=== PATIENT | female | born 1940 | race Asian ===

== ENCOUNTER 2016-10-14 17:57 | Emergency (ER) | payer OTHER ==
[~2016-10-14 17:57] MED LIST: AUGM875T PO; FURO1TAB62 PO; ISOS20TA PO; LISI10TA3 PO; LOVA10TA PO; METO25TA3 PO; OMEP20TA PO; POTA10TA2 PO; XARE20TA PO
[2016-10-14 18:03] VITALS: BP 228/99; PULSE 134; RESP 20; TEMP 97.3; O2SAT 99
== END 2016-10-14 19:13 | disposition left against medical advice (07) ==
LOC: NED 17:57
DX: J00 Acute nasopharyngitis [common cold] (principal); Z53.21 Procedure and treatment not carried out due to patient leaving prior to being seen by health care provider
CPT/HCPCS: 99281

== ENCOUNTER 2016-10-14 19:23 | Emergency (ER) | payer OTHER ==
[~2016-10-14] VITALS: Ht 149.9 cm; Wt 53.0 kg
[2016-10-14 19:25] VITALS: BP 208/96; PULSE 109; RESP 16; TEMP 98; O2SAT 97
--- NOTE | 2016-10-14 19:56 | PD ---
Physical Exam Time Seen by Provider: 19:54 Narrative 76yo F c/o cough, congestion since yesterday. Unknown fever. C/o SOB. C/o back pain since yesterday. Denies injury. Patient seen in triage. VS reviewed. Awaiting bed placement. Data Data Last Documented VS Vital Signs Date Time Temp Pulse Resp B/P Pulse Ox O2 Delivery O2 Flow Rate FiO2 10/14/16 19:25 98.0 109 16 208/96 97 Room Air [facility] Supervised Visit with KENTRELL: Anh Tejeda Oct 14, 2016 19:56
== END 2016-10-14 22:07 | disposition left against medical advice (07) ==
LOC: NED 19:23
DX: R05 Cough (principal); R09.81 Nasal congestion; M54.9 Dorsalgia, unspecified; Z53.21 Procedure and treatment not carried out due to patient leaving prior to being seen by health care provider
CPT/HCPCS: 99281

== ENCOUNTER 2016-10-15 08:26 | Inpatient (IN) | payer OTHER, MEDICARE ==
[2016-10-15] VITALS (20 sets, daily range): BP systolic 162–235; BP diastolic 71–116; PULSE 52–161; RESP 15–24; TEMP 97.7–99.4; O2SAT 95–99
[~2016-10-15] VITALS: Ht 149.9 cm; Wt 57.8 kg
[2016-10-15] MEDS ORDERED: DILTIAZEM HCL 25 MG/5 ML VIAL IV ONE (08:45)
[2016-10-15] MEDS ORDERED: SODIUM CHLORID 0.9% 500 ML INJ 500 ML IV ONE (08:45)
--- NOTE | 2016-10-15 08:53 | PD ---
HPI Chief Complaint: Respiratory Symptoms Time Seen by Provider: 08:42 Travel History International Travel<30 days: No Contact w/Intl Traveler<30days: No History of Present Illness HPI 76-year-old female notes 2 day history of cough, congestion and now has back pain from the cough. She denies any specific fever that she is aware of. She presents with her family who helps with history. They state she came yesterday but it was too busy so they had to leave. She denies any other concurrent complaints. Quality is productive cough. Severity is frequent per patient. She states she has not taken her blood pressure medication yet this morning. She feels worse when she moves around. She denies other modifying factors. Duration is 2 days. PFSH Past Medical History Narrative Medical By records Hx Anticoagulant Therapy: Yes Arthritis: Yes Asthma: No Atrial Fibrillation: Yes Autoimmune Disease: No Blood Disorders: No Anxiety: No Depression: No Heart Rhythm Problems: Yes (DIAGNOSED WITH ATRIAL FIBRILLATION 09/10/04) Cancer: No Cardiovascular Problems: Yes High Cholesterol: Yes Chemotherapy: No Chest Pain: No Congestive Heart Failure: No COPD: No Cerebrovascular Accident: No Diabetes: No Diminished Hearing: No Endocrine: Yes Gastrointestinal Disorders: No GERD: Yes Glaucoma: No Genitourinary: No Headaches: No Hepatitis: No Hiatal Hernia: No Hypertension: Yes Immune Disorder: No Implanted Vascular Access Dvce: No Kidney Stones: No Musculoskeletal: No Neurologic: No Psychiatric: Yes (TREATED 1966 NERVOUS BREAKDOWN) Reproductive: No Respiratory: No Immunizations Current: No Myocardial Infarction: No Radiation Therapy: No Renal Failure: No Seizures: No Sickle Cell Disease: No Sleep Apnea: No Thyroid Disease: Yes Ulcer: No Menopausal: Yes Para: 3 Past Surgical History Narrative Surgical By records Abdominal Surgery: Yes (APPENDIX 1941) AICD: No Appendectomy: Yes (1941) Cardiac Surgery: No Ear Surgery: No Endocrine Surgery: No Eye Surgery: No Genitourinary Surgery: No Gynecologic Surgery: Yes (HYSTERECTOMY) Hysterectomy: Yes Neurologic Surgery: No Oral Surgery: No Pacemaker: No Thoracic Surgery: No Other Surgery: Yes (APPENDECTOMY,HYSTERECTOMY) Social History Alcohol Use: No Tobacco Use: No Substance Use: No Allergies-Medications (Allergen,Severity, Reaction): Coded Allergies: No Known Allergies (Verified , 10/15/16) Reported Meds & Prescriptions Reported Meds & Active Scripts Active Reported Isosorbide Mononitrate 20 Mg Tab 30 Mg PO BID Take 2 doses 7 hours apart. Metoprolol Tartrate 25 Mg Tab 25 Mg PO DAILY Omeprazole 20 Mg Tab 20 Mg PO DAILY Xarelto (Rivaroxaban) 20 Mg Tab 20 Mg PO DAILY Potassium Chloride ER (Potassium Chloride) 10 Meq Tab 10 Meq PO DAILY Lasix (Furosemide) 20 Mg Tab 20 Mg PO DAILY Lisinopril 10 Mg Tab 10 Mg PO DAILY Lovastatin 10 Mg Tab 10 Mg PO DAILY Review of Systems Except as stated in HPI: all other systems reviewed are Neg Physical Exam Narrative GENERAL: Well-nourished, well-developed patient. SKIN: Warm and dry. HEAD: Normocephalic and atraumatic. EYES: No injection or drainage. ENT: No nasal drainage noted. NECK: Supple, trachea midline. no meningeal signs CARDIOVASCULAR: irregular rate and rhythm RESPIRATORY: Faint expiratory wheezing with good aeration bilaterally. No accessory muscle use. GASTROINTESTINAL: Abdomen soft, non-tender, nondistended. NEUROLOGICAL: Awake. Moves extremities. Normal speech. Data Data Last Documented VS Vital Signs Date Time Temp Pulse Resp B/P Pulse Ox O2 Delivery O2 Flow Rate FiO2 10/15/16 10:12 103 187/85 10/15/16 09:41 20 99 Nasal Cannula 2 10/15/16 08:28 97.7 Orders Electrocardiogram (10/15/16 08:42) Complete Blood Count With Diff (10/15/16 08:42) Comprehensive Metabolic Panel (10/15/16 08:42) Prothrombin Time / Inr (Pt) (10/15/16 08:42) Act Partial Throm Time (Ptt) (10/15/16 08:42) Lactic Acid Sepsis Protocol (10/15/16 08:42) Magnesium (Mg) (10/15/16 08:42) Phosphorus (Po4) (10/15/16 08:42) Ckmb (Isoenzyme) Profile (10/15/16 08:42) Troponin I (10/15/16 08:42) Urinalysis - C+S If Indicated (10/15/16 08:42) Influenzae A/B Antigen (10/15/16 08:42) Blood Culture (10/15/16 08:42) Chest, Single Ap (10/15/16 08:42) Ecg Monitoring (10/15/16 08:42) Iv Access Insert/Monitor (10/15/16 08:42) Oximetry (10/15/16 08:42) Diltiazem Inj (Cardizem Inj) (10/15/16 08:45) Sodium Chlorid 0.9% 500 Ml Inj (Ns 500 M (10/15/16 08:45) CKMB (10/15/16 08:35) CKMB% (10/15/16 08:35) Aspirin (Aspirin) (10/15/16 09:45) Diltiazem Inj (Cardizem Inj) (10/15/16 09:45) B-Type Natriuretic Peptide (10/15/16 09:37) Urine Culture (10/15/16 09:15) Consult Cardiology (10/15/16 ) Chest, Single Ap (10/15/16 ) Ceftriaxone Inj (Rocephin Inj) (10/15/16 10:45) Azithromycin Inj (Zithromax Inj) (10/15/16 10:45) Admit Order (Ed Use Only) (10/15/16 10:32) Labs Laboratory Tests Test 10/15/16 10/15/16 10/15/16 08:35 08:50 09:15 White Blood Count 6.6 TH/MM3 Red Blood Count 5.40 MIL/MM3 Hemoglobin 14.7 GM/DL Hematocrit 44.8 % Mean Corpuscular Volume 82.9 FL Mean Corpuscular Hemoglobin 27.2 PG Mean Corpuscular Hemoglobin 32.9 % Concent Red Cell Distribution Width 15.5 % Platelet Count 161 TH/MM3 Mean Platelet Volume 8.3 FL Neutrophils (%) (Auto) 80.9 % Lymphocytes (%) (Auto) 13.2 % Monocytes (%) (Auto) 5.5 % Eosinophils (%) (Auto) 0.1 % Basophils (%) (Auto) 0.3 % Neutrophils # (Auto) 5.3 TH/MM3 Lymphocytes # (Auto) 0.9 TH/MM3 Monocytes # (Auto) 0.4 TH/MM3 Eosinophils # (Auto) 0.0 TH/MM3 Basophils # (Auto) 0.0 TH/MM3 CBC Comment DIFF FINAL Differential Comment Prothrombin Time 11.0 SEC Prothromb Time International 1.0 RATIO Ratio Activated Partial 38.0 SEC Thromboplast Time Sodium Level 128 MEQ/L Potassium Level 5.0 MEQ/L Chloride Level 95 MEQ/L Carbon Dioxide Level 24.6 MEQ/L Anion Gap 8 MEQ/L Blood Urea Nitrogen 20 MG/DL Creatinine 1.48 MG/DL Estimat Glomerular Filtration 34 ML/MIN Rate Random Glucose 118 MG/DL Calcium Level 9.2 MG/DL Phosphorus Level 3.7 MG/DL Magnesium Level 1.8 MG/DL Total Bilirubin 0.7 MG/DL Aspartate Amino Transf 58 U/L (AST/SGOT) Alanine Aminotransferase 23 U/L (ALT/SGPT) Alkaline Phosphatase 73 U/L Total Creatine Kinase 214 U/L Creatine Kinase MB 14.2 NG/ML Creatine Kinase MB % 6.6 % Troponin I 1.10 NG/ML B-Type Natriuretic Peptide 1247 PG/ML Total Protein 8.9 GM/DL Albumin 3.7 GM/DL Lactic Acid Level 2.1 mmol/L Urine Color YELLOW Urine Turbidity HAZY Urine pH 6.5 Urine Specific [place] 1.017 Urine Protein GREATER THAN 600 mg/dL Urine Glucose (UA) NEG mg/dL Urine Ketones TRACE mg/dL Urine Occult Blood MOD Urine Nitrite NEG Urine Bilirubin NEG Urine Urobilinogen LESS THAN 2.0 MG/DL Urine Leukocyte Esterase NEG Urine RBC 3 /hpf Urine WBC 2 /hpf Urine Squamous Epithelial <1 /hpf Cells Urine Bacteria RARE /hpf Urine Hyaline Casts 5 /lpf Microscopic Urinalysis Comment CATH-CULTURE IND MDM Medical Decision Making Medical Screen Exam Complete: Yes Emergency Medical Condition: Yes Medical Record Reviewed: Yes (past history confirmed) Interpretation(s) EKG is atrial fibrillation at [address] segment changes similar to prior except for V5 which is difficult to interpret with wandering baseline Last 24 hours Impressions Chest X-Ray 10/15/16 0842 Signed Impressions: Service Date/Time: Saturday, October 15, 2016 08:59 - CONCLUSION: 1. Partially obscured nodular opacity in the right lower lobe likely reflects a nipple shadow. This can be further evaluated with repeat imaging utilizing nipple markers as clinically warranted. 2. Cardiomegaly with mild positive fluid balance. Sarthak Floyd MD CBC & BMP Diagram 10/15/16 08:35 Troponin elevated 1.1, CK-MB noted elevated Repeat EKG with rate control shows atrial fibrillation at 90, T wave inversion inferiorly and laterally, mild elevation in V3 V4 Differential Diagnosis Pneumonia, URI, CHF, hypertensive urgency, atrial fibrillation with RVR, renal failure, anemia Narrative Course Will check blood work, chest x-ray, EKG and dose with Cardizem and small IV fluid bolus and reevaluate hr in 90s, bp improved, still notes SOA on recheck hr rate back in 120s and bp again elevated, troponin over 1, will start cardizem drip for rate and bp control and 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 Time to perform other separately billable procedures was not included in the critical care time. My time did not include minutes spent treating any other patients simultaneously or on activities that did not directly contribute to the patient's treatment. The services I provided to this patient were to treat and/or prevent clinically significant deterioration that could result in: Cardiogenic shock I provided critical care services requiring my management, as noted below: Chart data review, documentation time, medication orders and management, vital sign assessments/reviewing monitor data, ordering and reviewing lab tests, ordering and interpreting/reviewing x-rays and diagnostic studies, care of the patient and discussion of the patient with the admitting physicians. Physician Communication Physician Communication Dr. Enrique states given on Xarelto to not place on heparin, continue blood pressure rate control, keep nothing by mouth, will follow, reviewed recent cath report in 2014 dr ovalle agrees to admission and discussed case at length, will place first orders of Rocephin and azithromycin and he will take over care Diagnosis Primary Impression: NSTEMI (non-ST elevated myocardial infarction) Additional Impressions: Atrial fibrillation with RVR Accelerated hypertension Acute on chronic renal insufficiency Admitting Information Admitting Physician Requests: Admit Peyton Giles MD Oct 15, 2016 08:52
[2016-10-15 09:12] LABS: AUTOMATED NEUTROPHIL # 5.3 TH/MM3 (1.8-7.7); BASOPHIL % 0.3 % (0.0-2.0); EOSINOPHIL % 0.1 % (0.0-4.0); HEMATOCRIT 44.8 % (35.0-46.0); HEMO FLAGS DIFF FINAL; LYMPH % 13.2 % (9.0-44.0); LYMPHOCYTE # 0.9 TH/MM3 (1.0-4.8); MEAN CELL VOLUME 82.9 FL (80.0-100.0); MEAN CORPUSCULAR HEMOGLOBIN 27.2 PG (27.0-34.0); MEAN CORPUSCULAR HGB CONC 32.9 % (32.0-36.0); MONO % 5.5 % (0.0-8.0); NEUT % 80.9 % (16.0-70.0); PLATELET COUNT 161 TH/MM3 (150-450); RED CELL DISTRIBUTION WIDTH 15.5 % (11.6-17.2); WHITE BLOOD COUNT 6.6 TH/MM3 (4.0-11.0)
[2016-10-15 09:25] LABS: ALKALINE PHOSPHATASE 73 U/L (45-117); ALT (GPT) 23 U/L (10-53); ANION GAP 8 MEQ/L (5-15); BICARBONATE 24.6 MEQ/L (21.0-32.0); BLOOD UREA NITROGEN 20 MG/DL (7-18); CHLORIDE 95 MEQ/L (98-107); GLOMERULAR FILTRATION RATE 34 ML/MIN (>89); SODIUM (NA) 128 MEQ/L (136-145); TOTAL BILIRUBIN ADULT 0.7 MG/DL (0.2-1.0)
[2016-10-15 09:32] LABS: AST (GOT) 58 U/L (15-37); CREATINE KINASE 214 U/L (26-192); MAGNESIUM 1.8 MG/DL (1.5-2.5)
--- NOTE | 2016-10-15 09:36 | RADRPT ---
EXAM DATE/TIME: 10/15/2016 08:59 [facility] COMPARISON: CT ABDOMEN & PELVIS W/O CONTRAST, April 03, 2016, 7:41. CHEST SINGLE AP, August 16, 2015, 14:09. INDICATIONS : Cough. MEDICAL HISTORY : Cardiovascular disease. Hypertension. SURGICAL HISTORY : Hysterectomy. Appendectomy. ENCOUNTER: Initial ACUITY: 2 days PAIN SCORE: 0/10 LOCATION: Bilateral chest FINDINGS: Lungs are mildly hyperexpanded with mild diffuse interstitial prominence. New focal partially obscure d opacity in the right lower lung zone likely reflects a nipple shadow. Cardiac silhouette is enlarge d. Pulmonary vascularity is slightly indistinct. The bony thorax is intact. CONCLUSION: 1. Partially obscured nodular opacity in the right lower lobe likely reflects a nipple shadow. This c an be further evaluated with repeat imaging utilizing nipple markers as clinically warranted. 2. Cardiomegaly with mild positive fluid balance. Sarthak Floyd MD on October 15, 2016 at 9:31 Board Certified Radiologist. This report was verified electronically.
[2016-10-15 09:45] LABS: CKMB 14.2 NG/ML (0.5-3.6)
[2016-10-15] MEDS ORDERED: ASPIRIN 325 MG TAB PO ONE (09:45)
[2016-10-15 09:47] LABS: BACTERIA, URINE RARE /hpf; BLOOD, URINE MOD (NEG); COMMENT (UR) CATH-CULTURE IND; CULTURE IF INDICATED CATH CULTURE IND; GLUCOSE,URINE NEG (NEG); HYALINE CAST, URINE 5 /lpf (RARE); KETONE, URINE TRACE mg/dL (NEG); NITRITE,URINE NEG (NEG); PH, URINE 6.5 (5.0-8.5); SQUAMOUS EPITHELIAL CELL URINE <1 /hpf (0-5); URINE COLOR YELLOW (YELLW/STRAW)
[2016-10-15] MEDS: DILTIAZEM INJ 125 MG in SODIUM CHLORIDE 0.9% INJ 100 ML IV SCH ×2 (10:10→11:01)
[2016-10-15] MEDS ORDERED: AZITHROMYCIN INJ 500 MG in SODIUM CHLOR 0.9% 250 ML INJ 250 ML IV ONE (10:45)
[2016-10-15] MEDS ORDERED: cefTRIAXone INJ 1,000 MG in SODIUM CHLORIDE 0.9% INJ 100 ML IV ONE (10:45)
[2016-10-15] MEDS ORDERED: MAGNESIUM HYDROXIDE SUSP 30 ML CUP PO PRN (10:45)
[2016-10-15] MEDS ORDERED: BISACODYL 10 MG SUPP RECTAL PRN (10:45)
[2016-10-15] MEDS ORDERED: SENNOSIDES 8.6 MG TAB PO PRN (10:45)
[2016-10-15] MEDS ORDERED: LACTULOSE SYRUP 20 GM/30 ML CUP PO PRN (10:45)
[2016-10-15] MEDS ORDERED: SODIUM CHLORIDE 0.9% FLUSH 10 ML FLUSH IV FLUSH PRN (10:45)
[2016-10-15] MEDS: ISOSORBIDE MONONITRATE 20 MG TAB PO SCH ×2 (10:45→21:40)
[2016-10-15] MEDS ORDERED: NALOXONE HCL 0.4 MG/ML AMP IV PRN (10:45)
[2016-10-15] MEDS ORDERED: FUROSEMIDE 20 MG TAB PO ONE (11:00)
[2016-10-15] MEDS ORDERED: METOPROLOL TARTRATE 25 MG TAB PO ONE (11:00)
--- NOTE | 2016-10-15 11:17 | RADRPT ---
EXAM DATE/TIME: 10/15/2016 10:34 [facility] COMPARISON: CHEST SINGLE AP, October 15, 2016, 8:59. INDICATIONS : Cough. MEDICAL HISTORY : Hypertension. Hypercholesterolemia. SURGICAL HISTORY : Appendectomy. Hysterectomy. ENCOUNTER: Initial ACUITY: 1 day PAIN SCORE: 0/10 LOCATION: Bilateral chest FINDINGS: The heart is enlarged. Minimal central pulmonary vascular congestion is noted. No focal alveolar co nsolidation is noted. Degenerative changes and scoliosis of the thoracic spine are noted. CONCLUSION: 1. Cardiomegaly. 2. Minimal central pulmonary vascular congestion. Javi Taylor MD on October 15, 2016 at 11:03 Board Certified Radiologist. This report was verified electronically.
[2016-10-15 12:06] LABS: LACTIC ACID GHOST NOT REPORTABLE
[2016-10-15] MEDS: hydrALAZINE HCL 25 MG TAB PO SCH ×2 (15:15→21:35)
[2016-10-15] MEDS ORDERED: ASPIRIN 325 MG TAB PO SCH (15:45)
[2016-10-15] MEDS ORDERED: DIAZEPAM 10 MG TAB PO SCH (15:45)
[2016-10-15] MEDS ORDERED: diphenhydrAMINE HCL 50 MG CAP PO SCH (15:45)
[2016-10-15] MEDS ORDERED: FUROSEMIDE 40 MG/4 ML VIAL IV PUSH ONE (16:00)
[2016-10-15] MEDS ORDERED: THIAMINE HCL 100 MG TAB PO ONE (16:00)
--- NOTE | 2016-10-15 17:17 | EKG ---
Date Performed: 10/15/2016 Time Performed: 08:37:33 PTAGE: 76 years EKG: ATRIAL FIBRILLATION WITH RAPID VENTRICULAR RESPONSE MODERATE VOLTAGE CRITERIA FOR LVH, CONS IDER NORMAL VARIANT POSSIBLE SEPTAL MYOCARDIAL INFARCTION ST DEVIATION AND MODERATE T-WAVE ABNORMALIT Y, CONSIDER LATERAL ISCHEMIA ST DEVIATION AND MODERATE T-WAVE ABNORMALITY, CONSIDER INFERIOR ISCHEMIA ABNORMAL ECG PREVIOUS TRACING 08/17/15 @ 03.34.18 Compared to prior tracing no significant change DOCTOR: Bhavik Riggins Interpretating Date/Time 10/15/2016 17:14:50
--- NOTE | 2016-10-15 20:19 | MB ---
cc: KIMI SALOMON MD DATE OF CONSULTATION 10/15/16 REASON FOR CONSULTATION Abnormal cardiac enzymes. HISTORY OF PRESENT ILLNESS The patient is a fairly poor historian. She is a 76-year-old white female with a history of coronary artery disease, chronic atrial fibrillation, hypertension, chronic renal insufficiency, COPD, CVA who presented to the emergency room mainly with complaints of increasing shortness of breath, nonproductive cough and congestion. She cannot recall if she had any definite chest pain, although she may have felt some pressure in her chest in the last couple of days. Since coming into the hospital, her dyspnea has minimally improved. At night, she has had trouble with orthopnea and occasional paroxysmal nocturnal dyspnea. She denies syncope, near-syncope, lightheadedness, pedal edema, fevers. Cardiac enzymes were checked here in the hospital and found to be abnormal. PAST MEDICAL HISTORY 1. Chronic atrial fibrillation. 2. Coronary artery disease with heart catheterization 08/19/2013 after a non-ST elevation myocardial infarction showing normal left main, minimal LAD and left circumflex disease, 70-80% distal right coronary artery stenosis which was treated medically. 3. Hypertension 4. Chronic renal insufficiency. 5. Chronic obstructive pulmonary disease 6. 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 7. Gastroesophageal reflux disease. 8. Hyperlipidemia. PAST SURGICAL HISTORY 1. Appendectomy 2. Hysterectomy. MEDICATIONS Cardiac medications at home 1. Lovastatin 10 mg daily. 2. Lisinopril 10 mg daily. 3. Furosemide 20 mg daily 4. Xarelto 20 mg daily. 5. Metoprolol tartrate 25 mg daily. 6. Potassium chloride 10 Anish daily. 7. Isosorbide mononitrate 30 mg b.i.d. ALLERGIES NO KNOWN DRUG ALLERGIES. FAMILY HISTORY Noncontributory. SOCIAL HISTORY The patient denies alcohol or tobacco abuse. REVIEW OF SYSTEMS As in the history of present illness, otherwise, negative or noncontributory. She also denies headache, melena, dyspepsia, bright red blood per rectum. PHYSICAL EXAMINATION VITAL SIGNS: Blood pressure 162/75 with a pulse of 81, respirations 24. GENERAL: She is a well-developed, well-nourished white female in no acute distress. HEENT: Jugular venous pressure is normal. Carotid pulses are 2+ bilaterally and without bruits. CHEST: Unlabored respiratory effort with markedly diminished breath sounds diffusely. CARDIAC: She has an irregularly irregular rhythm without S3 or murmur. ABDOMEN: She has a soft, nontender abdomen. Bowel sounds are present. There is no definite hepatosplenomegaly. EXTREMITIES: No clubbing, cyanosis or edema. LABORATORY DATA Normal CBC, potassium 5.0, BUN 20, creatinine 1.48, CK 214 with 6.6% MB fraction. Troponin 1.10, INR 1.0. IMAGING STUDIES Chest x-ray shows minimal central pulmonary vascular congestion. CARDIOLOGY STUDIES EKG shows atrial fibrillation with a rapid ventricular response, inferolateral ST and T-wave abnormalities, consider ischemia. IMPRESSION Probable non-ST elevation myocardial infarction in a 76-year-old white female with a history of known coronary disease, chronic atrial fibrillation, hypertension, chronic renal insufficiency, CVA, COPD. The patient is a fairly poor historian. She denies any current chest discomfort. She mainly complains of dyspnea over the last [id number] days. CK and troponin levels are suggestive of recent myocardial infarction. She does have known severe distal right coronary disease which was treated medically about three years ago. There is no definite evidence of congestive heart failure. Echocardiogram is pending. RECOMMENDATIONS 1. Cardiac catheterization tomorrow. 2. Continue her beta rafael and increase dosing as much as tolerated; hold off on ANTHONY inhibitor or angiotensin receptor rafael therapy with her renal insufficiency. 3. Continue daily aspirin. MD ADINA Celaya/ /3:34 PM /8:11 PM JANAE
[2016-10-15] MEDS ORDERED: METOPROLOL TARTRATE 25 MG TAB PO SCH ×2 (21:00)
[2016-10-15] MEDS: DOCUSATE SODIUM 50 MG/SENNA 8.6 MG TAB PO SCH (21:35)
[2016-10-15] MEDS: SODIUM CHLORIDE 0.9% FLUSH 10 ML FLUSH IV FLUSH SCH (21:39)
[2016-10-15 22:17] LABS: FREE T4 1.47 NG/DL (0.76-1.46)
--- NOTE | 2016-10-15 23:34 | HHI.HP ---
[facility] Service [facility] Primary Care Physician Natalio Saavedra MD Admission Diagnosis NSTEMI Diagnoses: Travel History International Travel<30 Days: No Contact w/Intl Traveler <30 Da: No History of Present Illness 76-year-old female with history of atrial fibrillation, who presents with a one- day history of worsening shortness of breath, nonproductive cough. She denies any sore throat, does say she may have had a runny nose. She also reports shortness of breath lying down. Denies any lightheadedness or dizziness. No peripheral edema. She denies any chest pain. Patient is uncertain of her medications. She says she manages her own medications. Past medical history reviewed in the chart as documented in with the patient. Review of Systems Except as stated in HPI: all other systems reviewed are Neg Past Family Social History Past Medical History Chronic atrial fibrillation Coronary artery disease Hypertension CKD COPD Hyperlipidemia GERD Left parietal occipital CVA Past Surgical History Hysterectomy Appendectomy Reported Medications Reported Meds & Active Scripts Active Reported Isosorbide Mononitrate 20 Mg Tab 30 Mg PO BID Take 2 doses 7 hours apart. Metoprolol Tartrate 25 Mg Tab 25 Mg PO DAILY Omeprazole 20 Mg Tab 20 Mg PO DAILY Xarelto (Rivaroxaban) 20 Mg Tab 20 Mg PO DAILY Potassium Chloride ER (Potassium Chloride) 10 Meq Tab 10 Meq PO DAILY Lasix (Furosemide) 20 Mg Tab 20 Mg PO DAILY Lisinopril 10 Mg Tab 10 Mg PO DAILY Lovastatin 10 Mg Tab 10 Mg PO DAILY Allergies: Coded Allergies: No Known Allergies (Verified , 10/15/16) Family History Reviewed with the patient and found to be currently noncontributory. Social History Nonsmoker. Nondrinker. Denies illicit drugs. Physical Exam Vital Signs Vital Signs Date Time Temp Pulse Resp B/P Pulse Ox O2 Delivery O2 Flow Rate FiO2 10/15/16 17:39 95 Nasal Cannula 2.00 10/15/16 17:35 98.7 64 22 169/71 96 10/15/16 17:00 52 10/15/16 15:00 82 10/15/16 14:00 80 10/15/16 13:25 98.8 81 24 162/75 97 10/15/16 12:25 86 18 179/77 99 Nasal Cannula 2 10/15/16 12:00 80 169/81 10/15/16 11:00 92 15 174/76 99 Nasal Cannula 2 10/15/16 10:12 103 187/85 10/15/16 09:45 199/99 10/15/16 09:41 107 20 204/116 99 Nasal Cannula 2 10/15/16 09:15 125 24 99 Nasal Cannula 10/15/16 09:15 130 18 192/100 99 Nasal Cannula 2 10/15/16 09:00 235/103 195/74 10/15/16 08:30 155 24 190/100 99 Nasal Cannula 2 10/15/16 08:28 97.7 161 20 194/115 96 Physical Exam GENERAL: This is a well-nourished, well-developed patient, appears fatigued. Alert and oriented 3. SKIN: No rashes, ecchymoses or lesions. Cool and dry. HEAD: Atraumatic. Normocephalic. No temporal or scalp tenderness. EYES: Pupils equal round and reactive. Extraocular motions intact. No scleral icterus. No injection or drainage. ENT: Nose without bleeding, purulent drainage or septal hematoma. Throat without erythema, tonsillar hypertrophy or exudate. Uvula midline. Airway patent. NECK: Trachea midline. No JVD or lymphadenopathy. Supple, nontender, no meningeal signs. CARDIOVASCULAR: Regular rate and rhythm without murmurs, gallops, or rubs. RESPIRATORY: Clear to auscultation. rales bilaterally. GASTROINTESTINAL: Abdomen soft, non-tender, nondistended. No hepato-splenomegaly , or palpable masses. No guarding. MUSCULOSKELETAL: Extremities without clubbing, cyanosis, or edema. No joint tenderness, effusion, or edema noted. No calf tenderness. Negative Homans sign bilaterally. NEUROLOGICAL: Awake and alert. Cranial nerves II through XII intact. Motor and sensory grossly within normal limits. Five out of 5 muscle strength in all muscle groups. Normal speech. Laboratory Laboratory Tests Test 10/15/16 10/15/16 10/15/16 10/15/16 08:35 08:50 09:15 12:04 White Blood Count 6.6 Red Blood Count 5.40 Hemoglobin 14.7 Hematocrit 44.8 Mean Corpuscular Volume 82.9 Mean Corpuscular Hemoglobin 27.2 Mean Corpuscular Hemoglobin 32.9 Concent Red Cell Distribution Width 15.5 Platelet Count 161 Mean Platelet Volume 8.3 Neutrophils (%) (Auto) 80.9 Lymphocytes (%) (Auto) 13.2 Monocytes (%) (Auto) 5.5 Eosinophils (%) (Auto) 0.1 Basophils (%) (Auto) 0.3 Neutrophils # (Auto) 5.3 Lymphocytes # (Auto) 0.9 Monocytes # (Auto) 0.4 Eosinophils # (Auto) 0.0 Basophils # (Auto) 0.0 CBC Comment DIFF FINAL Differential Comment Prothrombin Time 11.0 Prothromb Time International 1.0 Ratio Activated Partial 38.0 Thromboplast Time Sodium Level 128 Potassium Level 5.0 Chloride Level 95 Carbon Dioxide Level 24.6 Anion Gap 8 Blood Urea Nitrogen 20 Creatinine 1.48 Estimat Glomerular Filtration 34 Rate Random Glucose 118 Calcium Level 9.2 Phosphorus Level 3.7 Magnesium Level 1.8 Total Bilirubin 0.7 Aspartate Amino Transf 58 (AST/SGOT) Alanine Aminotransferase 23 (ALT/SGPT) Alkaline Phosphatase 73 Total Creatine Kinase 214 Creatine Kinase MB 14.2 Creatine Kinase MB % 6.6 Troponin I 1.10 1.05 B-Type Natriuretic Peptide 1247 Total Protein 8.9 Albumin 3.7 Lactic Acid Level 2.1 Urine Color YELLOW Urine Turbidity HAZY Urine pH 6.5 Urine Specific [place] 1.017 Urine Protein GREATER THAN 600 Urine Glucose (UA) NEG Urine Ketones TRACE Urine Occult Blood MOD Urine Nitrite NEG Urine Bilirubin NEG Urine Urobilinogen LESS THAN 2.0 Urine Leukocyte Esterase NEG Urine RBC 3 Urine WBC 2 Urine Squamous Epithelial <1 Cells Urine Bacteria RARE Urine Hyaline Casts 5 Microscopic Urinalysis Comment CATH-CULTURE IND Total Triiodothyronine 63 Test 10/15/16 10/15/16 13:49 21:26 Lactic Acid Level 2.7 Troponin I 0.99 Free Thyroxine 1.47 Thyroid Stimulating Hormone 0.338 3rd Gen Date/Time Procedure Status Source Growth 10/15/16 09:25 Aerobic Blood Culture Received Blood Peripheral Pending 10/15/16 09:25 Anaerobic Blood Culture Received Blood Peripheral Pending 10/15/16 09:15 Urine Culture Received Urine Catheterized Urine Pending 10/15/16 09:10 Influenza Types A,B Antigen (RYAN) - Final Complete Nasal Aspirate NEGATIVE FOR FLU A AND B ANTIGEN.... Result Diagram: 10/15/1635 10/15/1635 Assessment and Plan Assessment and Plan //Non-ST elevation [place]. //CHF acute exacerbation. //History of CAD -Troponin 1.2 on admission, trending down. BNP 1200. -Chest x-ray with pulmonary edema. -Aspirin, beta rafael to control heart rate. Continue nitrates. Diuresis, close monitoring of intake and output. Cardiology following. Appreciate assistance. Plan for catheter tomorrow morning //Lactic acidosis -Lactic acid 2.7. -Unlikely secondary to sepsis.likely secondary to CHF exacerbation. -We'll continue to monitor. //Possible upper respiratory infection -chest x-ray or reviewed,. appears to be pulmonary edema, however cannot rule out atypical pneumonia. Symptoms seem to be related to CHF, however prudent to continue Levaquin //Hypervolemic Hyponatremia. Sodium 128. Likely secondary to CHF. Expect to improve with diuresis. //atrial fibrillation with RVR heart rate 161 on admission.. Heart rate control with beta rafael. Hold Xarelto per cardiology. //Hypertensive urgency. Systolic blood pressure in the 230s on admission. Expect this is secondary to poor compliance with medication. Adjust blood pressure medications as necessary. Close monitoring //GERD. Chronic. Continue PPI //Prophylaxis. SCDs. Discussed Condition With patient, nurse, ED physician. Physician Certification 2 Midnight Certification Type: Admission for Inpatient Services Order for Inpatient Services The services are ordered in accordance with Medicare regulations or non- Medicare payer requirements, as applicable. In the case of services not specified as inpatient-only, they are appropriately provided as inpatient services in accordance with the 2-midnight benchmark. Estimated LOS (days): 3 days is the estimated time the patient will need to remain in the hospital, assuming treatment plan goals are met and no additional complications. Post-Hospital Plan: Not yet determined Jhon Winston MD Oct 15, 2016 23:34
[2016-10-16] VITALS (22 sets, daily range): BP systolic 121–158; BP diastolic 62–90; PULSE 74–97; RESP 16–20; TEMP 97.4–98.8; O2SAT 95–99
[2016-10-16] MEDS: SODIUM CHLOR 0.9% 1000 ML INJ 1,000 ML IV SCH ×3 (01:34→11:34)
[2016-10-16] MEDS: hydrALAZINE HCL 25 MG TAB PO SCH ×3 (06:07→21:52)
[2016-10-16 06:36] LABS: AUTOMATED NEUTROPHIL # 5.7 TH/MM3 (1.8-7.7); BASOPHIL % 0.2 % (0.0-2.0); HEMATOCRIT 40.4 % (35.0-46.0); HEMO FLAGS DIFF FINAL; LYMPH % 14.8 % (9.0-44.0); LYMPHOCYTE # 1.1 TH/MM3 (1.0-4.8); MEAN CELL VOLUME 81.9 FL (80.0-100.0); MEAN CORPUSCULAR HEMOGLOBIN 27.3 PG (27.0-34.0); MEAN CORPUSCULAR HGB CONC 33.3 % (32.0-36.0); MONO % 7.3 % (0.0-8.0); NEUT % 77.7 % (16.0-70.0); PLATELET COUNT 133 TH/MM3 (150-450); RED BLOOD COUNT 4.93 MIL/MM3 (4.00-5.30); RED CELL DISTRIBUTION WIDTH 15.3 % (11.6-17.2); WHITE BLOOD COUNT 7.3 TH/MM3 (4.0-11.0)
[2016-10-16 07:04] LABS: BICARBONATE 25.9 MEQ/L (21.0-32.0); POTASSIUM 3.8 MEQ/L (3.5-5.1)
--- NOTE | 2016-10-16 08:16 | PD.CARD.PN ---
Subjective Subjective Remarks No CP. Dyspnea gradually improving. No dizziness, palpitations. Objective Medications Item Value Date Time Furosemide 20 mg 10/16/16 0900 (Lasix) DAILY/PO Aspirin 81 mg 10/16/16 0900 (Ecotrin Ec) DAILY/PO Metoprolol 50 mg 10/15/16 2100 Tartrate Q12HR/PO 10/15/16 2136 (Lopressor) Isosorbide 30 mg 10/15/16 1045 Mononitrate BID/PO 10/15/16 2140 (Ismo) Vital Signs / I&O Vital Signs Date Time Temp Pulse Resp B/P Pulse Ox O2 Delivery O2 Flow Rate FiO2 10/16/16 06:00 74 10/16/16 05:00 78 10/16/16 04:00 98.8 83 20 158/90 98 10/16/16 04:00 79 10/16/16 03:00 78 10/16/16 02:00 78 10/16/16 01:00 76 10/16/16 00:00 97.4 80 20 145/75 97 10/16/16 00:00 78 10/15/16 23:00 72 10/15/16 22:00 86 10/15/16 21:00 76 10/15/16 20:00 74 10/15/16 20:00 99.4 80 20 170/78 97 10/15/16 17:39 95 Nasal Cannula 2.00 10/15/16 17:35 98.7 64 22 169/71 96 10/15/16 17:00 52 10/15/16 15:00 82 10/15/16 14:00 80 10/15/16 13:25 98.8 81 24 162/75 97 10/15/16 12:25 86 18 179/77 99 Nasal Cannula 2 10/15/16 12:00 80 169/81 10/15/16 11:00 92 15 174/76 99 Nasal Cannula 2 10/15/16 10:12 103 187/85 10/15/16 09:45 199/99 10/15/16 09:41 107 20 204/116 99 Nasal Cannula 2 10/15/16 09:15 125 24 99 Nasal Cannula 10/15/16 09:15 130 18 192/100 99 Nasal Cannula 2 10/15/16 09:00 235/103 195/74 10/15/16 08:30 155 24 190/100 99 Nasal Cannula 2 10/15/16 08:28 97.7 161 20 194/115 96 I/O 10/15/16 10/15/16 10/15/16 10/16/16 10/16/16 10/16/16 07:00 15:00 23:00 07:00 15:00 23:00 Intake Total 467 ml Output Total 2325 ml Balance -1858 ml Intake IV Total 467 ml Output Urine Total 2325 ml Physical Exam GENERAL: Well developed, well nourished. No acute distress. HEENT: Jugular venous pressure is normal. CHEST: Diminished breath sounds diffusely. Few scattered rhonchi. CARDIAC: Irregular rate and rhythm without S3, S4, or murmur. ABDOMEN: Soft, nontender, no hepatosplenomegaly. Bowel sounds present. EXTREMITIES: No clubbing, cyanosis, or edema. Laboratory Laboratory Tests Test 10/15/16 10/15/16 10/15/16 10/15/16 08:35 08:50 09:15 12:04 White Blood Count 6.6 TH/MM3 Red Blood Count 5.40 MIL/MM3 Hemoglobin 14.7 GM/DL Hematocrit 44.8 % Mean Corpuscular Volume 82.9 FL Mean Corpuscular Hemoglobin 27.2 PG Mean Corpuscular Hemoglobin 32.9 % Concent Red Cell Distribution Width 15.5 % Platelet Count 161 TH/MM3 Mean Platelet Volume 8.3 FL Neutrophils (%) (Auto) 80.9 % Lymphocytes (%) (Auto) 13.2 % Monocytes (%) (Auto) 5.5 % Eosinophils (%) (Auto) 0.1 % Basophils (%) (Auto) 0.3 % Neutrophils # (Auto) 5.3 TH/MM3 Lymphocytes # (Auto) 0.9 TH/MM3 Monocytes # (Auto) 0.4 TH/MM3 Eosinophils # (Auto) 0.0 TH/MM3 Basophils # (Auto) 0.0 TH/MM3 CBC Comment DIFF FINAL Differential Comment Prothrombin Time 11.0 SEC Prothromb Time International 1.0 RATIO Ratio Activated Partial 38.0 SEC Thromboplast Time Sodium Level 128 MEQ/L Potassium Level 5.0 MEQ/L Chloride Level 95 MEQ/L Carbon Dioxide Level 24.6 MEQ/L Anion Gap 8 MEQ/L Blood Urea Nitrogen 20 MG/DL Creatinine 1.48 MG/DL Estimat Glomerular Filtration 34 ML/MIN Rate Random Glucose 118 MG/DL Calcium Level 9.2 MG/DL Phosphorus Level 3.7 MG/DL Magnesium Level 1.8 MG/DL Total Bilirubin 0.7 MG/DL Aspartate Amino Transf 58 U/L (AST/SGOT) Alanine Aminotransferase 23 U/L (ALT/SGPT) Alkaline Phosphatase 73 U/L Total Creatine Kinase 214 U/L Creatine Kinase MB 14.2 NG/ML Creatine Kinase MB % 6.6 % Troponin I 1.10 NG/ML 1.05 NG/ML B-Type Natriuretic Peptide 1247 PG/ML Total Protein 8.9 GM/DL Albumin 3.7 GM/DL Lactic Acid Level 2.1 mmol/L Urine Color YELLOW Urine Turbidity HAZY Urine pH 6.5 Urine Specific [place] 1.017 Urine Protein GREATER THAN 600 mg/dL Urine Glucose (UA) NEG mg/dL Urine Ketones TRACE mg/dL Urine Occult Blood MOD Urine Nitrite NEG Urine Bilirubin NEG Urine Urobilinogen LESS THAN 2.0 MG/DL Urine Leukocyte Esterase NEG Urine RBC 3 /hpf Urine WBC 2 /hpf Urine Squamous Epithelial <1 /hpf Cells Urine Bacteria RARE /hpf Urine Hyaline Casts 5 /lpf Microscopic Urinalysis Comment CATH-CULTURE IND Total Triiodothyronine 63 NG/DL Test 10/15/16 10/15/16 10/16/16 13:49 21:26 06:09 Lactic Acid Level 2.7 mmol/L 1.5 mmol/L Troponin I 0.99 NG/ML Free Thyroxine 1.47 NG/DL Thyroid Stimulating Hormone 0.338 uIU/ML 3rd Gen White Blood Count 7.3 TH/MM3 Red Blood Count 4.93 MIL/MM3 Hemoglobin 13.4 GM/DL Hematocrit 40.4 % Mean Corpuscular Volume 81.9 FL Mean Corpuscular Hemoglobin 27.3 PG Mean Corpuscular Hemoglobin 33.3 % Concent Red Cell Distribution Width 15.3 % Platelet Count 133 TH/MM3 Mean Platelet Volume 7.8 FL Neutrophils (%) (Auto) 77.7 % Lymphocytes (%) (Auto) 14.8 % Monocytes (%) (Auto) 7.3 % Eosinophils (%) (Auto) 0.0 % Basophils (%) (Auto) 0.2 % Neutrophils # (Auto) 5.7 TH/MM3 Lymphocytes # (Auto) 1.1 TH/MM3 Monocytes # (Auto) 0.5 TH/MM3 Eosinophils # (Auto) 0.0 TH/MM3 Basophils # (Auto) 0.0 TH/MM3 CBC Comment DIFF FINAL Differential Comment Sodium Level 132 MEQ/L Potassium Level 3.8 MEQ/L Chloride Level 95 MEQ/L Carbon Dioxide Level 25.9 MEQ/L Anion Gap 11 MEQ/L Blood Urea Nitrogen 26 MG/DL Creatinine 1.38 MG/DL Estimat Glomerular Filtration 37 ML/MIN Rate Random Glucose 97 MG/DL Calcium Level 9.0 MG/DL Assessment and Plan Problem List: (1) CAD (coronary artery disease) Assessment and Plan: Status post probable NSTEMI. Stable overnight. No definite CP's. Dyspnea improving. For cath today. Continue beta rafael, aspirin. No ANTHONY-I or ARB with her renal insufficiency. (2) Chronic atrial fibrillation Assessment and Plan: Stable overnight. No HR control issues. If coronary stent placed today, will consider enrolling patient in research protocol studying different antiplatelet/anticoagulation therapy regimens in patient's s/ p PCI with atrial fib. (3) Hypertension Assessment and Plan: Overall suboptimal BP's. Increase metoprolol dosing. (4) Hyperlipidemia Assessment and Plan: Check lipid profile in morning. Code Status full code Discussed Condition With patient Problem Qualifiers (1) Hypertension: Qualified Code: I10 - Essential hypertension (2) Hyperlipidemia: Qualified Code: E78.5 - Hyperlipidemia, unspecified hyperlipidemia type Dakota Andino MD Oct 16, 2016 08:16
[2016-10-16] MEDS: LEVOFLOXACIN 500 MG TAB PO SCH (08:44)
[2016-10-16] MEDS: METOPROLOL TARTRATE 100 MG TAB PO SCH ×2 (08:44→21:53)
[2016-10-16] MEDS: FUROSEMIDE 20 MG TAB PO SCH (08:45)
[2016-10-16] MEDS: ASPIRIN EC 81 MG TABEC PO SCH (08:45)
[2016-10-16] MEDS: DOCUSATE SODIUM 50 MG/SENNA 8.6 MG TAB PO SCH ×2 (08:45→21:53)
[2016-10-16] MEDS: PANTOPRAZOLE SOD 20 MG DELAYED RELEASE TAB PO SCH (08:45)
[2016-10-16] MEDS: ISOSORBIDE MONONITRATE 20 MG TAB PO SCH (08:47)
[2016-10-16] MEDS: SODIUM CHLORIDE 0.9% FLUSH 10 ML FLUSH IV FLUSH SCH ×2 (08:48→21:00)
--- NOTE | 2016-10-16 08:56 | HHI.PR ---
Subjective Remarks Follow up NSTEMI, hyponatremia, renal insufficiency. The patient states that she is feeling a little better today. Less short of breath. No chest pain. Objective Vitals Vital Signs Date Time Temp Pulse Resp B/P Pulse Ox O2 Delivery O2 Flow Rate FiO2 10/16/16 06:00 74 10/16/16 05:00 78 10/16/16 04:00 98.8 83 20 158/90 98 10/16/16 04:00 79 10/16/16 03:00 78 10/16/16 02:00 78 10/16/16 01:00 76 10/16/16 00:00 97.4 80 20 145/75 97 10/16/16 00:00 78 10/15/16 23:00 72 10/15/16 22:00 86 10/15/16 21:00 76 10/15/16 20:00 74 10/15/16 20:00 99.4 80 20 170/78 97 10/15/16 17:39 95 Nasal Cannula 2.00 10/15/16 17:35 98.7 64 22 169/71 96 10/15/16 17:00 52 10/15/16 15:00 82 10/15/16 14:00 80 10/15/16 13:25 98.8 81 24 162/75 97 10/15/16 12:25 86 18 179/77 99 Nasal Cannula 2 10/15/16 12:00 80 169/81 10/15/16 11:00 92 15 174/76 99 Nasal Cannula 2 10/15/16 10:12 103 187/85 10/15/16 09:45 199/99 10/15/16 09:41 107 20 204/116 99 Nasal Cannula 2 10/15/16 09:15 125 24 99 Nasal Cannula 10/15/16 09:15 130 18 192/100 99 Nasal Cannula 2 10/15/16 09:00 235/103 195/74 I/O 10/15/16 10/15/16 10/15/16 10/16/16 10/16/16 10/16/16 07:00 15:00 23:00 07:00 15:00 23:00 Intake Total 467 ml Output Total 2325 ml Balance -1858 ml Intake IV Total 467 ml Output Urine Total 2325 ml Result Diagram: 10/16/16 0609 10/16/16 0609 Imaging Last Impressions Chest X-Ray 10/15/16 0842 Signed Impressions: Service Date/Time: Saturday, October 15, 2016 08:59 - CONCLUSION: 1. Partially obscured nodular opacity in the right lower lobe likely reflects a nipple shadow. This can be further evaluated with repeat imaging utilizing nipple markers as clinically warranted. 2. Cardiomegaly with mild positive fluid balance. Sarthak Floyd MD Objective Remarks General: Elderly female in no acute distress. Heart: Regular rate and rhythm. No murmur. Lungs: Diffuse rhonchi. Breathing is nonlabored. Abdomen: Soft, nontender, nondistended. Extremities: No lower extremity edema. Psych: Alert and oriented. Urinary Catheter: Yes Assessment to: Continue Vascular Central Line Catheter: No A/P Problem List: (1) NSTEMI (non-ST elevated myocardial infarction) ICD Code: I21.4 Status: Acute (2) CAD (coronary artery disease) ICD Code: I25.10 Status: Chronic (3) Hyperlipidemia ICD Code: E78.5 Status: Chronic (4) Hypertension ICD Code: I10 Status: Chronic (5) Chronic atrial fibrillation ICD Code: I48.2 Status: Chronic (6) Acute on chronic renal insufficiency ICD Code: N17.9 Status: Acute Assessment and Plan 1. Non-ST elevation [place]: Patient has history of coronary artery disease. Troponin elevated, but trending down. Appreciate cardiology recommendations. Going for cardiac catheterization today. Continue aspirin, beta rafael, nitrates. 2. Acute exacerbation of chronic diastolic congestive heart failure: Continue diuresis. Monitor intake/output. 3. Acute worsening of chronic kidney disease stage III: Creatinine somewhat improved overnight. Monitor labs. 4. Lactic acidosis: Resolved. 5. Questionable upper respiratory infection, atypical pneumonia: Continue Levaquin. X-ray findings most likely secondary to CHF. 6. Hyponatremia: Improving. 7. Atrial fibrillation with RVR: Continue heart rate control with beta rafael. Xarelto on hold per cardiology. 8. Hypertensive urgency: Improved. Continue anti-hypertensive medications. 9. GERD: Continue PPI. 10. DVT prophylaxis: SCDs. Problem Qualifiers (1) Hyperlipidemia: Qualified Code: E78.5 - Hyperlipidemia, unspecified hyperlipidemia type (2) Hypertension: Qualified Code: I10 - Essential hypertension Yonatan Pineda MD Oct 16, 2016 08:56
[2016-10-16 11:20] LABS: HDL CHOLESTEROL 73.4 MG/DL (40.0-60.0)
[2016-10-16] MEDS ORDERED: IOHEXOL 350 MG/ML 50 ML BTL (for Cath Lab) OTHER ONE (17:01)
[2016-10-16] MEDS ORDERED: MIDAZOLAM HCL 2 MG/2 ML VIAL ONE (17:23)
[2016-10-16] MEDS ORDERED: SODIUM CHLOR 0.9% 1000 ML INJ 1,000 ML IV SCH (17:49)
--- NOTE | 2016-10-16 17:59 | CATHPROC ---
codetag HIS Report Study Information Study Number Admission Scheduled Start Study Start [id number] Oct 15 2016 10:34AM 10/16/2016 Oct 16 2016 4:32PM [place] Service Cardiac Catheterization Admit Source Facility Department Other [facility] - [employer] Physician and Clinical Staff Initial Dakota Soliz Sand Bobber Argentina Dangelo,SYLVESTER Recorder Elinor Ferrara,RT(R) TECH2 Scrub Rogelio Gonzalez,RT(R) Procedures Performed Procedure Location (Site) Vessel Name Coronary Angiograms LCA Left Coronary Coronary Angiograms RCA Right Coronary Equipment Time Electric Arc Furnace Operator Description Size Mfg Part Number Used/Scraped TRANSDUCER, TRUWAVE [id number] 17:17 BRICE CARREON * Used W/STOCKCOCK *[id number] *[id number] *[id number] 17:17 [employer] PACK, CCL CUSTOM * Used *[id number] 17:17 [employer]. PACER PEN, SKIN DUAL W/ RULER * Used *[id number] 17:17 IM5 SHEATH, FR6.5 PRELUDE 11CM FR 6.5 038ACT Used *[id number] 17:17 [employer] MEDICAL WIRE, 3MMJ .035 180CM 180CM Used *[id number] 17:17 NAMIC MANIFOLD, 4 PORT * Used *[id number] 17:17 NYCOMED OMNIPAQUE, 350 MG, 150ML 150ML [id number] Used DYEVERT, CONTRAST HVOFF-RRS 17:18 [employer] NG Used MODULATION SYSTEM NG *[id number] 17:17 [employer] BLANKET,WARM AIR CCL * Used *[id number] History: Current Medications Medication Dosage/Unit Route Frequency Last Date/Time Taken Statins (any) Beta Polly ASA ACCUPRIL LISINOPRIL LASIX XARELTO LOPRESSOR History: Allergies Allergy Reaction No Known Allergies History: Risk Factors Family History of Hypertension Dyslipidemia Previous CO Previous Heart Failure Premature CAD Yes Yes No No No Prior Valve Prior PCI Prior CABG Surgery No No No Cerebrovascular Peripheral Artery Chronic Lung On Dialysis Diabetes Disease Disease Disease No Yes No Yes No History: CV Disease Selection Items Known CAD History: Stress Tests Stress or Imaging Studies Performed No History: Arrhythmias Selection Items Atrial fibrillation History: Other Current Smoker No Labs Hgb (g/dl) Hct (%) RBC (MIL/MM3) WBC (l/cumm) Platelets (thousands) 11.60-17.00 35.00-51.00 4.00-5.90 4.00-11.00 150.00-450.00 13.4 30.4 5.4 7.3 133 Glucose (mg/dl) BUN (mg/dl) Creatinine (mg/dl) BUN:Creatinine (1:x) 74.00-106.00 7.00-18.00 0.50-1.30 10.00-20.00 97 26 1.3 20 Na (meq/l) K (meq/l) Cl (meq/l) CO2 (mmol/L) Ca (mg/dl) 136.00-145.00 3.50-5.10 98.00-107.00 21.00-32.00 8.50-10.10 132 3.8 95 24.6 9.2 PTT (sec) INR (PTT:PT) 24.30-30.10 0.90-1.10 38 1 Troponin I (ng/ml) CPK-MB (ng/ML) 0.02-0.05 0.50-3.60 0.99 6.6 Medication Medication Total Dose (Bolus/Oral) Medication Total Dosage/Unit 1% XYLOCAINE 20 mL VERSED 1 mg Medications (Bolus/Oral) Medication Time Given Dosage/Unit Administered By Reason VERSED 10/16/2016 5:25:58 PM 1 mg Argentina Dangelo 1 mg VERSED given in lab by Argentina Dangelo RN in Left Forearm via Peripheral IV. Ordered by Perry Andino. 1% XYLOCAINE 10/16/2016 5:27:56 PM 20 mL Dakota Andino 20 mL 1% XYLOCAINE given in lab by Dakota Andino in Right Groin via Subcutaneous. Ordered by Mickey Andino enn. Chronological Log Time Study Chronological Log 17:01:20 Patient arrived via Bed. 17:01:21 Patient Name, D.O.B, / Armband Verified By R.N. 17:01:22 Consent signed by the physician and the patient and verified by the [employer] staff. 17:01:22 Pre-op and post- op instructions given; patient acknowledges understanding of instructions . 17:01:24 Verbal Stimulation=2 Physical Stimulation=2 Airway=2 Respiration=2 TOTAL=8. (0=absent, 1=l imited, 2=present) 17:02:34 Presedation assessment performed by [employer] RN. 17:02:35 Patient has been NPO for More than 6Hrs. 17:02:37 Skin Breakdown/none per patient 17:02:49 Patient Warmer Placed on the Table. 17:02:51 Micheal Prominences Protected 17:02:53 A # 20 IV was noted in the Antecubital (left). Grade = 0 17:03:03 A # 22 IV was noted in the Forearm (right). Grade = 0 17:03:20 History and physical on the chart or being dictated. Vitals capture started with the following parameters, Patient=Adult, Interval=5 min, Initial P wlbkjlb=824 mmHg, 17:09:32 Deflation Rate=5 mmHg 17:10:34 FA=378 bpm, EFKB=688/85 mmhg, IbS4=608.0 %, Resp=18 B/min, Pain=0, Claudia=10, Rose=2 17:11:31 Reference ECG taken 17:15:15 KG=638 bpm, XKYN=856/85 mmhg, FgZ8=742.0 %, Resp=26 B/min, Pain=0, Claudia=10, Rose=2 17:17:01 Right groin prepped with 2% chlorhexidine, and with a 3 min. waiting time. 17:20:14 GM=972 bpm, TDOA=626/87 mmhg, NxJ6=476.0 %, Resp=18 B/min, Pain=0, Claudia=10, Rose=2 17:23:03 MD arrived. 17:25:13 HR=83 bpm, BECE=484/86 mmhg, SvH9=003.0 %, Resp=20 B/min, Pain=0, Claudia=10, Rose=2 17:25:22 Pressure channel 1 zeroed. 17:25:58 1 mg VERSED given in lab by Argentina Dangelo, SYLVESTER in Left Forearm via Peripheral IV. Ordered b Dakota Phillips. Time Out. Correct patient, correct procedure,correct physician, ,power injector not loaded with contrast with surgical 17:26:24 team present. Time Out Concurred by MD, individual staff and VP OF MARKETING in procedure 17:27:31 Case Start 17:27:56 20 mL 1% XYLOCAINE given in lab by Dakota Andino in Right Groin via Subcutaneous. Ordered by Dakota Andino. 17:28:02 Access site was Right Femoral Artery. 17:28:09 A SHEATH, FR6.5 PRELUDE 11CM FR 6.5 was advanced into the Fem Art (right) using the Percuta neous technique. 17:30:14 HR=80 bpm, BUBE=960/53 mmhg, SpO2=98.0 %, Resp=20 B/min, Pain=0, Claudia=10, Rose=2 A JL 4.0 INFINITI CATHETER FR 6 was advanced over a wire. OMNIPAQUE, 350 MG, 150ML 150ML was us ed for 17:32:12 injections. 17:33:21 The LCA was injected and visualized at various angles. OMNIPAQUE, 350 MG, 150ML 150ML used . 17:33:30 Catheter was removed A 3DRC INFINITI CATHETER FR 6 was advanced over a wire. OMNIPAQUE, 350 MG, 150ML 150ML was used for 17:33:31 injections. 17:34:29 The RCA was injected and visualized at various angles. OMNIPAQUE, 350 MG, 150ML 150ML used . 17:34:58 Pressure channel 1 zeroed. 17:35:07 HR=94 bpm, NIBP=95/57 mmhg, SpO2=99.0 %, Resp=18 B/min, Pain=0, Claudia=10, Rose=2 17:37:05 Catheter was removed 17:37:17 An injection in the Fem Art (right) was made through the SHEATH, FR6.5 PRELUDE 11CM FR 6.5. 17:38:19 Case End 17:40:06 HR=89 bpm, NIBP=97/54 mmhg, SpO2=99.0 %, Resp=19 B/min 17:42:32 HR=83 bpm, SpO2=98 %, Resp=20 B/min, Pain=0, Claudia=10, Rose=2 17:45:07 HR=91 bpm, CHJT=853/53 mmhg, SpO2=99.0 %, Resp=19 B/min, Pain=0, Claudia=10, Rose=2 17:45:27 Sheath removed; pressure applied to access site. Rogelio Lima RTR held for 15min 17:50:08 HR=81 bpm, NIBP=99/51 mmhg, SpO2=99.0 %, Resp=19 B/min, Pain=0, Claudia=10, Rose=2 17:55:07 HR=86 bpm, NIBP=99/52 mmhg, SpO2=98.0 %, Resp=16 B/min 17:58:41 Sterile dressing applied to site. right groin soft and no hematoma present 17:59:01 Patient moved to stretcher End Study - Contrast Media Used In Study Contrast Total Opened (mL) Total Used (mL) Total Wasted (mL) Omnipaque 40 40 0 End Study - Maximum Contrast Load Max Contrast Load (mL) 186.5 End Study - Radiation Exposure Fluoro Time (minutes) 2.3 End Study - Patient Disposition Complications Transferred To Telemetry Bed
[2016-10-16] MEDS ORDERED: SODIUM CHLOR 0.9% 250 ML INJ 250 ML IV PRN (18:00)
[2016-10-16] MEDS ORDERED: ATROPINE SULFATE 1 MG/ML VIAL IV PRN (18:00)
--- NOTE | 2016-10-16 20:13 | MA ---
cc: KIMI SALOMON JOSHUA A. MD DATE 10/16/16 PROCEDURE Selective coronary angiography. PROCEDURE NOTE The patient was brought to the cardiac catheterization laboratory in a fasting state after having signed informed consent. The right groin was prepped and draped as per policy and anesthetized with 1% lidocaine. Arterial access was obtained via the right femoral artery and a 6-Kiswahili sheath placed. Coronary arteriography was performed using 6-Kiswahili Lizbet left 4.0 and right progressive catheters. Left ventriculography was not done. There were no apparent immediate complications. Manual pressure was applied to her arteriotomy site at the end of the case to achieve good hemostasis. CORONARY ARTERIOGRAPHY The left main has up to 15% ostial stenosis. The left anterior descending is moderately calcified in its proximal to midportion. There are diffuse minimal luminal irregularities throughout the LAD. The LAD gives rise to two small diagonals which appear to be free of disease except for a tiny branch off the second diagonal which may have 80% ostial stenosis. The left circumflex is a medium-sized vessel giving rise to medium sized obtuse marginal. There are minimal luminal irregularities throughout the left circumflex system. The right coronary artery is a fairly large dominant vessel which is moderately calcified diffusely. There is diffuse proximal to mid disease resulting in up to 15% stenosis. In the distal vessel, prior to the takeoff of the posterior descending artery, there is somewhat eccentric 30-50% stenosis. LEFT VENTRICULOGRAPHY Not done due to the patient's mild renal insufficiency. CONCLUSION 1. Overall minimal left coronary system disease. 2. Moderate distal right coronary artery disease (somewhat eccentric 30-50% stenosis of the distal right coronary which actually angiographically appears much improved compared to her last heart catheterization ~2013). Kimi Salomon MD [facility]/TIFFANY /5:48 PM /8:10 PM JANAE
[2016-10-16] MEDS: ISOSORBIDE MONONITRATE 30 MG TAB PO SCH (21:52)
--- NOTE | 2016-10-16 23:55 | EKG ---
Date Performed: 10/15/2016 Time Performed: 11:19:20 PTAGE: 76 years EKG: ATRIAL FIBRILLATION MODERATE VOLTAGE CRITERIA FOR LVH, CONSIDER NORMAL VARIANT POSSIBLE SEP JESUS MYOCARDIAL INFARCTION MODERATE T-WAVE ABNORMALITY PREVIOUS TRACING : 10/15/2016 08.37 Compared to the previous tracing RATE SLOWER DOCTOR: Dimitri Hathaway Interpretating Date/Time 10/16/2016 23:55:21
[2016-10-17] VITALS (27 sets, daily range): BP systolic 123–162; BP diastolic 57–66; PULSE 70–96; RESP 16–22; TEMP 97.4–98.7; O2SAT 95–99
[2016-10-17] MEDS: hydrALAZINE HCL 25 MG TAB PO SCH ×3 (06:16→20:56)
[2016-10-17] MEDS: SODIUM CHLOR 0.9% 1000 ML INJ 1,000 ML IV SCH ×2 (06:55→13:37)
[2016-10-17 08:10] LABS: AUTOMATED NEUTROPHIL # 4.7 TH/MM3 (1.8-7.7); BASOPHIL % 0.3 % (0.0-2.0); HEMATOCRIT 42.1 % (35.0-46.0); HEMO FLAGS DIFF FINAL; LYMPH % 22.6 % (9.0-44.0); LYMPHOCYTE # 1.6 TH/MM3 (1.0-4.8); MEAN CELL VOLUME 83.3 FL (80.0-100.0); MEAN CORPUSCULAR HEMOGLOBIN 26.6 PG (27.0-34.0); MEAN CORPUSCULAR HGB CONC 31.9 % (32.0-36.0); MONO % 8.3 % (0.0-8.0); NEUT % 68.8 % (16.0-70.0); PLATELET COUNT 135 TH/MM3 (150-450); RED BLOOD COUNT 5.05 MIL/MM3 (4.00-5.30); RED CELL DISTRIBUTION WIDTH 15.4 % (11.6-17.2); WHITE BLOOD COUNT 6.9 TH/MM3 (4.0-11.0)
[2016-10-17 08:13] LABS: APTT (PATIENT) 30.8 SEC (24.3-30.1); PROTHROMBIN TIME - PATIENT 10.6 SEC (9.8-11.6)
[2016-10-17] MEDS: ISOSORBIDE MONONITRATE 30 MG TAB PO SCH (09:10)
[2016-10-17] MEDS: ASPIRIN EC 81 MG TABEC PO SCH (09:11)
[2016-10-17] MEDS: FUROSEMIDE 20 MG TAB PO SCH (09:11)
[2016-10-17] MEDS: METOPROLOL TARTRATE 100 MG TAB PO SCH ×2 (09:11→20:56)
[2016-10-17] MEDS: SODIUM CHLORIDE 0.9% FLUSH 10 ML FLUSH IV FLUSH SCH ×2 (09:11→20:57)
[2016-10-17] MEDS: LEVOFLOXACIN 500 MG TAB PO SCH (09:11)
[2016-10-17] MEDS: PANTOPRAZOLE SOD 20 MG DELAYED RELEASE TAB PO SCH (09:11)
[2016-10-17] MEDS: DOCUSATE SODIUM 50 MG/SENNA 8.6 MG TAB PO SCH ×2 (09:11→20:56)
[2016-10-17] MEDS ORDERED: BENZONATATE 100 MG CAP PO PRN (09:15)
--- NOTE | 2016-10-17 09:20 | PD.CARD.PN ---
Subjective Subjective Remarks Continued dyspnea, though improved. Complains of nonproductive cough. No angina, dizziness, palpitations. Objective Medications Item Value Date Time Isosorbide 30 mg 10/16/160 Mononitrate BID/PO 10/16/162151 (Imdur) Furosemide 20 mg 10/16/16 0900 (Lasix) DAILY/PO 10/16/16 0845 Aspirin 81 mg 10/16/16 0900 (Ecotrin Ec) DAILY/PO 10/16/16 0845 Metoprolol 100 mg 10/16/16 0900 Tartrate Q12HR/PO 10/16/162152 (Lopressor) Vital Signs / I&O Vital Signs Date Time Temp Pulse Resp B/P Pulse Ox O2 Delivery O2 Flow Rate FiO2 10/17/16 05:00 76 10/17/16 04:00 74 10/17/16 03:01 98.7 74 20 147/63 99 10/17/16 03:00 81 10/17/16 02:00 78 10/17/16 01:00 76 10/17/16 00:00 76 10/16/16 23:01 98.6 80 20 121/67 99 10/16/16 23:00 81 10/16/16 22:00 76 10/16/16 21:00 78 10/16/16 20:00 84 10/16/16 19:30 99 21 10/16/16 19:17 98.7 97 16 145/68 95 10/16/16 19:10 98.6 86 20 140/64 99 10/16/16 19:00 83 10/16/16 18:35 98.7 85 16 150/62 95 10/16/16 18:10 98.7 88 16 152/74 95 10/16/16 15:17 98.0 86 18 150/62 99 10/16/16 11:52 98.2 85 20 143/88 99 10/16/16 09:26 98 Nasal Cannula 2.00 I/O 10/16/16 10/16/16 10/16/16 10/17/16 10/17/16 10/17/16 07:00 15:00 23:00 07:00 15:00 23:00 Intake Total 467 ml 480 ml Output Total 2325 ml 650 ml 350 ml Balance -1858 ml -650 ml 130 ml Intake Oral 480 ml IV Total 467 ml Output Urine Total 2325 ml 650 ml 350 ml # Voids 6 # Bowel Movements 0 Physical Exam GENERAL: Well developed, well nourished. No acute distress. HEENT: Jugular venous pressure is normal. CHEST: Diminished breath sounds diffusely. Few scattered rhonchi and expiratory wheezes. CARDIAC: Irregular rate and rhythm without S3, S4. II/ systolic murmur LLSB and apex. ABDOMEN: Soft, nontender, no hepatosplenomegaly. Bowel sounds present. EXTREMITIES: No clubbing, cyanosis, or edema. Laboratory Laboratory Tests Test 10/17/16 07:24 White Blood Count 6.9 TH/MM3 Red Blood Count 5.05 MIL/MM3 Hemoglobin 13.4 GM/DL Hematocrit 42.1 % Mean Corpuscular Volume 83.3 FL Mean Corpuscular Hemoglobin 26.6 PG Mean Corpuscular Hemoglobin 31.9 % Concent Red Cell Distribution Width 15.4 % Platelet Count 135 TH/MM3 Mean Platelet Volume 8.2 FL Neutrophils (%) (Auto) 68.8 % Lymphocytes (%) (Auto) 22.6 % Monocytes (%) (Auto) 8.3 % Eosinophils (%) (Auto) 0.0 % Basophils (%) (Auto) 0.3 % Neutrophils # (Auto) 4.7 TH/MM3 Lymphocytes # (Auto) 1.6 TH/MM3 Monocytes # (Auto) 0.6 TH/MM3 Eosinophils # (Auto) 0.0 TH/MM3 Basophils # (Auto) 0.0 TH/MM3 CBC Comment DIFF FINAL Differential Comment Prothrombin Time 10.6 SEC Prothromb Time International 1.0 RATIO Ratio Activated Partial 30.8 SEC Thromboplast Time Assessment and Plan Problem List: (1) CAD (coronary artery disease) Assessment and Plan: Status post probable NSTEMI. Stable overnight. No definite CP's. Dyspnea improving. Cath shows no high grade disease. The 70- 80% distal RCA lesion seen on cath 2013 now at most 50%, may have been some component of spasm in 2013. Follow up BMP pending this morning. REC continue beta rafael, aspirin; no ANTHONY-I or ARB with her renal insufficiency will also increase her oral nitrate given possible coronary vasospasm OK for discharge from a cardiac standpoint, f/u with Dr. Daley (2) Chronic atrial fibrillation Assessment and Plan: Stable overnight. No HR control issues. Rec resume Xarelto. (3) Hypertension Assessment and Plan: Fluctuating BP's, some elevations likely due to respiratory distress. Rec outpatient monitoring and med adjustments. (4) Hyperlipidemia Assessment and Plan: Fairly good lipid profile with LDL 80, HDL 73. Rec statin therapy. Code Status full code Discussed Condition With patient Problem Qualifiers (1) Hypertension: Qualified Code: I10 - Essential hypertension (2) Hyperlipidemia: Qualified Code: E78.5 - Hyperlipidemia, unspecified hyperlipidemia type Dakota Andino MD Oct 17, 2016 09:20
[2016-10-17] MEDS ORDERED: RIVAROXABAN 20 MG TAB PO SCH (09:30)
--- NOTE | 2016-10-17 09:37 | HHI.PR ---
Subjective Remarks Follow-up MRI, cough. Patient reports that she is still coughing occasionally. She is having pain in the right side of the chest and the right upper back. These are worse with palpation. Objective Vitals Vital Signs Date Time Temp Pulse Resp B/P Pulse Ox O2 Delivery O2 Flow Rate FiO2 10/17/16 08:00 98.2 89 22 123/57 95 10/17/16 08:00 82 10/17/16 05:00 76 10/17/16 04:00 74 10/17/16 03:01 98.7 74 20 147/63 99 10/17/16 03:00 81 10/17/16 02:00 78 10/17/16 01:00 76 10/17/16 00:00 76 10/16/16 23:01 98.6 80 20 121/67 99 10/16/16 23:00 81 10/16/16 22:00 76 10/16/16 21:00 78 10/16/16 20:00 84 10/16/16 19:30 99 21 10/16/16 19:17 98.7 97 16 145/68 95 10/16/16 19:10 98.6 86 20 140/64 99 10/16/16 19:00 83 10/16/16 18:35 98.7 85 16 150/62 95 10/16/16 18:10 98.7 88 16 152/74 95 10/16/16 15:17 98.0 86 18 150/62 99 10/16/16 11:52 98.2 85 20 143/88 99 I/O 10/16/16 10/16/16 10/16/16 10/17/16 10/17/16 10/17/16 07:00 15:00 23:00 07:00 15:00 23:00 Intake Total 467 ml 480 ml Output Total 2325 ml 650 ml 350 ml Balance -1858 ml -650 ml 130 ml Intake Oral 480 ml IV Total 467 ml Output Urine Total 2325 ml 650 ml 350 ml # Voids 6 # Bowel Movements 0 Result Diagram: 10/17/16 0724 10/16/16 0609 Imaging Last Impressions Chest X-Ray 10/15/16 0842 Signed Impressions: Service Date/Time: Saturday, October 15, 2016 08:59 - CONCLUSION: 1. Partially obscured nodular opacity in the right lower lobe likely reflects a nipple shadow. This can be further evaluated with repeat imaging utilizing nipple markers as clinically warranted. 2. Cardiomegaly with mild positive fluid balance. Sarthak Floyd MD Objective Remarks General: Elderly female in no acute distress. Heart: Regular rate and rhythm. No murmur. There is tenderness over the right chest wall. Lungs: Scattered wheeze, rhonchi. Breathing is nonlabored. Abdomen: Soft, nontender, nondistended. Extremities: No lower extremity edema. Psych: Alert and oriented. Procedures 10/16/16 cardiac catheterization Urinary Catheter: No Vascular Central Line Catheter: No A/P Problem List: (1) NSTEMI (non-ST elevated myocardial infarction) ICD Code: I21.4 Status: Acute (2) CAD (coronary artery disease) ICD Code: I25.10 Status: Chronic (3) Hyperlipidemia ICD Code: E78.5 Status: Chronic (4) Hypertension ICD Code: I10 Status: Chronic (5) Chronic atrial fibrillation ICD Code: I48.2 Status: Chronic (6) Acute on chronic renal insufficiency ICD Code: N17.9 Status: Acute Assessment and Plan 1. Non-ST elevation WA: Patient has history of coronary artery disease. Troponin elevated, but trending down. Appreciate cardiology recommendations. Status post cardiac catheterization. Continue aspirin, beta rafael, nitrates. 2. Acute exacerbation of chronic diastolic congestive heart failure: Continue diuresis. Monitor intake/output. 3. Acute worsening of chronic kidney disease stage III: Creatinine somewhat improved overnight. Monitor labs. 4. Lactic acidosis: Resolved. 5. Cough, chest congestion: Possible pneumonia. Continue Levaquin. Repeat chest x-ray. Add duo nebs as needed. 6. Hyponatremia: Improving. 7. Atrial fibrillation with RVR: Continue heart rate control with beta rafael. Xarelto on hold per cardiology. 8. Hypertensive urgency: Improved. Continue anti-hypertensive medications. 9. GERD: Continue PPI. 10. DVT prophylaxis: SCDs. Discharge Planning Cleared by cardiology for discharge home. Possible discharge home later today or tomorrow. Problem Qualifiers (1) Hyperlipidemia: Qualified Code: E78.5 - Hyperlipidemia, unspecified hyperlipidemia type (2) Hypertension: Qualified Code: I10 - Essential hypertension Yonatan Pineda MD Oct 17, 2016 09:37
[2016-10-17] MEDS: RESP: ALBUTEROL 2.5 MG/IPRATROPIUM 0.5 MG NEB (PRN) NEB (09:55)
--- NOTE | 2016-10-17 12:06 | RADRPT ---
EXAM DATE/TIME: 10/17/2016 11:29 [facility] COMPARISON: CHEST SINGLE AP, October 15, 2016, 8:59. CHEST SINGLE AP, October 15, 2016, 10:34. INDICATIONS : Evaluate chest with nipple markers Cough MEDICAL HISTORY : Hypertension. Hypercholesterolemia. SURGICAL HISTORY : Appendectomy. Hysterectomy. ENCOUNTER: Subsequent ACUITY: 3 days PAIN SCORE: 0/10 LOCATION: Bilateral chest FINDINGS: The heart is enlarged. The pulmonary vascular pattern is normal. The lungs are clear. Degenerative c hanges and scoliosis of the thoracic spine are noted. No pulmonary nodule is noted. CONCLUSION: 1. Cardiomegaly. 2. No acute focal pulmonary infiltrate or pulmonary nodule. 3. Degenerative changes and scoliosis of the thoracolumbar spine. Javi Taylor MD on October 17, 2016 at 11:55 Board Certified Radiologist. This report was verified electronically.
[2016-10-17 14:15] LABS: POTASSIUM 4.4 MEQ/L (3.5-5.1)
[2016-10-17] MEDS ORDERED: ACETAMINOPHEN/HYDROcodone 325 MG/5 MG TAB PO ONE (15:30)
--- NOTE | 2016-10-17 17:52 | ECHRPT ---
Indication: Obstructive hypertrophic cardiomyopathy CONCLUSIONS The ejection fraction is 70-75%. Moderate-Severe concentric left ventricular hypertrophy. There is a peak gradient of 57 mmHg in the mid portion of the LV when measured consistent with Hypertrophic Obstructive Cardiomyopathy. Calcification of both mitral valve leaflets. The MV is somewhat restricted due to the calcification of the calcification, but no mitral stenosis noted. There is estimated moderate pulmonary hypertension present (range 50-60 mmHg). BP: 152 / 79 HR: 97 Rhythm: Sinus MEASUREMENTS (Male / Female) Normal Values Technical Quality:Fair 2D ECHO LV Diastolic Diameter PLAX 2.0 cm 4.2 - 5.9 / 3.9 - 5.3 cm LV Systolic Diameter PLAX 1.3 cm IVS Diastolic Thickness 2.1 cm 0.6 - 1.0 / 0.6 - 0.9 cm LVPW Diastolic Thickness 1.7 cm 0.6 - 1.0 / 0.6 - 0.9 cm LV Relative Wall Thickness 1.9 RV Internal Dim ED PLAX 2.9 cm LVOT Diameter 1.6 cm Aortic Root Diameter 2.4 cm DOPPLER AV Peak Velocity 169.3 cm/s AV Peak Gradient 11.5 mmHg AV Mean Gradient 6.3 mmHg AV Velocity Time Integral 28.4 cm LVOT Peak Velocity 134.8 cm/s LVOT Peak Gradient 7.3 mmHg LVOT Velocity Time Integral 19.4 cm LVOT Cardiac Index 2669.8 cm/minm AV Area Cont Eq vti 1.4 cm AV Area Cont Eq pk 1.6 cm MV Peak Velocity 126.7 cm/s MV Peak Gradient 6.4 mmHg MV Mean Velocity 79.5 cm/s MV Mean Gradient 3.0 mmHg MV Area PHT 2.4 cm Mitral E Point Velocity 106.0 cm/s LV E' Lateral Velocity 3.8 cm/s Mitral E to LV E' Lateral Ratio 27.7 LV E' Septal Velocity 2.7 cm/s Mitral E to LV E' Septal Ratio 39.4 TR Peak Velocity 318.0 cm/s TR Peak Gradient 40.4 mmHg PV Peak Velocity 112.1 cm/s PV Peak Gradient 5.0 mmHg FINDINGS LEFT VENTRICLE The cavity is very small. The ejection fraction is 70-75%.. No regional wall motion abnormalities are present. Moderate-Severe concentric left ventricular hypertrophy. The septum measures 21 mm. The posterior wall measures 17 mm. There is a very prominent and bright pericardium that measures 11 mm. There is a gradient of 57 mmHg in the mid portion of the LV when measured consistent with Hypertrop hic Obstructive Cardiomyopathy. RIGHT VENTRICLE The right ventriclar size is upper limits of normal. LEFT ATRIUM The left atrial size is [id number] dilated. RIGHT ATRIUM The right atrial size is normal. AORTA The aortic root and proximal ascending aorta are not well visualized. MITRAL VALVE Calcification of both mitral valve leaflets. Mild mitral annular calcification. The MV is somewhat restricted due to the calcification of the calcification, but no mitral stenosis noted. AORTIC VALVE Aortic valve sclerosis is present. No aortic valve regurgitation. No significant aortic valve stenosis. TRICUSPID VALVE Structurally normal tricuspid valve. There is trace tricuspid valve regurgitation. There is estimated moderate pulmonary hypertension present (range 50-60 mmHg). PULMONARY VALVE No pulmonary valve regurgitation. VESSELS The inferior vena cava is normal in size. PERICARDIUM No pericardial effusion. Landen Fontana DO (Electronically Signed) Final Date:17 October 2016 17:51
[2016-10-17] MEDS: ONDANSETRON HCL 4 MG/2 ML VIAL IV PUSH PRN (23:44)
[2016-10-17] MEDS ORDERED: MECLIZINE HCL 25 MG TAB PO ONE (23:45)
[2016-10-18] VITALS (27 sets, daily range): BP systolic 151–186; BP diastolic 68–85; PULSE 69–107; RESP 16–18; TEMP 97.4–98.8; O2SAT 94–97
[2016-10-18] MEDS: SODIUM CHLOR 0.9% 1000 ML INJ 1,000 ML IV SCH (03:34)
--- NOTE | 2016-10-18 03:37 | RADRPT ---
EXAM DATE/TIME: 10/18/2016 03:20 [facility] COMPARISON: MRI BRAIN W/O CONTRAST, August 16, 2015, 17:10. CT BRAIN W/O CONTRAST, August 16, 2015, 14:47. INDICATIONS : Severe dizziness. RADIATION DOSE: 56.35 CTDIvol (mGy) MEDICAL HISTORY : Hypertension. Cardiovascular disease SURGICAL HISTORY : None. ENCOUNTER: Initial ACUITY: 1 day PAIN SCALE: 0/10 LOCATION: cranial TECHNIQUE: Multiple contiguous axial images were obtained of the head. Using automated exposure control and adj ustment of the mA and/or kV according to patient size, radiation dose was kept as low as reasonably a chievable to obtain optimal diagnostic quality images. DICOM format image data is available electro nically for review and comparison. FINDINGS: There is encephalomalacia at the site of previously seen left occipital lobe infarction and left posterior parietal lobe infarction. Basal ganglia calcifications are present chronic in nature. Ther e is an area of increased density involving the right occipital lobe involving the perez-white junctio n not present previously. No extra-axial fluid collections are seen. CONCLUSION: Interval development of areas of increased density involving the right occipital lobe perez-white junc tion may represent slight hemorrhage or possibly laminar necrosis related to subacute infarction. Lorie Mccarty MD on October 18, 2016 at 3:32 Board Certified Radiologist. This report was verified electronically.
[2016-10-18] MEDS: ENALAPRILAT 1.25 MG/ML VIAL IV PUSH PRN (04:08)
[2016-10-18] MEDS: hydrALAZINE HCL 25 MG TAB PO SCH ×3 (04:49→20:53)
[2016-10-18] MEDS: hydrALAZINE HCL 20 MG/ML VIAL IV PUSH PRN (06:39)
[2016-10-18] MEDS: ISOSORBIDE MONONITRATE 60 MG TAB PO SCH (06:39)
[2016-10-18 06:43] LABS: BICARBONATE 26.8 MEQ/L (21.0-32.0); POTASSIUM 3.9 MEQ/L (3.5-5.1)
[2016-10-18] MEDS: RESP: ALBUTEROL 2.5 MG/IPRATROPIUM 0.5 MG NEB (PRN) NEB (07:39)
--- NOTE | 2016-10-18 08:37 | HHI.PR ---
Subjective Remarks Follow up shoulder pain. Patient had episode of headache and dizziness overnight. States that she does not feel good today. Still having right shoulder and chest pain. Also now with lateral left chest discomfort as well. Objective Vitals Vital Signs Date Time Temp Pulse Resp B/P Pulse Ox O2 Delivery O2 Flow Rate FiO2 10/18/16 07:40 94 10/18/16 04:32 160/75 10/18/16 04:00 74 10/18/16 03:58 97.7 86 16 182/85 96 10/18/16 03:50 97.7 75 16 182/85 96 10/18/16 03:00 85 10/18/16 02:53 96 10/18/16 02:00 74 10/18/16 02:00 166/83 10/18/16 01:00 82 10/18/16 00:20 97.4 69 16 186/85 96 10/18/16 00:00 86 10/17/16 23:00 70 10/17/16 22:00 82 10/17/16 21:00 88 10/17/16 20:00 80 10/17/16 19:30 97.4 70 16 162/63 96 10/17/16 19:00 85 10/17/16 18:00 74 10/17/16 17:00 72 10/17/16 16:33 16 10/17/16 16:00 98.4 74 16 130/66 96 10/17/16 16:00 74 10/17/16 15:00 74 10/17/16 14:00 76 10/17/16 13:00 78 10/17/16 12:00 84 10/17/16 12:00 98.4 71 16 124/65 96 10/17/16 11:00 72 10/17/16 10:00 86 10/17/16 09:56 99 10/17/16 09:36 99 10/17/16 09:00 96 I/O 10/17/16 10/17/16 10/17/16 10/18/16 10/18/16 10/18/16 07:00 15:00 23:00 07:00 15:00 23:00 Intake Total 480 ml 720 ml 240 ml Output Total 350 ml 350 ml Balance 130 ml 720 ml -110 ml Intake Oral 480 ml 720 ml 240 ml Output Urine Total 350 ml 350 ml # Voids 3 # Bowel Movements 1 Result Diagram: 10/17/16 0724 10/18/16 0601 Imaging Last Impressions Head CT 10/17/16 0000 Signed Impressions: Service Date/Time: Tuesday, October 18, 2016 03:20 - CONCLUSION: Interval development of areas of increased density involving the right occipital lobe perez-white junction may represent slight hemorrhage or possibly laminar necrosis related to subacute infarction. Lorie Mccarty MD Chest X-Ray 10/17/16 0000 Signed Impressions: Service Date/Time: September 11:29 - CONCLUSION: 1. Cardiomegaly. 2. No acute focal pulmonary infiltrate or pulmonary nodule. 3. Degenerative changes and scoliosis of the thoracolumbar spine. Javi Taylor MD Objective Remarks General: Elderly female in no acute distress. Heart: Regular rate and rhythm. No murmur. There is tenderness over the right chest wall. Lungs: Scattered wheeze, rhonchi. Breathing is nonlabored. Abdomen: Soft, nontender, nondistended. Extremities: No lower extremity edema. Psych: Alert and oriented. Procedures 10/16/16 cardiac catheterization Urinary Catheter: No Vascular Central Line Catheter: No A/P Problem List: (1) NSTEMI (non-ST elevated myocardial infarction) ICD Code: I21.4 Status: Acute (2) CAD (coronary artery disease) ICD Code: I25.10 Status: Chronic (3) Hyperlipidemia ICD Code: E78.5 Status: Chronic (4) Hypertension ICD Code: I10 Status: Chronic (5) Chronic atrial fibrillation ICD Code: I48.2 Status: Chronic (6) Acute on chronic renal insufficiency ICD Code: N17.9 Status: Acute Assessment and Plan 1. Non-ST elevation [place]: Patient has history of coronary artery disease. Troponin elevated, but trending down. Appreciate cardiology recommendations. Status post cardiac catheterization. Continue aspirin, beta rafael, nitrates. 2. Acute exacerbation of chronic diastolic congestive heart failure: Continue diuresis. Monitor intake/output. 3. Acute worsening of chronic kidney disease stage III: Creatinine remains elevated, but slightly better than yesterday. Monitor labs. 4. Lactic acidosis: Resolved. 5. Cough, chest congestion: Possible pneumonia. Continue Levaquin, duo nebs as needed. 6. Hyponatremia: Improving. 7. Atrial fibrillation with RVR: Continue heart rate control with beta rafael. Cardiology recommends resuming Xarelto, however we will stop anticoagulation due to possible area of hemorrhage noted on head CT. Consider restarting once MRI result is available. 8. Hypertensive urgency: Improved. Continue anti-hypertensive medications. Allow permissive hypertension. 9. GERD: Continue PPI. 10. DVT prophylaxis: SCDs. 11. ?CVA: The patient had neurologic symptoms overnight including headache, dizziness. MRI has been ordered. Neurology consultation is pending. Keep head of bed flat. Allow permissive hypertension. Problem Qualifiers (1) Hyperlipidemia: Qualified Code: E78.5 - Hyperlipidemia, unspecified hyperlipidemia type (2) Hypertension: Qualified Code: I10 - Essential hypertension Yonatan Pineda MD Oct 18, 2016 08:37
[2016-10-18] MEDS: DOCUSATE SODIUM 50 MG/SENNA 8.6 MG TAB PO SCH ×2 (09:00→20:53)
[2016-10-18] MEDS: LEVOFLOXACIN 500 MG TAB PO SCH (09:00)
[2016-10-18] MEDS: PANTOPRAZOLE SOD 20 MG DELAYED RELEASE TAB PO SCH (09:00)
[2016-10-18] MEDS: METOPROLOL TARTRATE 100 MG TAB PO SCH ×3 (09:00→20:52)
[2016-10-18] MEDS: FUROSEMIDE 20 MG TAB PO SCH ×2 (09:00→09:13)
[2016-10-18] MEDS: SODIUM CHLORIDE 0.9% FLUSH 10 ML FLUSH IV FLUSH SCH ×2 (09:13→20:52)
[2016-10-18] MEDS: ONDANSETRON HCL 4 MG/2 ML VIAL IV PUSH PRN ×2 (09:13→14:27)
--- NOTE | 2016-10-18 13:30 | MB ---
cc: KRANTHI SPARKS M.D. DATE OF CONSULTATION: 10/18/2016 HISTORY OF PRESENT ILLNESS The patient is a 76-year-old woman, admitted on 10/15/2016 when she came in with worsening shortness of breath and dizziness, lightheadedness. The patient has history of chronic atrial fibrillation. She had a previous left parietal occipital infarct, apparently in July of this year. She had just started Xarelto yesterday, though the history and physical report said she was taking this medication at home. The Xarelto is now on hold. She was admitted with non-ST elevation [place] and CHF exacerbation. The patient had a spell yesterday. It appears that all of a sudden she developed nystagmus and she had some nausea and dizziness. The symptoms at least in part persists. She went for a CT brain that showed an area of increased signal in the right occipital lobe which is new in comparison to previous imaging from July. NEUROLOGIC EXAMINATION The neurologic exam this morning showed the patient to be awake, quiet, mildly anxious and responded a bit slowly. She still has nystagmus in all gaze directions and she seems to be able to count fingers in both right and left, though she is slow to respond. There is not any overt lateralized weakness. She raised the arms and she reaches [id number] without any major asymmetry but her ability to resist is clearly impaired diffusely. There is some mild to moderate generalized weakness. At some point it is thought there was some left sided weakness. I am not certain about these and the exam is somewhat limited due to her somewhat poor participation. The muscle stretch reflexes were diminished versus absent throughout and plantar responses were flexor. LABORATORY DATA The laboratory data includes white count yesterday 6.9, hemoglobin 13.4, platelet count 135. Chemistry today with sodium being 135, potassium 3.9, creatinine 1.7, BUN 46, glucose 130. IMAGING STUDIES CT brain reviewed, right occipital increased density, appears to be more likely a subacute infarct rather than acute bleed. Left occipital and left posterior parietal areas of encephalomalacia. ASSESSMENT Nystagmus, dizziness, nausea with a CT brain showing finding of right occipital density which was not present when the patient had MRI on August 16, 2015. This current finding is more suggestive of subacute infarct rather than an acute bleed. The patient has history of atrial fibrillation. Appears she was on Xarelto at home but was stopped here and restarted yesterday but now on hold because of the CT finding. She is scheduled to have MRI brain and I will follow these. If there is no ___ suggestion of hemorrhage, then she should be back on the Xarelto. Depending upon clinical course will also arrange for MRA studies. She had a carotid ultrasound on August 17, 2015 that showed mild disease in both sides. I will follow the neurological course. Evidently the patient is followed closely by cardiology. Thank you for asking us to assist in her care. MD POLO Olsen/TLFaustino /10:03 AM /1:18 PM
--- NOTE | 2016-10-18 14:00 | RADRPT ---
EXAM DATE/TIME: 10/18/2016 10:39 [facility] COMPARISON: CT BRAIN W/O CONTRAST, October 18, 2016, 3:20. MRI BRAIN W/O CONTRAST, August 16, 2015, 17:10. INDICATIONS : CVA. Left eye pain. MEDICAL HISTORY : Hypertension. Chronic obstructive pulmonary disease. Renal insufficiency, chronic. SURGICAL HISTORY : Appendectomy. Hysterectomy. ENCOUNTER: Initial ACUITY: 1 week PAIN SCORE: 4/10 LOCATION: head TECHNIQUE: Multiplanar, multisequence MRI of the brain was performed without contrast. FINDINGS: Marked periventricular white matter changes are noted with an evolving infarct in the left occipital region. The right occipital hemisphere is unremarkable. There is new large area of restricted diffusion involving the anterior left cerebellar hemisphere. The bibasilar artery looks patent by MRI. There is no hemorrhage evident. There is no significant edema as yet. No extra-axial fluid collecti ons appreciated. Ventricle size is appropriate. CONCLUSION: New large left cerebral hemisphere infarct involving the anterior cerebellum, SCA territory. The fou rth ventricle is midline. The vascular artery looks patent. Abraham Stafford MD FACR on October 18, 2016 at 13:54 Board Certified Radiologist. This report was verified electronically.
[2016-10-18] MEDS ORDERED: RIVAROXABAN 20 MG TAB PO SCH (16:00)
[2016-10-19] VITALS (16 sets, daily range): BP systolic 148–171; BP diastolic 72–80; PULSE 65–94; RESP 18–20; TEMP 97.5–99; O2SAT 93–96
[2016-10-19] MEDS: ENALAPRILAT 1.25 MG/ML VIAL IV PUSH PRN (00:20)
[2016-10-19] MEDS: hydrALAZINE HCL 20 MG/ML VIAL IV PUSH PRN (01:30)
[2016-10-19 05:02] LABS: BICARBONATE 26.5 MEQ/L (21.0-32.0); POTASSIUM 3.5 MEQ/L (3.5-5.1)
[2016-10-19] MEDS: hydrALAZINE HCL 25 MG TAB PO SCH ×3 (05:53→20:23)
[2016-10-19] MEDS: ISOSORBIDE MONONITRATE 60 MG TAB PO SCH (05:54)
[2016-10-19 08:06] LABS: AUTOMATED NEUTROPHIL # 7.3 TH/MM3 (1.8-7.7); BASOPHIL % 0.3 % (0.0-2.0); HEMATOCRIT 42.1 % (35.0-46.0); HEMO FLAGS DIFF FINAL; LYMPH % 7.7 % (9.0-44.0); LYMPHOCYTE # 0.7 TH/MM3 (1.0-4.8); MEAN CELL VOLUME 83.3 FL (80.0-100.0); MEAN CORPUSCULAR HGB CONC 32.3 % (32.0-36.0); MONO % 7.3 % (0.0-8.0); NEUT % 84.7 % (16.0-70.0); PLATELET COUNT 173 TH/MM3 (150-450); RED BLOOD COUNT 5.05 MIL/MM3 (4.00-5.30); RED CELL DISTRIBUTION WIDTH 15.2 % (11.6-17.2); WHITE BLOOD COUNT 8.6 TH/MM3 (4.0-11.0)
--- NOTE | 2016-10-19 08:21 | HHI.PR ---
Subjective Remarks Follow up CVA. Patient continued to have headache overnight. Denies chest pain or dyspnea. States that her right shoulder pain is much better this morning. Denies numbness, tingling, weakness of her extremities. Objective Vitals Vital Signs Date Time Temp Pulse Resp B/P Pulse Ox O2 Delivery O2 Flow Rate FiO2 10/19/16 06:00 85 10/19/16 05:00 87 10/19/16 04:00 92 10/19/16 04:00 99.0 92 18 157/73 93 10/19/16 04:00 Room Air 10/19/16 03:00 90 10/19/16 02:00 93 10/19/16 01:50 85 168/78 10/19/16 01:00 86 10/19/16 00:00 98.3 94 20 171/76 96 10/19/16 00:00 94 10/19/16 00:00 Room Air 10/18/16 23:00 96 10/18/16 22:00 88 10/18/16 21:00 96 10/18/16 20:00 98.2 99 18 156/80 95 10/18/16 20:00 99 10/18/16 18:00 90 10/18/16 17:00 86 10/18/16 16:00 98.4 92 16 152/68 94 10/18/16 16:00 96 10/18/16 15:00 98 10/18/16 14:00 92 10/18/16 13:00 90 10/18/16 12:00 93 10/18/16 12:00 98.8 84 16 152/83 95 10/18/16 11:00 90 10/18/16 10:00 106 10/18/16 09:00 106 I/O 10/18/16 10/18/16 10/18/16 10/19/16 10/19/16 10/19/16 07:00 15:00 23:00 07:00 15:00 23:00 Intake Total 240 ml 120 ml 100 ml Output Total 350 ml 450 ml 500 ml Balance -110 ml -330 ml -400 ml Intake Oral 240 ml 120 ml 100 ml Output Urine Total 350 ml 450 ml 500 ml # Bowel Movements 0 0 Result Diagram: 10/19/16 0413 10/19/16 0413 Imaging Last Impressions Brain MRI 10/18/16 0000 Signed Impressions: Service Date/Time: Tuesday, October 18, 2016 10:39 - CONCLUSION: New large left cerebral hemisphere infarct involving the anterior cerebellum, SCA territory. The fourth ventricle is midline. The vascular artery looks patent. Abraham Stafford MD FACR Head CT 10/17/16 0000 Signed Impressions: Service Date/Time: Tuesday, October 18, 2016 03:20 - CONCLUSION: Interval development of areas of increased density involving the right occipital lobe perez-white junction may represent slight hemorrhage or possibly laminar necrosis related to subacute infarction. Lorie Mccarty MD Chest X-Ray 10/17/16 0000 Signed Impressions: Service Date/Time: September 11:29 - CONCLUSION: 1. Cardiomegaly. 2. No acute focal pulmonary infiltrate or pulmonary nodule. 3. Degenerative changes and scoliosis of the thoracolumbar spine. Javi Taylor MD Objective Remarks General: Elderly female in no acute distress. Heart: Regular rate and rhythm. No murmur. Lungs: Mild scattered wheeze. Breathing is nonlabored. Abdomen: Soft, nontender, nondistended. Extremities: No lower extremity edema. Psych: Sleeping, but awakens easily and answers questions appropriately. Procedures 10/16/16 cardiac catheterization Urinary Catheter: No Vascular Central Line Catheter: No A/P Problem List: (1) NSTEMI (non-ST elevated myocardial infarction) ICD Code: I21.4 Status: Acute (2) CAD (coronary artery disease) ICD Code: I25.10 Status: Chronic (3) Hyperlipidemia ICD Code: E78.5 Status: Chronic (4) Hypertension ICD Code: I10 Status: Chronic (5) Chronic atrial fibrillation ICD Code: I48.2 Status: Chronic (6) CVA (cerebral vascular accident) ICD Code: I63.9 Status: Acute (7) Acute worsening of stage 3 chronic kidney disease ICD Code: N18.3 Status: Acute Assessment and Plan 1. Non-ST elevation CT: Patient has history of coronary artery disease. Troponin elevated, but trending down. Appreciate cardiology recommendations. Status post cardiac catheterization. Continue aspirin, beta rafael, nitrates. 2. Acute exacerbation of chronic diastolic congestive heart failure: Continue diuresis. Monitor intake/output. 3. Acute worsening of chronic kidney disease stage III: Creatinine trending down. Monitor labs. 4. Lactic acidosis: Resolved. 5. Cough, chest congestion: Possible pneumonia. Continue Levaquin; duo nebs as needed. 6. Hyponatremia: Improving. 7. Atrial fibrillation with RVR: Continue heart rate control with beta rafael. Continue Xarelto. 8. Hypertensive urgency: Improved. Continue anti-hypertensive medications. Allow permissive hypertension. 9. GERD: Continue PPI. 10. DVT prophylaxis: SCDs. 11. CVA: MRI of the brain shows new large left cerebral hemisphere infarct involving the anterior cerebellum. Appreciate neurology recommendations. Continue Xarelto. PT/OT/ST. Problem Qualifiers (1) Hyperlipidemia: Qualified Code: E78.5 - Hyperlipidemia, unspecified hyperlipidemia type (2) Hypertension: Qualified Code: I10 - Essential hypertension Yonatan Pineda MD Oct 19, 2016 08:20
[2016-10-19] MEDS ORDERED: RIVAROXABAN 15 MG TAB PO SCH (08:30)
[2016-10-19] MEDS: PANTOPRAZOLE SOD 20 MG DELAYED RELEASE TAB PO SCH (08:35)
[2016-10-19] MEDS: METOPROLOL TARTRATE 100 MG TAB PO SCH ×2 (08:35→20:23)
[2016-10-19] MEDS: POTASSIUM CHLORIDE 10 MEQ CONTROLLED RELEASE TAB PO SCH (08:35)
[2016-10-19] MEDS: FUROSEMIDE 20 MG TAB PO SCH (08:35)
[2016-10-19] MEDS: LEVOFLOXACIN 250 MG TAB PO SCH (08:35)
[2016-10-19] MEDS: ACETAMINOPHEN/HYDROcodone 325 MG/5 MG TAB PO PRN ×2 (08:36→13:28)
[2016-10-19] MEDS: DOCUSATE SODIUM 50 MG/SENNA 8.6 MG TAB PO SCH ×2 (08:36→20:23)
[2016-10-19] MEDS: SODIUM CHLORIDE 0.9% FLUSH 10 ML FLUSH IV FLUSH SCH ×2 (08:38→20:24)
--- NOTE | 2016-10-19 15:57 | HHI.PR ---
Review/Management Daily Summary 10/19 more alert and responsive, nystagmus improved mostly follows commands moves bilat limbs on request some visual field preservation at least mri brain seen, she had mra cow in july and it was normal kidney functions not safe for mra with contrast neck or ct angio therefore will defer anticoagulation xarelto suspect there will be balance problems because of large acute right cerebellum infarct leslie occipital infarcts, old on left and subacute on right Subjective Active Medications Current Medications Medications (Trade) Dose Ordered Sig/Shaina Route Start Time Stop Time Status Last Admin (NS Flush) 2 ml UNSCH PRN IV FLUSH 10/15/16 10:45 (NS Flush) 2 ml BID IV FLUSH 10/15/16 21:00 10/19/16 08:38 (Narcan Inj) 0.4 mg UNSCH PRN IV 10/15/16 10:45 (Julia-Colace) 1 tab BID PO 10/15/16 21:00 10/19/16 08:36 (Milk Of Magnesia Liq) 30 ml Q12H PRN PO 10/15/16 10:45 (Senokot) 17.2 mg Q12H PRN PO 10/15/16 10:45 (Dulcolax Supp) 10 mg DAILY PRN RECTAL 10/15/16 10:45 (Lactulose Liq) 30 ml DAILY PRN PO 10/15/16 10:45 (Lasix) 20 mg DAILY PO 10/16/16 09:00 10/19/16 08:35 (Protonix) 20 mg DAILY PO 10/16/16 09:00 10/19/16 08:35 (Vasotec Inj) 1.25 mg Q6H PRN IV PUSH 10/15/16 10:45 10/19/16 00:20 (Apresoline) 25 mg Q8HR PO 10/15/16 14:00 10/19/16 13:27 (Ecotrin Ec) 81 mg DAILY PO 10/16/16 09:00 Hold 10/17/16 09:11 (Lopressor) 100 mg Q12HR PO 10/16/16 09:00 10/19/16 08:35 (Atropine Inj) 0.5 mg UNSCH PRN IV 10/16/16 18:00 (Tessalon) 100 mg TID PRN PO 10/17/16 09:15 10/17/16 15:28 (Imdur) 120 mg DAILY@07 PO 10/18/16 07:00 10/19/16 05:54 (Zofran Inj) 4 mg Q6HR PRN IV PUSH 10/17/16 23:45 10/18/16 14:27 (Apresoline Inj) 10 mg Q3HR PRN IV PUSH 10/18/16 04:30 10/19/16 01:30 (Levaquin) 250 mg DAILY PO 10/19/16 09:00 10/19/16 08:35 (Mills 5-325 Mg) 1 tab Q4H PRN PO 10/19/16 08:15 10/19/16 13:28 (KCl) 10 meq DAILY PO 10/19/16 09:00 10/19/16 08:35 (Xarelto) 15 mg Q24H PO 10/19/16 16:00 Allergies Allergies Coded Allergies No Known Allergies (Verified10/15/16) Exam I&O / VS 10/18/16 10/18/16 10/19/16 15:00 23:00 07:00 Intake Total 120 ml 100 ml Output Total 450 ml 500 ml Balance -330 ml -400 ml Intake Oral 120 ml 100 ml Output Urine Total 450 ml 500 ml # Bowel Movements 0 0 Vital Signs Date Time Temp Pulse Resp B/P Pulse Ox O2 Delivery O2 Flow Rate FiO2 10/19/16 14:33 18 10/19/16 12:22 65 10/19/16 12:22 97.5 69 18 153/76 95 10/19/16 10:05 95 21 10/19/16 08:21 97.9 88 18 155/79 94 10/19/16 08:21 73 10/19/16 07:49 94 Room Air 10/19/16 06:00 85 10/19/16 05:00 87 10/19/16 04:00 92 10/19/16 04:00 99.0 92 18 157/73 93 10/19/16 04:00 Room Air 10/19/16 03:00 90 10/19/16 02:00 93 10/19/16 01:50 85 168/78 10/19/16 01:00 86 10/19/16 00:00 98.3 94 20 171/76 96 10/19/16 00:00 94 10/19/16 00:00 Room Air 10/18/16 23:00 96 10/18/16 22:00 88 10/18/16 21:00 96 10/18/16 20:00 98.2 99 18 156/80 95 10/18/16 20:00 99 10/18/16 18:00 90 10/18/16 17:00 86 10/18/16 16:00 98.4 92 16 152/68 94 10/18/16 16:00 96 Objective Radiology Results Last 48 hours Impressions Brain MRI 10/18/16 0000 Signed Impressions: Service Date/Time: Tuesday, October 18, 2016 10:39 - CONCLUSION: New large left cerebral hemisphere infarct involving the anterior cerebellum, SCA territory. The fourth ventricle is midline. The vascular artery looks patent. Abraham Stafford MD FACR Micro and Labs Laboratory Tests Test 10/19/16 04:13 White Blood Count 8.6 Red Blood Count 5.05 Hemoglobin 13.6 Hematocrit 42.1 Mean Corpuscular Volume 83.3 Mean Corpuscular Hemoglobin 27.0 Mean Corpuscular Hemoglobin 32.3 Concent Red Cell Distribution Width 15.2 Platelet Count 173 Mean Platelet Volume 8.4 Neutrophils (%) (Auto) 84.7 Lymphocytes (%) (Auto) 7.7 Monocytes (%) (Auto) 7.3 Eosinophils (%) (Auto) 0.0 Basophils (%) (Auto) 0.3 Neutrophils # (Auto) 7.3 Lymphocytes # (Auto) 0.7 Monocytes # (Auto) 0.6 Eosinophils # (Auto) 0.0 Basophils # (Auto) 0.0 CBC Comment DIFF FINAL Differential Comment Sodium Level 135 Potassium Level 3.5 Chloride Level 100 Carbon Dioxide Level 26.5 Anion Gap 9 Blood Urea Nitrogen 38 Creatinine 1.53 Estimat Glomerular Filtration 33 Rate Random Glucose 160 Calcium Level 8.7 Date/Time Procedure Status Source Growth 10/15/16 09:25 Aerobic Blood Culture - Preliminary Resulted Blood Peripheral NO GROWTH IN 4 DAYS 10/15/16 09:25 Anaerobic Blood Culture - Preliminary Resulted Blood Peripheral NO GROWTH IN 4 DAYS 10/15/16 09:15 Urine Culture - Final Complete Urine Catheterized Urine 10-50,000 CFU/ML MIXED MILAGROS... 10/15/16 09:10 Influenza Types A,B Antigen (RYAN) - Final Complete Nasal Aspirate NEGATIVE FOR FLU A AND B ANTIGEN.... Bill Terrazas MD Oct 19, 2016 15:57
[2016-10-19] MEDS: RIVAROXABAN 15 MG TAB PO SCH (17:11)
[2016-10-20] VITALS (17 sets, daily range): BP systolic 80–154; BP diastolic 45–82; PULSE 72–90; RESP 18; TEMP 97.6–98.7; O2SAT 95–99
[2016-10-20] MEDS: ACETAMINOPHEN/HYDROcodone 325 MG/5 MG TAB PO PRN ×4 (03:46→17:25)
[2016-10-20] MEDS: hydrALAZINE HCL 20 MG/ML VIAL IV PUSH PRN (03:47)
[2016-10-20] MEDS: hydrALAZINE HCL 25 MG TAB PO SCH ×4 (05:03→21:39)
[2016-10-20] MEDS: ISOSORBIDE MONONITRATE 60 MG TAB PO SCH (05:52)
[2016-10-20 06:16] LABS: BICARBONATE 28.8 MEQ/L (21.0-32.0); POTASSIUM 3.6 MEQ/L (3.5-5.1)
[2016-10-20] MEDS: DOCUSATE SODIUM 50 MG/SENNA 8.6 MG TAB PO SCH ×2 (09:00→20:50)
[2016-10-20] MEDS: METOPROLOL TARTRATE 100 MG TAB PO SCH ×3 (09:14→21:00)
[2016-10-20] MEDS: POTASSIUM CHLORIDE 10 MEQ CONTROLLED RELEASE TAB PO SCH (09:15)
[2016-10-20] MEDS: FUROSEMIDE 20 MG TAB PO SCH (09:15)
[2016-10-20] MEDS: SODIUM CHLORIDE 0.9% FLUSH 10 ML FLUSH IV FLUSH SCH ×2 (09:15→20:51)
[2016-10-20] MEDS: PANTOPRAZOLE SOD 20 MG DELAYED RELEASE TAB PO SCH (09:15)
[2016-10-20] MEDS: LEVOFLOXACIN 250 MG TAB PO SCH (09:15)
--- NOTE | 2016-10-20 09:45 | HHI.PR ---
Subjective Remarks Follow-up CVA. The patient continues to report headache. She denies numbness, tingling, or weakness of her extremities. Denies chest pain or dyspnea. Objective Vitals Vital Signs Date Time Temp Pulse Resp B/P Pulse Ox O2 Delivery O2 Flow Rate FiO2 10/20/16 08:06 72 10/20/16 08:01 97.8 72 18 147/76 95 10/20/16 07:54 95 Room Air 10/20/16 06:00 76 10/20/16 05:00 80 10/20/16 04:00 88 10/20/16 04:00 Room Air 10/20/16 04:00 98.4 88 18 142/66 99 10/20/16 03:00 84 10/20/16 02:00 90 10/20/16 01:15 95 21 10/20/16 01:00 84 10/20/16 00:00 81 10/20/16 00:00 98.7 81 18 144/79 95 10/20/16 00:00 Room Air 10/19/16 23:00 80 10/19/16 22:00 93 10/19/16 21:00 82 10/19/16 20:00 Room Air 10/19/16 20:00 98.2 79 20 153/80 94 10/19/16 20:00 79 10/19/16 16:09 97.7 75 18 148/72 95 10/19/16 16:09 79 10/19/16 14:33 18 10/19/16 12:22 65 10/19/16 12:22 97.5 69 18 153/76 95 10/19/16 10:05 95 21 I/O 10/19/16 10/19/16 10/19/16 10/20/16 10/20/16 10/20/16 07:00 15:00 23:00 07:00 15:00 23:00 Intake Total 100 ml 480 ml 110 ml Output Total 500 ml 500 ml Balance -400 ml 480 ml -390 ml Intake Oral 100 ml 480 ml 100 ml IV Total 10 ml Output Urine Total 500 ml 500 ml # Voids 4 # Bowel Movements 0 0 0 Result Diagram: 10/19/16 0413 10/20/16 0504 Imaging Last Impressions Brain MRI 10/18/16 0000 Signed Impressions: Service Date/Time: Tuesday, October 18, 2016 10:39 - CONCLUSION: New large left cerebral hemisphere infarct involving the anterior cerebellum, SCA territory. The fourth ventricle is midline. The vascular artery looks patent. Abraham Stafford MD FACR Head CT 10/17/16 0000 Signed Impressions: Service Date/Time: Tuesday, October 18, 2016 03:20 - CONCLUSION: Interval development of areas of increased density involving the right occipital lobe perez-white junction may represent slight hemorrhage or possibly laminar necrosis related to subacute infarction. Lorie Mccarty MD Chest X-Ray 10/17/16 0000 Signed Impressions: Service Date/Time: September 11:29 - CONCLUSION: 1. Cardiomegaly. 2. No acute focal pulmonary infiltrate or pulmonary nodule. 3. Degenerative changes and scoliosis of the thoracolumbar spine. Jaiv Taylor MD Objective Remarks General: Elderly female in no acute distress. Sitting up in a chair. Heart: Regular rate and rhythm. No murmur. Lungs: Mild scattered wheeze. Breathing is nonlabored. Abdomen: Soft, nontender, nondistended. Extremities: No lower extremity edema. Psych: Alert, answers questions appropriately. Procedures 10/16/16 cardiac catheterization Urinary Catheter: No Vascular Central Line Catheter: No A/P Problem List: (1) NSTEMI (non-ST elevated myocardial infarction) ICD Code: I21.4 Status: Acute (2) CAD (coronary artery disease) ICD Code: I25.10 Status: Chronic (3) Hyperlipidemia ICD Code: E78.5 Status: Chronic (4) Hypertension ICD Code: I10 Status: Chronic (5) Chronic atrial fibrillation ICD Code: I48.2 Status: Chronic (6) CVA (cerebral vascular accident) ICD Code: I63.9 Status: Acute (7) Acute worsening of stage 3 chronic kidney disease ICD Code: N18.3 Status: Acute Assessment and Plan 1. Non-ST elevation [place]: Patient has history of coronary artery disease. Troponin elevated, but trending down. Appreciate cardiology recommendations. Status post cardiac catheterization. Continue aspirin, beta rafael, nitrates. 2. Acute exacerbation of chronic diastolic congestive heart failure: Continue diuresis. Monitor intake/output. 3. Acute worsening of chronic kidney disease stage III: Creatinine and 10 used to improve. Monitor labs. 4. Lactic acidosis: Resolved. 5. Cough, chest congestion: Possible pneumonia. Continue Levaquin; duo nebs as needed. 6. Hyponatremia: Improving. 7. Atrial fibrillation with RVR: Continue heart rate control with beta rafael. Continue Xarelto. 8. Hypertensive urgency: Improved. Continue anti-hypertensive medications. Allow permissive hypertension. 9. GERD: Continue PPI. 10. DVT prophylaxis: SCDs. 11. CVA: MRI of the brain shows new large left cerebral hemisphere infarct involving the anterior cerebellum. Appreciate neurology recommendations. Continue Xarelto. PT/OT/ST. patient still having headache. Continue pain medication. Problem Qualifiers (1) Hyperlipidemia: Qualified Code: E78.5 - Hyperlipidemia, unspecified hyperlipidemia type (2) Hypertension: Qualified Code: I10 - Essential hypertension Yonatan Pineda MD Oct 20, 2016 09:45
[2016-10-20] MEDS: ONDANSETRON HCL 4 MG/2 ML VIAL IV PUSH PRN (13:13)
[2016-10-20] MEDS: RIVAROXABAN 15 MG TAB PO SCH (15:51)
[2016-10-20] MEDS ORDERED: SODIUM CHLORID 0.9% 500 ML INJ 500 ML IV ONE (22:15)
--- NOTE | 2016-10-20 22:54 | RADRPT ---
EXAM DATE/TIME: 10/20/2016 22:30 [facility] COMPARISON: CHEST SINGLE AP, October 15, 2016, 10:34. INDICATIONS : Congestion. MEDICAL HISTORY : Hypertension. Hypercholesterolemia. SURGICAL HISTORY : Appendectomy. Hysterectomy. ENCOUNTER: Subsequent ACUITY: 1 week PAIN SCORE: 0/10 LOCATION: Bilateral chest FINDINGS: The heart size is normal. The lungs are clear. No effusion is seen. CONCLUSION: No acute disease. Trenton Ennis MD on October 20, 2016 at 22:51 Board Certified Radiologist. This report was verified electronically.
[2016-10-20 22:56] LABS: AUTOMATED NEUTROPHIL # 5.1 TH/MM3 (1.8-7.7); BASOPHIL % 0.3 % (0.0-2.0); EOSINOPHIL % 0.1 % (0.0-4.0); HEMATOCRIT 43.8 % (35.0-46.0); HEMO FLAGS DIFF FINAL; LYMPH % 17.7 % (9.0-44.0); LYMPHOCYTE # 1.3 TH/MM3 (1.0-4.8); MEAN CELL VOLUME 83.3 FL (80.0-100.0); MEAN CORPUSCULAR HEMOGLOBIN 26.5 PG (27.0-34.0); MEAN CORPUSCULAR HGB CONC 31.8 % (32.0-36.0); MONO % 10.7 % (0.0-8.0); NEUT % 71.2 % (16.0-70.0); PLATELET COUNT 220 TH/MM3 (150-450); RED BLOOD COUNT 5.26 MIL/MM3 (4.00-5.30); RED CELL DISTRIBUTION WIDTH 15.3 % (11.6-17.2); WHITE BLOOD COUNT 7.1 TH/MM3 (4.0-11.0)
[2016-10-21] VITALS (27 sets, daily range): BP systolic 112–169; BP diastolic 49–95; PULSE 67–91; RESP 18; TEMP 98–98.4; O2SAT 93–97
[2016-10-21] MEDS: RESP: ALBUTEROL 2.5 MG/IPRATROPIUM 0.5 MG NEB (PRN) NEB (01:53)
[2016-10-21] MEDS: ACETAMINOPHEN/HYDROcodone 325 MG/5 MG TAB PO PRN (02:35)
[2016-10-21] MEDS: hydrALAZINE HCL 25 MG TAB PO SCH ×3 (05:05→21:24)
[2016-10-21 06:22] LABS: POTASSIUM 3.7 MEQ/L (3.5-5.1)
[2016-10-21 06:25] LABS: BICARBONATE 26.5 MEQ/L (21.0-32.0)
[2016-10-21] MEDS: ISOSORBIDE MONONITRATE 60 MG TAB PO SCH (06:33)
[2016-10-21] MEDS: SODIUM CHLORIDE 0.9% FLUSH 10 ML FLUSH IV FLUSH SCH ×2 (09:00→21:25)
[2016-10-21] MEDS: POTASSIUM CHLORIDE 10 MEQ CONTROLLED RELEASE TAB PO SCH (09:00)
[2016-10-21] MEDS: DOCUSATE SODIUM 50 MG/SENNA 8.6 MG TAB PO SCH ×2 (09:00→21:24)
[2016-10-21] MEDS: PANTOPRAZOLE SOD 20 MG DELAYED RELEASE TAB PO SCH (09:53)
[2016-10-21] MEDS: FUROSEMIDE 20 MG TAB PO SCH (09:53)
[2016-10-21] MEDS: LEVOFLOXACIN 250 MG TAB PO SCH (09:53)
[2016-10-21] MEDS: METOPROLOL TARTRATE 100 MG TAB PO SCH ×2 (09:54→21:24)
--- NOTE | 2016-10-21 10:18 | HHI.FF ---
Face to Face Verification Diagnosis: (1) CVA (cerebral vascular accident) Physical Therapy Order: Evaluate and Treat Occupational Therapy Order: Evaluate and Treat Home Health Nursing Order: Nursing assessment with vital signs [employer] Professor Order: To Provide: Long range planning I have seen patient Fabiola Coe on 10/21/16. My clinical findings support the need for the requested home health care services because: Deconditioned w/ increased weakness I certify that my clinical findings support that this patient is homebound because: Unsafe to leave home unassisted Jhon Winston MD Oct 21, 2016 10:18
[2016-10-21] MEDS ORDERED: XARE15TA PO (10:26)
[2016-10-21] MEDS ORDERED: ISOS60TA PO (10:26)
[2016-10-21] MEDS ORDERED: ASPI-99 PO (10:26)
[2016-10-21] MEDS ORDERED: BENZ100 PO (10:26)
[2016-10-21] MEDS ORDERED: METO-338 PO (10:26)
[2016-10-21] MEDS ORDERED: HYDR-3799 PO (10:26)
[2016-10-21] MEDS: RIVAROXABAN 15 MG TAB PO SCH (15:47)
--- NOTE | 2016-10-21 16:28 | HHI.PR ---
Subjective Remarks Patient seen this morning around 10:30 AM. Says she feels very weak. Daughter at bedside. Says that nobody is at home during the day to help take care of her. Further discussed with case coordinator. We will reorder physical therapy evaluation to re-eval for rehabilitation. Objective Vital Signs Date Time Temp Pulse Resp B/P Pulse Ox O2 Delivery O2 Flow Rate FiO2 10/21/16 13:38 96 10/21/16 11:14 98.0 89 18 148/68 97 10/21/16 11:00 91 10/21/16 10:00 82 10/21/16 09:00 80 10/21/16 08:00 78 10/21/16 08:00 96 Room Air 10/21/16 08:00 98.2 89 18 155/95 97 10/21/16 07:00 76 10/21/16 06:00 72 10/21/16 05:00 77 10/21/16 04:00 89 10/21/16 04:00 Room Air 10/21/16 04:00 98.3 89 18 137/62 97 10/21/16 03:00 89 10/21/16 02:00 78 10/21/16 01:00 75 10/21/16 00:00 98.2 67 18 112/49 97 10/21/16 00:00 67 10/21/16 00:00 Room Air 10/20/16 23:00 77 10/20/16 22:00 74 10/20/16 21:12 95 10/20/16 21:00 80 10/20/16 21:00 80 112/57 10/20/16 20:00 98.0 75 18 80/45 97 10/20/16 20:00 75 10/20/16 20:00 Room Air 10/20/16 18:45 18 10/20/16 16:28 97.6 73 18 138/75 96 10/20/16 16:28 75 I/O 10/20/16 10/20/16 10/20/16 10/21/16 10/21/16 10/21/16 07:00 15:00 23:00 07:00 15:00 23:00 Intake Total 110 ml 640 ml 740 ml Output Total 500 ml 700 ml Balance -390 ml 640 ml 40 ml Intake Oral 100 ml 640 ml 240 ml IV Total 10 ml 500 ml Output Urine Total 500 ml 700 ml # Voids 4 # Bowel Movements 0 0 0 Result Diagram: 10/20/16 2237 10/21/16 0506 Objective Remarks GENERAL: Lying in bed. Appears comfortable. SKIN: Warm and dry. HEAD: Normocephalic. EYES: No scleral icterus. No injection or drainage. NECK: Supple, trachea midline. No JVD . CARDIOVASCULAR: Regular rate and rhythm without murmurs, gallops, or rubs. RESPIRATORY: Breath sounds equal bilaterally. No accessory muscle use. GASTROINTESTINAL: Abdomen soft, non-tender, nondistended. MUSCULOSKELETAL: No cyanosis, or edema. BACK: Nontender without obvious deformity. No CVA tenderness. A/P Assessment and Plan ======10/21/16 Patient stable, however not able to go home. Family not being at home most of the day. Need supervision. -Vital signs reviewed with systolic blood pressure in the 140s, acceptable. -Labs reviewed with creatinine 1.8, around recent baseline. //Non-ST elevation AR: Patient has history of coronary artery disease. Troponin elevated, but trending down. Appreciate cardiology recommendations. Status post cardiac catheterization. Continue aspirin, beta rafael, nitrates. //Acute exacerbation of chronic diastolic congestive heart failure: Continue diuresis. Monitor intake/output. // Acute worsening of chronic kidney disease stage III: Creatinine and 10 used to improve. Monitor labs. //Lactic acidosis: Resolved. // Cough, chest congestion: Possible pneumonia. Continue Levaquin; duo nebs as needed. // Hyponatremia: Improving. // Atrial fibrillation with RVR: Continue heart rate control with beta rafael. Continue Xarelto. // Hypertensive urgency: Improved. Continue anti-hypertensive medications. Allow permissive hypertension. // GERD: Continue PPI. // DVT prophylaxis: SCDs. // CVA: MRI of the brain shows new large left cerebral hemisphere infarct involving the anterior cerebellum. Appreciate neurology recommendations. Continue Xarelto. PT/OT/ST. patient still having headache. Continue pain medication. -Patient cleared for discharge by neurology. Appreciate assistance. //Prophylaxis. anticoagulation as per neurology. Discharge Planning Discharge to SNF for continued rehabilitation. Appreciate PT, OT, case management assistance. Jhon Winston MD Oct 21, 2016 16:28
[2016-10-21] MEDS ORDERED: ACETAMINOPHEN 325 MG TAB PO PRN (16:30)
[2016-10-21] MEDS: ACETAMINOPHEN 325 MG TAB PO PRN (18:02)
[2016-10-22] VITALS (17 sets, daily range): BP systolic 75–165; BP diastolic 32–82; PULSE 62–84; RESP 14–18; TEMP 97.8–98.8; O2SAT 94–100
[2016-10-22] MEDS ORDERED: EPINEPHrine HCL (1:10,000) 1 MG/10 ML SYRINGE IV ONE (05:00)
[2016-10-22] MEDS ORDERED: ATROPINE SULFATE 1 MG/10 ML SYRINGE IV ONE (05:00)
[2016-10-22] MEDS: ISOSORBIDE MONONITRATE 60 MG TAB PO SCH (06:20)
[2016-10-22] MEDS: hydrALAZINE HCL 25 MG TAB PO SCH (06:20)
[2016-10-22] MEDS: LEVOFLOXACIN 250 MG TAB PO SCH (08:34)
[2016-10-22] MEDS: POTASSIUM CHLORIDE 10 MEQ CONTROLLED RELEASE TAB PO SCH (08:34)
[2016-10-22] MEDS: PANTOPRAZOLE SOD 20 MG DELAYED RELEASE TAB PO SCH (08:34)
[2016-10-22] MEDS: DOCUSATE SODIUM 50 MG/SENNA 8.6 MG TAB PO SCH ×2 (08:34→21:00)
[2016-10-22] MEDS: METOPROLOL TARTRATE 100 MG TAB PO SCH (08:34)
[2016-10-22] MEDS: FUROSEMIDE 20 MG TAB PO SCH (08:35)
[2016-10-22] MEDS: SODIUM CHLORIDE 0.9% FLUSH 10 ML FLUSH IV FLUSH SCH ×2 (09:00→21:57)
[2016-10-22] MEDS: ACETAMINOPHEN 325 MG TAB PO PRN ×2 (11:59→21:56)
[2016-10-22] MEDS ORDERED: CYANOCOBALAMIN 1000 MCG/ML VIAL IM ONE (12:45)
--- NOTE | 2016-10-22 12:47 | HHI.FPPN ---
Addendum to progress note ADDENDUM Reason for addendum: Additonal documentation Additional information Residents Tyree and Adelaide responded to Code Blue at 12:38 to Code Blue. Well Logging Captain already in Room running the code. No further action required. Edson Bryson R1 Mark Bryson MD R1 Oct 22, 2016 12:47
[2016-10-22] MEDS ORDERED: TERBUTALINE INJ 1 MG/ML AMP SQ PRN (13:00)
[2016-10-22] MEDS ORDERED: SODIUM CHLOR 0.9% 1000 ML INJ 1,000 ML IV ONE (13:00)
[2016-10-22] MEDS ORDERED: NOREPINEPHRINE-DEXTROSE DRIP 250 ML IV SCH (13:00)
[2016-10-22] MEDS: SODIUM CHLOR 0.9% 1000 ML INJ 1,000 ML IV SCH ×2 (13:00→23:00)
[2016-10-22] MEDS ORDERED: EPINEPHrine HCL (1:10,000) 1 MG/10 ML SYRINGE ONE (13:04)
--- NOTE | 2016-10-22 13:53 | RADRPT ---
EXAM DATE/TIME: 10/22/2016 13:31 [facility] COMPARISON: No previous studies available for comparison. INDICATIONS : Blood thinner started yesterday, now with decreased mental status with history of stroke. RADIATION DOSE: 37.52 CTDIvol (mGy) MEDICAL HISTORY : Cerebrovascular disease. Hypertension. SURGICAL HISTORY : Appendectomy. Hysterectomy. ENCOUNTER: Subsequent ACUITY: 1 day PAIN SCALE: Non-responsive LOCATION: cranial TECHNIQUE: Multiple contiguous axial images were obtained of the head. Using automated exposure control and adj ustment of the mA and/or kV according to patient size, radiation dose was kept as low as reasonably a chievable to obtain optimal diagnostic quality images. DICOM format image data is available electro nically for review and comparison. FINDINGS: There is a known left cerebellar infarction. Compared with prior CT examination there is development of fairly extensive petechial hemorrhage associated with the left cerebellar infarct. There is also s urrounding edema and mass effect. This results in a mild compression of the brainstem and partial eff acement of the fourth ventricle. There is also an acute on chronic infarct in the right occipital lobe also associated with petechial hemorrhage but without significant mass effect. There is a remote left parieto-occipital infarct whic h is stable. No hydrocephalus. Incidental basal ganglia calcifications. CONCLUSION: 1. Extensive petechial hemorrhage associated with a known left cerebellar infarct with surrounding ed reyna and mass effect with partial effacement of the fourth ventricle and mild compression on the brain stem from the left side. 2. Acute on chronic infarct in the right occipital lobe also associated with some petechial hemorrhag e but without significant localized mass effect. 3. Stable remote left parietal occipital infarct. Chandler Manning MD on October 22, 2016 at 13:44 Board Certified Radiologist. This report was verified electronically.
--- NOTE | 2016-10-22 14:45 | RADRPT ---
EXAM DATE/TIME: 10/22/2016 14:05 [facility] COMPARISON: CHEST SINGLE AP, October 20, 2016, 22:30. INDICATIONS : Short of breath. MEDICAL HISTORY : Hypertension. SURGICAL HISTORY : ENCOUNTER: Subsequent ACUITY: 1 week PAIN SCORE: Non-responsive. LOCATION: Bilateral chest FINDINGS: A single view of the chest demonstrates stable cardiomegaly. Minimal basal atelectasis. No significan t effusion. No pneumothorax. CONCLUSION: 1. Cardiomegaly. Basilar density most characteristic of atelectasis. No effusion or pneumothorax. Chandler Manning MD on October 22, 2016 at 14:41 Board Certified Radiologist. This report was verified electronically.
--- NOTE | 2016-10-22 14:55 | HHI.PR ---
Review/Management Daily Summary 10/19 more alert and responsive, nystagmus improved mostly follows commands moves bilat limbs on request some visual field preservation at least mri brain seen, she had mra cow in july and it was normal kidney functions not safe for mra with contrast neck or ct angio therefore will defer anticoagulation xarelto suspect there will be balance problems because of large acute right cerebellum infarct leslie occipital infarcts, old on left and subacute on right 10/22 ct brain seen acute neuro change/decreased responsiveness spoke to cable stretcher and tester than discussed with dr Joseph NS I saw her and she was awake, calm, cooperative and following all commands no distress, eom normal, moves 4 limbs without any major difficulty or asymmetry if there is an increase mass effect on cerebellum/4th ventricle she would need decompression acutely the problem is xarelto half life and dr Erickson was going to review with hematology for any suggestion dr Joseph will see pt Subjective Subjective Comments acute neuro change Active Medications Current Medications Medications (Trade) Dose Ordered Sig/Shaina Route Start Time Stop Time Status Last Admin (NS Flush) 2 ml UNSCH PRN IV FLUSH 10/15/16 10:45 10/20/16 13:12 (NS Flush) 2 ml BID IV FLUSH 10/15/16 21:00 10/21/16 21:25 (Narcan Inj) 0.4 mg UNSCH PRN IV 10/15/16 10:45 (Julia-Colace) 1 tab BID PO 10/15/16 21:00 10/22/16 08:34 (Milk Of Magnesia Liq) 30 ml Q12H PRN PO 10/15/16 10:45 (Senokot) 17.2 mg Q12H PRN PO 10/15/16 10:45 10/21/16 09:54 (Dulcolax Supp) 10 mg DAILY PRN RECTAL 10/15/16 10:45 (Lactulose Liq) 30 ml DAILY PRN PO 10/15/16 10:45 (Protonix) 20 mg DAILY PO 10/16/16 09:00 10/22/16 08:34 (Vasotec Inj) 1.25 mg Q6H PRN IV PUSH 10/15/16 10:45 10/19/16 00:20 (Apresoline) 25 mg Q8HR PO 10/15/16 14:00 Hold 10/22/16 06:20 (Lopressor) 100 mg Q12HR PO 10/16/16 09:00 Hold 10/22/16 08:34 (Atropine Inj) 0.5 mg UNSCH PRN IV 10/16/16 18:00 (Tessalon) 100 mg TID PRN PO 10/17/16 09:15 10/17/16 15:28 (Imdur) 120 mg DAILY@07 PO 10/18/16 07:00 Hold 10/22/16 06:20 (Zofran Inj) 4 mg Q6HR PRN IV PUSH 10/17/16 23:45 10/20/16 13:13 (Apresoline Inj) 10 mg Q3HR PRN IV PUSH 10/18/16 04:30 10/20/16 03:47 (Levaquin) 250 mg DAILY PO 10/19/16 09:00 10/22/16 08:34 ([place] 5-325 Mg) 1 tab Q4H PRN PO 10/19/16 08:15 10/21/16 02:35 Acetaminophen 650 mg 650 mg Q6H PRN PO 10/21/16 16:45 10/22/16 11:59 Sodium Chloride 1,000 ml @ 100 mls/hr Q10H IV 10/22/16 13:00 (Levophed-Dextrose Drip) 250 ml @ 0 mls/hr TITRATE IV 10/22/16 13:00 (Brethine Inj) 1 mg UNSCH PRN SQ 10/22/16 13:00 Allergies Allergies Coded Allergies No Known Allergies (Verified10/15/16) Exam I&O / VS 10/21/16 10/21/16 10/22/16 15:00 23:00 07:00 Intake Total 525 ml 240 ml Output Total 650 ml 100 ml Balance -125 ml 140 ml Intake Oral 525 ml 240 ml Output Urine Total 650 ml 100 ml # Voids 2 # Bowel Movements 1 1 Vital Signs Date Time Temp Pulse Resp B/P Pulse Ox O2 Delivery O2 Flow Rate FiO2 10/22/16 12:36 78 75/32 10/22/16 12:00 77 10/22/16 12:00 77 96/54 95 10/22/16 10:21 21 10/22/16 08:00 98.8 79 18 135/72 97 10/22/16 06:00 74 10/22/16 05:00 84 10/22/16 04:00 77 10/22/16 03:00 98.6 74 18 128/63 94 10/22/16 03:00 79 10/22/16 02:00 76 10/22/16 01:00 72 10/22/16 00:00 76 10/21/16 23:00 98.4 74 18 124/72 93 10/21/16 23:00 76 10/21/16 22:00 78 10/21/16 21:00 74 10/21/16 20:00 80 10/21/16 19:26 20 10/21/16 19:00 98.0 75 18 169/87 96 10/21/16 19:00 70 10/21/16 19:00 96 Room Air 10/21/16 18:11 86 10/21/16 18:00 96 21 10/21/16 17:00 88 10/21/16 16:00 98.2 86 18 152/72 96 10/21/16 16:00 88 10/21/16 15:00 90 Bill Terrazas MD Oct 22, 2016 14:55
[2016-10-22 15:22] LABS: AUTOMATED NEUTROPHIL # 8.5 TH/MM3 (1.8-7.7); BASOPHIL % 0.1 % (0.0-2.0); EOSINOPHIL % 0.3 % (0.0-4.0); HEMATOCRIT 43.3 % (35.0-46.0); HEMO FLAGS DIFF FINAL; LYMPH % 10.2 % (9.0-44.0); MEAN CELL VOLUME 86.1 FL (80.0-100.0); MEAN CORPUSCULAR HEMOGLOBIN 26.6 PG (27.0-34.0); MEAN CORPUSCULAR HGB CONC 30.9 % (32.0-36.0); MONO % 5.7 % (0.0-8.0); NEUT % 83.7 % (16.0-70.0); PLATELET COUNT 179 TH/MM3 (150-450); RED BLOOD COUNT 5.03 MIL/MM3 (4.00-5.30); RED CELL DISTRIBUTION WIDTH 15.1 % (11.6-17.2); WHITE BLOOD COUNT 10.2 TH/MM3 (4.0-11.0)
[2016-10-22 15:37] LABS: APTT (PATIENT) 26.8 SEC (24.3-30.1); PROTHROMBIN TIME - PATIENT 10.9 SEC (9.8-11.6)
--- NOTE | 2016-10-22 15:38 | MB ---
cc: BRENNON ELLIOTT M.D. DATE OF CONSULTATION 10/22/16 DATE OF 1940 HISTORY OF PRESENT ILLNESS The patient is a 76-year-old female with past medical history of chronic atrial fibrillation, coronary artery disease, hypertension, chronic kidney disease, CVA, gastroesophageal reflux disease who was admitted to [facility] under hospitalist service on October 15 with elevated troponins/non-ST elevation [place]. She underwent cardiac catheterization on October [address] Andino which showed overall minimal left coronary system disease. Echocardiogram from October 17 showed moderate to severe concentric LVH, hypertrophic obstructive cardiomyopathy with EF of 70-75%. The patient was placed on aspirin, Imdur, Lopressor and hydralazine. On October [address] scan of the brain without contrast for dizziness and was found to have areas of increased density involving the right occipital lobe. Subsequently, the patient underwent an MRI of the brain on October 18 which showed new large cerebral hemisphere infarct involving the anterior cerebellum with no hemorrhage evident. The patient was on Xarelto for her stroke and atrial fibrillation. This afternoon code blue was called as the patient was found unresponsive and hypotensive with systolic blood pressure in 60s to 70s. The patient, however, never lost a pulse and did not receive any ACLS drugs. She was given 1 liter bolus of normal saline and transferred to CVICU. She became a little bit more awake and her blood pressure improved to 152/69 with a pulse of 87. Current saturation 99%. Her last chest x-ray from October 20 showed no evidence of any acute disease. The patient is scheduled for repeat CT scan of the brain to rule out any hemorrhagic conversion from her stroke. Most of the history was obtained from reviewing medical records as patient is a poor historian. PAST MEDICAL HISTORY Past medical history significant for chronic atrial fibrillation, coronary artery disease, hypertension and chronic kidney disease, COPD, CVA in July of 2015, gastroesophageal reflux disease, hyperlipidemia. PAST SURGICAL HISTORY Previous appendectomy and hysterectomy. MEDICATIONS Currently include: 1. Xarelto. 2. Levaquin. 3. Potassium chloride. 4. Lopressor. 5. Hydralazine. 6. Lasix. ALLERGIES NO KNOWN DRUG ALLERGIES. FAMILY HISTORY Noncontributory. SOCIAL HISTORY No history of alcohol or tobacco use. REVIEW OF SYSTEMS As per HPI. The rest of the review of systems limited as patient is a poor historian. PHYSICAL EXAMINATION GENERAL: Physical exam a 76-year-old female lying in bed, in mild distress. VITAL SIGNS: Temperature 98.8, pulse 87, blood pressure currently 152/69, prior systolic blood pressure in the 70s, saturation 99%. HEENT: Atraumatic and normocephalic. Pupils equal round and reactive to light and accommodation. Extraocular muscles intact. Conjunctiva pink. Nonicteric sclerae. Oral mucosa within normal. NECK: Supple. No JVD, adenopathy or thyromegaly. Trachea midline. CARDIOVASCULAR: Irregularly irregular. Normal S1-S2. No murmurs, rubs or gallops noted. PULMONARY: Bilateral equal air entry. No rales or wheezing. ABDOMEN: Soft, nontender, no distension. Positive bowel sounds. EXTREMITIES: No cyanosis, clubbing or edema. NEURO: The patient is able to move extremities, responsive. LABORATORY DATA Laboratory data from October 20, WBC 7.1, hemoglobin 13.9, hematocrit 43, platelet count 220, sodium 135, potassium 3.7, chloride 100, CO2 26, BUN 44, creatinine 1.80, glucose of 125. RADIOGRAPHY Chest x-ray from October 20 no acute disease. MRI of the brain from October 18 showed new large left cerebellar hemisphere infarct involving the anterior cerebellum. IMPRESSION 1. Respiratory insufficiency. 2. Altered mental status. 3. Status post recent large left cerebellar hemisphere infarct. 4. Non-ST elevation OH status post cardiac catheterization which showed minimal coronary artery disease. 5. Chronic atrial fibrillation, on Xarelto. 6. Hypertension. 7. Chronic kidney disease. 8. Gastroesophageal reflux disease. 9. History of CVA. RECOMMENDATIONS 1. Monitor neuro status closely and avoid any sedatives. MRI from October 18 showed large left cerebral hemisphere infarct. Will proceed with a stat CT scan of the brain to rule out any hemorrhagic conversion of her stroke. Neurology followup. In addition, we will obtain an EEG. Hold Xarelto if CT brain shows hemorrhage. 2. Continue with oxygen, maintain sats above 92%. 3. Bronchodilators in the form of DuoNeb q. 6+ q. 2 p.r.n. for shortness of breath. 4. Aspiration precautions and will check baseline chest x-ray. 5. Monitor heart rate and blood pressure closely and maintain MAP greater than 65 mmHg. The patient was given 1 liter bolus of normal saline with improvements of her blood pressure, currently 152/69. Will hold antihypertensive meds for now. She was receiving Lopressor, hydralazine and Imdur. Status post cardiac cath on October 16 which showed minimal coronary artery disease. Will check lactic acid level. Echocardiogram from October 17 showed hypertrophic obstructive cardiomyopathy and EF of 70-75%. 6. Monitor renal function Is and Os and avoid nephrotoxins. She received 1 liter bolus of normal saline. Will place on maintenance fluids NS at 100 an hour for now. Hold Lasix and potassium supplements. 7. Keep n.p.o. for now and continue with Protonix daily for underlying history of gastroesophageal reflux disease. 8. Monitor for signs of infections which include fever and WBC. Check chest x-ray. Continue with current antibiotics. She is on Levaquin. 9. Monitor CBC. 10. Sliding scale insulin with Accu-Chek q. 4-hour for glycemic control. 11. GI prophylaxis with Protonix and DVT prophylaxis with SCDs. In addition, the patient is on Xarelto. Will hold if there is any evidence of bleeding on a CT brain. 12. Will check STAT labs now which include CBC, CMP along with lactic acid. 13. Further recommendations will be based on hospital course. Case discussed with CVICU nursing staff. Critical care time 40 minutes excluding procedures. Addendum: CT brain showed petechial hemorrhage associated with a known left cerebellar infarct with surrounding edema and mass effect with partial effacement of the fourth ventricle and mild compression on the brainstem from the left side. Acute on chronic infarct in the right occipital lobe also associated with some petechial hemorrhage but without significant localized mass effect.. Stable remote left parietal occipital infarct Spoke to Neurology Dr. Terrazas and Neurosurgery Dr. Joseph no intervention at this time. Patient is able to verbalize and is responding. Her last Xarelto dose was approx 24 hrs ago. If she gets worse will proceed with intubation and possible ventric placement per Dr. Joseph. I also spoke to patient's daughter and updated her on patient's condition. MD RK King/TIFFAYN /1:24 PM /3:15 PM JANAE
[2016-10-22 15:39] LABS: ALKALINE PHOSPHATASE 59 U/L (45-117); TOTAL BILIRUBIN ADULT 0.4 MG/DL (0.2-1.0)
[2016-10-22 15:40] LABS: ALT (GPT) 34 U/L (10-53); ANION GAP 5 MEQ/L (5-15); AST (GOT) 51 U/L (15-37); BICARBONATE 30.9 MEQ/L (21.0-32.0); BLOOD UREA NITROGEN 38 MG/DL (7-18); CHLORIDE 102 MEQ/L (98-107); GLOMERULAR FILTRATION RATE 31 ML/MIN (>89); MAGNESIUM 1.9 MG/DL (1.5-2.5); POTASSIUM 4.4 MEQ/L (3.5-5.1); SODIUM (NA) 138 MEQ/L (136-145)
--- NOTE | 2016-10-22 16:44 | MB ---
cc: RIK GONZALES M.D., ROHIT K. M.D. CUNHA, OLIMPIO F. M.D. DATE OF CONSULTATION 10/22/2016 REASON FOR CONSULTATION Hemorrhagic infarct. HISTORY OF PRESENT ILLNESS A 76-year-old female who was admitted on 10/15/2016 for exacerbation of her congestive heart failure and myocardial infarction. She is also on Xarelto anticoagulation for her chronic atrial fibrillation. She has suffered from a previous strokes involving the left parietal occipital aspect as well as the right occipital aspect and more recent one in the left cerebellar hemisphere. She was seen by neurology and her Xarelto continued. She was noted to have a hypotensive episode today, although remains interactive and awake. CT scan of the head obtained reveals hemorrhagic area of conversion and the left cerebellar hemisphere stroke as well as a smaller right occipital stroke. She also has old left parietal occipital area strokes. There is generalized atrophy. There is slight compression of the fourth ventricle but this is not obstructed and there is no hydrocephalus. PAST MEDICAL HISTORY 1. Chronic atrial fibrillation on Xarelto anticoagulation. 2. Congestive heart failure. 3. Recent myocardial infarction during current admission. 4. Multiple strokes in the past and another one recently. 5. Chronic kidney disease stage III. 6. Hypertension. CURRENT MEDICATIONS Currently include: 1. Xarelto, last dose was on 10/21/2016 at 03:47 p.m. 2. Levaquin. 3. Lortab p.r.n. 4. As needed Apresoline. 5. As needed benzonatate. 6. Protonix. 7. Julia-Colace. 8. Sennokot. 9. As needed Vasotec. ALLERGIES NO KNOWN DRUG ALLERGIES. SOCIAL HISTORY She is a . Denies alcohol or tobacco use. REVIEW OF SYSTEMS Very limited. The patient does not cooperate for examination well. Denies any headache. Relates that she wants to urinate and needs a bedpan. 10. LABORATORY FINDINGS White blood cell count 7.1, hemoglobin 13.9, platelet count 220. PT/PTT, INR is pending. The last one from 10/17/2016, PT 10.6, INR 1.0, PTT 30.8. Sodium 135, potassium 3.7, BUN 44, creatinine 1.80, glucose 125, GFR is 27. PHYSICAL EXAMINATION HEENT: Head is normocephalic, atraumatic. NECK: Supple. CHEST: Clear bilaterally. CARDIOVASCULAR: Heart regular rhythm. No tachycardia. CHEST: Clear bilaterally. ABDOMEN: Soft, nontender. EXTREMITIES: No cyanosis or edema. NEUROLOGIC: She is awake and alert. She will state her name. Pupils are 4 mm react down to 2 bilaterally. Face is symmetric. Tongue is midline. She moves all four extremities but will not cooperate for good muscle strength evaluation or perform cerebellar function testing. Equivocal Babinski. Her speech is fluent. IMPRESSION 1. Multiple areas of strokes involving the most recent one the left cerebellar hemisphere and previous strokes in the left parieto-occipital area and right occipital area with hemorrhagic areas of conversion in the left cerebellar hemisphere and right occipital strokes. There is some mild mass effect in the fourth ventricle but no obstruction or hydrocephalus with generalized cerebral atrophy noted. 2. Chronic atrial fibrillation on Xarelto, the last dose last evening. 3. Recent myocardial infarction with a history of congestive heart failure. 4. Chronic kidney disease with recent exacerbation. 5. Hypertension. PLAN The patient will be monitored closely in the surgical intensive care unit. Keep her head of bed elevated at 30 degrees. Sequential compression devices for DVT prophylaxis and Lopez catheter was placed to record accurate input and output. Her hypertension will be regulated and at this point plan is for continued nonsurgical management. Should her condition decline then we need to address her code status and whether she can be intubated for airway control with the family. I have discussed this with the log getter Dr. Acuña and Dr. Grimm. I also discussed with Dr. Terrazas from neurology. MD JAYLON Payton/EARLENE /3:04 PM /4:22 PM
[2016-10-22] MEDS ORDERED: GLUCAGON 1 MG/ML VIAL OTHER PRN (17:45)
[2016-10-22] MEDS ORDERED: DEXTROSE 50% IN WATER 50 ML VIAL(D50) IV PRN (17:45)
[2016-10-22] MEDS: INSULIN NovoLIN REGULAR SUPPLEMENTAL SCALE SQ SCH ×2 (18:00→21:54)
[2016-10-23] VITALS (18 sets, daily range): BP systolic 85–154; BP diastolic 43–70; PULSE 64–135; RESP 16–27; TEMP 97.6–98.2; O2SAT 93–99
[2016-10-23] MEDS: ONDANSETRON HCL 4 MG/2 ML VIAL IV PUSH PRN (00:13)
[2016-10-23] MEDS: ACETAMINOPHEN/HYDROcodone 325 MG/5 MG TAB PO PRN (00:13)
[2016-10-23] MEDS: INSULIN NovoLIN REGULAR SUPPLEMENTAL SCALE SQ SCH ×6 (02:00→21:31)
[2016-10-23 05:03] LABS: AUTOMATED NEUTROPHIL # 7.2 TH/MM3 (1.8-7.7); BASOPHIL % 0.5 % (0.0-2.0); EOSINOPHIL % 0.4 % (0.0-4.0); HEMATOCRIT 39.5 % (35.0-46.0); HEMO FLAGS DIFF FINAL; LYMPH % 13.7 % (9.0-44.0); LYMPHOCYTE # 1.3 TH/MM3 (1.0-4.8); MEAN CELL VOLUME 83.3 FL (80.0-100.0); MEAN CORPUSCULAR HEMOGLOBIN 26.5 PG (27.0-34.0); MEAN CORPUSCULAR HGB CONC 31.8 % (32.0-36.0); MONO % 6.7 % (0.0-8.0); NEUT % 78.7 % (16.0-70.0); PLATELET COUNT 209 TH/MM3 (150-450); RED BLOOD COUNT 4.74 MIL/MM3 (4.00-5.30); RED CELL DISTRIBUTION WIDTH 14.9 % (11.6-17.2); WHITE BLOOD COUNT 9.2 TH/MM3 (4.0-11.0)
[2016-10-23 05:24] LABS: BICARBONATE 29.6 MEQ/L (21.0-32.0); POTASSIUM 4.1 MEQ/L (3.5-5.1)
[2016-10-23] MEDS: hydrALAZINE HCL 20 MG/ML VIAL IV PUSH PRN ×2 (05:40→23:17)
[2016-10-23] MEDS ORDERED: METOPROLOL TARTRATE 5 MG/5 ML VIAL ONE (06:25)
[2016-10-23] MEDS ORDERED: MORPHINE SULFATE 8 MG/ML INJ ONE (06:40)
[2016-10-23 07:08] LABS: MAGNESIUM 1.8 MG/DL (1.5-2.5)
--- NOTE | 2016-10-23 07:42 | HHI.CCPN ---
Subjective Remarks/Hospital Course 10/22: The patient is a 76-year-old female with past medical history of chronic atrial fibrillation, coronary artery disease, hypertension, chronic kidney disease, CVA, gastroesophageal reflux disease who was admitted to [facility] under hospitalist service on October 15 with elevated troponins/non-ST elevation CO. She underwent cardiac catheterization on October [address] Andino which showed overall minimal left coronary system disease. Echocardiogram from October 17 showed moderate to severe concentric LVH, hypertrophic obstructive cardiomyopathy with EF of 70-75%. The patient was placed on aspirin, Imdur, Lopressor and hydralazine. On October [address] scan of the brain without contrast for dizziness and was found to have areas of increased density involving the right occipital lobe. Subsequently, the patient underwent an MRI of the brain on October 18 which showed new large cerebral hemisphere infarct involving the anterior cerebellum with no hemorrhage evident. The patient was on Xarelto for her stroke and atrial fibrillation. This afternoon code blue was called as the patient was found unresponsive and hypotensive with systolic blood pressure in 60s to 70s. The patient, however, never lost a pulse and did not receive any ACLS drugs. She was given 1 liter bolus of normal saline and transferred to CVICU. She became a little bit more awake and her blood pressure improved to 152/69 with a pulse of 87. Current saturation 99%. Her last chest x-ray from October 20 showed no evidence of any acute disease. The patient is scheduled for repeat CT scan of the brain to rule out any hemorrhagic conversion from her stroke. Most of the history was obtained from reviewing medical records as patient is a poor historian. 10/23: Patient had chest pain earlier with tachycardia which responded with IV Lopressor. Her underlying rhythm is A. fib and she subsequently developed RVR with heart rate in the 140s. She is sitting up in bed moaning at the time of my evaluation and requesting water. Does not really follow commands on my questioning. According to her daughter she follows and recognizes her. She does open eyes spontaneously. Objective Vital Signs Date Time Temp Pulse Resp B/P Pulse Ox O2 Delivery O2 Flow Rate FiO2 10/23/16 06:00 94 10/23/16 04:00 98.2 19 147/63 99 10/22/16 19:00 Nasal Cannula 2.00 10/22/16 10:21 21 Intake and Output 10/22/16 10/22/16 10/23/16 08:00 16:00 00:00 Intake Total 240 ml 1812 ml Output Total 100 ml 700 ml Balance 140 ml 1112 ml Result Diagram: 10/23/16 0451 10/23/16 0451 Imaging Last Impressions Head CT 10/22/16 0000 Signed Impressions: Service Date/Time: Saturday, October 22, 2016 13:31 - CONCLUSION: 1. Extensive petechial hemorrhage associated with a known left cerebellar infarct with surrounding edema and mass effect with partial effacement of the fourth ventricle and mild compression on the brainstem from the left side. 2. Acute on chronic infarct in the right occipital lobe also associated with some petechial hemorrhage but without significant localized mass effect. 3. Stable remote left parietal occipital infarct. Chandler Manning MD Chest X-Ray 10/22/16 0000 Signed Impressions: Service Date/Time: Saturday, October 22, 2016 14:05 - CONCLUSION: 1. Cardiomegaly. Basilar density most characteristic of atelectasis. No effusion or pneumothorax. Chandler Manning MD Brain MRI 10/18/16 0000 Signed Impressions: Service Date/Time: Tuesday, October 18, 2016 10:39 - CONCLUSION: New large left cerebral hemisphere infarct involving the anterior cerebellum, SCA territory. The fourth ventricle is midline. The vascular artery looks patent. Abraham Stafford MD FACR Objective Remarks HEENT: Atraumatic and normocephalic. Pupils equal round and reactive to light and accommodation. Extraocular muscles intact. Conjunctiva pink. Nonicteric sclerae. Oral mucosa within normal. NECK: Supple. No JVD, adenopathy or thyromegaly. Trachea midline. CARDIOVASCULAR: Irregularly irregular. Normal S1-S2. No murmurs, rubs or gallops noted. PULMONARY: Bilateral equal air entry. No rales or wheezing. ABDOMEN: Soft, nontender, no distension. Positive bowel sounds. EXTREMITIES: No cyanosis, clubbing or edema. NEURO: Awake and alert, cannot tell me where she is, disoriented. Moaning at times requesting water. Has spontaneous eye opening. Pupils 4 mm bilaterally, reactive. Moves both Upper and lower extremities however not following commands at the time of my evaluation. Procedures 10/16/16 cardiac catheterization A/P Assessment and Plan IMPRESSION 1. Respiratory insufficiency. 2. Encephalopathy. 3. Status post recent large left cerebellar hemisphere infarct with minimal hemorrhagic conversion and cerebral edema with mass effect on fourth ventricle. 4. Non-ST elevation CO status post cardiac catheterization which showed minimal coronary artery disease. 5. Chronic atrial fibrillation, on Xarelto(now off). 6. Hypertension. 7. Chronic kidney disease. 8. Gastroesophageal reflux disease. 9. History of CVA. 10. Hypertrophic obstructive cardiomyopathy 11. A. fib with RVR 12. Hypotension which is resolved RECOMMENDATIONS 1. Monitor neuro status closely and avoid any sedatives. MRI from October 18 showed large left cerebral hemisphere infarct. Neurology/ Neurosurgery f/u. Holding Xarelto as CT 10/22 showed petechial hemorrhages in area of cerebellar infarct. 2. Continue with oxygen, maintain sats above 92%. 3. Bronchodilators in the form of DuoNeb q. 6+ q. 2 p.r.n. for shortness of breath. 4. Aspiration precautions. 5. Monitor heart rate and blood pressure closely and maintain MAP greater than 65 mmHg. The patient was given 1 liter bolus of normal saline with improvements of her blood pressure, She was receiving Lopressor, hydralazine and Imdur which were held on 10/22 for hypotension. We'll resume Lopressor 100 mg by mouth twice a day in view of A. fib with RVR. Starting Cardizem 20 mg IV push followed by drip for better rate control. Status post cardiac cath on October 16 which showed minimal coronary artery disease. Echocardiogram from October 17 showed hypertrophic obstructive cardiomyopathy and EF of 70-75%. 6. Monitor renal function Is and Os and avoid nephrotoxins. She received 1 liter bolus of normal saline for hypotension on 10/22. Continue maintenance fluids NS at 100 an hour for now. Hold Lasix and potassium supplements. 7. Was kept NPO overnight, will advance PO when okay with neurosurgery. continue with Protonix daily for underlying history of gastroesophageal reflux disease. 8. Monitor for signs of infections which include fever and WBC. Check chest x-ray. Continue with current antibiotics. She is on Levaquin. 9. Monitor CBC. 10. Sliding scale insulin with Accu-Chek q. 4-hour for glycemic control. 11. GI prophylaxis with Protonix and DVT prophylaxis with SCDs. No heparin or Lovenox till cleared by neurosurgery. Xarelto on hold due to petechial hemorrhages noted on head CT 10/22 Further recommendations per neurosurgery/neurology and cardiology were following as well. Kyrie Lees MD Oct 23, 2016 07:42
[2016-10-23] MEDS: SODIUM CHLOR 0.9% 1000 ML INJ 1,000 ML IV SCH ×2 (07:57→19:00)
[2016-10-23] MEDS: SODIUM CHLORIDE 0.9% FLUSH 10 ML FLUSH IV FLUSH SCH ×2 (07:57→20:22)
[2016-10-23] MEDS ORDERED: DILTIAZEM INJ 125 MG in SODIUM CHLORIDE 0.9% INJ 100 ML IV SCH (08:00)
[2016-10-23] MEDS ORDERED: DILTIAZEM HCL 25 MG/5 ML VIAL IVP ONE (08:00)
--- NOTE | 2016-10-23 08:43 | HHI.NSPN ---
History Chief Complaint: Headache, ICH. Interval History A 76-year-old female who was admitted on 10/15/2016 for exacerbation of her congestive heart failure and myocardial infarction. She is also on Xarelto anticoagulation for her chronic atrial fibrillation. She has suffered from a previous strokes involving the left parietal occipital aspect as well as the right occipital aspect and more recent one in the left cerebellar hemisphere. She was seen by neurology and her Xarelto continued. She was noted to have a hypotensive episode today, although remains interactive and awake. CT scan of the head obtained reveals hemorrhagic area of conversion and the left cerebellar hemisphere stroke as well as a smaller right occipital stroke. She also has old left parietal occipital area strokes. There is generalized atrophy. There is slight compression of the fourth ventricle but this is not obstructed and there is no hydrocephalus. 10/23/16: Pt lethargic but awakens enough to answer some questions. States yes she has a headache. States forehead when asked where. States no n/v. Follows simple commands but can take persistence. System Review Comments Not able to obtain complete ROS given level of alertness and clinical condition. Exam Results Vital Signs Date Time Temp Pulse Resp B/P Pulse Ox O2 Delivery O2 Flow Rate FiO2 10/23/16 06:00 94 10/23/16 04:00 98.2 19 147/63 99 10/22/16 19:00 Nasal Cannula 2.00 10/22/16 10:21 21 Intake and Output 10/22/16 10/22/16 10/23/16 08:00 16:00 00:00 Intake Total 240 ml 1812 ml Output Total 100 ml 700 ml Balance 140 ml 1112 ml Physical Examination Resp: CTA bilaterally. Heart: Irregular. No murmurs Abd: Soft positive bs Skin: No cyanosis or erythema. SCDs in place bilateral LEs. Muscle: Follows commands intermittently. Moves toes to command. Neuro: Pt awakens to voice. Pupils 3mm bilaterally, reactive bilaterally. Lethargic but answers some simple questions with very soft voice. Follows some simple commands but can take persistence, moved toes to command. Lab, Micro, Other Results Last Impressions Head CT 10/22/16 0000 Signed Impressions: Service Date/Time: Saturday, October 22, 2016 13:31 - CONCLUSION: 1. Extensive petechial hemorrhage associated with a known left cerebellar infarct with surrounding edema and mass effect with partial effacement of the fourth ventricle and mild compression on the brainstem from the left side. 2. Acute on chronic infarct in the right occipital lobe also associated with some petechial hemorrhage but without significant localized mass effect. 3. Stable remote left parietal occipital infarct. Chandler Manning MD Chest X-Ray 10/22/16 0000 Signed Impressions: Service Date/Time: Saturday, October 22, 2016 14:05 - CONCLUSION: 1. Cardiomegaly. Basilar density most characteristic of atelectasis. No effusion or pneumothorax. Chandler Manning MD Brain MRI 10/18/16 0000 Signed Impressions: Service Date/Time: Tuesday, October 18, 2016 10:39 - CONCLUSION: New large left cerebral hemisphere infarct involving the anterior cerebellum, SCA territory. The fourth ventricle is midline. The vascular artery looks patent. Abraham Stafford MD FACR Laboratory Tests Test 10/22/16 10/23/16 14:50 04:51 White Blood Count 10.2 TH/MM3 9.2 TH/MM3 Red Blood Count 5.03 MIL/MM3 4.74 MIL/MM3 Hemoglobin 13.4 GM/DL 12.6 GM/DL Hematocrit 43.3 % 39.5 % Mean Corpuscular Volume 86.1 FL 83.3 FL Mean Corpuscular Hemoglobin 26.6 PG 26.5 PG Mean Corpuscular Hemoglobin 30.9 % 31.8 % Concent Red Cell Distribution Width 15.1 % 14.9 % Platelet Count 179 TH/MM3 209 TH/MM3 Mean Platelet Volume 8.1 FL 7.4 FL Neutrophils (%) (Auto) 83.7 % 78.7 % Lymphocytes (%) (Auto) 10.2 % 13.7 % Monocytes (%) (Auto) 5.7 % 6.7 % Eosinophils (%) (Auto) 0.3 % 0.4 % Basophils (%) (Auto) 0.1 % 0.5 % Neutrophils # (Auto) 8.5 TH/MM3 7.2 TH/MM3 Lymphocytes # (Auto) 1.0 TH/MM3 1.3 TH/MM3 Monocytes # (Auto) 0.6 TH/MM3 0.6 TH/MM3 Eosinophils # (Auto) 0.0 TH/MM3 0.0 TH/MM3 Basophils # (Auto) 0.0 TH/MM3 0.0 TH/MM3 CBC Comment DIFF FINAL DIFF FINAL Differential Comment Prothrombin Time 10.9 SEC Prothromb Time International 1.0 RATIO Ratio Activated Partial 26.8 SEC Thromboplast Time Sodium Level 138 MEQ/L 141 MEQ/L Potassium Level 4.4 MEQ/L 4.1 MEQ/L Chloride Level 102 MEQ/L 106 MEQ/L Carbon Dioxide Level 30.9 MEQ/L 29.6 MEQ/L Anion Gap 5 MEQ/L 5 MEQ/L Blood Urea Nitrogen 38 MG/DL 30 MG/DL Creatinine 1.63 MG/DL 1.40 MG/DL Estimat Glomerular Filtration 31 ML/MIN 36 ML/MIN Rate Random Glucose 120 MG/DL 108 MG/DL Lactic Acid Level 2.0 mmol/L Calcium Level 8.2 MG/DL 7.8 MG/DL Phosphorus Level 3.1 MG/DL 2.9 MG/DL Magnesium Level 1.9 MG/DL 1.8 MG/DL Total Bilirubin 0.4 MG/DL Aspartate Amino Transf 51 U/L (AST/SGOT) Alanine Aminotransferase 34 U/L (ALT/SGPT) Alkaline Phosphatase 59 U/L Total Protein 6.2 GM/DL Albumin 2.2 GM/DL 10/22/16 10/22/16 10/23/16 15:00 23:00 07:00 Intake Total 1812 ml 814 ml Output Total 700 ml 225 ml Balance 1112 ml 589 ml IV Total 1812 ml 814 ml Output Urine Total 700 ml 225 ml Medical Decision Making Impression and Plan A: 1. Multiple areas of strokes involving the most recent one the left cerebellar hemisphere and previous strokes in the left parieto-occipital area and right occipital area with hemorrhagic areas of conversion in the left cerebellar hemisphere and right occipital strokes. There is some mild mass effect in the fourth ventricle but no obstruction or hydrocephalus with generalized cerebral atrophy noted. 2. Chronic atrial fibrillation on Xarelto, the last dose last evening. 3. Recent myocardial infarction with a history of congestive heart failure. 4. Chronic kidney disease with recent exacerbation. 5. Hypertension. P: Continue with close neuro checks Follow up CT head today Continue with critical care. Song Charles Oct 23, 2016 08:42
--- NOTE | 2016-10-23 08:54 | EKG ---
Date Performed: 10/23/2016 Time Performed: 06:31:38 PTAGE: 76 years EKG: Atrial fibrillation with rapid ventricular response. Anteroseptal infarct - age undetermine d LVH with secondary repolarization abnormality Inferior/lateral ST-T changes are probably due to narendra tricular hypertrophy Abnormal ECG PREVIOUS TRACING : 10/22/2016 12.53 DOCTOR: Abhinav Blackwood Interpretating Date/Time 10/23/2016 08:53:16
--- NOTE | 2016-10-23 09:43 | RADRPT ---
EXAM DATE/TIME: 10/23/2016 09:19 [place] COMPARISON: CT BRAIN W/O CONTRAST, October 22, 2016, 13:31. INDICATIONS : Follow up bleed. RADIATION DOSE: 64.53 CTDIvol (mGy) MEDICAL HISTORY : Cardiovascular disease. Hypertension. SURGICAL HISTORY : None. ENCOUNTER: Subsequent ACUITY: 1 week PAIN SCALE: Non-responsive LOCATION: cranial TECHNIQUE: Multiple contiguous axial images were obtained of the head. Using automated exposure control and adj ustment of the mA and/or kV according to patient size, radiation dose was kept as low as reasonably a chievable to obtain optimal diagnostic quality images. DICOM format image data is available electro nically for review and comparison. FINDINGS: Today's examination is compared to the prior study of 10/22/2016. There has been no new or significant changes with the overall appearance of the brain. There continues to be hemorrhage surrounded by paul a in the left cerebellar hemisphere. This continues to produce mass effect and some shift on the four th ventricle to the right. This is unchanged compared to the prior study. There continues to be some hemorrhage in the right occipital lobe which is stable. There is an old infarct involving the left oc cipital lobe. The ventricles cisterns and sulci are stable. No new areas of hemorrhage are demonstrat ed. CONCLUSION: Stable CT scan of the brain compared to the prior examination. Joshua Robbins MD on October 23, 2016 at 9:38 Board Certified Radiologist. This report was verified electronically.
--- NOTE | 2016-10-23 10:05 | EKG ---
Date Performed: 10/22/2016 Time Performed: 12:53:32 PTAGE: 76 years EKG: Atrial fibrillation. Cannot rule out septal infarct - age undetermined LVH with secondary r epolarization abnormality Inferior/lateral ST-T changes are probably due to ventricular hypertrophy A bnormal ECG PREVIOUS TRACING : 10/15/2016 11.19 DOCTOR: Abhinav Blackwood Interpretating Date/Time 10/23/2016 10:04:23
[2016-10-23] MEDS: METOPROLOL TARTRATE 100 MG TAB PO SCH ×2 (11:00→21:15)
[2016-10-23] MEDS: DOCUSATE SODIUM 50 MG/SENNA 8.6 MG TAB PO SCH ×2 (11:00→21:15)
[2016-10-23] MEDS: PANTOPRAZOLE SOD 20 MG DELAYED RELEASE TAB PO SCH (11:00)
[2016-10-23] MEDS: LEVOFLOXACIN 250 MG TAB PO SCH (11:00)
--- NOTE | 2016-10-23 12:11 | HHI.PR ---
Review/Management Daily Summary 10/19 more alert and responsive, nystagmus improved mostly follows commands moves bilat limbs on request some visual field preservation at least mri brain seen, she had mra cow in july and it was normal kidney functions not safe for mra with contrast neck or ct angio therefore will defer anticoagulation xarelto suspect there will be balance problems because of large acute right cerebellum infarct leslie occipital infarcts, old on left and subacute on right 10/22 ct brain seen acute neuro change/decreased responsiveness spoke to architectural job captain than discussed with dr Joseph NS I saw her and she was awake, calm, cooperative and following all commands no distress, eom normal, moves 4 limbs without any major difficulty or asymmetry if there is an increase mass effect on cerebellum/4th ventricle she would need decompression acutely the problem is xarelto half life and dr Erickson was going to review with hematology for any suggestion dr Joseph will see pt 10/23 ct brain seen, ?sl worsening of mass effect nausea and some headaches family at bedside and discussed dx and implications so far she is stable but could develop further mass effect rapidly and require decompression NS following, i discussed with rn and architectural job captain as well i will be out of town and if needed one of my partners will cover, please call prn Subjective Subjective Comments some nausea and headache Active Medications Current Medications Medications (Trade) Dose Ordered Sig/Shaina Route Start Time Stop Time Status Last Admin (NS Flush) 2 ml UNSCH PRN IV FLUSH 10/15/16 10:45 10/20/16 13:12 (NS Flush) 2 ml BID IV FLUSH 10/15/16 21:00 10/23/16 07:57 (Narcan Inj) 0.4 mg UNSCH PRN IV 10/15/16 10:45 (Julia-Colace) 1 tab BID PO 10/15/16 21:00 10/23/16 11:00 (Milk Of Magnesia Liq) 30 ml Q12H PRN PO 10/15/16 10:45 (Senokot) 17.2 mg Q12H PRN PO 10/15/16 10:45 10/21/16 09:54 (Dulcolax Supp) 10 mg DAILY PRN RECTAL 10/15/16 10:45 (Lactulose Liq) 30 ml DAILY PRN PO 10/15/16 10:45 (Protonix) 20 mg DAILY PO 10/16/16 09:00 10/23/16 11:00 (Apresoline) 25 mg Q8HR PO 10/15/16 14:00 Hold 10/22/16 06:20 (Lopressor) 100 mg Q12HR PO 10/16/16 09:00 10/23/16 11:00 (Atropine Inj) 0.5 mg UNSCH PRN IV 10/16/16 18:00 (Tessalon) 100 mg TID PRN PO 10/17/16 09:15 10/17/16 15:28 (Imdur) 120 mg DAILY@07 PO 10/18/16 07:00 Hold 10/22/16 06:20 (Zofran Inj) 4 mg Q6HR PRN IV PUSH 10/17/16 23:45 10/23/16 00:13 (Apresoline Inj) 10 mg Q3HR PRN IV PUSH 10/18/16 04:30 10/23/16 05:40 (Levaquin) 250 mg DAILY PO 10/19/16 09:00 10/23/16 11:00 ([place] 5-325 Mg) 1 tab Q4H PRN PO 10/19/16 08:15 10/23/16 00:13 Acetaminophen 650 mg 650 mg Q6H PRN PO 10/21/16 16:45 10/22/16 11:59 Sodium Chloride 1,000 ml @ 100 mls/hr Q10H IV 10/22/16 13:00 10/23/16 07:57 (Levophed-Dextrose Drip) 250 ml @ 0 mls/hr TITRATE IV 10/22/16 13:00 (Brethine Inj) 1 mg UNSCH PRN SQ 10/22/16 13:00 (D50w (Vial) Inj) 50 ml UNSCH PRN IV 10/22/16 17:45 (Glucagon Inj) 1 mg UNSCH PRN OTHER 10/22/16 17:45 Insulin Human Regular 1 1 Q4H SQ 10/22/16 18:00 (Cardizem Inj/NS Inj) 125 ml @ 0 mls/hr TITRATE IV 10/23/16 08:00 10/23/16 07:57 Allergies Allergies Coded Allergies No Known Allergies (Verified10/15/16) Exam I&O / VS 10/22/16 10/22/16 10/23/16 15:00 23:00 07:00 Intake Total 1812 ml 814 ml Output Total 700 ml 225 ml Balance 1112 ml 589 ml IV Total 1812 ml 814 ml Output Urine Total 700 ml 225 ml Vital Signs Date Time Temp Pulse Resp B/P Pulse Ox O2 Delivery O2 Flow Rate FiO2 10/23/16 07:00 100 Nasal Cannula 2.00 10/23/16 06:00 94 10/23/16 04:00 98.2 86 19 147/63 99 10/23/16 04:00 84 10/23/16 02:00 80 10/23/16 00:00 85 10/23/16 00:00 98.1 81 20 154/70 99 10/22/16 22:00 71 10/22/16 20:00 98.1 78 18 155/67 100 10/22/16 20:00 78 10/22/16 19:00 100 Nasal Cannula 2.00 10/22/16 19:00 100 Nasal Cannula 2.00 10/22/16 18:00 98.8 74 14 165/82 100 10/22/16 18:00 76 10/22/16 13:00 97 Nasal Cannula 2.00 10/22/16 12:53 98 10/22/16 12:50 97 15.00 10/22/16 12:45 62 10/22/16 12:45 97.8 62 14 94/43 98 10/22/16 12:45 100 Non-Rebreather 10.00 10/22/16 12:45 100 Non-Rebreather 10.00 10/22/16 12:36 78 75/32 Objective Radiology Results Last [address] 10/23/16 0000 Signed Impressions: Service Date/Time: Sunday, October 23, 2016 09:19 - CONCLUSION: Stable CT scan of the brain compared to the prior examination. Joshua Robbins MD Head CT 10/22/16 0000 Signed Impressions: Service Date/Time: Saturday, October 22, 2016 13:31 - CONCLUSION: 1. Extensive petechial hemorrhage associated with a known left cerebellar infarct with surrounding edema and mass effect with partial effacement of the fourth ventricle and mild compression on the brainstem from the left side. 2. Acute on chronic infarct in the right occipital lobe also associated with some petechial hemorrhage but without significant localized mass effect. 3. Stable remote left parietal occipital infarct. Chandler Manning MD Chest X-Ray 10/22/16 0000 Signed Impressions: Service Date/Time: Saturday, October 22, 2016 14:05 - CONCLUSION: 1. Cardiomegaly. Basilar density most characteristic of atelectasis. No effusion or pneumothorax. Chandler Manning MD Micro and Labs Laboratory Tests Test 10/22/16 10/23/16 14:50 04:51 White Blood Count 10.2 9.2 Red Blood Count 5.03 4.74 Hemoglobin 13.4 12.6 Hematocrit 43.3 39.5 Mean Corpuscular Volume 86.1 83.3 Mean Corpuscular Hemoglobin 26.6 26.5 Mean Corpuscular Hemoglobin 30.9 31.8 Concent Red Cell Distribution Width 15.1 14.9 Platelet Count 179 209 Mean Platelet Volume 8.1 7.4 Neutrophils (%) (Auto) 83.7 78.7 Lymphocytes (%) (Auto) 10.2 13.7 Monocytes (%) (Auto) 5.7 6.7 Eosinophils (%) (Auto) 0.3 0.4 Basophils (%) (Auto) 0.1 0.5 Neutrophils # (Auto) 8.5 7.2 Lymphocytes # (Auto) 1.0 1.3 Monocytes # (Auto) 0.6 0.6 Eosinophils # (Auto) 0.0 0.0 Basophils # (Auto) 0.0 0.0 CBC Comment DIFF FINAL DIFF FINAL Differential Comment Prothrombin Time 10.9 Prothromb Time International 1.0 Ratio Activated Partial 26.8 Thromboplast Time Sodium Level 138 141 Potassium Level 4.4 4.1 Chloride Level 102 106 Carbon Dioxide Level 30.9 29.6 Anion Gap 5 5 Blood Urea Nitrogen 38 30 Creatinine 1.63 1.40 Estimat Glomerular Filtration 31 36 Rate Random Glucose 120 108 Lactic Acid Level 2.0 Calcium Level 8.2 7.8 Phosphorus Level 3.1 2.9 Magnesium Level 1.9 1.8 Total Bilirubin 0.4 Aspartate Amino Transf 51 (AST/SGOT) Alanine Aminotransferase 34 (ALT/SGPT) Alkaline Phosphatase 59 Total Protein 6.2 Albumin 2.2 Bill Terrazas MD Oct 23, 2016 12:10
--- NOTE | 2016-10-23 13:40 | PD.CONS ---
Consult Service Palliative Care Consult Requested By Dr Lees Primary Care Physician Natalio Saavedra MD Reason for Consultation a. To assist with evaluation and management of symptoms including: headache , lethargy/AMS, dyspnea b. To assist medical decision maker(s) with: better understanding of current medical conditions; weighing benefits/burdens of medical treatment options; making medical treatment decisions. HPI History of Present Illness this 76-year-old female presented to the ED on 10/15/16 with reports of cough, congestion and back pain x2 days. No known fever. She apparently initially presented the day before however the ED was too busy so they left. She denied any other complaints. * ED course: Troponin elevated 1.1, CK-MB elevated. Heart rate in the 120++, started on Cardizem drip. Hypertensive 200s systolic. Started on azithromycin , Rocephin. CXR indicative of pulmonary edema. Neurology consulted, admitted for further evaluation and management. * Cardiology consultation: Probable non-ST elevation RI. Known history CAD, A. fib, chronic renal insufficiency, COPD. plan for cardiac catheterization, continue beta rafael as tolerated no ANTHONY or ARB due to renal insufficiency. * Cardiac catheterization 10/16/16: Notable for overall minimal left coronary system disease, moderate distal right coronary artery disease somewhat eccentric 3050 percent stenosis right distal coronary appears improved compared to her last heart catheterization 2013 * 2-D echo percent moderate to severe concentric left ventricular hypertrophy, hypertrophic obstructive cardiomyopathy, calcification both mitral valve leaflets, moderate pulmonary hypertension * 10/17still with occasional cough. Right sided chest and back pain worsened with palpation. Hypertension improving. Possible discharge home today or tomorrow; * 10/18 some episodes of headache, dizziness, MRI ordered and neurology consulted. Some question of CVA. Patient kept with head of bed flat, some permissive hypertension. * 10/18neurology evaluatedCT brain notable for finding of right occipital density which was not present during prior MRI 08/16/15. This is suggestive of subacute infarct rather than acute bleed. MRI pending. Possible MRA depending on clinical course. Carotid ultrasound 07/2005 With mild disease. Will continue to follow. * MRI of the brain shows new large left cerebral hemisphere infarct involving the anterior cerebellum. Continue Xarelto, PT/OT/ST following. 10/19 ST recommended mechanical soft diet within liquids. OT noted patient can participate in self-care with limited strength. Patient able to participate in PT bed exercises though because of pain is refusing further participation. * 10/21 discharge planning in process family feels patient too weak to return home alone without help in the home setting, PT follow-up pending for possible rehabilitation placement. * 10/22 patient with CODE BLUE event; assembly supervisor responded. Patient was found unresponsive and hypotensive with a systolic BP 60s70s. She did not go pulseless, did not receive ACLS drugs. Receives fluid volume bolus, was transferred to ICU. She became more awake blood pressure improves O2 sats were 99. Most recent CXR 10/20 with no evidence of acute disease. Patient went for repeat CT brain.== Petechial hemorrhage associated with known left cerebellar infarct, surrounding edema and mass effect with partial effacement of the fourth ventricle, mild compression of the brainstem from the left side. Acute on chronic infarct in the right occipital lobe also associated with some petechial hemorrhage but without significant localized mass effect. Stable remote left parietal occipital infarct. Discussed with neurosurgery, and neurology. Neurosurgery indicated no surgical interventions at that time. Patient verbalizing and responsive. Last Xarelto dosing 24 hours prior. * atient with chest pain, tachycardia which did respond to IV Lopressor. Noted to have underlying atrial fib, some development of A. fib RVR. Responsiveness fluctuates, she is not consistently following commands. Concerned that she could lose ability to protect airway. Neurosurgery notes extensive discussion with family regarding mental status, clinical deterioration possibility, and if they proceeded with surgical intervention would require intubation, ventilator support, and given her underlying recent RI , CHF, A. fib she would be high risk for ongoing complications including . Family discussing CODE STATUS, goals of treatment. Palliative care was consulted to assist with clarification of goals of treatment. ST evaluated patient tolerated soft foods with thin liquids. Patient seen in room, dual visit with Sherine ALLEN. Patient is lethargic minimally participates. Met with daughter, multiple close friends/family members at bedside. Other children have gone out for dinner. 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 . Review of Systems ROS Limitations: Clinical Condition, Other (patient lethargic, status post CVA , hemorrhage limited verbalization) Constitutional: DENIES: Fever Respiratory: COMPLAINS OF: Cough (x 2 days prior to presentation), DENIES: Shortness of breath Gastrointestinal: COMPLAINS OF: Nausea (family endorses intermittent nausea during hospital course) Musculoskeletal: COMPLAINS OF: Back pain (x2 prior to presentation, during hospital course) Neurologic: COMPLAINS OF: Headache (during hospitalization), DENIES: Localized weakness Psychiatric: DENIES: Confusion Past Family Social History Coded Allergies: No Known Allergies (Verified , 10/15/16) Past Medical History Chronic atrial fibrillation Coronary artery disease Hypertension CKD COPD Hyperlipidemia GERD Left parietal occipital CVA . Past Surgical History Hysterectomy Appendectomy Reported Medications Isosorbide Mononitrate 20 Mg Tab 30 Mg PO BID Take 2 doses 7 hours apart. Metoprolol Tartrate 25 Mg Tab 25 Mg PO DAILY Omeprazole 20 Mg Tab 20 Mg PO DAILY Xarelto (Rivaroxaban) 20 Mg Tab 20 Mg PO DAILY Potassium Chloride ER (Potassium Chloride) 10 Meq Tab 10 Meq PO DAILY Lasix (Furosemide) 20 Mg Tab 20 Mg PO DAILY Lisinopril 10 Mg Tab 10 Mg PO DAILY Lovastatin 10 Mg Tab 10 Mg PO DAILY . Current Medications Medications (Trade) Dose Ordered Sig/Shaina Route Start Time Stop Time Status Last Admin (NS Flush) 2 ml UNSCH PRN IV FLUSH 10/15/16 10:45 10/20/16 13:12 (NS Flush) 2 ml BID IV FLUSH 10/15/16 21:00 10/23/16 07:57 (Narcan Inj) 0.4 mg UNSCH PRN IV 10/15/16 10:45 (Julia-Colace) 1 tab BID PO 10/15/16 21:00 10/23/16 11:00 (Milk Of Magnesia Liq) 30 ml Q12H PRN PO 10/15/16 10:45 (Senokot) 17.2 mg Q12H PRN PO 10/15/16 10:45 10/21/16 09:54 (Dulcolax Supp) 10 mg DAILY PRN RECTAL 10/15/16 10:45 (Lactulose Liq) 30 ml DAILY PRN PO 10/15/16 10:45 (Protonix) 20 mg DAILY PO 10/16/16 09:00 10/23/16 11:00 (Apresoline) 25 mg Q8HR PO 10/15/16 14:00 Hold 10/22/16 06:20 (Lopressor) 100 mg Q12HR PO 10/16/16 09:00 10/23/16 11:00 (Atropine Inj) 0.5 mg UNSCH PRN IV 10/16/16 18:00 (Tessalon) 100 mg TID PRN PO 10/17/16 09:15 10/17/16 15:28 (Imdur) 120 mg DAILY@07 PO 10/18/16 07:00 Hold 10/22/16 06:20 (Zofran Inj) 4 mg Q6HR PRN IV PUSH 10/17/16 23:45 10/23/16 00:13 (Apresoline Inj) 10 mg Q3HR PRN IV PUSH 10/18/16 04:30 10/23/16 05:40 (Levaquin) 250 mg DAILY PO 10/19/16 09:00 10/23/16 11:00 ([place] 5-325 Mg) 1 tab Q4H PRN PO 10/19/16 08:15 10/23/16 00:13 Acetaminophen 650 mg 650 mg Q6H PRN PO 10/21/16 16:45 10/22/16 11:59 Sodium Chloride 1,000 ml @ 100 mls/hr Q10H IV 10/22/16 13:00 10/23/16 07:57 (Levophed-Dextrose Drip) 250 ml @ 0 mls/hr TITRATE IV 10/22/16 13:00 (Brethine Inj) 1 mg UNSCH PRN SQ 10/22/16 13:00 (D50w (Vial) Inj) 50 ml UNSCH PRN IV 10/22/16 17:45 (Glucagon Inj) 1 mg UNSCH PRN OTHER 10/22/16 17:45 Insulin Human Regular 1 1 Q4H SQ 10/22/16 18:00 (Cardizem Inj/NS Inj) 125 ml @ 0 mls/hr TITRATE IV 10/23/16 08:00 10/23/16 07:57 Family History No family history of CAD, RI Substance Use Tobacco: Nonsmoker Alcohol: None Prescription med abuse: None Illicits: None. . Psychosocial History . Lives alone locally, supported by with son and daughter locally, other children out of state. 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 Originally from the [facility] those lived in [place] much of her life. . Spiritual/Cultural Factors Islam, has been in Living Will: Never completed Health Care Surrogate: Never completed Durable Power of Scada Engineer: Never completed Ethical and Legal Issues Patient, due to clinical conditions is unable to participate in decision- making. Not clear that she will regain ability to participate. No advanced directive or HCS. Per [place] statutes legally decision-making would fall to the majority of her 4 adult children. All family working together in decision- making. Physical Exam Vital Signs Date Time Temp Pulse Resp B/P Pulse Ox O2 Delivery O2 Flow Rate FiO2 10/23/16 07:00 100 Nasal Cannula 2.00 10/23/16 06:00 94 10/23/16 04:00 98.2 86 19 147/63 99 10/23/16 04:00 84 10/23/16 02:00 80 10/23/16 00:00 85 10/23/16 00:00 98.1 81 20 154/70 99 10/22/16 22:00 71 10/22/16 20:00 98.1 78 18 155/67 100 10/22/16 20:00 78 10/22/16 19:00 100 Nasal Cannula 2.00 10/22/16 19:00 100 Nasal Cannula 2.00 10/22/16 18:00 98.8 74 14 165/82 100 10/22/16 18:00 76 10/22/16 10/23/16 19:00 07:00 Intake Total 1500 ml 1126 ml Output Total 550 ml 375 ml Balance 950 ml 751 ml IV Total 1500 ml 1126 ml Output Urine Total 550 ml 375 ml Exam CONSTITUTIONAL/GENERAL: This is a thin patient, appears comfortable, lethargic TUBES/LINES/DRAINS:PIVs upper extremities. donald catheter. scds SKIN: No jaundice, rashes, or lesions. No wounds seen anteriorly. Skin temperature appropriate. Not diaphoretic. HEAD: Atraumatic. Normocephalic. EYES: Pupils equal and round and reactive. Extraocular motions intact. No scleral icterus. No injection or drainage. Fundi not examined. ENT: . Nose without bleeding or purulent drainage. Throat without visible erythema, exudates, masses, or lesions. NECK: Trachea midline. Supple, nontender. CARDIOVASCULAR: irregularly irregular. No murmur. No JVD. Peripheral pulses symmetric.No peripheral edema RESPIRATORY/CHEST: Symmetric, unlabored respirations. On room air. Clear to auscultation. Breath sounds equal bilaterally. GASTROINTESTINAL: Abdomen soft, flat, non-tender, nondistended. No hepato- splenomegaly, or palpable masses. No guarding. Bowel sounds normoactive . GENITOURINARY: Without palpable bladder distension. Donald catheter in place. MUSCULOSKELETAL: Extremities without clubbing, cyanosis, or edema. No joint tenderness or effusion noted. No calf tenderness. No mottling or clubbing. LYMPHATICS: No palpable cervical or supraclavicular adenopathy. NEUROLOGICAL: lethargic, arouses slightly for exam. Minimally verbal- 1-2 words to some questions, does not answer orientation questions. Does not follow all commands. Moves BUE significant weakness to commands, does not move lowers to commands. Does localize, says "ow" to light pain stimuli to BLE . PSYCHIATRIC: No obvious anxiety/depression-- limited assessment due to lethargy/ clinical conditions . Diagnostic Tests Laboratory Laboratory Tests Test 10/20/16 10/21/16 10/22/16 10/23/16 22:37 05:06 14:50 04:51 White Blood Count 7.1 TH/MM3 10.2 TH/MM3 9.2 TH/MM3 (4.0-11.0) (4.0-11.0) (4.0-11.0) Red Blood Count 5.26 MIL/MM3 5.03 MIL/MM3 4.74 MIL/MM3 (4.00-5.30) (4.00-5.30) (4.00-5.30) Hemoglobin 13.9 GM/DL 13.4 GM/DL 12.6 GM/DL (11.6-15.3) (11.6-15.3) (11.6-15.3) Hematocrit 43.8 % 43.3 % 39.5 % (35.0-46.0) (35.0-46.0) (35.0-46.0) Mean Corpuscular Volume 83.3 FL 86.1 FL 83.3 FL (80.0-100.0) (80.0-100.0) (80.0-100.0) Mean Corpuscular Hemoglobin 26.5 PG 26.6 PG 26.5 PG (27.0-34.0) (27.0-34.0) (27.0-34.0) Mean Corpuscular Hemoglobin 31.8 % 30.9 % 31.8 % Concent (32.0-36.0) (32.0-36.0) (32.0-36.0) Red Cell Distribution Width 15.3 % 15.1 % 14.9 % (11.6-17.2) (11.6-17.2) (11.6-17.2) Platelet Count 220 TH/MM3 179 TH/MM3 209 TH/MM3 (150-450) (150-450) (150-450) Mean Platelet Volume 7.8 FL 8.1 FL 7.4 FL (7.0-11.0) (7.0-11.0) (7.0-11.0) Neutrophils (%) (Auto) 71.2 % 83.7 % 78.7 % (16.0-70.0) (16.0-70.0) (16.0-70.0) Lymphocytes (%) (Auto) 17.7 % 10.2 % 13.7 % (9.0-44.0) (9.0-44.0) (9.0-44.0) Monocytes (%) (Auto) 10.7 % 5.7 % (0.0-8.0) 6.7 % (0.0-8.0) (0.0-8.0) Eosinophils (%) (Auto) 0.1 % (0.0-4.0) 0.3 % (0.0-4.0) 0.4 % (0.0-4.0) Basophils (%) (Auto) 0.3 % (0.0-2.0) 0.1 % (0.0-2.0) 0.5 % (0.0-2.0) Neutrophils # (Auto) 5.1 TH/MM3 8.5 TH/MM3 7.2 TH/MM3 (1.8-7.7) (1.8-7.7) (1.8-7.7) Lymphocytes # (Auto) 1.3 TH/MM3 1.0 TH/MM3 1.3 TH/MM3 (1.0-4.8) (1.0-4.8) (1.0-4.8) Monocytes # (Auto) 0.8 TH/MM3 0.6 TH/MM3 0.6 TH/MM3 (0-0.9) (0-0.9) (0-0.9) Eosinophils # (Auto) 0.0 TH/MM3 0.0 TH/MM3 0.0 TH/MM3 (0-0.4) (0-0.4) (0-0.4) Basophils # (Auto) 0.0 TH/MM3 0.0 TH/MM3 0.0 TH/MM3 (0-0.2) (0-0.2) (0-0.2) CBC Comment DIFF FINAL DIFF FINAL DIFF FINAL Differential Comment Sodium Level 135 MEQ/L 138 MEQ/L 141 MEQ/L (136-145) (136-145) (136-145) Potassium Level 3.7 MEQ/L 4.4 MEQ/L 4.1 MEQ/L (3.5-5.1) (3.5-5.1) (3.5-5.1) Chloride Level 100 MEQ/L 102 MEQ/L 106 MEQ/L (98-107) (98-107) (98-107) Carbon Dioxide Level 26.5 MEQ/L 30.9 MEQ/L 29.6 MEQ/L (21.0-32.0) (21.0-32.0) (21.0-32.0) Anion Gap 9 MEQ/L (5-15) 5 MEQ/L (5-15) 5 MEQ/L (5-15) Blood Urea Nitrogen 44 MG/DL (7-18) 38 MG/DL (7-18) 30 MG/DL (7-18) Creatinine 1.80 MG/DL 1.63 MG/DL 1.40 MG/DL (0.50-1.00) (0.50-1.00) (0.50-1.00) Estimat Glomerular Filtration 27 ML/MIN (>89) 31 ML/MIN (>89) 36 ML/MIN (>89) Rate Random Glucose 125 MG/DL 120 MG/DL 108 MG/DL (74-106) (74-106) (74-106) Calcium Level 8.2 MG/DL 8.2 MG/DL 7.8 MG/DL (8.5-10.1) (8.5-10.1) (8.5-10.1) Prothrombin Time 10.9 SEC (9.8-11.6) Prothromb Time International 1.0 RATIO Ratio Activated Partial 26.8 SEC Thromboplast Time (24.3-30.1) Lactic Acid Level 2.0 mmol/L (0.4-2.0) Phosphorus Level 3.1 MG/DL 2.9 MG/DL (2.5-4.9) (2.5-4.9) Magnesium Level 1.9 MG/DL 1.8 MG/DL (1.5-2.5) (1.5-2.5) Total Bilirubin 0.4 MG/DL (0.2-1.0) Aspartate Amino Transf 51 U/L (15-37) (AST/SGOT) Alanine Aminotransferase 34 U/L (10-53) (ALT/SGPT) Alkaline Phosphatase 59 U/L (45-117) Total Protein 6.2 GM/DL (6.4-8.2) Albumin 2.2 GM/DL (3.4-5.0) Result Diagram: 10/23/1645010/23/16450 Imaging Last Impressions Head CT 10/23/16 0000 Signed Impressions: Service Date/Time: Sunday, October 23, 2016 09:19 - CONCLUSION: Stable CT scan of the brain compared to the prior examination. Joshua Robbins MD Chest X-Ray 10/22/16 0000 Signed Impressions: Service Date/Time: Saturday, October 22, 2016 14:05 - CONCLUSION: 1. Cardiomegaly. Basilar density most characteristic of atelectasis. No effusion or pneumothorax. Chandler Manning MD Brain MRI 10/18/16 0000 Signed Impressions: Service Date/Time: Tuesday, October 18, 2016 10:39 - CONCLUSION: New large left cerebral hemisphere infarct involving the anterior cerebellum, SCA territory. The fourth ventricle is midline. The vascular artery looks patent. Abraham Stafford MD FACR Patient/Family Conference Present at Family Conference: daughter, several other family members/close friends Family Conference Time (mins): 30 (minutes) Family Conference Location: Bedside Issues Discussed: Met w family at bedside. Discussion included: * Palliative care role, purpose, approach * Additional medical, psychosocial, and spiritual history * Patients general health, functional status, and cognitive changes in the months leading up to the current hospitalization * Patient/family understanding of the current medical problems * Patient/family understanding of prognosis * Patients goals of care as best understood from advance directives and/or conversations and/or values * legal decision makers per [place] statutes (no adv directive/HCS) * CODE status- full code for now * Current medical treatment options and benefits/burdens of those options * Likely scenarios comparing ongoing aggressive care with a transition to comfort measures only * Questions answered to the best of my ability * Palliative care contact information provided Met with daughter, several other friends/extended family at bedside. other 3 children went to dinner. Above items discussed. Daughter appears to have a very good understanding of conditions, prognosis, limited tx options. SHe indicates family has been speaking all day, also has spoke w neurosurgery, assembly supervisor and feel they were given thorough information RE conditions/options. SHe indicates they have spoken as a family and for now would want pt to have any tx if she declined, including FULL CODE, however they are NOT certain if they would proceed with any surgical procedures should pt experience additional decline. They would like to take it a day at a time and discuss that again if the need arises. Review her condition can change at any time, high risk for ongoing complications/decline. They are open to ongoing discussions with palliative, other providers as condition evolves. Palliative to continue to follow, to speak with all children. Assessment and Plan Disease Oriented Problem List: (1) CVA (cerebral infarction) (2) Petechial hemorrhage Comment: at known cerebellar infarct (3) NSTEMI (non-ST elevated myocardial infarction) (4) Atrial fibrillation with RVR (5) CHF (congestive heart failure) (6) CKD (chronic kidney disease) (7) Elevated troponin (8) Atrial fibrillation, chronic (9) CAD (coronary artery disease) (10) Hypertension (11) Acute on chronic renal insufficiency Symptom Scale: (1) Dyspnea 0-10 Scale: Unable to quantify (2) Encephalopathy 0-10 Scale: Unable to quantify Comment: AMS/ CVA + hemorrhage (3) Pain 0-10 Scale: Unable to quantify Pertinent Non-Medical Issues Psychosocial:. Lives alone locally, supported by with son and daughter locally, other children out of state. 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 Originally from the [facility] those lived in [place] much of her life. Spiritual: CatholicPriest has been in Legal:Patient, due to clinical conditions is unable to participate in decision- making. Not clear that she will regain ability to participate. No advanced directive or HCS. Per [place] statutes legally decision-making would fall to the majority of her 4 adult children. All family working together in decision- making. Ethical issues impacting care: Important Contacts dtr Loli Dickson [phone] son Se Dickson [phone] (4 children total) . Prognosis This patient was admitted for an STEMI, heart failure. Prior to this admission doing well despite her chronic medical issues. During this course she suffered acute CVA, which has since evolves into hemorrhage. Unable to have anticoagulation due to hemorrhagic conversion. Remains in A. fib, with occasional RVR. Unable to anticoagulate. High risk for ongoing complications/ neurological decline. Appropriate for hospice if goals compatible. . Code Status: Full Code Plan * Legal decision maker:Patient, due to clinical conditions is unable to participate in decision-making. Not clear that she will regain ability to participate. No advanced directive or HCS. Per [place] statutes legally decision-making would fall to the majority of her 4 adult children. All family working together in decision-making. * Goals: Met with 1 daughter today, who has been meeting with other children and other providers prior to palliative consultation today. For now she shares family goals are fairly aggressive including full code, though they are not certain if they would proceed with neurosurgical intervention if patient deteriorated, they wish to make other decisions on a day by day basis. Palliative to continue to follow-up with family to continue to reevaluate goals as clinical course evolves. * CODE STATUS: Full code * SYMPTOMS: --Dyspnea-potential for airway compromise secondary to CVA, hemorrhagic conversion. Lethargic.+ History CHF.+ NSTEMI, pulmonary edema on admission. Currently breathing comfortably on room air. will continue to monitor. --Pain-patient presented with 2 days of back pain,? Referred cardiac pain. Continues to have ongoing back pain. No other chronic pain syndromes reported per family. Nursing headache during admission, likely secondary to CVA, hemorrhage. At home primarily utilize Tylenol for any pain, opiate jud. has utilized some [place] during this course. Sparing use thus far. Also has Tylenol available, sparing use thus far. Cautious use of opiates given risk for neuro-logical decline, goals currently aggressive. We'll continue to evaluate. --Nausea-intermittent episodes of nausea, patient endorsing feeling "sick"-- sparing prn Zofran use, will continue to monitor. * Palliative care will continue to follow during hospital course as condition evolves, to assist patient/decision-maker with understanding of medical conditions, weighing benefits/burdens of treatment options, for clarification of goals of treatment. Additionally will assist with any symptoms of palliative concern Thank you for the opportunity to participate in the care of Ms. Coe. Attestation To help prompt me to consider important information that might be impacting today's encounter and assessment, information from prior notes written by myself or my colleagues may have been "brought forward" into today's note. My signature on this note, however, is an attestation that I personally performed the exam, history, and/or decision-making noted today, and, unless otherwise indicated, the interactions with patient, family, and staff as well as the review of records all occurred today. I also attest that the listed assessment and stated plan reflect my best clinical judgment today based on the combination of historical information, prior notes, and today's exam/ interactions. When time spent is documented, it refers only to time spent today by the signer, or if indicated, combined time spent today by collaborating physician/nurse practitioner. Jessie Asher Oct 23, 2016 13:40
--- NOTE | 2016-10-23 16:13 | MG ---
cc: ARMANDO WHITLEY M.D. Lab No: Date: 10/23/2016 Age: Sex: F Race: DATE OF 1940, 76 years old ELECTROENCEPHALOGRAM NUMBER [id number] Acuña. ROOM 1302 With photic stimulation, awake, drowsy study, asleep. CT report not given. Admitted two days of coughing, congestion, dizziness and has had three strokes since admission per nursing taking care of her. INDICATION A 76-year-old woman history of thyroid disease, syncope, anticoagulant therapy, hyperlipidemia. MEDICATIONS On: 1. Hydralazine. 2. Protonix. 3. Lopressor. 4. [place]. 5. Imdur. DESCRIPTION OF RECORD The patient is noted to be asleep. Overall background is predominately 3-4 Hz. Quite a bit of artifact. also artifact in the EKG, there may be sent dysrhythmia. There is no appreciable epileptiform features in this recording. At times where the patient is more alert she has a higher theta frequency of 5 Hz. Photic stimulation there may be a driving response but quite a bit of artifact throughout. IMPRESSION Abnormal EEG due to background slowing consistent with an encephalopathic process of various etiology. Clinical correlation. MD MALATHI Barker/EARLENE /3:42 PM /4:06 PM
[2016-10-24] VITALS (17 sets, daily range): BP systolic 82–163; BP diastolic 56–74; PULSE 16–97; RESP 12–20; TEMP 97.3–98.4; O2SAT 0–100
[2016-10-24] MEDS: LABETALOL HCL 100 MG/20 ML VIAL IV PUSH PRN ×4 (01:30→11:55)
[2016-10-24] MEDS: INSULIN NovoLIN REGULAR SUPPLEMENTAL SCALE SQ SCH ×6 (01:40→22:00)
[2016-10-24] MEDS: SODIUM CHLOR 0.9% 1000 ML INJ 1,000 ML IV SCH ×2 (01:40→10:04)
[2016-10-24] MEDS: hydrALAZINE HCL 20 MG/ML VIAL IV PUSH PRN ×2 (02:51→08:35)
[2016-10-24] MEDS ORDERED: NOREPINEPHRINE 4 MG/4 ML AMP IV ONE (05:00)
[2016-10-24] MEDS ORDERED: EPINEPHrine HCL (1:10,000) 1 MG/10 ML SYRINGE IV ONE ×2 (05:00)
[2016-10-24] MEDS ORDERED: ATROPINE SULFATE 1 MG/10 ML SYRINGE IV ONE (05:00)
[2016-10-24] MEDS ORDERED: SODIUM BICARBONATE 8.4% INJ 50 MEQ/50 ML SYR IV ONE (05:00)
[2016-10-24] MEDS ORDERED: MAGNESIUM SULFATE 40 MEQ/10 ML VIAL IV ONE (05:00)
[2016-10-24] MEDS ORDERED: LIDOCAINE HCL 2% 100 MG/5 ML SYRINGE IV PUSH ONE (05:00)
[2016-10-24] MEDS ORDERED: AMIODARONE HCL 150 MG/3 ML VIAL IV ONE (05:00)
[2016-10-24] MEDS ORDERED: EPINEPHrine HCL (1:1000) 30 MG/30 ML VIAL IV ONE ×2 (05:00)
[2016-10-24] MEDS ORDERED: CALCIUM CHLORIDE 10% SOLN 1 GRAM/10 ML SYR IV ONE (05:00)
[2016-10-24] MEDS: METOPROLOL TARTRATE 100 MG TAB PO SCH ×3 (05:29→20:24)
[2016-10-24 05:33] LABS: ALKALINE PHOSPHATASE 54 U/L (45-117); ALT (GPT) 44 U/L (10-53); ANION GAP 9 MEQ/L (5-15); AST (GOT) 193 U/L (15-37); BICARBONATE 23.1 MEQ/L (21.0-32.0); BLOOD UREA NITROGEN 31 MG/DL (7-18); CHLORIDE 110 MEQ/L (98-107); GLOMERULAR FILTRATION RATE 29 ML/MIN (>89); POTASSIUM 4.7 MEQ/L (3.5-5.1); SODIUM (NA) 142 MEQ/L (136-145); TOTAL BILIRUBIN ADULT 0.5 MG/DL (0.2-1.0)
[2016-10-24] MEDS: LEVOFLOXACIN 250 MG TAB PO SCH (08:35)
[2016-10-24] MEDS: PANTOPRAZOLE SOD 20 MG DELAYED RELEASE TAB PO SCH (08:35)
[2016-10-24] MEDS: DOCUSATE SODIUM 50 MG/SENNA 8.6 MG TAB PO SCH ×2 (08:35→20:24)
[2016-10-24] MEDS: SODIUM CHLORIDE 0.9% FLUSH 10 ML FLUSH IV FLUSH SCH ×2 (08:35→20:25)
--- NOTE | 2016-10-24 08:47 | HHI.NSPN ---
(Song Charles) History Chief Complaint: Ischemic stroke with hemorrhagic conversion. (Song Charles) Interval History A 76-year-old female who was admitted on 10/15/2016 for exacerbation of her congestive heart failure and myocardial infarction. She is also on Xarelto anticoagulation for her chronic atrial fibrillation. She has suffered from a previous strokes involving the left parietal occipital aspect as well as the right occipital aspect and more recent one in the left cerebellar hemisphere. She was seen by neurology and her Xarelto continued. She was noted to have a hypotensive episode today, although remains interactive and awake. CT scan of the head obtained reveals hemorrhagic area of conversion and the left cerebellar hemisphere stroke as well as a smaller right occipital stroke. She also has old left parietal occipital area strokes. There is generalized atrophy. There is slight compression of the fourth ventricle but this is not obstructed and there is no hydrocephalus. 10/23/16: Pt lethargic but awakens enough to answer some questions. States yes she has a headache. States forehead when asked where. States no n/v. Follows simple commands but can take persistence. 10/24/16: Pt more awake today than yesterday. Answers questions better. No headache, nausea, vomiting, chest pain. States she is okay. Follows simple commands. (Song Charles) Review of Systems General: Negative for: fever, chills, insomnia Respiratory: Negative for: shortness of breath, cough, sputum Cardiovascular: Negative for: chest pain Gastrointestinal: Negative for: nausea, vomitting, diarrhea, constipation ( Song Charles) Exam Results Vital Signs Date Time Temp Pulse Resp B/P Pulse Ox O2 Delivery O2 Flow Rate FiO2 10/24/16 06:00 97 10/24/16 04:00 97.9 19 133/60 99 10/23/16 19:37 Nasal Cannula 2.00 10/22/16 10:21 21 Intake and Output 10/23/16 10/23/16 10/24/16 08:00 16:00 00:00 Intake Total 814 ml 1254 ml 609 ml Output Total 225 ml 200 ml 125 ml Balance 589 ml 1054 ml 484 ml (Song Charles) Physical Examination Resp: CTA bilaterally. Heart: Irregular. No murmurs Abd: Soft positive bs Skin: No cyanosis or erythema. SCDs in place bilateral LEs. Muscle: Follows commands more consistently today. Moves toes to command. Neuro: Pt awakens to voice. Pupils 3mm bilaterally, reactive bilaterally. More alert today and answers simple questions with very soft voice. Follows simple commands more easily this morning gipping bilaterally and moving toes bilaterally. (Song Charles) Lab, Micro, Other Results Last Impressions Head CT 10/23/16 0000 Signed Impressions: Service Date/Time: Sunday, October 23, 2016 09:19 - CONCLUSION: Stable CT scan of the brain compared to the prior examination. Joshua Robbins MD Chest X-Ray 10/22/16 0000 Signed Impressions: Service Date/Time: Saturday, October 22, 2016 14:05 - CONCLUSION: 1. Cardiomegaly. Basilar density most characteristic of atelectasis. No effusion or pneumothorax. Chandler Manning MD Brain MRI 10/18/16 0000 Signed Impressions: Service Date/Time: Tuesday, October 18, 2016 10:39 - CONCLUSION: New large left cerebral hemisphere infarct involving the anterior cerebellum, SCA territory. The fourth ventricle is midline. The vascular artery looks patent. Abraham Stafford MD FACR Laboratory Tests Test 10/24/16 04:36 Sodium Level 142 MEQ/L Potassium Level 4.7 MEQ/L Chloride Level 110 MEQ/L Carbon Dioxide Level 23.1 MEQ/L Anion Gap 9 MEQ/L Blood Urea Nitrogen 31 MG/DL Creatinine 1.71 MG/DL Estimat Glomerular Filtration 29 ML/MIN Rate Random Glucose 133 MG/DL Calcium Level 7.6 MG/DL Total Bilirubin 0.5 MG/DL Aspartate Amino Transf 193 U/L (AST/SGOT) Alanine Aminotransferase 44 U/L (ALT/SGPT) Alkaline Phosphatase 54 U/L Total Protein 6.0 GM/DL Albumin 2.3 GM/DL 10/23/16 10/23/16 10/24/16 15:00 23:00 07:00 Intake Total 1254 ml 609 ml 864 ml Output Total 200 ml 125 ml 300 ml Balance 1054 ml 484 ml 564 ml Intake Oral 50 ml 50 ml IV Total 1254 ml 559 ml 814 ml Output Urine Total 200 ml 125 ml 300 ml Stool Total 0 ml 0 ml (Song Charles) Medical Decision Making Impression and Plan A: 1. Multiple areas of strokes involving the most recent one the left cerebellar hemisphere and previous strokes in the left parieto-occipital area and right occipital area with hemorrhagic areas of conversion in the left cerebellar hemisphere and right occipital strokes. There is some mild mass effect in the fourth ventricle but no obstruction or hydrocephalus with generalized cerebral atrophy noted. 2. Chronic atrial fibrillation on Xarelto, the last dose last evening. 3. Recent myocardial infarction with a history of congestive heart failure. 4. Chronic kidney disease with recent exacerbation. 5. Hypertension. P: Continue with close neuro checks Continue with critical care. (Song Charles) Attending Statement The exam, history, and the medical decision-making described in the above note were completed with the assistance of the mid-level provider. I reviewed and agree with the findings presented. I attest that I had a [id number] encounter with the patient on the same day, and personally performed and documented my assessment and findings in the medical record. More alert and interactive today. Follows simple commands and verbalizes. Denies any headache currently. Family members at bedside relate poor appetite and encourage by mouth intake and possibly starting NG feeds or TPN until this improves. Continue with supportive care and out of bed with physical therapy. ( Gallo Joseph MD) Song Charles Oct 24, 2016 08:47 Gallo Joseph MD Oct 24, 2016 16:44
[2016-10-24] MEDS ORDERED: FUROSEMIDE 20 MG/2 ML VIAL IV PUSH ONE (09:00)
--- NOTE | 2016-10-24 09:04 | HHI.CCPN ---
Subjective Remarks/Hospital Course 10/22: The patient is a 76-year-old female with past medical history of chronic atrial fibrillation, coronary artery disease, hypertension, chronic kidney disease, CVA, gastroesophageal reflux disease who was admitted to [facility] under hospitalist service on October 15 with elevated troponins/non-ST elevation CT. She underwent cardiac catheterization on October [address] Andino which showed overall minimal left coronary system disease. Echocardiogram from October 17 showed moderate to severe concentric LVH, hypertrophic obstructive cardiomyopathy with EF of 70-75%. The patient was placed on aspirin, Imdur, Lopressor and hydralazine. On October [address] scan of the brain without contrast for dizziness and was found to have areas of increased density involving the right occipital lobe. Subsequently, the patient underwent an MRI of the brain on October 18 which showed new large cerebral hemisphere infarct involving the anterior cerebellum with no hemorrhage evident. The patient was on Xarelto for her stroke and atrial fibrillation. This afternoon code blue was called as the patient was found unresponsive and hypotensive with systolic blood pressure in 60s to 70s. The patient, however, never lost a pulse and did not receive any ACLS drugs. She was given 1 liter bolus of normal saline and transferred to CVICU. She became a little bit more awake and her blood pressure improved to 152/69 with a pulse of 87. Current saturation 99%. Her last chest x-ray from October 20 showed no evidence of any acute disease. The patient is scheduled for repeat CT scan of the brain to rule out any hemorrhagic conversion from her stroke. Most of the history was obtained from reviewing medical records as patient is a poor historian. 10/23: Patient had chest pain earlier with tachycardia which responded with IV Lopressor. Her underlying rhythm is A. fib and she subsequently developed RVR with heart rate in the 140s. She is sitting up in bed moaning at the time of my evaluation and requesting water. Does not really follow commands on my questioning. According to her daughter she follows and recognizes her. She does open eyes spontaneously. 10/24: Awake and alert, oriented 3, follows commands. Moves all 4 extremities. Laying in bed not in any acute distress. Denies any headache or chest pain. Objective Vital Signs Date Time Temp Pulse Resp B/P Pulse Ox O2 Delivery O2 Flow Rate FiO2 10/24/16 07:10 95 21 10/24/16 06:00 97 10/24/16 04:00 97.9 19 133/60 10/23/16 19:37 Nasal Cannula 2.00 Intake and Output 10/23/16 10/23/16 10/24/16 08:00 16:00 00:00 Intake Total 814 ml 1254 ml 609 ml Output Total 225 ml 200 ml 125 ml Balance 589 ml 1054 ml 484 ml Result Diagram: 10/23/16 0451 10/24/16 0436 Imaging Last Impressions Head CT 10/22/16 0000 Signed Impressions: Service Date/Time: Saturday, October 22, 2016 13:31 - CONCLUSION: 1. Extensive petechial hemorrhage associated with a known left cerebellar infarct with surrounding edema and mass effect with partial effacement of the fourth ventricle and mild compression on the brainstem from the left side. 2. Acute on chronic infarct in the right occipital lobe also associated with some petechial hemorrhage but without significant localized mass effect. 3. Stable remote left parietal occipital infarct. Chandler Manning MD Chest X-Ray 10/22/16 0000 Signed Impressions: Service Date/Time: Saturday, October 22, 2016 14:05 - CONCLUSION: 1. Cardiomegaly. Basilar density most characteristic of atelectasis. No effusion or pneumothorax. Chandler Manning MD Brain MRI 10/18/16 0000 Signed Impressions: Service Date/Time: Tuesday, October 18, 2016 10:39 - CONCLUSION: New large left cerebral hemisphere infarct involving the anterior cerebellum, SCA territory. The fourth ventricle is midline. The vascular artery looks patent. Abraham Stafford MD FACR Objective Remarks HEENT: Atraumatic and normocephalic. Pupils equal round and reactive to light and accommodation. Extraocular muscles intact. Conjunctiva pink. Nonicteric sclerae. Oral mucosa within normal. NECK: Supple. No JVD, adenopathy or thyromegaly. Trachea midline. CARDIOVASCULAR: Irregularly irregular. Normal S1-S2. No murmurs, rubs or gallops noted. PULMONARY: Bilateral equal air entry. No rales or wheezing. ABDOMEN: Soft, nontender, no distension. Positive bowel sounds. EXTREMITIES: No cyanosis, clubbing or edema. NEURO: Awake alert oriented 3. Has spontaneous eye opening. Pupils 4 mm bilaterally, reactive. Moves both Upper and lower extremities. Following commands. Procedures 10/16/16 cardiac catheterization A/P Assessment and Plan IMPRESSION 1. Respiratory insufficiency. 2. Encephalopathy. 3. Status post recent large left cerebellar hemisphere infarct with minimal hemorrhagic conversion and cerebral edema with mass effect on fourth ventricle. 4. Non-ST elevation CT status post cardiac catheterization which showed minimal coronary artery disease. 5. Chronic atrial fibrillation, on Xarelto(now off). 6. Hypertension. 7. Chronic kidney disease. 8. Gastroesophageal reflux disease. 9. History of CVA. 10. Hypertrophic obstructive cardiomyopathy 11. A. fib with RVR 12. Hypotension which is resolved RECOMMENDATIONS 1. Monitor neuro status closely and avoid any sedatives. MRI from October 18 showed large left cerebral hemisphere infarct. Neurology/ Neurosurgery f/u. Holding Xarelto as CT 10/22 showed petechial hemorrhages in area of cerebellar infarct. 2. Continue with oxygen, maintain sats above 92%. 3. Bronchodilators in the form of DuoNeb q. 6+ q. 2 p.r.n. for shortness of breath. 4. Aspiration precautions. 5. Monitor heart rate and blood pressure closely and maintain MAP greater than 65 mmHg. The patient was given 1 liter bolus of normal saline with improvements of her blood pressure, She was receiving Lopressor, hydralazine and Imdur which were held on 10/22 for hypotension. Resumed Lopressor 50mg Q8hrly in view of A. fib with RVR on 10/23. Off Cardizem drip. Labetalol when necessary for systolic blood pressure greater than 160. Lasix 20 mg IV x1 on 10/24 Status post cardiac cath on October 16 which showed minimal coronary artery disease. Echocardiogram from October 17 showed hypertrophic obstructive cardiomyopathy and EF of 70-75%.. Decrease IV fluids to 50 cc/h. 6. Monitor renal function Is and Os and avoid nephrotoxins. She received 1 liter bolus of normal saline for hypotension on 10/22. Continue maintenance fluids NS at 100 an hour for now. Hold Lasix and potassium supplements. 7. Was kept NPO overnight, will advance PO when okay with neurosurgery. continue with Protonix daily for underlying history of gastroesophageal reflux disease. 8. Monitor for signs of infections which include fever and WBC. Check chest x-ray. Continue with current antibiotics. She is on Levaquin. 9. Monitor CBC. 10. Sliding scale insulin with Accu-Chek q. 4-hour for glycemic control. 11. GI prophylaxis with Protonix and DVT prophylaxis with SCDs. No heparin or Lovenox till cleared by neurosurgery. Xarelto on hold due to petechial hemorrhages noted on head CT 10/22 Further recommendations per neurosurgery/neurology and cardiology Discussed with patient's daughter at bedside. Patient remains full CODE STATUS at this time. Palliative care team following to assist with deciding goals of therapy. Kyrie Lees MD Oct 24, 2016 09:04
[2016-10-24 10:55] LABS: AUTOMATED NEUTROPHIL # 10.7 TH/MM3 (1.8-7.7); BASOPHIL % 0.2 % (0.0-2.0); HEMATOCRIT 39.9 % (35.0-46.0); HEMO FLAGS DIFF FINAL; LYMPH % 5.7 % (9.0-44.0); LYMPHOCYTE # 0.7 TH/MM3 (1.0-4.8); MEAN CELL VOLUME 83.1 FL (80.0-100.0); MEAN CORPUSCULAR HGB CONC 32.5 % (32.0-36.0); MONO % 5.4 % (0.0-8.0); NEUT % 88.7 % (16.0-70.0); PLATELET COUNT 226 TH/MM3 (150-450); RED BLOOD COUNT 4.81 MIL/MM3 (4.00-5.30); RED CELL DISTRIBUTION WIDTH 14.7 % (11.6-17.2)
--- NOTE | 2016-10-24 14:20 | HHI.HCPN ---
Reason for visit a. To assist with evaluation and management of symptoms including: decreased appetite, lethargy, weakness. b. To assist medical decision maker(s) with: better understanding of current medical conditions; weighing benefits/burdens of medical treatment options; making medical treatment decisions. . Subjective/Interval History Patient is seen and examined in ICU. Multiple family (daughter and many adult grandchildren and their spouses) at bedside. Introduced myself. Patient states "I want to go home." Family is around bed encouraging patient to eat, she ate 2 bites of her lunch per nursing staff. Family is asking for vanilla ice cream for the patient, nurse notified. Patient denies pain, she appears very weak. Denies shortness of breath. Afebrile. Vital signs stable. Oxygen saturation 96%. She is awake and alert, following commands. Taking meds orally. No evidence of aspiration per nursing staff. LBM 10/22/16. WBC 12.0 today increased from 9.2. Creatinine increased from 1.4 to 1.71 today. Albumin 2.3. Cultures negative to date. No new imaging today. . Family/friend interactions See interval note. . Advance Directives Living Will: Never completed Health Care Surrogate: Never completed Durable Power of [place] Operator: Never completed Advance Directive Specifics Significant change in goals: FULL CODE. Goals remain aggressive. . Objective Vital Signs Date Time Temp Pulse Resp B/P Pulse Ox O2 Delivery O2 Flow Rate FiO2 10/24/16 10:00 91 10/24/16 08:00 87 10/24/16 08:00 98.4 87 16 162/71 96 10/24/16 07:10 95 21 10/24/16 07:00 96 Room Air 10/24/16 06:00 97 10/24/16 04:00 97.9 97 19 133/60 99 10/24/16 04:00 97 10/24/16 02:00 97 10/24/16 00:00 89 10/24/16 00:00 98.0 89 14 154/69 98 10/23/16 22:00 75 10/23/16 20:00 69 10/23/16 20:00 98.0 69 19 151/70 97 10/23/16 19:37 93 Nasal Cannula 2.00 10/23/16 19:00 96 Room Air 10/23/16 18:00 71 10/23/16 16:00 97.9 74 19 129/63 97 10/23/16 16:00 74 10/23/16 15:00 70 10/23/16 15:00 70 10/23/16 14:00 64 Intake & Output 10/24/16 10/24/16 07:00 19:00 Intake Total 1473 ml Output Total 425 ml Balance 1048 ml Intake Oral 100 ml IV Total 1373 ml Output Urine Total 425 ml Stool Total 0 ml Physical Exam CONSTITUTIONAL/GENERAL: This is a thin patient, appears comfortable, lethargic TUBES/LINES/DRAINS: PIVs upper extremities. donald catheter. scds SKIN: No jaundice, rashes, or lesions. No wounds seen anteriorly. Skin temperature appropriate. Not diaphoretic. EYES: Pupils equal and round and reactive. Extraocular motions intact. No scleral icterus. No injection or drainage. Fundi not examined. CARDIOVASCULAR: irregularly irregular. No murmur. RESPIRATORY/CHEST: Symmetric, unlabored respirations. On room air. Clear to auscultation. Breath sounds equal bilaterally. GASTROINTESTINAL: Abdomen soft, flat, non-tender, nondistended. No hepato- splenomegaly, or palpable masses. No guarding. Bowel sounds normoactive . GENITOURINARY: Without palpable bladder distension. Donald catheter in place. MUSCULOSKELETAL: Extremities without clubbing, cyanosis, or edema. NEUROLOGICAL: awake, slow to respond, states "I want to go home." Follows simple commands. PSYCHIATRIC: No obvious anxiety/depression-- limited assessment due to lethargy/ clinical conditions. . Diagnostic Tests Laboratory Laboratory Tests Test 10/22/16 10/23/16 10/24/16 10/24/16 14:50 04:51 04:36 10:10 White Blood Count 10.2 TH/MM3 9.2 TH/MM3 12.0 TH/MM3 (4.0-11.0) (4.0-11.0) (4.0-11.0) Red Blood Count 5.03 MIL/MM3 4.74 MIL/MM3 4.81 MIL/MM3 (4.00-5.30) (4.00-5.30) (4.00-5.30) Hemoglobin 13.4 GM/DL 12.6 GM/DL 13.0 GM/DL (11.6-15.3) (11.6-15.3) (11.6-15.3) Hematocrit 43.3 % 39.5 % 39.9 % (35.0-46.0) (35.0-46.0) (35.0-46.0) Mean Corpuscular Volume 86.1 FL 83.3 FL 83.1 FL (80.0-100.0) (80.0-100.0) (80.0-100.0) Mean Corpuscular Hemoglobin 26.6 PG 26.5 PG 27.0 PG (27.0-34.0) (27.0-34.0) (27.0-34.0) Mean Corpuscular Hemoglobin 30.9 % 31.8 % 32.5 % Concent (32.0-36.0) (32.0-36.0) (32.0-36.0) Red Cell Distribution Width 15.1 % 14.9 % 14.7 % (11.6-17.2) (11.6-17.2) (11.6-17.2) Platelet Count 179 TH/MM3 209 TH/MM3 226 TH/MM3 (150-450) (150-450) (150-450) Mean Platelet Volume 8.1 FL 7.4 FL 7.6 FL (7.0-11.0) (7.0-11.0) (7.0-11.0) Neutrophils (%) (Auto) 83.7 % 78.7 % 88.7 % (16.0-70.0) (16.0-70.0) (16.0-70.0) Lymphocytes (%) (Auto) 10.2 % 13.7 % 5.7 % (9.0-44.0) (9.0-44.0) (9.0-44.0) Monocytes (%) (Auto) 5.7 % (0.0-8.0) 6.7 % (0.0-8.0) 5.4 % (0.0-8.0) Eosinophils (%) (Auto) 0.3 % (0.0-4.0) 0.4 % (0.0-4.0) 0.0 % (0.0-4.0) Basophils (%) (Auto) 0.1 % (0.0-2.0) 0.5 % (0.0-2.0) 0.2 % (0.0-2.0) Neutrophils # (Auto) 8.5 TH/MM3 7.2 TH/MM3 10.7 TH/MM3 (1.8-7.7) (1.8-7.7) (1.8-7.7) Lymphocytes # (Auto) 1.0 TH/MM3 1.3 TH/MM3 0.7 TH/MM3 (1.0-4.8) (1.0-4.8) (1.0-4.8) Monocytes # (Auto) 0.6 TH/MM3 0.6 TH/MM3 0.6 TH/MM3 (0-0.9) (0-0.9) (0-0.9) Eosinophils # (Auto) 0.0 TH/MM3 0.0 TH/MM3 0.0 TH/MM3 (0-0.4) (0-0.4) (0-0.4) Basophils # (Auto) 0.0 TH/MM3 0.0 TH/MM3 0.0 TH/MM3 (0-0.2) (0-0.2) (0-0.2) CBC Comment DIFF FINAL DIFF FINAL DIFF FINAL Differential Comment Prothrombin Time 10.9 SEC (9.8-11.6) Prothromb Time International 1.0 RATIO Ratio Activated Partial 26.8 SEC Thromboplast Time (24.3-30.1) Sodium Level 138 MEQ/L 141 MEQ/L 142 MEQ/L (136-145) (136-145) (136-145) Potassium Level 4.4 MEQ/L 4.1 MEQ/L 4.7 MEQ/L (3.5-5.1) (3.5-5.1) (3.5-5.1) Chloride Level 102 MEQ/L 106 MEQ/L 110 MEQ/L (98-107) (98-107) (98-107) Carbon Dioxide Level 30.9 MEQ/L 29.6 MEQ/L 23.1 MEQ/L (21.0-32.0) (21.0-32.0) (21.0-32.0) Anion Gap 5 MEQ/L (5-15) 5 MEQ/L (5-15) 9 MEQ/L (5-15) Blood Urea Nitrogen 38 MG/DL (7-18) 30 MG/DL (7-18) 31 MG/DL (7-18) Creatinine 1.63 MG/DL 1.40 MG/DL 1.71 MG/DL (0.50-1.00) (0.50-1.00) (0.50-1.00) Estimat Glomerular Filtration 31 ML/MIN (>89) 36 ML/MIN (>89) 29 ML/MIN (>89) Rate Random Glucose 120 MG/DL 108 MG/DL 133 MG/DL (74-106) (74-106) (74-106) Lactic Acid Level 2.0 mmol/L (0.4-2.0) Calcium Level 8.2 MG/DL 7.8 MG/DL 7.6 MG/DL (8.5-10.1) (8.5-10.1) (8.5-10.1) Phosphorus Level 3.1 MG/DL 2.9 MG/DL (2.5-4.9) (2.5-4.9) Magnesium Level 1.9 MG/DL 1.8 MG/DL (1.5-2.5) (1.5-2.5) Total Bilirubin 0.4 MG/DL 0.5 MG/DL (0.2-1.0) (0.2-1.0) Aspartate Amino Transf 51 U/L (15-37) 193 U/L (15-37) (AST/SGOT) Alanine Aminotransferase 34 U/L (10-53) 44 U/L (10-53) (ALT/SGPT) Alkaline Phosphatase 59 U/L (45-117) 54 U/L (45-117) Total Protein 6.2 GM/DL 6.0 GM/DL (6.4-8.2) (6.4-8.2) Albumin 2.2 GM/DL 2.3 GM/DL (3.4-5.0) (3.4-5.0) Result Diagram: 10/24/16 1010 10/24/16 0436 Imaging Last Impressions Head CT 10/23/16 0000 Signed Impressions: Service Date/Time: Sunday, October 23, 2016 09:19 - CONCLUSION: Stable CT scan of the brain compared to the prior examination. Joshua Robbins MD Chest X-Ray 10/22/16 0000 Signed Impressions: Service Date/Time: Saturday, October 22, 2016 14:05 - CONCLUSION: 1. Cardiomegaly. Basilar density most characteristic of atelectasis. No effusion or pneumothorax. Chandler Manning MD Brain MRI 10/18/16 0000 Signed Impressions: Service Date/Time: Tuesday, October 18, 2016 10:39 - CONCLUSION: New large left cerebral hemisphere infarct involving the anterior cerebellum, SCA territory. The fourth ventricle is midline. The vascular artery looks patent. Abraham Stafford MD FACR . Assessment and Plan Disease Oriented Problem List: (1) CVA (cerebral infarction) (2) Petechial hemorrhage Comment: at known cerebellar infarct (3) NSTEMI (non-ST elevated myocardial infarction) (4) Atrial fibrillation with RVR (5) CHF (congestive heart failure) (6) CKD (chronic kidney disease) (7) Elevated troponin (8) Atrial fibrillation, chronic (9) CAD (coronary artery disease) (10) Hypertension (11) Acute on chronic renal insufficiency Symptom Scale: (1) Dyspnea 0-10 Scale: 0 (2) Encephalopathy 0-10 Scale: Unable to quantify Comment: AMS/ CVA + hemorrhage (3) Pain 0-10 Scale: 0 (4) Lethargy 0-10 Scale: Unable to quantify Comment: improving per nurse and family report (5) Weakness 0-10 Scale: Unable to quantify Comment: secondary to [place], stroke, hospitalization, decreased appetite. (6) Decreased appetite 0-10 Scale: Unable to quantify Comment: eating only bites today Pertinent Non-Medical Issues Psychosocial:. Lives alone locally, supported by with son and daughter locally, other children out of state. 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 Originally from the [facility] those lived in [place] much of her life. Spiritual: [employer] has been in Legal:Patient, due to clinical conditions is unable to participate in decision- making. Not clear that she will regain ability to participate. No advanced directive or HCS. Per [place] statutes legally decision-making would fall to the majority of her 4 adult children. All family working together in decision- making. Ethical issues impacting care: Important Contacts dtr Loli Dickson [phone] son Se Dickson [phone] (4 children total) . Prognosis This patient was admitted for an STEMI, heart failure. Prior to this admission doing well despite her chronic medical issues. During this course she suffered acute CVA, which has since evolves into hemorrhage. Unable to have anticoagulation due to hemorrhagic conversion. Remains in A. fib, with occasional RVR. Unable to anticoagulate. High risk for ongoing complications/ neurological decline. Appropriate for hospice if goals compatible. . Code Status: Full Code Plan * Legal decision maker: Patient, due to clinical conditions is unable to participate in decision-making. Not clear that she will regain ability to participate. No advanced directive or HCS. Per [place] statutes legally decision-making would fall to the majority of her 4 adult children. All family working together in decision-making. * Goals remain aggressive. If patient appetite does not increase we will attempt to address nutrition status with family. Family remains optimistic for recovery, patient wants to go home. Palliative to continue to follow-up with family to continue to reevaluate goals as clinical course evolves. * CODE STATUS: FULL CODE. * SYMPTOMS: -- Dyspnea-potential for airway compromise secondary to CVA, hemorrhagic conversion. Lethargic.+ History CHF.+ NSTEMI, pulmonary edema on admission. Currently breathing comfortably on room air. will continue to monitor. -- Pain-patient presented with 2 days of back pain,? Referred cardiac pain. Continues to have ongoing back pain. No other chronic pain syndromes reported per family. Nursing headache during admission, likely secondary to CVA , hemorrhage. At home primarily utilize Tylenol for any pain, opiate jud. has utilized some [place] during this course. Sparing use thus far. Also has Tylenol available, sparing use thus far. Cautious use of opiates given risk for neuro-logical decline, goals currently aggressive. We'll continue to evaluate. -- Nausea-intermittent episodes of nausea, patient endorsing feeling "sick"-- sparing prn Zofran use, will continue to monitor. -- Decreased appetite: secondary to recent [place], stroke, risk for aspiration. Will monitor. May need to address nutritional issues in coming days if no improvement. -- Weakness - secondary to CVA, hemorrhagic conversion. Lethargic. + History CHF.+ NSTEMI, pulmonary edema on admission. Continue PT. * Palliative care will continue to follow during hospital course as condition evolves, to assist patient/decision-maker with understanding of medical conditions, weighing benefits/burdens of treatment options, for clarification of goals of treatment. Additionally will assist with any symptoms of palliative concern Attestation To help prompt me to consider important information that might be impacting today's encounter and assessment, information from prior notes written by myself or my colleagues may have been "brought forward" into today's note. My signature on this note, however, is an attestation that I personally performed the exam, history, and/or decision-making noted today, and, unless otherwise indicated, the interactions with patient, family, and staff as well as the review of records all occurred today. I also attest that the listed assessment and stated plan reflect my best clinical judgment today based on the combination of historical information, prior notes, and today's exam/ interactions. When time spent is documented, it refers only to time spent today by the signer, or if indicated, combined time spent today by collaborating physician/nurse practitioner. Tiffanie Carreon Oct 24, 2016 14:20
[2016-10-24] MEDS ORDERED: AMIODARONE HCL 150 MG/3 ML VIAL ONE (15:13)
[2016-10-24] MEDS ORDERED: PROPOFOL 1000 MG/100 ML INJ 100 ML ONE (15:18)
--- NOTE | 2016-10-24 15:21 | HHI.PR ---
Addendum to Inpatient Note Addendum Reason: Additional Documentation Additional Information Jaguar Garcia and Adelaide responded to Code Blue Rm 1302. Patrol Sergeant [employer] at bedside. Pt ROSC after several cycles of CPR. Mark Bryson MD R1 Oct 24, 2016 15:21
[2016-10-24] MEDS ORDERED: PROPOFOL 1000 MG/100 ML INJ 100 ML IV SCH (16:30)
[2016-10-24] MEDS ORDERED: AMIODARONE INJ 900 MG in D5W 500 ML (EXCEL BAG) 482 ML IV SCH (16:30)
[2016-10-24] MEDS ORDERED: TERBUTALINE INJ 1 MG/ML AMP SQ PRN (16:30)
--- NOTE | 2016-10-24 16:38 | PD.PROCEDR ---
Procedure Note Procedure Date of procedure 10/24/2016 Procedure: CPR (1st episode at 1456 hrs) Preop diagnosis: V. tach arrest Postop diagnosis: Same Description: Responded to CODE BLUE cardiac arrest code activation. Patient went into V. tach and became unresponsive without a pulse. CODE BLUE cardiac arrest code was activated at 1456 hrs. CPR/ACLS protocol initiated. Patient was intubated during ACLS protocol and underwent multiple DC shocks for defibrillation. Please see ACLS code sheet for details. Following 13 minutes of ACLS/CPR patient had return of spontaneous circulation and was back in atrial fibrillation (she has chronic atrial fibrillation at baseline). Please see code sheet for details. Family was updated regarding events following cardiac arrest and voiced understanding and were agreeable with plan of care. Kyrie Lees MD Oct 24, 2016 16:37
--- NOTE | 2016-10-24 16:45 | PD.PROCEDR ---
Procedure Note Procedure Date of procedure 10/24/2016 Procedure: CPR (2st episode at 1534 hrs) Preop diagnosis: Cardiac arrest Postop diagnosis: Same Description: Patient developed bradycardia followed by asystole at 1534 hrs. and CODE BLUE cardiac arrest code was activated. . Patient was already orally intubated and on mechanical ventilation and became unresponsive without a pulse. CPR/ACLS protocol initiated. During ACLS patient subsequently went into V. tach and underwent defibrillation with subsequent return of spontaneous circulation and converted back to her original rhythm of atrial fibrillation following 5 minutes of ACLS/CPR (she has chronic atrial fibrillation at baseline). Please see code sheet for details. Family was updated regarding events following cardiac arrest and voiced understanding and were agreeable with plan of care. Kyrie Lees MD Oct 24, 2016 16:45
--- NOTE | 2016-10-24 16:48 | PD.PROCEDR ---
Procedure Note Procedure Procedure: Endotracheal intubation Preop diagnosis: Cardiac arrest Postop diagnosis: Cardiac arrest Sedation used: none as patient was unresponsive in cardiac arrest Procedure: Patient was preoxygenated with 100% oxygen via Ambu bag with bag mask ventilation, initially direct laryngoscopy was performed using a Mac 4 blade however vocal cords were not visualized well hence glide scope was used and vocal cords were visualized using glide scope. An 8 Cypriot ET tube was passed through the vocal cords under direct visualization up to the 22 centimeter aleena and after inflating cuff of ET tube, correct placement was confirmed using bagging with good color change on CO2 detector, 5 point auscultation and chest rise with ventilation. CPR/ACLS protocol was continued. Following return of spontaneous circulation, patient was connected to mechanical ventilation. Patient tolerated the procedure well with no immediate complications noted. Postprocedure chest x-ray was ordered. Kyrie Lees MD Oct 24, 2016 16:48
--- NOTE | 2016-10-24 16:51 | PD.PROCEDR ---
Procedure Note Procedure Procedure: Defibrillation (during first cardiac arrest) Preop diagnosis: Cardiac arrest (first episode at 1456 hrs) : V. tach Postoperative diagnosis: Same Procedure: Patient went into V. tach and became unresponsive without a pulse. CPR/ACLS protocol initiated. Patient was defibrillated with 200 J DC shock 5 with subsequent return of spontaneous circulation and conversion to atrial fibrillation. Please see ACLS code sheet for details. Kyrie Lees MD Oct 24, 2016 16:51
--- NOTE | 2016-10-24 16:54 | PD.PROCEDR ---
Procedure Note Procedure Procedure: Defibrillation (during 2nd episode of cardiac arrest) Preop diagnosis: Cardiac arrest (2nd episode at 1534 hrs) : Postoperative diagnosis: Same Indication: V. tach during cardiac arrest Procedure: Patient went into asystole/bradycardia followed by V. tach. CPR/ ACLS protocol initiated. Patient was defibrillated with 200 J DC shock with subsequent return of spontaneous circulation and conversion to atrial fibrillation. Please see ACLS code sheet for details. Kyrie Lees MD Oct 24, 2016 16:54
[2016-10-24 17:00] LABS: BLOOD GAS BASE EXCESS -5.8 mmol/L (-2-2); BLOOD GAS CARBOXYHEMOGLOBIN 0.8 % (0-4); BLOOD GAS HCO3 17 mmol/L (22-26); BLOOD GAS METHEMOGLOBIN 0.8 % (0-2); BLOOD GAS O2 HGB SATURATION 99 % (90-100); BLOOD GAS OXYGEN CONTENT 16.5 Vol % (12.0-20.0); BLOOD GAS PCO2 22 mmHg (38-42); BLOOD GAS PO2 495 mmHg (61-120); CRITICAL VALUE YES; DRAW SITE RT BRACHIAL; FIO2 100 %; NUMBER OF ARTERIAL PUNCTURES 1; OXYGEN DEVICE VENTILATOR; STAT YES; TEMP CORR TO 98.6; ULNAR PULSE PRESENT; VENT SETTINGS PRVC/16/500/1.0/+5
[2016-10-24] MEDS ORDERED: NOREPINEPHRINE-DEXTROSE DRIP 250 ML IV SCH (17:00)
--- NOTE | 2016-10-24 17:00 | RADRPT ---
EXAM DATE/TIME: 10/24/2016 15:38 [facility] COMPARISON: CHEST SINGLE AP, October 22, 2016, 14:05. INDICATIONS : Central line placement MEDICAL HISTORY : Cardiovascular disease. Hypertension SURGICAL HISTORY : Unknown ENCOUNTER: Subsequent ACUITY: 1 week PAIN SCORE: Non-responsive. LOCATION: Bilateral chest FINDINGS: Patient has been intubated and the ET tube is approximately 1.5 cm above the debi. There is a small right-sided pneumothorax measuring 1.5 cm. Cardiac silhouette remains enlarged. Redemonstration of b ibasilar airspace disease, likely atelectasis. Remainder of the exam is unchanged. CONCLUSION: 1. Interval development of small right-sided pneumothorax measuring up to 1.5 cm. 2. ETT 1.5 cm above the debi. 3. Remainder the exam is unchanged. Sarthak Floyd MD on October 24, 2016 at 16:54 Board Certified Radiologist. This report was verified electronically.
--- NOTE | 2016-10-24 17:02 | PD.PROCEDR ---
Central Line Procedure REASON FOR PROCEDURE Central venous access PROCEDURE PERFORMED Central line placement: Left femoral vein (initial attempt at right subclavian central line placement was unsuccessful due to guidewire getting stuck in triple lumen catheter following insertion which then had to be removed) CONSENT Not obtained as this was an emergent procedure following CPR/cardiac arrest ANESTHESIA Local injection of 1% Lidocaine DESCRIPTION OF THE PROCEDURE The patient was placed in supine position. The area was exposed and cleansed with ChloraPrep, times two. Large sterile drape was used to cover the patient, with the site exposed, under sterile conditions including cap, face mask, sterile gown, and sterile gloves. On single attempt, the introducer needle was inserted with negative pressure in syringe and venous flash was obtained. The guide wire was then advanced without any restriction and the needle was removed. The dilator was used without any complications. Using Seldinger technique, an antimicrobial coated triple lumen catheter was advanced over the guide wire to a depth of 19 centimeters. The guide wire was removed. All ports were aspirated with dark venous blood return and flushed easily with sterile saline. All ports were capped. Antibiotic disc was placed around central line at puncture site. The central line was secured to the skin with two interrupted 2.0 silk sutures. The area was bandaged with sterile see- through central line bandage. RADIOLOGICAL DATA Ultrasound guidance was used to locate left femoral vein. COMPLICATIONS: No apparent complications ESTIMATED BLOOD LOSS: 5 cc. Kyrie Lees MD Oct 24, 2016 17:01
[2016-10-24] MEDS ORDERED: LIDOCAINE HCL 1% 50 ML VIAL ONE (17:17)
--- NOTE | 2016-10-24 17:57 | PD.PROCEDR ---
Procedure Note Procedure Procedure: right-sided chest tube placement Indication: Right pneumothorax Preoperative diagnosis: Right pneumothorax Postoperative diagnosis: Same Informed consent obtained from family and documented on chart Anesthesia: 1% lidocaine for local infiltration anesthesia Procedure: After sterile prepping and draping using 1% lidocaine for local infiltration anesthesia, horizontal skin incision was made in the region of the fourth intercostal space in the anterior axillary line with a #11 scalpel blade followed by blunt dissection. Using Jessie clamp right pleural cavity was entered with gush of air heard on entry. 20 Armenian chest tube was passed into the right pleural cavity to the 18 cm aleena. Chest tube was connected to Pleur- evac which were then connected to -20 cm of water pressure with underwater seal. Chest tube was secured with 3-0 silk sutures following which vaseline gauze was was applied to the insertion site followed by dressing. Postprocedure chest x-ray was ordered and was pending at the time of this dictation. It will be reviewed when available. Patient tolerated the procedure well with no immediate complications noted. Kyrie Lees MD Oct 24, 2016 17:57
--- NOTE | 2016-10-24 18:02 | PD.PROCEDR ---
Procedure Note Procedure Procedure: Left femoral arterial catheter placement Preop diagnosis: Cardiac arrest status post CPR, hypotension Postop diagnosis: Same Anesthesia: 1% lidocaine for local infiltration anesthesia Procedure: After sterile prepping and draping using 1% lidocaine for local infiltration anesthesia, left femoral artery was visualized using ultrasound vessel finder and was cannulated using an introducer needle with bright pulsatile blood return. A guidewire was passed through the introducer needle without any resistance and the needle was then removed. A 12 cm 20-gauge arterial catheter was passed over the guidewire by modified Seldinger's technique up to the 12 cm aleena and after removal of guidewire catheter was connected to transducer tubing with good waveform being obtained on the monitor. Biopatch was applied to the insertion site and catheter was sutured in place. Sterile Bio-occlusive dressing was applied to the site. Patient tolerated the procedure well with no immediate competitions noted. Kyrie Lees MD Oct 24, 2016 18:02
[2016-10-24] MEDS: AMIODARONE INJ 450 MG in D5W (EXCEL BAG) 241 ML IV SCH ×2 (18:33→21:41)
--- NOTE | 2016-10-24 18:34 | RADRPT ---
EXAM DATE/TIME: 10/24/2016 18:08 [facility] COMPARISON: CHEST SINGLE AP, October 24, 2016, 15:38. INDICATIONS : Chest tube placement. MEDICAL HISTORY : None. SURGICAL HISTORY : None. ENCOUNTER: Subsequent ACUITY: 1 day PAIN SCORE: Non-responsive. LOCATION: Right chest. FINDINGS: Endotracheal tube tip is 1.5 cm above the debi. Right chest drainage tube has been placed and the tip is projected the apex. There is been reexpansion of the right lung; no residual pneumothorax. I ndistinctness and engorgement of central bronchopulmonary markings are stable from prior. There is l oss of delineation of portions of left hemidiaphragm. Moderate cardiomegaly, stable. CONCLUSION: Right chest tube in good position. No pneumothorax seen. Bradley Morris MD on October 24, 2016 at 18:24 Board Certified Radiologist. This report was verified electronically.
[2016-10-24] MEDS ORDERED: NOREPINEPHRINE 4 MG/4 ML AMP ONE (19:52)
[2016-10-24] MEDS: CHLORHEXIDINE 0.12% (ORAL KIT) 15 ML CUP MT SCH (20:00)
[2016-10-24 20:45] LABS: AUTOMATED NEUTROPHIL # 27.3 TH/MM3 (1.8-7.7); EOSINOPHIL % 0.1 % (0.0-4.0); HEMATOCRIT 34.6 % (35.0-46.0); HEMO FLAGS DIFF FINAL; LYMPH % 1.4 % (9.0-44.0); LYMPHOCYTE # 0.4 TH/MM3 (1.0-4.8); MEAN CELL VOLUME 82.5 FL (80.0-100.0); MEAN CORPUSCULAR HEMOGLOBIN 26.8 PG (27.0-34.0); MEAN CORPUSCULAR HGB CONC 32.5 % (32.0-36.0); MONO % 3.2 % (0.0-8.0); NEUT % 95.3 % (16.0-70.0); PLATELET COUNT 221 TH/MM3 (150-450); RED BLOOD COUNT 4.19 MIL/MM3 (4.00-5.30); RED CELL DISTRIBUTION WIDTH 15.1 % (11.6-17.2); WHITE BLOOD COUNT 28.6 TH/MM3 (4.0-11.0)
[2016-10-24 21:01] LABS: ANION GAP 10 MEQ/L (5-15); AST (GOT) 596 U/L (15-37); BICARBONATE 22.4 MEQ/L (21.0-32.0); BLOOD UREA NITROGEN 35 MG/DL (7-18); CHLORIDE 109 MEQ/L (98-107); GLOMERULAR FILTRATION RATE 24 ML/MIN (>89); POTASSIUM 3.7 MEQ/L (3.5-5.1); SODIUM (NA) 141 MEQ/L (136-145)
[2016-10-24 21:07] LABS: ALKALINE PHOSPHATASE 109 U/L (45-117); ALT (GPT) 239 U/L (10-53)
[2016-10-24] MEDS ORDERED: EPINEPHrine HCL (1:10,000) 1 MG/10 ML SYRINGE ONE (21:35)
[2016-10-24] MEDS ORDERED: ATROPINE SULFATE 1 MG/10 ML SYRINGE ONE (21:35)
[2016-10-24 21:41] LABS: APTT (PATIENT) 28.9 SEC (24.3-30.1); INTERNATIONAL NORMALIZED RATIO 1.1 RATIO; PROTHROMBIN TIME - PATIENT 12.3 SEC (9.8-11.6)
--- NOTE | 2016-10-24 22:37 | RADRPT ---
EXAM DATE/TIME: 10/24/2016 22:09 [place] COMPARISON: MRI BRAIN W/O CONTRAST, October 18, 2016, 10:39. CT BRAIN W/O CONTRAST, October 23, 2016, 9:19. INDICATIONS : Follow up bleed. RADIATION DOSE: 56.35 CTDIvol (mGy) MEDICAL HISTORY : Cardiovascular disease. Hypertension. A-fib SURGICAL HISTORY : Appendectomy. Hysterectomy. ENCOUNTER: Subsequent ACUITY: 1 week PAIN SCALE: 0/10 LOCATION: cranial TECHNIQUE: Multiple contiguous axial images were obtained of the head. Using automated exposure control and adj ustment of the mA and/or kV according to patient size, radiation dose was kept as low as reasonably a chievable to obtain optimal diagnostic quality images. DICOM format image data is available electro nically for review and comparison. FINDINGS: There is a new finding in the left occipital lobe compared to prior imaging studies with a large area of height total density involving the low to mid convexity left occipital lobe. This is indeed dist ribution of the left posterior cerebral artery. No evidence of hemorrhage. The hemorrhagic infarction of the left cerebellar hemisphere is stable in appearance. The old infarc tion in the left high occipital region is stable in appearance. Focal area of hemorrhage in the medi al right occipital lobe is unchanged. The ventricles are stable in size. No evidence of midline shift in the supratentorial brain. There is effacement of the left ambient wing cistern, stable from prior CONCLUSION: 1. There is a new regional area of hypodensity in the medial left lower occipital lobe suggesting an acute nonhemorrhagic infarction in the left STAFF REGISTERED NURSE distribution. 2. Stable appearance to the hemorrhagic infarction left cerebellum, focal hemorrhage in the right occ ipital lobe, and old infarction left high occipital lobe. Bradley Morris MD on October 24, 2016 at 22:27 Board Certified Radiologist. This report was verified electronically.
[2016-10-25] VITALS (18 sets, daily range): BP systolic 99–124; BP diastolic 51–98; PULSE 77–111; RESP 12; TEMP 98–100.6; O2SAT 100
[2016-10-25] MEDS ORDERED: NOREPINEPHRINE 4 MG/4 ML AMP ONE (01:17)
[2016-10-25] MEDS: INSULIN NovoLIN REGULAR SUPPLEMENTAL SCALE SQ SCH ×6 (02:00→21:41)
[2016-10-25 05:10] LABS: AUTOMATED NEUTROPHIL # 17.7 TH/MM3 (1.8-7.7); BASOPHIL % 0.2 % (0.0-2.0); HEMATOCRIT 33.5 % (35.0-46.0); HEMO FLAGS DIFF FINAL; LYMPH % 5.5 % (9.0-44.0); LYMPHOCYTE # 1.1 TH/MM3 (1.0-4.8); MEAN CELL VOLUME 82.1 FL (80.0-100.0); MEAN CORPUSCULAR HEMOGLOBIN 26.1 PG (27.0-34.0); MEAN CORPUSCULAR HGB CONC 31.8 % (32.0-36.0); MONO % 3.1 % (0.0-8.0); NEUT % 91.2 % (16.0-70.0); PLATELET COUNT 181 TH/MM3 (150-450); RED BLOOD COUNT 4.08 MIL/MM3 (4.00-5.30); RED CELL DISTRIBUTION WIDTH 15.1 % (11.6-17.2); WHITE BLOOD COUNT 19.4 TH/MM3 (4.0-11.0)
[2016-10-25 05:40] LABS: ALT (GPT) 193 U/L (10-53); ANION GAP 10 MEQ/L (5-15); AST (GOT) 323 U/L (15-37); BICARBONATE 22.4 MEQ/L (21.0-32.0); BLOOD UREA NITROGEN 38 MG/DL (7-18); CHLORIDE 111 MEQ/L (98-107); GLOMERULAR FILTRATION RATE 23 ML/MIN (>89); POTASSIUM 3.9 MEQ/L (3.5-5.1); SODIUM (NA) 143 MEQ/L (136-145)
[2016-10-25 05:43] LABS: ALKALINE PHOSPHATASE 95 U/L (45-117); TOTAL BILIRUBIN ADULT 0.9 MG/DL (0.2-1.0)
[2016-10-25] MEDS: METOPROLOL TARTRATE 100 MG TAB PO SCH (05:49)
[2016-10-25] MEDS: NOREPINEPHRINE INJ 4 MG in SODIUM CHLOR 0.9% 250 ML INJ 246 ML IV SCH ×2 (07:13→09:22)
--- NOTE | 2016-10-25 08:59 | HHI.CCPN ---
Subjective Remarks/Hospital Course 10/22: The patient is a 76-year-old female with past medical history of chronic atrial fibrillation, coronary artery disease, hypertension, chronic kidney disease, CVA, gastroesophageal reflux disease who was admitted to [facility] under hospitalist service on October 15 with elevated troponins/non-ST elevation MT. She underwent cardiac catheterization on October [address] Andino which showed overall minimal left coronary system disease. Echocardiogram from October 17 showed moderate to severe concentric LVH, hypertrophic obstructive cardiomyopathy with EF of 70-75%. The patient was placed on aspirin, Imdur, Lopressor and hydralazine. On October [address] scan of the brain without contrast for dizziness and was found to have areas of increased density involving the right occipital lobe. Subsequently, the patient underwent an MRI of the brain on October 18 which showed new large cerebral hemisphere infarct involving the anterior cerebellum with no hemorrhage evident. The patient was on Xarelto for her stroke and atrial fibrillation. This afternoon code blue was called as the patient was found unresponsive and hypotensive with systolic blood pressure in 60s to 70s. The patient, however, never lost a pulse and did not receive any ACLS drugs. She was given 1 liter bolus of normal saline and transferred to CVICU. She became a little bit more awake and her blood pressure improved to 152/69 with a pulse of 87. Current saturation 99%. Her last chest x-ray from October 20 showed no evidence of any acute disease. The patient is scheduled for repeat CT scan of the brain to rule out any hemorrhagic conversion from her stroke. Most of the history was obtained from reviewing medical records as patient is a poor historian. 10/23: Patient had chest pain earlier with tachycardia which responded with IV Lopressor. Her underlying rhythm is A. fib and she subsequently developed RVR with heart rate in the 140s. She is sitting up in bed moaning at the time of my evaluation and requesting water. Does not really follow commands on my questioning. According to her daughter she follows and recognizes her. She does open eyes spontaneously. 10/24: Awake and alert, oriented 3, follows commands. Moves all 4 extremities. Laying in bed not in any acute distress. Denies any headache or chest pain. 10/25: Patient went into V. tach arrest at 1456 hrs yesterday and underwent CPR/ ACLS protocol for about 13 minutes including defibrillation prior to return of spontaneous circulation. She was intubated during the code and placed on mechanical ventilation. Subsequently she had a second episode of cardiac arrest at 1534 hrs. where she became bradycardic followed by asystole for which she underwent CPR/ACLS protocol converted to V. tach during that code and was successfully defibrillated and converted back to her original atrial fibrillation. She was hypotensive following the cardiac arrest requiring Levophed for pressor support. She did have a right pneumothorax for which she had a right chest tube placed following the above episodes. This morning patient remains encephalopathic, orally intubated on mechanical ventilation. On Levophed 8 mics per minute and amiodarone gtt. Objective Vital Signs Date Time Temp Pulse Resp B/P Pulse Ox O2 Delivery O2 Flow Rate FiO2 10/25/16 07:47 100 40 10/25/16 06:00 89 10/25/16 04:00 98.1 12 99/51 10/24/16 07:00 Room Air 10/23/16 19:37 2.00 Intake and Output 10/24/16 10/24/16 10/25/16 08:00 16:00 00:00 Intake Total 864 ml 557 ml 869 ml Output Total 300 ml 800 ml 360 ml Balance 564 ml -243 ml 509 ml Result Diagram: 10/25/16 0453 10/25/16 0453 Other Results Laboratory Tests Test 10/24/16 10/24/16 10/24/16 10/24/16 10:10 11:10 15:30 16:44 White Blood Count 12.0 TH/MM3 28.6 TH/MM3 Red Blood Count 4.81 MIL/MM3 4.19 MIL/MM3 Hemoglobin 13.0 GM/DL 11.2 GM/DL Hematocrit 39.9 % 34.6 % Mean Corpuscular Volume 83.1 FL 82.5 FL Mean Corpuscular Hemoglobin 27.0 PG 26.8 PG Mean Corpuscular Hemoglobin 32.5 % 32.5 % Concent Red Cell Distribution Width 14.7 % 15.1 % Platelet Count 226 TH/MM3 221 TH/MM3 Mean Platelet Volume 7.6 FL 7.9 FL Neutrophils (%) (Auto) 88.7 % 95.3 % Lymphocytes (%) (Auto) 5.7 % 1.4 % Monocytes (%) (Auto) 5.4 % 3.2 % Eosinophils (%) (Auto) 0.0 % 0.1 % Basophils (%) (Auto) 0.2 % 0.0 % Neutrophils # (Auto) 10.7 TH/MM3 27.3 TH/MM3 Lymphocytes # (Auto) 0.7 TH/MM3 0.4 TH/MM3 Monocytes # (Auto) 0.6 TH/MM3 0.9 TH/MM3 Eosinophils # (Auto) 0.0 TH/MM3 0.0 TH/MM3 Basophils # (Auto) 0.0 TH/MM3 0.0 TH/MM3 CBC Comment DIFF FINAL DIFF FINAL Differential Comment Nasal Screen MRSA (PCR) MRSA NOT DETECTED Blood Gas Puncture Site RT BRACHIAL Blood Gas Patient Temperature 98.6 Blood Gas HCO3 17 mmol/L Blood Gas Base Excess -5.8 mmol/L Blood Gas Oxygen Saturation 99 % Arterial Blood pH 7.49 Arterial Blood Partial 22 mmHg Pressure CO2 Arterial Blood Partial 495 mmHg Pressure O2 Arterial Blood Oxygen Content 16.5 Vol % Arterial Blood 0.8 % Carboxyhemoglobin Arterial Blood Methemoglobin 0.8 % Blood Gas Hemoglobin 11.0 G/DL Oxygen Delivery Device VENTILATOR Blood Gas Ventilator Setting PRVC/16/500/1.0/+5 Blood Gas Inspired Oxygen 100 % Test 10/24/16 10/25/16 10/25/16 19:46 01:27 04:53 Prothrombin Time 12.3 SEC Prothromb Time International 1.1 RATIO Ratio Activated Partial 28.9 SEC Thromboplast Time Sodium Level 141 MEQ/L 143 MEQ/L Potassium Level 3.7 MEQ/L 3.9 MEQ/L Chloride Level 109 MEQ/L 111 MEQ/L Carbon Dioxide Level 22.4 MEQ/L 22.4 MEQ/L Anion Gap 10 MEQ/L 10 MEQ/L Blood Urea Nitrogen 35 MG/DL 38 MG/DL Creatinine 2.02 MG/DL 2.12 MG/DL Estimat Glomerular Filtration 24 ML/MIN 23 ML/MIN Rate Random Glucose 258 MG/DL 151 MG/DL Lactic Acid Level 4.6 mmol/L Calcium Level 8.1 MG/DL 7.7 MG/DL Total Bilirubin 1.0 MG/DL 0.9 MG/DL Aspartate Amino Transf 596 U/L 323 U/L (AST/SGOT) Alanine Aminotransferase 239 U/L 193 U/L (ALT/SGPT) Alkaline Phosphatase 109 U/L 95 U/L Troponin I 32.40 NG/ML GREATER THAN GREATER THAN 40.00 NG/ML 40.00 NG/ML Total Protein 4.9 GM/DL 5.0 GM/DL Albumin 1.8 GM/DL 1.8 GM/DL White Blood Count 19.4 TH/MM3 Red Blood Count 4.08 MIL/MM3 Hemoglobin 10.7 GM/DL Hematocrit 33.5 % Mean Corpuscular Volume 82.1 FL Mean Corpuscular Hemoglobin 26.1 PG Mean Corpuscular Hemoglobin 31.8 % Concent Red Cell Distribution Width 15.1 % Platelet Count 181 TH/MM3 Mean Platelet Volume 7.8 FL Neutrophils (%) (Auto) 91.2 % Lymphocytes (%) (Auto) 5.5 % Monocytes (%) (Auto) 3.1 % Eosinophils (%) (Auto) 0.0 % Basophils (%) (Auto) 0.2 % Neutrophils # (Auto) 17.7 TH/MM3 Lymphocytes # (Auto) 1.1 TH/MM3 Monocytes # (Auto) 0.6 TH/MM3 Eosinophils # (Auto) 0.0 TH/MM3 Basophils # (Auto) 0.0 TH/MM3 CBC Comment DIFF FINAL Differential Comment Imaging CXR 10/25 (following chest tube placement)-personally reviewed: ET tube above debi, right sided chest tube in place with resolution of pneumothorax, lung weber clear with no obvious infiltrates Last [address] 10/24/161999 Signed Impressions: Service Date/Time: October 22:09 - CONCLUSION: 1. There is a new regional area of hypodensity in the medial left lower occipital lobe suggesting an acute nonhemorrhagic infarction in the left BILINGUAL RECEPTIONIST distribution. 2. Stable appearance to the hemorrhagic infarction left cerebellum, focal hemorrhage in the right occipital lobe, and old infarction left high occipital lobe. Bradley Morris MD Chest X-Ray 10/24/16 Signed Impressions: Service Date/Time: October 18:08 - CONCLUSION: Right chest tube in good position. No pneumothorax seen. Bradley Morris MD Chest X-Ray 10/24/16 Signed Impressions: Service Date/Time: October 15:38 - CONCLUSION: 1. Interval development of small right-sided pneumothorax measuring up to 1.5 cm. 2. ETT 1.5 cm above the debi. 3. Remainder the exam is unchanged. Sarthak Floyd MD Last Impressions Head CT 10/22/16 0000 Signed Impressions: Service Date/Time: Saturday, October 22, 2016 13:31 - CONCLUSION: 1. Extensive petechial hemorrhage associated with a known left cerebellar infarct with surrounding edema and mass effect with partial effacement of the fourth ventricle and mild compression on the brainstem from the left side. 2. Acute on chronic infarct in the right occipital lobe also associated with some petechial hemorrhage but without significant localized mass effect. 3. Stable remote left parietal occipital infarct. Chandler Manning MD Chest X-Ray 10/22/16 0000 Signed Impressions: Service Date/Time: Saturday, October 22, 2016 14:05 - CONCLUSION: 1. Cardiomegaly. Basilar density most characteristic of atelectasis. No effusion or pneumothorax. Chandler Manning MD Brain MRI 10/18/16 0000 Signed Impressions: Service Date/Time: Tuesday, October 18, 2016 10:39 - CONCLUSION: New large left cerebral hemisphere infarct involving the anterior cerebellum, SCA territory. The fourth ventricle is midline. The vascular artery looks patent. Abraham Stafford MD FACR Objective Remarks General: Elderly female currently orally intubated on mechanical ventilation. HEENT: Atraumatic and normocephalic. Pupils equal round and reactive to light and accommodation. Conjunctiva pink. Nonicteric sclerae. Oral mucosa within normal. NECK: Supple. No JVD, adenopathy or thyromegaly. Trachea midline. CARDIOVASCULAR: Irregularly irregular. Normal S1-S2. No murmurs, rubs or gallops noted. PULMONARY: Orally intubated on mechanical ventilation, Bilateral equal air entry. No rales or wheezing. Right sided chest tube in place with no air leak noted ABDOMEN: Soft, nontender, no distension. Positive bowel sounds. EXTREMITIES: No cyanosis, clubbing. Trace edema NEURO: Encephalopathic, orally intubated on mechanical ventilation, Pupils 3 mm bilaterally, reactive. Not following commands at the time of my evaluation. Plantars equivocal Access: Right femoral central venous catheter, left femoral arterial catheter placed on 10/24/16 Procedures 10/16/16 cardiac catheterization A/P Assessment and Plan IMPRESSION 1. Cardiac arrest status post CPR 2. Encephalopathy. 3. recent large left cerebellar hemisphere infarct with minimal hemorrhagic conversion and cerebral edema with mass effect on fourth ventricle. New left occipital lobe infarct 4. Non-ST elevation MT status post cardiac catheterization which showed minimal coronary artery disease. 5. Chronic atrial fibrillation, on Xarelto(now off). 6. Hypertension. 7. Chronic kidney disease. 8. Gastroesophageal reflux disease. 9. History of CVA. 10. Hypertrophic obstructive cardiomyopathy 11. A. fib with RVR 12. Hypotension RECOMMENDATIONS Neuro: Monitor neuro status closely and avoid any sedatives. MRI from October 18 showed large left cerebellar hemisphere infarct. Neurology/ Neurosurgery f/u. Holding Xarelto as CT 10/22 showed petechial hemorrhages in area of cerebellar infarct. Repeat head CT following cardiac arrest on 10/25 showed new left occipital lobe infarct. Concern regarding hypoxic encephalopathy and cardiac arrest. Follow neuro status. Minimize sedation. Cardiovascular: She was receiving Lopressor, hydralazine and Imdur which were held on 10/22 for hypotension. Resumed Lopressor 50mg Q8hrly in view of A. fib with RVR on 10/23. Off Cardizem drip. Labetalol when necessary for systolic blood pressure greater than 160. Lasix 20 mg IV x1 on 10/24. Cardiac cath on October 16 which showed minimal coronary artery disease. Echocardiogram from October 17 showed hypertrophic obstructive cardiomyopathy and EF of 70-75%.. Decreased IV fluids to 50 cc/h. Status post CPR/ACLS for cardiac arrest 2 on 10/24. On amiodarone and Levophed drips currently. Troponin greater than 40 following cardiac arrests, discussed with Dr. Andino on 10/25 Pulmonary: Continue mechanical ventilation, vent bundle, bronchodilators as needed. Not ready for C Pap trials yet as very hemodynamically unstable on significant amounts of Levophed. Continued right sided chest tube to -20 cm water pressure with underwater seal. GI/liver: Will start tube feeds at 15 cc per hour for trophic feeds and if tolerated today will consider advancing gradually over the next few days. Renal/: Monitor renal function, Is and Os and avoid nephrotoxins. She received 1 liter bolus of normal saline for hypotension on 10/22. Continue maintenance fluids NS at 50cc/hour for now. Hold Lasix and potassium supplements. Heme : Follow CBC. Cannot receive antiplatelet therapy or anticoagulation due to hemorrhagic conversion an area of previous stroke till cleared by neurosurgery. ID: Will obtain sputum cultures and UA and urine cultures. On Levaquin which will be switched to cefepime to broaden empiric antibiotic coverage in view of rising white count. Check stool for C. difficile if patient has diarrhea. Monitor CBC. Endocrine: Sliding scale insulin with Accu-Chek q. 4-hour for glycemic control. GI prophylaxis with Protonix and DVT prophylaxis with SCDs. No heparin or Lovenox till cleared by neurosurgery. Xarelto on hold due to petechial hemorrhages noted on head CT 10/22 Further recommendations per neurosurgery/neurology and cardiology Discussed with patient's family at length following cardiac arrest yesterday. Patient remains full CODE STATUS at this time. Palliative care team following to assist with deciding goals of therapy. Condition critical Time spent on critical care excluding procedures 45 minutes Kyrie Lees MD Oct 25, 2016 08:59
[2016-10-25] MEDS: PANTOPRAZOLE SOD 20 MG DELAYED RELEASE TAB PO SCH (09:00)
[2016-10-25] MEDS: LEVOFLOXACIN 250 MG TAB PO SCH (09:00)
[2016-10-25] MEDS: SODIUM CHLORIDE 0.9% FLUSH 10 ML FLUSH IV FLUSH SCH ×2 (09:22→20:54)
[2016-10-25] MEDS: CHLORHEXIDINE 0.12% (ORAL KIT) 15 ML CUP MT SCH ×2 (09:23→20:54)
[2016-10-25] MEDS: DOCUSATE SODIUM 50 MG/SENNA 8.6 MG TAB PO SCH ×2 (09:23→21:40)
[2016-10-25] MEDS ORDERED: CEFEPIME INJ 1,000 MG in SODIUM CHLORIDE 0.9% INJ 100 ML IV SCH (10:00)
--- NOTE | 2016-10-25 10:13 | PD.CARD.PN ---
Subjective Subjective Remarks Intubated. Sedated. Opens eyes. Does not respond to questions. Objective Medications Item Value Date Time Norepinephrine 250 ml @ 0 mls/hr 10/25/16 0700 Bitartrate 4 mg/ TITRATE/IV 10/25/16 0922 Sodium Chloride Amiodarone HCl 250 ml @ 0 mls/hr 10/24/16 1600 450 mg/Dextrose CONTINUOUS/IV 10/24/16 2141 Vital Signs / I&O Vital Signs Date Time Temp Pulse Resp B/P Pulse Ox O2 Delivery O2 Flow Rate FiO2 10/25/16 07:47 100 40 10/25/16 06:00 89 10/25/16 04:00 82 10/25/16 04:00 50 10/25/16 04:00 98.1 82 12 99/51 100 10/25/16 03:19 100 50 10/25/16 02:00 88 10/25/16 00:00 77 10/25/16 00:00 98.0 77 12 108/51 100 Automatic Cuff 10/25/16 00:00 98.0 77 12 105/57 100 10/25/16 00:00 50 10/24/16 23:38 100 50 10/24/16 22:00 78 10/24/16 21:50 100 100 10/24/16 20:55 100 50 10/24/16 20:00 92 10/24/16 20:00 97.5 75 12 163/65 100 Automatic Cuff 10/24/16 20:00 97.3 77 12 131/59 100 10/24/16 20:00 50 10/24/16 18:00 77 10/24/16 16:00 98.1 16 16 82/56 92 10/24/16 16:00 92 10/24/16 15:10 0 50 10/24/16 14:00 88 10/24/16 12:00 98.0 88 20 156/74 97 10/24/16 12:00 88 I/O 10/24/16 10/24/16 10/24/16 10/25/16 10/25/16 10/25/16 07:00 15:00 23:00 07:00 15:00 23:00 Intake Total 864 ml 557 ml 869 ml 811 ml Output Total 300 ml 800 ml 360 ml 70 ml Balance 564 ml -243 ml 509 ml 741 ml Intake Oral 50 ml 120 ml IV Total 814 ml 437 ml 869 ml 811 ml Output Urine Total 300 ml 800 ml 300 ml 50 ml Stool Total 0 ml 0 ml 0 ml Gastric Drainage Total 0 ml Chest Tube Drainage Total 60 ml 20 ml Physical Exam GENERAL: Intubated. Sedated. HEENT: Jugular venous pressure is normal. CHEST: Clear lung weber anteriorly. CARDIAC: Irregular rate and rhythm without S3, S4. I/ systolic murmur LLSB and apex. ABDOMEN: Soft, nontender, no hepatosplenomegaly. Bowel sounds present. EXTREMITIES: No clubbing, cyanosis, or edema. Laboratory Laboratory Tests Test 10/24/16 10/24/16 10/24/16 10/24/16 10:10 11:10 15:30 16:44 White Blood Count 12.0 TH/MM3 28.6 TH/MM3 Red Blood Count 4.81 MIL/MM3 4.19 MIL/MM3 Hemoglobin 13.0 GM/DL 11.2 GM/DL Hematocrit 39.9 % 34.6 % Mean Corpuscular Volume 83.1 FL 82.5 FL Mean Corpuscular Hemoglobin 27.0 PG 26.8 PG Mean Corpuscular Hemoglobin 32.5 % 32.5 % Concent Red Cell Distribution Width 14.7 % 15.1 % Platelet Count 226 TH/MM3 221 TH/MM3 Mean Platelet Volume 7.6 FL 7.9 FL Neutrophils (%) (Auto) 88.7 % 95.3 % Lymphocytes (%) (Auto) 5.7 % 1.4 % Monocytes (%) (Auto) 5.4 % 3.2 % Eosinophils (%) (Auto) 0.0 % 0.1 % Basophils (%) (Auto) 0.2 % 0.0 % Neutrophils # (Auto) 10.7 TH/MM3 27.3 TH/MM3 Lymphocytes # (Auto) 0.7 TH/MM3 0.4 TH/MM3 Monocytes # (Auto) 0.6 TH/MM3 0.9 TH/MM3 Eosinophils # (Auto) 0.0 TH/MM3 0.0 TH/MM3 Basophils # (Auto) 0.0 TH/MM3 0.0 TH/MM3 CBC Comment DIFF FINAL DIFF FINAL Differential Comment Nasal Screen MRSA (PCR) MRSA NOT DETECTED Blood Gas Puncture Site RT BRACHIAL Blood Gas Patient Temperature 98.6 Blood Gas HCO3 17 mmol/L Blood Gas Base Excess -5.8 mmol/L Blood Gas Oxygen Saturation 99 % Arterial Blood pH 7.49 Arterial Blood Partial 22 mmHg Pressure CO2 Arterial Blood Partial 495 mmHg Pressure O2 Arterial Blood Oxygen Content 16.5 Vol % Arterial Blood 0.8 % Carboxyhemoglobin Arterial Blood Methemoglobin 0.8 % Blood Gas Hemoglobin 11.0 G/DL Oxygen Delivery Device VENTILATOR Blood Gas Ventilator Setting PRVC/16/500/1.0/+5 Blood Gas Inspired Oxygen 100 % Test 10/24/16 10/25/16 10/25/16 19:46 01:27 04:53 Prothrombin Time 12.3 SEC Prothromb Time International 1.1 RATIO Ratio Activated Partial 28.9 SEC Thromboplast Time Sodium Level 141 MEQ/L 143 MEQ/L Potassium Level 3.7 MEQ/L 3.9 MEQ/L Chloride Level 109 MEQ/L 111 MEQ/L Carbon Dioxide Level 22.4 MEQ/L 22.4 MEQ/L Anion Gap 10 MEQ/L 10 MEQ/L Blood Urea Nitrogen 35 MG/DL 38 MG/DL Creatinine 2.02 MG/DL 2.12 MG/DL Estimat Glomerular Filtration 24 ML/MIN 23 ML/MIN Rate Random Glucose 258 MG/DL 151 MG/DL Lactic Acid Level 4.6 mmol/L Calcium Level 8.1 MG/DL 7.7 MG/DL Total Bilirubin 1.0 MG/DL 0.9 MG/DL Aspartate Amino Transf 596 U/L 323 U/L (AST/SGOT) Alanine Aminotransferase 239 U/L 193 U/L (ALT/SGPT) Alkaline Phosphatase 109 U/L 95 U/L Troponin I 32.40 NG/ML GREATER THAN GREATER THAN 40.00 NG/ML 40.00 NG/ML Total Protein 4.9 GM/DL 5.0 GM/DL Albumin 1.8 GM/DL 1.8 GM/DL White Blood Count 19.4 TH/MM3 Red Blood Count 4.08 MIL/MM3 Hemoglobin 10.7 GM/DL Hematocrit 33.5 % Mean Corpuscular Volume 82.1 FL Mean Corpuscular Hemoglobin 26.1 PG Mean Corpuscular Hemoglobin 31.8 % Concent Red Cell Distribution Width 15.1 % Platelet Count 181 TH/MM3 Mean Platelet Volume 7.8 FL Neutrophils (%) (Auto) 91.2 % Lymphocytes (%) (Auto) 5.5 % Monocytes (%) (Auto) 3.1 % Eosinophils (%) (Auto) 0.0 % Basophils (%) (Auto) 0.2 % Neutrophils # (Auto) 17.7 TH/MM3 Lymphocytes # (Auto) 1.1 TH/MM3 Monocytes # (Auto) 0.6 TH/MM3 Eosinophils # (Auto) 0.0 TH/MM3 Basophils # (Auto) 0.0 TH/MM3 CBC Comment DIFF FINAL Differential Comment Imaging Last [address] 10/24/161999 Signed Impressions: Service Date/Time: October 22:09 - CONCLUSION: 1. There is a new regional area of hypodensity in the medial left lower occipital lobe suggesting an acute nonhemorrhagic infarction in the left ER TECH distribution. 2. Stable appearance to the hemorrhagic infarction left cerebellum, focal hemorrhage in the right occipital lobe, and old infarction left high occipital lobe. Bradley Morris MD Chest X-Ray 10/24/16 0000 Signed Impressions: Service Date/Time: October 18:08 - CONCLUSION: Right chest tube in good position. No pneumothorax seen. Bradley Morris MD Chest X-Ray 10/24/16 0000 Signed Impressions: Service Date/Time: October 15:38 - CONCLUSION: 1. Interval development of small right-sided pneumothorax measuring up to 1.5 cm. 2. ETT 1.5 cm above the debi. 3. Remainder the exam is unchanged. Sarthak Floyd MD Assessment and Plan Problem List: (1) Cardiac arrest Assessment and Plan: Events of yesterday reviewed with Dr. Lees. It appears primary event was sustained VT, necessitating multiple shocks. Precipitating factor for the ventricular tachyarrhythmias unclear. Recent cath showed no high grade CAD. She does have evidence by echo for severe left ventricular hypertrophy associated with a significant left ventricular outflow tract gradient, though she's never had previous problems with syncope, VT. REC continue IV Amiodarone depending on the degree of her recovery, consider ICD implantation, though her prognosis at this time appears poor (2) CAD (coronary artery disease) Assessment and Plan: Status post probable NSTEMI. Cath this admission showed no high grade disease. The 70-80% distal RCA lesion seen on cath 2013 now at most 50%, may have been some component of spasm in 2013. Blood pressures too low to resume beta rafael. (3) Chronic atrial fibrillation Assessment and Plan: Remains in atrial fib. HR's OK this morning. Xarelto stopped due to hemorrhagic CVAs. Unfortunately CT yesterday shows evidence for yet another CVA. (4) Hypertension Assessment and Plan: Currently hypotensive, necessitating pressor support. Cont Levophed. Code Status full code Discussed Condition With patient's daughter, Lillian Galvin Yoana Problem Qualifiers (1) Hypertension: Qualified Code: I10 - Essential hypertension Dakota Andino MD Oct 25, 2016 10:13
--- NOTE | 2016-10-25 10:31 | HHI.NSPN ---
Subjective History 76-year-old female who was admitted on 10/15/2016 for exacerbation of her congestive heart failure and myocardial infarction. She is also on Xarelto anticoagulation for her chronic atrial fibrillation. She has suffered from a previous strokes involving the left parietal occipital aspect as well as the right occipital aspect and more recent one in the left cerebellar hemisphere. She was seen by neurology and her Xarelto continued. She was noted to have a hypotensive episode today, although remains interactive and awake. CT scan of the head obtained reveals hemorrhagic area of conversion and the left cerebellar hemisphere stroke as well as a smaller right occipital stroke. She also has old left parietal occipital area strokes. There is generalized atrophy. There is slight compression of the fourth ventricle but this is not obstructed and there is no hydrocephalus. 10/23/16: Pt lethargic but awakens enough to answer some questions. States yes she has a headache. States forehead when asked where. States no n/v. Follows simple commands but can take persistence. 10/24/16: Pt more awake today than yesterday. Answers questions better. No headache, nausea, vomiting, chest pain. States she is okay. Follows simple commands. 10/25/16: Currently intubated and on vasopressors with a chest tube in place for pneumothorax following multiple bouts of cardiac arrest last evening requiring CPR and defibrillation. Vitals . Vital Signs Date Time Temp Pulse Resp B/P Pulse Ox O2 Delivery O2 Flow Rate FiO2 10/25/16 07:47 100 40 10/25/16 06:00 89 10/25/16 04:00 82 10/25/16 04:00 50 10/25/16 04:00 98.1 82 12 99/51 100 10/25/16 03:19 100 50 10/25/16 02:00 88 10/25/16 00:00 77 10/25/16 00:00 98.0 77 12 108/51 100 Automatic Cuff 10/25/16 00:00 98.0 77 12 105/57 100 10/25/16 00:00 50 10/24/16 23:38 100 50 10/24/16 22:00 78 10/24/16 21:50 100 100 10/24/16 20:55 100 50 10/24/16 20:00 92 10/24/16 20:00 97.5 75 12 163/65 100 Automatic Cuff 10/24/16 20:00 97.3 77 12 131/59 100 10/24/16 20:00 50 10/24/16 18:00 77 10/24/16 16:00 98.1 16 16 82/56 92 10/24/16 16:00 92 10/24/16 15:10 0 50 10/24/16 14:00 88 10/24/16 12:00 98.0 88 20 156/74 97 10/24/16 12:00 88 10/24/16 10/24/16 10/25/16 15:00 23:00 07:00 Intake Total 557 ml 869 ml 811 ml Output Total 800 ml 360 ml 70 ml Balance -243 ml 509 ml 741 ml Physical Exam Head Head: Atraumatic Eyes Eyes: Pupils Equal Neuro Mental Status: Lethargic Pupils: Reactive Bilaterally Rapidan Coma Scale Best Eye Openin - To speech Best Verbal: 1 - None Best Motor: 6 - Obeys Sensation: Intact Cardiac Cardiac: A-fib Cardiac Drips: Levophed Respiratory Respiratory: Rhonchi Gastrointestinal Gastrointestinal: Soft, Nontender Bowel Sounds: Diminished Genitourinary Genitourinary: Lopez Catheter In Place Musculoskeletal Musculoskeletal: Moves all extrem with 5/5 strength Extremities Upper Extremities Deltoid Bicep Tricep HI W. Ext Right Left Lower Extremeties Ilio Quad Plantar Dorsi EHL Right Left Musculoskeletal Remarks Squeezes her left hand and wiggles left sided toe and withdraws right side Dermatologic Dermatologic: Skin Intact Extremities Edema: SCDs Objective Labs Laboratory Tests 10/24/16 15:30 10/24/16 19:46 10/25/16 04:53 Laboratory Tests Test 10/24/16 10/25/16 10/25/16 19:46 01:27 04:53 Sodium Level 141 MEQ/L 143 MEQ/L Potassium Level 3.7 MEQ/L 3.9 MEQ/L Chloride Level 109 MEQ/L 111 MEQ/L Carbon Dioxide Level 22.4 MEQ/L 22.4 MEQ/L Anion Gap 10 MEQ/L 10 MEQ/L Blood Urea Nitrogen 35 MG/DL 38 MG/DL Creatinine 2.02 MG/DL 2.12 MG/DL Estimat Glomerular Filtration 24 ML/MIN 23 ML/MIN Rate Random Glucose 258 MG/DL 151 MG/DL Lactic Acid Level 4.6 mmol/L Calcium Level 8.1 MG/DL 7.7 MG/DL Total Bilirubin 1.0 MG/DL 0.9 MG/DL Aspartate Amino Transf 596 U/L 323 U/L (AST/SGOT) Alanine Aminotransferase 239 U/L 193 U/L (ALT/SGPT) Alkaline Phosphatase 109 U/L 95 U/L Troponin I 32.40 NG/ML GREATER THAN GREATER THAN 40.00 NG/ML 40.00 NG/ML Total Protein 4.9 GM/DL 5.0 GM/DL Albumin 1.8 GM/DL 1.8 GM/DL Imaging Remarks Last Impressions Head CT 10/24/161999 Signed Impressions: Service Date/Time: October 22:09 - CONCLUSION: 1. There is a new regional area of hypodensity in the medial left lower occipital lobe suggesting an acute nonhemorrhagic infarction in the left [employer] distribution. 2. Stable appearance to the hemorrhagic infarction left cerebellum, focal hemorrhage in the right occipital lobe, and old infarction left high occipital lobe. Bradley Morris MD Chest X-Ray 10/24/16 0000 Signed Impressions: Service Date/Time: October 18:08 - CONCLUSION: Right chest tube in good position. No pneumothorax seen. Bradley Morris MD Brain MRI 10/18/16 0000 Signed Impressions: Service Date/Time: Tuesday, October 18, 2016 10:39 - CONCLUSION: New large left cerebral hemisphere infarct involving the anterior cerebellum, SCA territory. The fourth ventricle is midline. The vascular artery looks patent. Abraham Stafford MD FACR Assessment & Plan Assessment 1. Cardiac arrest x2 status post CPR and currently on pressors and ventilator support 2. Left cerebellar hemisphere infarct with minimal hemorrhagic conversion without any obstructive hydrocephalus. Follow-up CT scan last evening with a new left occipital lobe infarct and stable areas of hemorrhagic stroke. 3. Non-ST elevation MO 4. Chronic atrial fibrillation with bouts of RVR 5. Hypertension although currently hypotensive and requiring this appears a support to maintain adequate blood pressure 6. Chronic kidney disease with acute exacerbation 7. History of multiple strokes. 8. Hypertrophic obstructive cardiomyopathy Plan I had another lengthy conversation with the patient's daughter and family members at bedside. She has now developed a fourth area of infarct although areas of hemorrhagic infarct are stable with no obstructive hydrocephalus. She is on vasopressor support to maintain adequate blood pressure and control her heart rate along with ventilator support. Her kidney function continues to decline along with her cardiac condition. They are willing to address her CODE STATUS and also if there is no improvement of her overall systemic multisystem failure, consider withdrawal of supportive care but will discuss with other family members and physicians as well as palliative care. Not much at this point to offer from a neurosurgical standpoint. Gallo Joesph MD Oct 25, 2016 10:31
[2016-10-25 11:15] LABS: BACTERIA, URINE RARE /hpf; BLOOD, URINE NEG (NEG); COMMENT (UR) CATH-CULTURE IND; CULTURE IF INDICATED CATH CULTURE IND; GLUCOSE,URINE NEG (NEG); HYALINE CAST, URINE 47 /lpf (RARE); KETONE, URINE NEG (NEG); MUCUS URINE FEW /lpf (OCC); NITRITE,URINE NEG (NEG); PH, URINE 5.5 (5.0-8.5); SQUAMOUS EPITHELIAL CELL URINE 1 /hpf (0-5); URINE COLOR YELLOW (YELLW/STRAW)
--- NOTE | 2016-10-25 11:35 | HHI.HCPN ---
Reason for visit a. To assist with evaluation and management of symptoms including: decreased appetite, lethargy, weakness. b. To assist medical decision maker(s) with: better understanding of current medical conditions; weighing benefits/burdens of medical treatment options; making medical treatment decisions. . Subjective/Interval History Pt seen to follow with family for planned meeting today. Yesterday palliative care interaction with family patient suffered cardiac event V. tach requiring ACLS/CPR for approximately 13 minutes. This included defibrillation. She was intubated during that process. Shortly after she had another cardiac event with bradycardia then A. fib, then V. tach. She had hypotension requiring Levophed. She is also now on amiodarone drip. + diprivan for sedation. Repeat CT brain =There is a new regional area of hypodensity in the medial left lower occipital lobe suggesting an acute nonhemorrhagic infarction. Previously identified areas of old infarction, hemorrhagic infarction stable. CXR= new small right sided pneumothorax. Chest tube was placed. Now on mechanical vent, FiO2 40-50%. WBC elevated yesterday 28.6, down today to 19.4. BUN 38/creatinine 2.12, GFR 23. Lactic acid yesterday 4.6. Nursing indicates patient still arousable, following commands. Patient seen in room several family members at bedside. Dual visit with Sherine ALLEN. Patient lightly sedated on mechanical vent. Doesn't open eyes eventually with repeated stimuli. Does grasp very weakly with bilateral upper extremities with repeated commands. No movement noted to bilateral lower extremities I could not get withdrawal to pain stimuli. Met with family at length. Discuss meeting, condition etc. at length with primary nurse, critical care Dr Lees . Family/friend interactions Met with 4 adult children, multiple grandchildren, other extended family members , in-laws at length approximately 30 minutes. Discussion included: --Initial hospital course, clinical course thus far including developments yesterday of new region of stroke, cardiac events. --Review of general prognosis and likely trajectory given multiple complicated medical issues patient now faces; she is high risk for ongoing strokes related to atrial fibrillation, she is high risk for ongoing cardiac events; as well as other sequelae including pulmonary infections, prolonged intubation etc. Very likely she will prior tracheostomy and PEG tube for continued aggressive treatment course. She remains high-risk for ongoing complications. Very unlikely that she will return to her prior independent living status. If she can survive prolonged hospital course she will be quite debilitated and likely require ongoing care. --Review legal decision makers4 adult children --Review of CODE STATUS, what resuscitation entailsfamily to talk about more no decisions made as of yet --All questions answered --Palliative contact information provided; family will contact palliative or nursing if they desire changing CODE STATUS or have any additional questions . Advance Directives Living Will: Never completed Health Care Surrogate: Never completed Durable Power of Department Head: Never completed Objective Vital Signs Date Time Temp Pulse Resp B/P Pulse Ox O2 Delivery O2 Flow Rate FiO2 10/25/16 07:47 100 40 10/25/16 06:00 89 10/25/16 04:00 82 10/25/16 04:00 50 10/25/16 04:00 98.1 82 12 99/51 100 10/25/16 03:19 100 50 10/25/16 02:00 88 10/25/16 00:00 77 10/25/16 00:00 98.0 77 12 108/51 100 Automatic Cuff 10/25/16 00:00 98.0 77 12 105/57 100 10/25/16 00:00 50 10/24/16 23:38 100 50 10/24/16 22:00 78 10/24/16 21:50 100 100 10/24/16 20:55 100 50 10/24/16 20:00 92 10/24/16 20:00 97.5 75 12 163/65 100 Automatic Cuff 10/24/16 20:00 97.3 77 12 131/59 100 10/24/16 20:00 50 10/24/16 18:00 77 10/24/16 16:00 98.1 16 16 82/56 92 10/24/16 16:00 92 10/24/16 15:10 0 50 10/24/16 14:00 88 10/24/16 12:00 98.0 88 20 156/74 97 10/24/16 12:00 88 Intake & Output 10/25/16 10/25/16 07:00 19:00 Intake Total 1680 ml Output Total 430 ml Balance 1250 ml IV Total 1680 ml Output Urine Total 350 ml Stool Total 0 ml Gastric Drainage Total 0 ml Chest Tube Drainage Total 80 ml Physical Exam CONSTITUTIONAL/GENERAL: This is a thin patient, appears comfortable,sedated on [facility] vent TUBES/LINES/DRAINS: PIVs upper extremities. donald catheter. scds, ET tube, OG tube, soft restraints bilateral upper extremities, chest tube SKIN: No jaundice, rashes, or lesions. No wounds seen anteriorly. Chest tube dressing right chest clean and dry. Skin temperature appropriate. Not diaphoretic. EYES: Pupils 4 mm, sluggish reaction to light. Does not open eyes to command. No scleral icterus. No injection or drainage. Fundi not examined. CARDIOVASCULAR: irregularly irregular. No murmur. Peripheral pulses palpable. Trace peripheral edema, significant edema to left hand. RESPIRATORY/CHEST: Symmetric, unlabored respirations via mechanical vent on a 40 % FiO2. Clear to auscultation. Breath sounds equal bilaterally. Right lateral chest tube no air leak visible GASTROINTESTINAL: Abdomen soft, flat, non-tender, nondistended. No hepato- splenomegaly, or palpable masses. No guarding. Bowel sounds normoactive . Tube feed infusing via OG tube GENITOURINARY: Without palpable bladder distension. Donald catheter in place. MUSCULOSKELETAL: Extremities without clubbing, cyanosis. + Significant edema left hand. NEUROLOGICAL: Lethargic, opens eyes after repeated stimuli. Does not keep eyes open on to track etc. pupils 4 mm, reactive. Follows commands to very weakly grasp with bilateral upper extremities, after repeating commands multiple times. Does not follow commands with lower extremities, does not withdrawal to pain in lower extremities. PSYCHIATRIC: No obvious anxiety/depression-- limited assessment due to lethargy/ clinical conditions. . Diagnostic Tests Laboratory Laboratory Tests Test 10/22/16 10/23/16 10/24/16 10/24/16 14:50 04:51 04:36 10:10 White Blood Count 10.2 TH/MM3 9.2 TH/MM3 12.0 TH/MM3 (4.0-11.0) (4.0-11.0) (4.0-11.0) Red Blood Count 5.03 MIL/MM3 4.74 MIL/MM3 4.81 MIL/MM3 (4.00-5.30) (4.00-5.30) (4.00-5.30) Hemoglobin 13.4 GM/DL 12.6 GM/DL 13.0 GM/DL (11.6-15.3) (11.6-15.3) (11.6-15.3) Hematocrit 43.3 % 39.5 % 39.9 % (35.0-46.0) (35.0-46.0) (35.0-46.0) Mean Corpuscular Volume 86.1 FL 83.3 FL 83.1 FL (80.0-100.0) (80.0-100.0) (80.0-100.0) Mean Corpuscular Hemoglobin 26.6 PG 26.5 PG 27.0 PG (27.0-34.0) (27.0-34.0) (27.0-34.0) Mean Corpuscular Hemoglobin 30.9 % 31.8 % 32.5 % Concent (32.0-36.0) (32.0-36.0) (32.0-36.0) Red Cell Distribution Width 15.1 % 14.9 % 14.7 % (11.6-17.2) (11.6-17.2) (11.6-17.2) Platelet Count 179 TH/MM3 209 TH/MM3 226 TH/MM3 (150-450) (150-450) (150-450) Mean Platelet Volume 8.1 FL 7.4 FL 7.6 FL (7.0-11.0) (7.0-11.0) (7.0-11.0) Neutrophils (%) (Auto) 83.7 % 78.7 % 88.7 % (16.0-70.0) (16.0-70.0) (16.0-70.0) Lymphocytes (%) (Auto) 10.2 % 13.7 % 5.7 % (9.0-44.0) (9.0-44.0) (9.0-44.0) Monocytes (%) (Auto) 5.7 % (0.0-8.0) 6.7 % (0.0-8.0) 5.4 % (0.0-8.0) Eosinophils (%) (Auto) 0.3 % (0.0-4.0) 0.4 % (0.0-4.0) 0.0 % (0.0-4.0) Basophils (%) (Auto) 0.1 % (0.0-2.0) 0.5 % (0.0-2.0) 0.2 % (0.0-2.0) Neutrophils # (Auto) 8.5 TH/MM3 7.2 TH/MM3 10.7 TH/MM3 (1.8-7.7) (1.8-7.7) (1.8-7.7) Lymphocytes # (Auto) 1.0 TH/MM3 1.3 TH/MM3 0.7 TH/MM3 (1.0-4.8) (1.0-4.8) (1.0-4.8) Monocytes # (Auto) 0.6 TH/MM3 0.6 TH/MM3 0.6 TH/MM3 (0-0.9) (0-0.9) (0-0.9) Eosinophils # (Auto) 0.0 TH/MM3 0.0 TH/MM3 0.0 TH/MM3 (0-0.4) (0-0.4) (0-0.4) Basophils # (Auto) 0.0 TH/MM3 0.0 TH/MM3 0.0 TH/MM3 (0-0.2) (0-0.2) (0-0.2) CBC Comment DIFF FINAL DIFF FINAL DIFF FINAL Differential Comment Prothrombin Time 10.9 SEC (9.8-11.6) Prothromb Time International 1.0 RATIO Ratio Activated Partial 26.8 SEC Thromboplast Time (24.3-30.1) Sodium Level 138 MEQ/L 141 MEQ/L 142 MEQ/L (136-145) (136-145) (136-145) Potassium Level 4.4 MEQ/L 4.1 MEQ/L 4.7 MEQ/L (3.5-5.1) (3.5-5.1) (3.5-5.1) Chloride Level 102 MEQ/L 106 MEQ/L 110 MEQ/L (98-107) (98-107) (98-107) Carbon Dioxide Level 30.9 MEQ/L 29.6 MEQ/L 23.1 MEQ/L (21.0-32.0) (21.0-32.0) (21.0-32.0) Anion Gap 5 MEQ/L (5-15) 5 MEQ/L (5-15) 9 MEQ/L (5-15) Blood Urea Nitrogen 38 MG/DL (7-18) 30 MG/DL (7-18) 31 MG/DL (7-18) Creatinine 1.63 MG/DL 1.40 MG/DL 1.71 MG/DL (0.50-1.00) (0.50-1.00) (0.50-1.00) Estimat Glomerular Filtration 31 ML/MIN (>89) 36 ML/MIN (>89) 29 ML/MIN (>89) Rate Random Glucose 120 MG/DL 108 MG/DL 133 MG/DL (74-106) (74-106) (74-106) Lactic Acid Level 2.0 mmol/L (0.4-2.0) Calcium Level 8.2 MG/DL 7.8 MG/DL 7.6 MG/DL (8.5-10.1) (8.5-10.1) (8.5-10.1) Phosphorus Level 3.1 MG/DL 2.9 MG/DL (2.5-4.9) (2.5-4.9) Magnesium Level 1.9 MG/DL 1.8 MG/DL (1.5-2.5) (1.5-2.5) Total Bilirubin 0.4 MG/DL 0.5 MG/DL (0.2-1.0) (0.2-1.0) Aspartate Amino Transf 51 U/L (15-37) 193 U/L (15-37) (AST/SGOT) Alanine Aminotransferase 34 U/L (10-53) 44 U/L (10-53) (ALT/SGPT) Alkaline Phosphatase 59 U/L (45-117) 54 U/L (45-117) Total Protein 6.2 GM/DL 6.0 GM/DL (6.4-8.2) (6.4-8.2) Albumin 2.2 GM/DL 2.3 GM/DL (3.4-5.0) (3.4-5.0) Test 10/24/16 10/24/16 10/24/16 10/24/16 11:10 15:30 16:44 19:46 Nasal Screen MRSA (PCR) MRSA NOT DETECTED (NOT DETECT) White Blood Count 28.6 TH/MM3 (4.0-11.0) Red Blood Count 4.19 MIL/MM3 (4.00-5.30) Hemoglobin 11.2 GM/DL (11.6-15.3) Hematocrit 34.6 % (35.0-46.0) Mean Corpuscular Volume 82.5 FL (80.0-100.0) Mean Corpuscular Hemoglobin 26.8 PG (27.0-34.0) Mean Corpuscular Hemoglobin 32.5 % Concent (32.0-36.0) Red Cell Distribution Width 15.1 % (11.6-17.2) Platelet Count 221 TH/MM3 (150-450) Mean Platelet Volume 7.9 FL (7.0-11.0) Neutrophils (%) (Auto) 95.3 % (16.0-70.0) Lymphocytes (%) (Auto) 1.4 % (9.0-44.0) Monocytes (%) (Auto) 3.2 % (0.0-8.0) Eosinophils (%) (Auto) 0.1 % (0.0-4.0) Basophils (%) (Auto) 0.0 % (0.0-2.0) Neutrophils # (Auto) 27.3 TH/MM3 (1.8-7.7) Lymphocytes # (Auto) 0.4 TH/MM3 (1.0-4.8) Monocytes # (Auto) 0.9 TH/MM3 (0-0.9) Eosinophils # (Auto) 0.0 TH/MM3 (0-0.4) Basophils # (Auto) 0.0 TH/MM3 (0-0.2) CBC Comment DIFF FINAL Differential Comment Blood Gas Puncture Site RT BRACHIAL Blood Gas Patient Temperature 98.6 Blood Gas HCO3 17 mmol/L (22-26) Blood Gas Base Excess -5.8 mmol/L (-2-2) Blood Gas Oxygen Saturation 99 % (90-100) Arterial Blood pH 7.49 (7.380-7.420) Arterial Blood Partial 22 mmHg (38-42) Pressure CO2 Arterial Blood Partial 495 mmHg Pressure O2 (61-120) Arterial Blood Oxygen Content 16.5 Vol % (12.0-20.0) Arterial Blood 0.8 % (0-4) Carboxyhemoglobin Arterial Blood Methemoglobin 0.8 % (0-2) Blood Gas Hemoglobin 11.0 G/DL (12.0-16.0) Oxygen Delivery Device VENTILATOR Blood Gas Ventilator Setting [facility]/16/500/1.0/+5 Blood Gas Inspired Oxygen 100 % Prothrombin Time 12.3 SEC (9.8-11.6) Prothromb Time International 1.1 RATIO Ratio Activated Partial 28.9 SEC Thromboplast Time (24.3-30.1) Sodium Level 141 MEQ/L (136-145) Potassium Level 3.7 MEQ/L (3.5-5.1) Chloride Level 109 MEQ/L (98-107) Carbon Dioxide Level 22.4 MEQ/L (21.0-32.0) Anion Gap 10 MEQ/L (5-15) Blood Urea Nitrogen 35 MG/DL (7-18) Creatinine 2.02 MG/DL (0.50-1.00) Estimat Glomerular Filtration 24 ML/MIN (>89) Rate Random Glucose 258 MG/DL (74-106) Lactic Acid Level 4.6 mmol/L (0.4-2.0) Calcium Level 8.1 MG/DL (8.5-10.1) Total Bilirubin 1.0 MG/DL (0.2-1.0) Aspartate Amino Transf 596 U/L (15-37) (AST/SGOT) Alanine Aminotransferase 239 U/L (10-53) (ALT/SGPT) Alkaline Phosphatase 109 U/L (45-117) Troponin I 32.40 NG/ML (0.02-0.05) Total Protein 4.9 GM/DL (6.4-8.2) Albumin 1.8 GM/DL (3.4-5.0) Test 10/25/16 10/25/16 10/25/16 01:27 04:53 10:10 Troponin I GREATER THAN GREATER THAN 40.00 NG/ML 40.00 NG/ML (0.02-0.05) (0.02-0.05) White Blood Count 19.4 TH/MM3 (4.0-11.0) Red Blood Count 4.08 MIL/MM3 (4.00-5.30) Hemoglobin 10.7 GM/DL (11.6-15.3) Hematocrit 33.5 % (35.0-46.0) Mean Corpuscular Volume 82.1 FL (80.0-100.0) Mean Corpuscular Hemoglobin 26.1 PG (27.0-34.0) Mean Corpuscular Hemoglobin 31.8 % Concent (32.0-36.0) Red Cell Distribution Width 15.1 % (11.6-17.2) Platelet Count 181 TH/MM3 (150-450) Mean Platelet Volume 7.8 FL (7.0-11.0) Neutrophils (%) (Auto) 91.2 % (16.0-70.0) Lymphocytes (%) (Auto) 5.5 % (9.0-44.0) Monocytes (%) (Auto) 3.1 % (0.0-8.0) Eosinophils (%) (Auto) 0.0 % (0.0-4.0) Basophils (%) (Auto) 0.2 % (0.0-2.0) Neutrophils # (Auto) 17.7 TH/MM3 (1.8-7.7) Lymphocytes # (Auto) 1.1 TH/MM3 (1.0-4.8) Monocytes # (Auto) 0.6 TH/MM3 (0-0.9) Eosinophils # (Auto) 0.0 TH/MM3 (0-0.4) Basophils # (Auto) 0.0 TH/MM3 (0-0.2) CBC Comment DIFF FINAL Differential Comment Sodium Level 143 MEQ/L (136-145) Potassium Level 3.9 MEQ/L (3.5-5.1) Chloride Level 111 MEQ/L (98-107) Carbon Dioxide Level 22.4 MEQ/L (21.0-32.0) Anion Gap 10 MEQ/L (5-15) Blood Urea Nitrogen 38 MG/DL (7-18) Creatinine 2.12 MG/DL (0.50-1.00) Estimat Glomerular Filtration 23 ML/MIN (>89) Rate Random Glucose 151 MG/DL (74-106) Calcium Level 7.7 MG/DL (8.5-10.1) Total Bilirubin 0.9 MG/DL (0.2-1.0) Aspartate Amino Transf 323 U/L (15-37) (AST/SGOT) Alanine Aminotransferase 193 U/L (10-53) (ALT/SGPT) Alkaline Phosphatase 95 U/L (45-117) Total Protein 5.0 GM/DL (6.4-8.2) Albumin 1.8 GM/DL (3.4-5.0) Urine Color YELLOW (YELLW/STRAW) Urine Turbidity HAZY (CLEAR) Urine pH 5.5 (5.0-8.5) Urine Specific [place] 1.022 (1.002-1.035) Urine Protein 100 mg/dL (NEG-TRACE) Urine Glucose (UA) NEG mg/dL (NEG) Urine Ketones NEG mg/dL (NEG) Urine Occult Blood NEG (NEG) Urine Nitrite NEG (NEG) Urine Bilirubin NEG (NEG) Urine Urobilinogen LESS THAN 2.0 MG/DL (LESS THAN 2.0) Urine Leukocyte Esterase LARGE (NEG) Urine RBC 36 /hpf (0-3) Urine WBC 26 /hpf (0-5) Urine Squamous Epithelial 1 /hpf (0-5) Cells Urine Bacteria RARE /hpf (NONE) Urine Hyaline Casts 47 /lpf (RARE) Urine Mucus FEW /lpf (OCC) Urine Yeast with Hyphae MOD (NONE) Urine Yeast (Budding) MANY (NONE) Microscopic Urinalysis Comment CATH-CULTURE IND Result Diagram: 10/25/16 0453 10/25/16 0453 Microbiology Microbiology Date/Time Procedure Status Source Growth 10/25/16 10:10 Urine Culture Received Urine Catheterized Urine Pending Imaging Last Impressions Head CT 10/24/161999 Signed Impressions: Service Date/Time: October 22:09 - CONCLUSION: 1. There is a new regional area of hypodensity in the medial left lower occipital lobe suggesting an acute nonhemorrhagic infarction in the left [employer]CHNICIAN distribution. 2. Stable appearance to the hemorrhagic infarction left cerebellum, focal hemorrhage in the right occipital lobe, and old infarction left high occipital lobe. Bradley Morris MD Chest X-Ray 10/24/16 0000 Signed Impressions: Service Date/Time: October 18:08 - CONCLUSION: Right chest tube in good position. No pneumothorax seen. Bradley Morris MD Brain MRI 10/18/16 0000 Signed Impressions: Service Date/Time: Tuesday, October 18, 2016 10:39 - CONCLUSION: New large left cerebral hemisphere infarct involving the anterior cerebellum, SCA territory. The fourth ventricle is midline. The vascular artery looks patent. Abraham Stafford MD FACR Assessment and Plan Disease Oriented Problem List: (1) CVA (cerebral infarction) (2) Petechial hemorrhage Comment: at known cerebellar infarct (3) NSTEMI (non-ST elevated myocardial infarction) (4) Atrial fibrillation with RVR (5) CHF (congestive heart failure) (6) CKD (chronic kidney disease) (7) Elevated troponin (8) Atrial fibrillation, chronic (9) CAD (coronary artery disease) (10) Hypertension (11) Acute on chronic renal insufficiency Symptom Scale: (1) Dyspnea 0-10 Scale: 0 (2) Encephalopathy 0-10 Scale: Unable to quantify Comment: AMS/ CVA + hemorrhage (3) Pain 0-10 Scale: 0 (4) Lethargy 0-10 Scale: Unable to quantify Comment: improving per nurse and family report (5) Weakness 0-10 Scale: Unable to quantify Comment: secondary to MS, stroke, hospitalization, decreased appetite. (6) Decreased appetite 0-10 Scale: Unable to quantify Comment: eating only bites today Pertinent Non-Medical Issues Psychosocial:. Lives alone locally, supported by with son and daughter locally, other children out of state. 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 Originally from the [facility] those lived in [place] much of her life. Spiritual: [employer] has been in Legal:Patient, due to clinical conditions is unable to participate in decision- making. Not clear that she will regain ability to participate. No advanced directive or HCS. Per [place] statutes legally decision-making would fall to the majority of her 4 adult children. All family working together in decision- making. Ethical issues impacting care: Important Contacts dtr Loli Yessi [phone] son Se Yessi [phone] dtr Lilo Jaeger [phone] dtr Jessica Dickson [phone] . Prognosis This patient was admitted for an STEMI, heart failure. Prior to this admission doing well despite her chronic medical issues. During this course she suffered acute CVA, which has since evolves into hemorrhage. Unable to have anticoagulation due to hemorrhagic conversion. Remains in A. fib, with occasional RVR. Unable to anticoagulate. High risk for ongoing complications/ neurological decline. Appropriate for hospice if goals compatible. . Code Status: Full Code Plan * Legal decision maker: Patient, due to clinical conditions is unable to participate in decision-making. Not clear that she will regain ability to participate. No advanced directive or HCS. Per [place] statutes legally decision-making would fall to the majority of her 4 adult children. All family working together in decision-making. * Goals : Met with family again at length today. Goals remain semi-aggressive, they are considering CODE STATUS. They seem to have reasonable understanding of overall prognosis given multiple complex medical issues patient faces. Continue to discuss CODE STATUS as a family and will advise nursing or palliative if they elect DNR or change in CODE STATUS. ----Later notified by nursing family has reached consensus they desire alternative CODE STATUSACLS drugs only, and continue with intubation however they do not want further shock or chest compressions. Code entered. * CODE STATUS: FULL CODE--- later changed to alternative code per family request * SYMPTOMS: -- Dyspnea-potential for airway compromise secondary to CVA, hemorrhagic conversion. Lethargic.+ History CHF.+ NSTEMI, pulmonary edema on admission. Currently breathing comfortably on mechanical vent, light sedation. + Pneumothorax, rib fractures status post CPR yesterday. Chest tube in place. Given the development of these complications will likely require prolonged intubation and probably tracheostomy. Will continue to monitor. -- Pain-patient presented with 2 days of back pain,? Referred cardiac pain. Continues to have ongoing back pain. No other chronic pain syndromes reported per family. Nursing headache during admission, likely secondary to CVA , hemorrhage. At home primarily utilize Tylenol for any pain, opiate jud. has utilized some [place] during this course. Sparing use thus far. Also has Tylenol available, sparing use thus far. Cautious use of opiates given risk for neuro-logical decline, goals currently aggressive. Status post CPR yesterday 10/24,+ pneumothorax and probable rib fractures. Currently appears comfortable on light sedation though recent CPR would be significant source of pain. We'll continue to monitor. -- Nausea-intermittent episodes of nausea, patient endorsing feeling "sick" previously--sparing prn Zofran use, will continue to monitor. Now on mechanical vent with OG tube,+ tolerating tube feeding -- Decreased appetite: secondary to recent MS, stroke, risk for aspiration. Will monitor. Now with OG tube with ET tube, tolerating tube feeding. Will likely require prolonged mechanical ventilation thus will require PEG tube. -- Weakness - secondary to CVA, hemorrhagic conversion. Lethargic. + History CHF.+ NSTEMI, pulmonary edema on admission. + New area of hypodensity , likely new stroke in left lower occipital 10/24/16. At risk for ongoing CVA secondary to ongoing atrial fibrillation. If survives course will likely require prolonged rehabilitation and potentially long-term care due to debilitated status. * Palliative care will continue to follow during hospital course as condition evolves, to assist patient/decision-maker with understanding of medical conditions, weighing benefits/burdens of treatment options, for clarification of goals of treatment. Additionally will assist with any symptoms of palliative concern Attestation To help prompt me to consider important information that might be impacting today's encounter and assessment, information from prior notes written by myself or my colleagues may have been "brought forward" into today's note. My signature on this note, however, is an attestation that I personally performed the exam, history, and/or decision-making noted today, and, unless otherwise indicated, the interactions with patient, family, and staff as well as the review of records all occurred today. I also attest that the listed assessment and stated plan reflect my best clinical judgment today based on the combination of historical information, prior notes, and today's exam/ interactions. When time spent is documented, it refers only to time spent today by the signer, or if indicated, combined time spent today by collaborating physician/nurse practitioner. Jessie Asher Oct 25, 2016 11:35
[2016-10-25] MEDS: PANTOPRAZOLE SODIUM 40 MG VIAL IV PUSH SCH (11:50)
--- NOTE | 2016-10-25 13:50 | EKG ---
Date Performed: 10/24/2016 Time Performed: 15:14:44 PTAGE: 76 years EKG: Atrial fibrillation with rapid ventricular response. Possible septal infarct - age undeterm ined LVH with secondary repolarization abnormality Inferior/lateral ST-T changes are probably due to ventricular hypertrophy Abnormal ECG Compared to prior tracing no significant change PREVIOUS TRACING : 10/23/2016 06.31 DOCTOR: Bo Sainz Interpretating Date/Time 10/25/2016 13:49:14
[2016-10-25] MEDS: AMIODARONE INJ 450 MG in D5W (EXCEL BAG) 241 ML IV SCH (16:44)
[2016-10-25] MEDS: SODIUM CHLOR 0.9% 1000 ML INJ 1,000 ML IV SCH (16:54)
--- NOTE | 2016-10-25 20:55 | HHI.PR ---
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.-unable to anticoagulate due to hemorrhage as well as relative large size of the new occipital cva Diagnosis/Plan: Daily Summary 10/19 more alert and responsive, nystagmus improved mostly follows commands moves bilat limbs on request some visual field preservation at least mri brain seen, she had mra cow in july and it was normal kidney functions not safe for mra with contrast neck or ct angio therefore will defer anticoagulation xarelto suspect there will be balance problems because of large acute right cerebellum infarct leslie occipital infarcts, old on left and subacute on right 10/22 ct brain seen acute neuro change/decreased responsiveness spoke to fitter/welder than discussed with dr Joseph NS I saw her and she was awake, calm, cooperative and following all commands no distress, eom normal, moves 4 limbs without any major difficulty or asymmetry if there is an increase mass effect on cerebellum/4th ventricle she would need decompression acutely the problem is xarelto half life and dr Erickson was going to review with hematology for any suggestion dr Joseph will see pt 10/23 ct brain seen, ?sl worsening of mass effect nausea and some headaches family at bedside and discussed dx and implications so far she is stable but could develop further mass effect rapidly and require decompression NS following, i discussed with rn and fitter/welder as well i will be out of town and if needed one of my partners will cover, please call prn Subjective Subjective Comments pt has developed a new ischemic stroke in left occipital lobe in addition to prior hemorrhagic strokes in cerebellum and right occipital lobe. Active Medications Current Medications Medications (Trade) Dose Ordered Sig/Shaina Route Start Time Stop Time Status Last Admin (NS Flush) 2 ml UNSCH PRN IV FLUSH 10/15/16 10:45 10/20/16 13:12 (NS Flush) 2 ml BID IV FLUSH 10/15/16 21:00 10/25/16 09:22 (Narcan Inj) 0.4 mg UNSCH PRN IV 10/15/16 10:45 (Julia-Colace) 1 tab BID PO 10/15/16 21:00 10/25/16 09:23 (Milk Of Magnesia Liq) 30 ml Q12H PRN PO 10/15/16 10:45 (Senokot) 17.2 mg Q12H PRN PO 10/15/16 10:45 10/21/16 09:54 (Dulcolax Supp) 10 mg DAILY PRN RECTAL 10/15/16 10:45 (Lactulose Liq) 30 ml DAILY PRN PO 10/15/16 10:45 (Apresoline) 25 mg Q8HR PO 10/15/16 14:00 Hold 10/22/16 06:20 (Atropine Inj) 0.5 mg UNSCH PRN IV 10/16/16 18:00 (Tessalon) 100 mg TID PRN PO 10/17/16 09:15 10/17/16 15:28 (Imdur) 120 mg DAILY@07 PO 10/18/16 07:00 Hold 10/22/16 06:20 (Zofran Inj) 4 mg Q6HR PRN IV PUSH 10/17/16 23:45 10/23/16 00:13 ([place] 5-325 Mg) 1 tab Q4H PRN PO 10/19/16 08:15 10/23/16 00:13 Acetaminophen 650 mg 650 mg Q6H PRN PO 10/21/16 16:45 10/22/16 11:59 (NS 1000 ml Inj) 1,000 ml @ 50 mls/hr Q20H IV 10/22/16 13:00 10/25/16 16:54 (D50w (Vial) Inj) 50 ml UNSCH PRN IV 10/22/16 17:45 (Glucagon Inj) 1 mg UNSCH PRN OTHER 10/22/16 17:45 Insulin Human Regular 1 1 Q4H SQ 10/22/16 18:00 10/25/16 18:10 (Cardizem Inj/NS Inj) 125 ml @ 0 mls/hr TITRATE IV 10/23/16 08:00 10/23/16 07:57 (Lopressor) 50 mg Q8HR PO 10/23/16 22:00 Hold 10/24/16 05:29 (Trandate Inj) 10 mg Q1HR PRN IV PUSH 10/23/16 23:15 10/24/16 11:55 Hydralazine HCl 10 mg 10 mg Q1HR PRN IV PUSH 10/23/16 23:15 10/24/16 08:35 (Cordarone Inj/ D5W (Marquand) Inj) 250 ml @ 0 mls/hr CONTINUOUS IV 10/24/16 16:00 10/25/16 16:44 Chlorhexidine Gluconate 15 ml 15 ml BID@08,20 MT 10/24/16 20:00 10/25/16 09:23 (Diprivan 1000 Mg/100ml Inj) 100 ml @ 0 mls/hr TITRATE IV 10/24/16 16:30 10/25/16 16:54 Terbutaline Sulfate 1 mg 1 mg UNSCH PRN SQ 10/24/16 16:30 (Levophed Inj/NS 250 ml Inj) 250 ml @ 0 mls/hr TITRATE IV 10/25/16 07:00 10/25/16 09:22 Pantoprazole Sodium 40 mg 40 mg Q24H IV PUSH 10/25/16 11:00 10/25/16 11:50 (Maxipime Inj/NS Inj) 100 ml @ 200 mls/hr Q24H IV 10/26/16 10:00 Allergies Allergies Coded Allergies No Known Allergies (Verified10/15/16) Exam I&O / VS 10/24/16 10/24/16 10/25/16 15:00 23:00 07:00 Intake Total 557 ml 869 ml 811 ml Output Total 800 ml 360 ml 70 ml Balance -243 ml 509 ml 741 ml Intake Oral 120 ml IV Total 437 ml 869 ml 811 ml Output Urine Total 800 ml 300 ml 50 ml Stool Total 0 ml 0 ml Gastric Drainage Total 0 ml Chest Tube Drainage Total 60 ml 20 ml Vital Signs Date Time Temp Pulse Resp B/P Pulse Ox O2 Delivery O2 Flow Rate FiO2 10/25/16 19:44 100 40 10/25/16 18:00 94 10/25/16 16:00 100.1 104 12 124/58 100 10/25/16 16:00 104 10/25/16 16:00 40 10/25/16 15:58 100 40 10/25/16 14:00 96 10/25/16 12:00 40 10/25/16 12:00 94 10/25/16 12:00 100.6 94 12 107/98 100 10/25/16 11:47 100 40 10/25/16 10:00 94 10/25/16 10:00 93 10/25/16 08:00 40 10/25/16 08:00 99.0 93 12 114/57 100 10/25/16 07:47 100 40 10/25/16 06:00 89 10/25/16 04:00 82 10/25/16 04:00 50 10/25/16 04:00 98.1 82 12 99/51 100 10/25/16 03:19 100 50 10/25/16 02:00 88 10/25/16 00:00 77 10/25/16 00:00 98.0 77 12 108/51 100 Automatic Cuff 10/25/16 00:00 98.0 77 12 105/57 100 10/25/16 00:00 50 10/24/16 23:38 100 50 10/24/16 22:00 78 10/24/16 21:50 100 100 10/24/16 20:55 100 50 Exam Comments minimally responsive Left pupil 4 mm sluggishly reactive, right pupil 3 mm sluggishly reactive, Has conjugate eye deviation to left MOTOR--no spontaneous limb movement , no withdrawal Objective Micro and Labs Laboratory Tests Test 10/25/16 10/25/16 10/25/16 01:27 04:53 10:10 Troponin I GREATER THAN GREATER THAN 40.00 40.00 White Blood Count 19.4 Red Blood Count 4.08 Hemoglobin 10.7 Hematocrit 33.5 Mean Corpuscular Volume 82.1 Mean Corpuscular Hemoglobin 26.1 Mean Corpuscular Hemoglobin 31.8 Concent Red Cell Distribution Width 15.1 Platelet Count 181 Mean Platelet Volume 7.8 Neutrophils (%) (Auto) 91.2 Lymphocytes (%) (Auto) 5.5 Monocytes (%) (Auto) 3.1 Eosinophils (%) (Auto) 0.0 Basophils (%) (Auto) 0.2 Neutrophils # (Auto) 17.7 Lymphocytes # (Auto) 1.1 Monocytes # (Auto) 0.6 Eosinophils # (Auto) 0.0 Basophils # (Auto) 0.0 CBC Comment DIFF FINAL Differential Comment Sodium Level 143 Potassium Level 3.9 Chloride Level 111 Carbon Dioxide Level 22.4 Anion Gap 10 Blood Urea Nitrogen 38 Creatinine 2.12 Estimat Glomerular Filtration 23 Rate Random Glucose 151 Calcium Level 7.7 Total Bilirubin 0.9 Aspartate Amino Transf 323 (AST/SGOT) Alanine Aminotransferase 193 (ALT/SGPT) Alkaline Phosphatase 95 Total Protein 5.0 Albumin 1.8 Urine Color YELLOW Urine Turbidity HAZY Urine pH 5.5 Urine Specific [place] 1.022 Urine Protein 100 Urine Glucose (UA) NEG Urine Ketones NEG Urine Occult Blood NEG Urine Nitrite NEG Urine Bilirubin NEG Urine Urobilinogen LESS THAN 2.0 Urine Leukocyte Esterase LARGE Urine RBC 36 Urine WBC 26 Urine Squamous Epithelial 1 Cells Urine Bacteria RARE Urine Hyaline Casts 47 Urine Mucus FEW Urine Yeast with Hyphae MOD Urine Yeast (Budding) MANY Microscopic Urinalysis Comment CATH-CULTURE IND Date/Time Procedure Status Source Growth 10/25/16 13:56 Aerobic Blood Culture Received Blood Peripheral Pending 10/25/16 13:56 Anaerobic Blood Culture Received Blood Peripheral Pending 10/25/16 10:10 Urine Culture Received Urine Catheterized Urine Pending Krishan Hodges PhD Oct 25, 2016 20:55
[2016-10-26] VITALS (18 sets, daily range): BP systolic 118–137; BP diastolic 45–60; PULSE 69–110; RESP 12–24; TEMP 98.1–99.4; O2SAT 99–100
[2016-10-26] MEDS: INSULIN NovoLIN REGULAR SUPPLEMENTAL SCALE SQ SCH ×6 (02:00→21:38)
[2016-10-26] MEDS: NOREPINEPHRINE INJ 4 MG in SODIUM CHLOR 0.9% 250 ML INJ 246 ML IV SCH (03:17)
--- NOTE | 2016-10-26 07:18 | RADRPT ---
EXAM DATE/TIME: 10/26/2016 07:05 [facility] COMPARISON: CHEST SINGLE AP, October 24, 2016, 18:08. INDICATIONS : Shortness of breath, possible pulmonary disease. MEDICAL HISTORY : Cardiovascular disease. Hypertension A-Fib SURGICAL HISTORY : Appendectomy. Hysterectomy. ENCOUNTER: Subsequent ACUITY: 1 week PAIN SCORE: Non-responsive. LOCATION: Bilateral chest FINDINGS: A single view of the chest demonstrates the endotracheal tube and nasogastric good position. The hear t is slightly enlarged. Right-sided chest remains with its tip overlying the apex. There appears to b e some subcutaneous air overlying the left supraclavicular region of uncertain etiology. There is no obvious pneumothorax. Osseous structures are intact. CONCLUSION: Interval development of some left-sided supraclavicular air or any obvious pneumothorax. There is a t iny amount of air just above the aortic knob and lateral to the trachea could represent early pneumom ediastinum. Heart enlarged. Lungs are grossly clear. Abhinav Marie MD on October 26, 2016 at 7:15 Board Certified Radiologist. This report was verified electronically.
[2016-10-26] MEDS: CHLORHEXIDINE 0.12% (ORAL KIT) 15 ML CUP MT SCH ×2 (08:30→20:17)
[2016-10-26] MEDS: DOCUSATE SODIUM 50 MG/SENNA 8.6 MG TAB PO SCH ×2 (08:30→20:55)
[2016-10-26] MEDS: CEFEPIME INJ 1,000 MG in SODIUM CHLORIDE 0.9% INJ 100 ML IV SCH (08:31)
[2016-10-26] MEDS: SODIUM CHLORIDE 0.9% FLUSH 10 ML FLUSH IV FLUSH SCH ×2 (08:31→20:55)
[2016-10-26 09:39] LABS: MEAN CELL VOLUME 82.9 FL (80.0-100.0); MEAN CORPUSCULAR HEMOGLOBIN 26.6 PG (27.0-34.0); MEAN CORPUSCULAR HGB CONC 32.1 % (32.0-36.0); PLATELET COUNT 121 TH/MM3 (150-450); RED BLOOD COUNT 3.37 MIL/MM3 (4.00-5.30); RED CELL DISTRIBUTION WIDTH 15.1 % (11.6-17.2); REVIEW FLAG FINAL; WHITE BLOOD COUNT 25.5 TH/MM3 (4.0-11.0)
[2016-10-26 10:21] LABS: ALKALINE PHOSPHATASE 79 U/L (45-117); ALT (GPT) 128 U/L (10-53); ANION GAP 10 MEQ/L (5-15); AST (GOT) 241 U/L (15-37); BLOOD UREA NITROGEN 56 MG/DL (7-18); CHLORIDE 111 MEQ/L (98-107); GLOMERULAR FILTRATION RATE 15 ML/MIN (>89); MAGNESIUM 2.3 MG/DL (1.5-2.5); POTASSIUM 3.7 MEQ/L (3.5-5.1); SODIUM (NA) 141 MEQ/L (136-145); TOTAL BILIRUBIN ADULT 0.6 MG/DL (0.2-1.0)
--- NOTE | 2016-10-26 10:44 | HHI.CCPN ---
Subjective Remarks/Hospital Course 10/22: The patient is a 76-year-old female with past medical history of chronic atrial fibrillation, coronary artery disease, hypertension, chronic kidney disease, CVA, gastroesophageal reflux disease who was admitted to [facility] under hospitalist service on October 15 with elevated troponins/non-ST elevation OK. She underwent cardiac catheterization on October [address] Andino which showed overall minimal left coronary system disease. Echocardiogram from October 17 showed moderate to severe concentric LVH, hypertrophic obstructive cardiomyopathy with EF of 70-75%. The patient was placed on aspirin, Imdur, Lopressor and hydralazine. On October [address] scan of the brain without contrast for dizziness and was found to have areas of increased density involving the right occipital lobe. Subsequently, the patient underwent an MRI of the brain on October 18 which showed new large cerebral hemisphere infarct involving the anterior cerebellum with no hemorrhage evident. The patient was on Xarelto for her stroke and atrial fibrillation. This afternoon code blue was called as the patient was found unresponsive and hypotensive with systolic blood pressure in 60s to 70s. The patient, however, never lost a pulse and did not receive any ACLS drugs. She was given 1 liter bolus of normal saline and transferred to CVICU. She became a little bit more awake and her blood pressure improved to 152/69 with a pulse of 87. Current saturation 99%. Her last chest x-ray from October 20 showed no evidence of any acute disease. The patient is scheduled for repeat CT scan of the brain to rule out any hemorrhagic conversion from her stroke. Most of the history was obtained from reviewing medical records as patient is a poor historian. 10/23: Patient had chest pain earlier with tachycardia which responded with IV Lopressor. Her underlying rhythm is A. fib and she subsequently developed RVR with heart rate in the 140s. She is sitting up in bed moaning at the time of my evaluation and requesting water. Does not really follow commands on my questioning. According to her daughter she follows and recognizes her. She does open eyes spontaneously. 10/24: Awake and alert, oriented 3, follows commands. Moves all 4 extremities. Laying in bed not in any acute distress. Denies any headache or chest pain. 10/25: Patient went into V. tach arrest at 1456 hrs yesterday and underwent CPR/ ACLS protocol for about 13 minutes including defibrillation prior to return of spontaneous circulation. She was intubated during the code and placed on mechanical ventilation. Subsequently she had a second episode of cardiac arrest at 1534 hrs. where she became bradycardic followed by asystole for which she underwent CPR/ACLS protocol converted to V. tach during that code and was successfully defibrillated and converted back to her original atrial fibrillation. She was hypotensive following the cardiac arrest requiring Levophed for pressor support. She did have a right pneumothorax for which she had a right chest tube placed following the above episodes. This morning patient remains encephalopathic, orally intubated on mechanical ventilation. On Levophed 8 mics per minute and amiodarone gtt. 10/26: Drowsy, arousable, opens eyes spontaneously and on command. Squeezes weakly with both hands on command. He remains orally intubated on mechanical ventilation. Levophed just turned off. Remains on amiodarone gtt. Right sided chest tube with no air leak. Objective Vital Signs Date Time Temp Pulse Resp B/P Pulse Ox O2 Delivery O2 Flow Rate FiO2 10/26/16 10:04 100 40 10/26/16 06:00 93 10/26/16 04:00 98.1 15 134/50 10/24/16 07:00 Room Air 10/23/16 19:37 2.00 Intake and Output 10/25/16 10/25/16 10/26/16 08:00 16:00 00:00 Intake Total 811 ml 954 ml 1163 ml Output Total 70 ml 60 ml 45 ml Balance 741 ml 894 ml 1118 ml Result Diagram: 10/26/16 0810/26/16 08 Imaging CXR 10/25 (following chest tube placement)-personally reviewed: ET tube above debi, right sided chest tube in place with resolution of pneumothorax, lung weber clear with no obvious infiltrates Last [address] 10/24/161999 Signed Impressions: Service Date/Time: October 22:09 - CONCLUSION: 1. There is a new regional area of hypodensity in the medial left lower occipital lobe suggesting an acute nonhemorrhagic infarction in the left [employer] distribution. 2. Stable appearance to the hemorrhagic infarction left cerebellum, focal hemorrhage in the right occipital lobe, and old infarction left high occipital lobe. Bradley Morris MD Chest X-Ray 10/24/16 0000 Signed Impressions: Service Date/Time: October 18:08 - CONCLUSION: Right chest tube in good position. No pneumothorax seen. Bradley Morris MD Chest X-Ray 10/24/16 0000 Signed Impressions: Service Date/Time: October 15:38 - CONCLUSION: 1. Interval development of small right-sided pneumothorax measuring up to 1.5 cm. 2. ETT 1.5 cm above the debi. 3. Remainder the exam is unchanged. Sarthak Floyd MD Last Impressions Head CT 10/22/16 0000 Signed Impressions: Service Date/Time: Saturday, October 22, 2016 13:31 - CONCLUSION: 1. Extensive petechial hemorrhage associated with a known left cerebellar infarct with surrounding edema and mass effect with partial effacement of the fourth ventricle and mild compression on the brainstem from the left side. 2. Acute on chronic infarct in the right occipital lobe also associated with some petechial hemorrhage but without significant localized mass effect. 3. Stable remote left parietal occipital infarct. Chandler Manning MD Chest X-Ray 10/22/16 0000 Signed Impressions: Service Date/Time: Saturday, October 22, 2016 14:05 - CONCLUSION: 1. Cardiomegaly. Basilar density most characteristic of atelectasis. No effusion or pneumothorax. Chandler Manning MD Brain MRI 10/18/16 0000 Signed Impressions: Service Date/Time: Tuesday, October 18, 2016 10:39 - CONCLUSION: New large left cerebral hemisphere infarct involving the anterior cerebellum, SCA territory. The fourth ventricle is midline. The vascular artery looks patent. Abraham Stafofrd MD FACR Objective Remarks General: Elderly female currently orally intubated on mechanical ventilation. HEENT: Atraumatic and normocephalic. Pupils equal round and reactive to light Conjunctiva pink. Nonicteric sclerae. Oral mucosa within normal. NECK: Supple. No JVD, adenopathy or thyromegaly. Trachea midline. CARDIOVASCULAR: Irregularly irregular. Normal S1-S2. No murmurs, rubs or gallops noted. PULMONARY: Orally intubated on mechanical ventilation, Bilateral equal air entry. No rales or wheezing. Right sided chest tube in place with no air leak noted ABDOMEN: Soft, nontender, no distension. Positive bowel sounds. EXTREMITIES: No cyanosis, clubbing. Trace edema NEURO: Drowsy, easily arousable, opens eyes spontaneously and on command. 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 Plantars equivocal Access: Right femoral central venous catheter, left femoral arterial catheter placed on 10/24/16 Procedures 10/16/16 cardiac catheterization A/P Assessment and Plan IMPRESSION 1. Cardiac arrest status post CPR 2. Encephalopathy. 3. recent large left cerebellar hemisphere infarct with minimal hemorrhagic conversion and cerebral edema with mass effect on fourth ventricle. New left occipital lobe infarct 4. Non-ST elevation OK status post cardiac catheterization which showed minimal coronary artery disease. 5. Chronic atrial fibrillation, on Xarelto(now off). 6. Hypertension. 7. Chronic kidney disease. 8. Gastroesophageal reflux disease. 9. History of CVA. 10. Hypertrophic obstructive cardiomyopathy 11. A. fib with RVR 12. Hypotension 13. Acute respiratory failure on mechanical ventilation 14. Right pneumothorax status post chest tube placement RECOMMENDATIONS Neuro: Monitor neuro status closely and avoid any sedatives. MRI from October 18 showed large left cerebellar hemisphere infarct. Neurology/ Neurosurgery f/u. Holding Xarelto as CT 10/22 showed petechial hemorrhages in area of cerebellar infarct. Repeat head CT following cardiac arrest on 10/25 showed new left occipital lobe infarct. Concern regarding hypoxic encephalopathy and cardiac arrest. Follow neuro status. Propofol for sedation as needed. Daily sedation vacation. Cardiovascular: She was receiving Lopressor, hydralazine and Imdur which were held on 10/22 for hypotension. Resumed Lopressor 50mg Q8hrly in view of A. fib with RVR on 10/23 which was held following cardiac arrest. Off Cardizem drip. Cardiac cath on October 16 which showed minimal coronary artery disease. Echocardiogram from October 17 showed hypertrophic obstructive cardiomyopathy and EF of 70-75%.. Decreased IV fluids to 50 cc/h. Status post CPR/ACLS for cardiac arrest 2 on 10/24. On amiodarone and Levophed drips currently. Troponin greater than 40 following cardiac arrests. Levophed just titrated off on 7/8 AM. Labetalol/ hydralazine when necessary for systolic blood pressure greater than 160. Resuming Lopressor 12.5 mg Y OG tube every 8 hourly on 10/26. Lasix 20 mg IV x1 on 10/24. KVO IV fluids. Pulmonary: Continue mechanical ventilation, vent bundle, bronchodilators as needed. Start daily C Pap trials. Continued right sided chest tube to -20 cm water pressure with underwater seal. GI/liver: Tolerating tube feeds at 15 cc per hour, will advance as tolerated Renal/: Monitor renal function, Is and Os and avoid nephrotoxins. She received 1 liter bolus of normal saline for hypotension on 10/22. KVO IV fluids. Rising BUN/ creatinine noted probably secondary to ATN from lack of perfusion during cardiac arrest. Heme : Follow CBC. Cannot receive antiplatelet therapy or anticoagulation due to hemorrhagic conversion an area of previous stroke till cleared by neurosurgery. ID: F/u sputum cultures and UA and urine cultures. On Levaquin which will be switched to cefepime to broaden empiric antibiotic coverage in view of rising white count. Check stool for C. difficile if patient has diarrhea. Monitor CBC. Endocrine: Sliding scale insulin with Accu-Chek q. 4-hour for glycemic control. GI prophylaxis with Protonix and DVT prophylaxis with SCDs. No heparin or Lovenox till cleared by neurosurgery. Xarelto on hold due to petechial hemorrhages noted on head CT 10/22 Further recommendations per neurosurgery/neurology and cardiology Discussed with patient's family at length following cardiac arrest. Palliative care team following to assist with deciding goals of therapy. I discussed with family again on 10/26 regarding current clinical status. Explained that patient would be difficult to extubate because of rib fractures following CPR and concern regarding airway protection. Also explained that if she tolerates C Pap trials I would need to know from them if she failed extubation then would they want her reintubated and then proceed with tracheostomy and PEG tube placement or they want to focus more on comfort measures at that point. Patient's daughter acknowledged my concern and said that they would discuss amongst the other family members before coming to decision. I also discussed that if we are going to continue aggressive care I would need to replace her central line by tomorrow. Condition critical Time spent on critical care excluding procedures 40 minutes Kyrie Lees MD Oct 26, 2016 10:44
--- NOTE | 2016-10-26 11:19 | PD.CARD.PN ---
Subjective Subjective Remarks Intubated but awake, follows some commands Objective Medications Administered Medications Medications (Trade) Dose Ordered Sig/Shaina Route PRN Reason Start Time Stop Time Status Last Admin Dose Admin Sodium Chloride (NS Flush) 2 ml UNSCH PRN IV FLUSH FLUSH AFTER USING IV ACCESS 10/15/16 10:45 10/20/16 13:12 Sodium Chloride (NS Flush) 2 ml BID IV FLUSH 10/15/16 21:00 10/26/16 08:31 Senna/Docusate Sodium (Julia-Colace) 1 tab BID PO 10/15/16 21:00 10/26/16 08:30 Sennosides (Senokot) 17.2 mg Q12H PRN PO MODERATE - SEVERE CONSTIPATION 10/15/16 10:45 10/21/16 09:54 Hydralazine HCl (Apresoline) 25 mg Q8HR PO 10/15/16 14:00 Hold 10/22/16 06:20 Benzonatate (Tessalon) 100 mg TID PRN PO COUGH 10/17/16 09:15 10/17/16 15:28 Isosorbide Mononitrate (Imdur) 120 mg DAILY@07 PO 10/18/16 07:00 Hold 10/22/16 06:20 Ondansetron HCl (Zofran Inj) 4 mg Q6HR PRN IV PUSH nausea 10/17/16 23:45 10/23/16 00:13 Acetaminophen/ Hydrocodone Bitart ([place] 5-325 Mg) 1 tab Q4H PRN PO PAIN 3-10; headache 10/19/16 08:15 10/23/16 00:13 Acetaminophen 650 mg 650 mg Q6H PRN PO PAIN SCALE 1 TO 2 10/21/16 16:45 10/22/16 11:59 Sodium Chloride (NS 1000 ml Inj) 1,000 ml @ 30 mls/hr Q24H IV 10/22/16 13:00 10/25/16 16:54 Insulin Human Regular 1 1 Q4H SQ 10/22/16 18:00 10/26/16 05:35 Diltiazem HCl/ Sodium Chloride (Cardizem Inj/NS Inj) 125 ml @ 0 mls/hr TITRATE IV 10/23/16 08:00 10/23/16 07:57 Labetalol HCl (Trandate Inj) 10 mg Q1HR PRN IV PUSH SBP>160, DBP>90, HR>65 10/23/16 23:15 10/24/16 11:55 Hydralazine HCl 10 mg 10 mg Q1HR PRN IV PUSH SBP>160, DBP>90 10/23/16 23:15 10/24/16 08:35 Amiodarone HCl/ Dextrose (Cordarone Inj/ D5W ([place]) Inj) 250 ml @ 0 mls/hr CONTINUOUS IV 10/24/16 16:00 10/25/16 16:44 Chlorhexidine Gluconate 15 ml 15 ml BID@08,20 MT 10/24/16 20:00 10/26/16 08:30 Propofol 100 ml @ 0 mls/hr TITRATE IV 10/24/16 16:30 10/25/16 16:54 Norepinephrine Bitartrate/Sodium Chloride (Levophed Inj/NS 250 ml Inj) 250 ml @ 0 mls/hr TITRATE IV 10/25/16 07:00 10/26/16 03:17 Pantoprazole Sodium 40 mg 40 mg Q24H IV PUSH 10/25/16 11:00 10/25/16 11:50 Cefepime HCl/ Sodium Chloride (Maxipime Inj/NS Inj) 100 ml @ 200 mls/hr Q24H IV 10/26/16 10:00 10/26/16 08:31 Vital Signs / I&O Vital Signs Date Time Temp Pulse Resp B/P Pulse Ox O2 Delivery O2 Flow Rate FiO2 10/26/16 10:04 100 40 10/26/16 08:00 88 10/26/16 08:00 98.9 89 12 137/60 100 10/26/16 08:00 40 10/26/16 06:00 93 10/26/16 04:00 96 10/26/16 04:00 98.1 96 15 134/50 100 10/26/16 04:00 40 10/26/16 03:37 100 40 10/26/16 02:00 110 10/26/16 00:00 98.5 103 12 134/54 100 10/26/16 00:00 40 10/26/16 00:00 110 10/25/16 23:26 100 40 10/25/16 22:00 40 10/25/16 22:00 107 10/25/16 20:00 104 7/7/17 20:00 98.9 111 12 124/51 100 10/25/16 20:00 40 10/25/16 19:44 100 40 10/25/16 18:00 94 10/25/16 16:00 100.1 104 12 124/58 100 10/25/16 16:00 104 10/25/16 16:00 40 10/25/16 15:58 100 40 10/25/16 14:00 96 10/25/16 12:00 40 10/25/16 12:00 94 10/25/16 12:00 100.6 94 12 107/98 100 10/25/16 11:47 100 40 I/O 10/25/16 10/25/16 10/25/16 10/26/16 10/26/16 10/26/16 07:00 15:00 23:00 07:00 15:00 23:00 Intake Total 811 ml 954 ml 1163 ml 783 ml Output Total 70 ml 60 ml 45 ml 155 ml Balance 741 ml 894 ml 1118 ml 628 ml IV Total 811 ml 843 ml 931 ml 626 ml Tube Feeding 51 ml 132 ml 97 ml Other 60 ml 100 ml 60 ml Output Urine Total 50 ml 60 ml 45 ml 150 ml Stool Total 0 ml 0 ml Gastric Drainage Total 0 ml 0 ml 0 ml Chest Tube Drainage Total 20 ml 0 ml 5 ml # Bowel Movements 0 Physical Exam GENERAL: Intubated CARDIOVASCULAR: Regular rate and rhythm without murmurs, gallops, or rubs. RESPIRATORY: Clear to auscultation. Breath sounds equal bilaterally. No wheezes , rales, or rhonchi. GASTROINTESTINAL: Abdomen soft, non-tender, nondistended. Normal active bowel sounds MUSCULOSKELETAL: Extremities without clubbing, cyanosis, or edema. NEURO: unclear if oriented, follows some commands Laboratory Laboratory Tests Test 10/26/16 08:05 White Blood Count 25.5 TH/MM3 Red Blood Count 3.37 MIL/MM3 Hemoglobin 9.0 GM/DL Hematocrit 28.0 % Mean Corpuscular Volume 82.9 FL Mean Corpuscular Hemoglobin 26.6 PG Mean Corpuscular Hemoglobin 32.1 % Concent Red Cell Distribution Width 15.1 % Platelet Count 121 TH/MM3 Mean Platelet Volume 8.9 FL Sodium Level 141 MEQ/L Potassium Level 3.7 MEQ/L Chloride Level 111 MEQ/L Carbon Dioxide Level 20.0 MEQ/L Anion Gap 10 MEQ/L Blood Urea Nitrogen 56 MG/DL Creatinine 2.97 MG/DL Estimat Glomerular Filtration 15 ML/MIN Rate Random Glucose 146 MG/DL Calcium Level 7.5 MG/DL Phosphorus Level 3.3 MG/DL Magnesium Level 2.3 MG/DL Total Bilirubin 0.6 MG/DL Aspartate Amino Transf 241 U/L (AST/SGOT) Alanine Aminotransferase 128 U/L (ALT/SGPT) Alkaline Phosphatase 79 U/L Total Protein 5.0 GM/DL Albumin 1.8 GM/DL Imaging Last Impressions Chest X-Ray 10/26/16 0000 Signed Impressions: Service Date/Time: Wednesday, October 26, 2016 07:05 - CONCLUSION: Interval development of some left-sided supraclavicular air or any obvious pneumothorax. There is a tiny amount of air just above the aortic knob and lateral to the trachea could represent early pneumomediastinum. Heart enlarged. Lungs are grossly clear. Abhinav Marie MD Head CT 10/24/161999 Signed Impressions: Service Date/Time: October 22:09 - CONCLUSION: 1. 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 2. Stable appearance to the hemorrhagic infarction left cerebellum, focal hemorrhage in the right occipital lobe, and old infarction left high occipital lobe. Bradley Morris MD Brain MRI 10/18/16 0000 Signed Impressions: Service Date/Time: Tuesday, October 18, 2016 10:39 - CONCLUSION: New large left cerebral hemisphere infarct involving the anterior cerebellum, SCA territory. The fourth ventricle is midline. The vascular artery looks patent. Abraham Stafford MD FACR Assessment and Plan Problem List: (1) Cardiac arrest Assessment and Plan: It appears primary event was sustained VT, necessitating multiple shocks. Precipitating factor for the ventricular tachyarrhythmias unclear. Recent cath showed no high grade CAD. She does have evidence by echo for severe left ventricular hypertrophy associated with a significant left ventricular outflow tract gradient, though she's never had previous problems with syncope, VT. REC continue IV Amiodarone depending on the degree of her recovery, consider ICD implantation (2) CAD (coronary artery disease) Assessment and Plan: Status post probable NSTEMI. Cath this admission showed no high grade disease. The 70-80% distal RCA lesion seen on cath 2013 now at most 50%, may have been some component of spasm in 2013. Blood pressures too low to resume beta rafael. (3) Chronic atrial fibrillation Assessment and Plan: sinus w/ pac's currently. HR's OK this morning. Xarelto stopped due to hemorrhagic CVAs. Unfortunately CT shows evidence for yet another CVA. (4) Hypertension Assessment and Plan: Currently hypotensive, necessitating pressor support. Cont Levophed. Problem Qualifiers (1) Hypertension: Qualified Code: I10 - Essential hypertension Peter Daley MD Oct 26, 2016 11:19
[2016-10-26] MEDS: PANTOPRAZOLE SODIUM 40 MG VIAL IV PUSH SCH (11:31)
[2016-10-26] MEDS: FUROSEMIDE 20 MG/2 ML VIAL IV PUSH SCH ×2 (11:31→17:56)
[2016-10-26] MEDS: ACETAMINOPHEN/HYDROcodone 325 MG/5 MG TAB PO PRN (11:32)
[2016-10-26] MEDS: SODIUM CHLOR 0.9% 1000 ML INJ 1,000 ML IV SCH (14:34)
--- NOTE | 2016-10-26 15:46 | HHI.PR ---
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.-unable to anticoagulate due to hemorrhage as well as relative large size of the new occipital cva Diagnosis/Plan: Daily Summary 10/19 more alert and responsive, nystagmus improved mostly follows commands moves bilat limbs on request some visual field preservation at least mri brain seen, she had mra cow in july and it was normal kidney functions not safe for mra with contrast neck or ct angio therefore will defer anticoagulation xarelto suspect there will be balance problems because of large acute right cerebellum infarct leslie occipital infarcts, old on left and subacute on right 10/22 ct brain seen acute neuro change/decreased responsiveness spoke to senior medical director than discussed with dr Joseph NS I saw her and she was awake, calm, cooperative and following all commands no distress, eom normal, moves 4 limbs without any major difficulty or asymmetry if there is an increase mass effect on cerebellum/4th ventricle she would need decompression acutely the problem is xarelto half life and dr Erickson was going to review with hematology for any suggestion dr Joseph will see pt 10/23 ct brain seen, ?sl worsening of mass effect nausea and some headaches family at bedside and discussed dx and implications so far she is stable but could develop further mass effect rapidly and require decompression NS following, i discussed with rn and senior medical director as well i will be out of town and if needed one of my partners will cover, please call prn Subjective Subjective Comments No acute events reported Active Medications Current Medications Medications (Trade) Dose Ordered Sig/Shaina Route Start Time Stop Time Status Last Admin (NS Flush) 2 ml UNSCH PRN IV FLUSH 10/15/16 10:45 10/20/16 13:12 (NS Flush) 2 ml BID IV FLUSH 10/15/16 21:00 10/26/16 08:31 (Narcan Inj) 0.4 mg UNSCH PRN IV 10/15/16 10:45 (Julia-Colace) 1 tab BID PO 10/15/16 21:00 10/26/16 08:30 (Milk Of Magnesia Liq) 30 ml Q12H PRN PO 10/15/16 10:45 (Senokot) 17.2 mg Q12H PRN PO 10/15/16 10:45 10/21/16 09:54 (Dulcolax Supp) 10 mg DAILY PRN RECTAL 10/15/16 10:45 (Lactulose Liq) 30 ml DAILY PRN PO 10/15/16 10:45 (Apresoline) 25 mg Q8HR PO 10/15/16 14:00 Hold 10/22/16 06:20 (Atropine Inj) 0.5 mg UNSCH PRN IV 10/16/16 18:00 (Tessalon) 100 mg TID PRN PO 10/17/16 09:15 10/17/16 15:28 (Imdur) 120 mg DAILY@07 PO 10/18/16 07:00 Hold 10/22/16 06:20 (Zofran Inj) 4 mg Q6HR PRN IV PUSH 10/17/16 23:45 10/23/16 00:13 ([place] 5-325 Mg) 1 tab Q4H PRN PO 10/19/16 08:15 10/26/16 11:32 Acetaminophen 650 mg 650 mg Q6H PRN PO 10/21/16 16:45 10/22/16 11:59 (NS 1000 ml Inj) 1,000 ml @ 30 mls/hr Q24H IV 10/22/16 13:00 10/26/16 14:34 (D50w (Vial) Inj) 50 ml UNSCH PRN IV 10/22/16 17:45 (Glucagon Inj) 1 mg UNSCH PRN OTHER 10/22/16 17:45 Insulin Human Regular 1 1 Q4H SQ 10/22/16 18:00 10/26/16 05:35 (Cardizem Inj/NS Inj) 125 ml @ 0 mls/hr TITRATE IV 10/23/16 08:00 10/23/16 07:57 (Trandate Inj) 10 mg Q1HR PRN IV PUSH 10/23/16 23:15 10/24/16 11:55 Hydralazine HCl 10 mg 10 mg Q1HR PRN IV PUSH 10/23/16 23:15 10/24/16 08:35 (Cordarone Inj/ D5W ([place]) Inj) 250 ml @ 0 mls/hr CONTINUOUS IV 10/24/16 16:00 10/25/16 16:44 Chlorhexidine Gluconate 15 ml 15 ml BID@08,20 MT 10/24/16 20:00 10/26/16 08:30 (Diprivan 1000 Mg/100ml Inj) 100 ml @ 0 mls/hr TITRATE IV 10/24/16 16:30 10/25/16 16:54 Terbutaline Sulfate 1 mg 1 mg UNSCH PRN SQ 10/24/16 16:30 (Levophed Inj/NS 250 ml Inj) 250 ml @ 0 mls/hr TITRATE IV 10/25/16 07:00 10/26/16 03:17 Pantoprazole Sodium 40 mg 40 mg Q24H IV PUSH 10/25/16 11:00 10/26/16 11:31 (Maxipime Inj/NS Inj) 100 ml @ 200 mls/hr Q24H IV 10/26/16 10:00 10/26/16 08:31 (Lasix Inj) 20 mg BID@09,18 IV PUSH 10/26/16 11:00 10/26/16 11:31 Allergies Allergies Coded Allergies No Known Allergies (Verified10/15/16) Exam I&O / VS 10/25/16 10/25/16 10/26/16 15:00 23:00 07:00 Intake Total 954 ml 1163 ml 783 ml Output Total 60 ml 45 ml 155 ml Balance 894 ml 1118 ml 628 ml IV Total 843 ml 931 ml 626 ml Tube Feeding 51 ml 132 ml 97 ml Other 60 ml 100 ml 60 ml Output Urine Total 60 ml 45 ml 150 ml Stool Total 0 ml Gastric Drainage Total 0 ml 0 ml Chest Tube Drainage Total 0 ml 5 ml # Bowel Movements 0 Vital Signs Date Time Temp Pulse Resp B/P Pulse Ox O2 Delivery O2 Flow Rate FiO2 10/26/16 14:00 69 10/26/16 12:37 15 10/26/16 12:30 40 10/26/16 12:20 100 40 10/26/16 12:00 98.7 77 17 121/45 100 10/26/16 12:00 77 10/26/16 10:04 100 40 10/26/16 10:00 84 10/26/16 08:00 88 10/26/16 08:00 98.9 89 12 137/60 100 10/26/16 08:00 40 10/26/16 06:00 93 10/26/16 04:00 96 10/26/16 04:00 98.1 96 15 134/50 100 10/26/16 04:00 40 10/26/16 03:37 100 40 10/26/16 02:00 110 10/26/16 00:00 98.5 103 12 134/54 100 10/26/16 00:00 40 10/26/16 00:00 110 10/25/16 23:26 100 40 10/25/16 22:00 40 10/25/16 22:00 107 10/25/16 20:00 104 10/25/16 20:00 98.9 111 12 124/51 100 10/25/16 20:00 40 10/25/16 19:44 100 40 10/25/16 18:00 94 10/25/16 16:00 100.1 104 12 124/58 100 10/25/16 16:00 104 10/25/16 16:00 40 10/25/16 15:58 100 40 Exam Comments more alert today. arouses to voice Left pupil 4 mm sluggishly reactive, right pupil 3 mm sluggishly reactive, Has conjugate eye deviation to left MOTOR--no spontaneous limb movement , no withdrawal Objective Micro and Labs Laboratory Tests Test 10/26/16 08:05 White Blood Count 25.5 Red Blood Count 3.37 Hemoglobin 9.0 Hematocrit 28.0 Mean Corpuscular Volume 82.9 Mean Corpuscular Hemoglobin 26.6 Mean Corpuscular Hemoglobin 32.1 Concent Red Cell Distribution Width 15.1 Platelet Count 121 Mean Platelet Volume 8.9 Sodium Level 141 Potassium Level 3.7 Chloride Level 111 Carbon Dioxide Level 20.0 Anion Gap 10 Blood Urea Nitrogen 56 Creatinine 2.97 Estimat Glomerular Filtration 15 Rate Random Glucose 146 Calcium Level 7.5 Phosphorus Level 3.3 Magnesium Level 2.3 Total Bilirubin 0.6 Aspartate Amino Transf 241 (AST/SGOT) Alanine Aminotransferase 128 (ALT/SGPT) Alkaline Phosphatase 79 Total Protein 5.0 Albumin 1.8 Date/Time Procedure Status Source Growth 10/26/16 10:00 Gram Stain Received Sputum Endotracheal Pending 10/26/16 10:00 Sputum Culture Received Sputum Endotracheal Pending 10/25/16 13:56 Aerobic Blood Culture - Preliminary Resulted Blood Peripheral NO GROWTH IN 1 DAY 10/25/16 13:56 Anaerobic Blood Culture - Preliminary Resulted Blood Peripheral NO GROWTH IN 1 DAY 10/25/16 10:10 Urine Culture - Preliminary Resulted Urine Catheterized Urine Camila Albicans Krishan Hodges PhD Oct 26, 2016 15:46
[2016-10-27] VITALS (19 sets, daily range): BP systolic 120–152; BP diastolic 48–69; PULSE 63–84; RESP 13–15; TEMP 96.3–98.8; O2SAT 98–100
[2016-10-27] MEDS: INSULIN NovoLIN REGULAR SUPPLEMENTAL SCALE SQ SCH ×6 (02:00→22:06)
[2016-10-27 07:05] LABS: AUTOMATED NEUTROPHIL # 21.4 TH/MM3 (1.8-7.7); BASOPHIL % 0.1 % (0.0-2.0); EOSINOPHIL % 0.1 % (0.0-4.0); HEMATOCRIT 26.5 % (35.0-46.0); LYMPH % 2.9 % (9.0-44.0); LYMPHOCYTE # 0.7 TH/MM3 (1.0-4.8); MEAN CELL VOLUME 83.2 FL (80.0-100.0); MEAN CORPUSCULAR HEMOGLOBIN 26.6 PG (27.0-34.0); MONO % 3.1 % (0.0-8.0); NEUT % 93.8 % (16.0-70.0); PLATELET COUNT 99 TH/MM3 (150-450); RED BLOOD COUNT 3.18 MIL/MM3 (4.00-5.30); WHITE BLOOD COUNT 22.8 TH/MM3 (4.0-11.0)
--- NOTE | 2016-10-27 07:05 | HHI.CCPN ---
Subjective Remarks/Hospital Course 10/22: The patient is a 76-year-old female with past medical history of chronic atrial fibrillation, coronary artery disease, hypertension, chronic kidney disease, CVA, gastroesophageal reflux disease who was admitted to [facility] under hospitalist service on October 15 with elevated troponins/non-ST elevation SD. She underwent cardiac catheterization on October [address] Andino which showed overall minimal left coronary system disease. Echocardiogram from October 17 showed moderate to severe concentric LVH, hypertrophic obstructive cardiomyopathy with EF of 70-75%. The patient was placed on aspirin, Imdur, Lopressor and hydralazine. On October [address] scan of the brain without contrast for dizziness and was found to have areas of increased density involving the right occipital lobe. Subsequently, the patient underwent an MRI of the brain on October 18 which showed new large cerebral hemisphere infarct involving the anterior cerebellum with no hemorrhage evident. The patient was on Xarelto for her stroke and atrial fibrillation. This afternoon code blue was called as the patient was found unresponsive and hypotensive with systolic blood pressure in 60s to 70s. The patient, however, never lost a pulse and did not receive any ACLS drugs. She was given 1 liter bolus of normal saline and transferred to CVICU. She became a little bit more awake and her blood pressure improved to 152/69 with a pulse of 87. Current saturation 99%. Her last chest x-ray from October 20 showed no evidence of any acute disease. The patient is scheduled for repeat CT scan of the brain to rule out any hemorrhagic conversion from her stroke. Most of the history was obtained from reviewing medical records as patient is a poor historian. 10/23: Patient had chest pain earlier with tachycardia which responded with IV Lopressor. Her underlying rhythm is A. fib and she subsequently developed RVR with heart rate in the 140s. She is sitting up in bed moaning at the time of my evaluation and requesting water. Does not really follow commands on my questioning. According to her daughter she follows and recognizes her. She does open eyes spontaneously. 10/24: Awake and alert, oriented 3, follows commands. Moves all 4 extremities. Laying in bed not in any acute distress. Denies any headache or chest pain. 10/25: Patient went into V. tach arrest at 1456 hrs yesterday and underwent CPR/ ACLS protocol for about 13 minutes including defibrillation prior to return of spontaneous circulation. She was intubated during the code and placed on mechanical ventilation. Subsequently she had a second episode of cardiac arrest at 1534 hrs. where she became bradycardic followed by asystole for which she underwent CPR/ACLS protocol converted to V. tach during that code and was successfully defibrillated and converted back to her original atrial fibrillation. She was hypotensive following the cardiac arrest requiring Levophed for pressor support. She did have a right pneumothorax for which she had a right chest tube placed following the above episodes. This morning patient remains encephalopathic, orally intubated on mechanical ventilation. On Levophed 8 mics per minute and amiodarone gtt. 10/26: Drowsy, arousable, opens eyes spontaneously and on command. Squeezes weakly with both hands on command. He remains orally intubated on mechanical ventilation. Levophed just turned off. Remains on amiodarone gtt. Right sided chest tube with no air leak. 10/27: Drowsy, arousable, squeezes weakly with both hands on command. On mechanical ventilation via ET tube. Off all pressors. Remains on amiodarone gtt. Right sided chest tube remains in place with no air leak. Positive fluid balance noted despite Lasix. Awaiting a.m. labs Objective Vital Signs Date Time Temp Pulse Resp B/P Pulse Ox O2 Delivery O2 Flow Rate FiO2 10/27/16 04:05 100 40 10/27/16 04:00 78 10/27/16 04:00 96.9 14 132/48 10/24/16 07:00 Room Air 10/23/16 19:37 2.00 Intake and Output 10/26/16 10/26/16 10/27/16 08:00 16:00 00:00 Intake Total 783 ml 761 ml 517 ml Output Total 155 ml 152 ml 454 ml Balance 628 ml 609 ml 63 ml Result Diagram: 10/26/16 0810/26/16 08 Other Results Microbiology Date/Time Procedure Status Source Growth 10/26/16 10:00 Gram Stain - Final Resulted Sputum Endotracheal 10/26/16 10:00 Sputum Culture Resulted Sputum Endotracheal Pending 10/25/16 13:56 Aerobic Blood Culture - Preliminary Resulted Blood Peripheral NO GROWTH IN 1 DAY 10/25/16 13:56 Anaerobic Blood Culture - Preliminary Resulted Blood Peripheral NO GROWTH IN 1 DAY 10/25/16 10:10 Urine Culture - Preliminary Resulted Urine Catheterized Urine Camila Albicans Imaging CXR 10/25 (following chest tube placement)-personally reviewed: ET tube above debi, right sided chest tube in place with resolution of pneumothorax, lung weber clear with no obvious infiltrates Last [address] 10/24/161999 Signed Impressions: Service Date/Time: October 22:09 - CONCLUSION: 1. There is a new regional area of hypodensity in the medial left lower occipital lobe suggesting an acute nonhemorrhagic infarction in the left [employer] distribution. 2. Stable appearance to the hemorrhagic infarction left cerebellum, focal hemorrhage in the right occipital lobe, and old infarction left high occipital lobe. Bradley Morris MD Chest X-Ray 10/24/16 Signed Impressions: Service Date/Time: October 18:08 - CONCLUSION: Right chest tube in good position. No pneumothorax seen. Bradley Morris MD Chest X-Ray 10/24/16 Signed Impressions: Service Date/Time: October 15:38 - CONCLUSION: 1. Interval development of small right-sided pneumothorax measuring up to 1.5 cm. 2. ETT 1.5 cm above the debi. 3. Remainder the exam is unchanged. Sarthak Floyd MD Last Impressions Head CT 10/22/16 Signed Impressions: Service Date/Time: Saturday, October 22, 2016 13:31 - CONCLUSION: 1. Extensive petechial hemorrhage associated with a known left cerebellar infarct with surrounding edema and mass effect with partial effacement of the fourth ventricle and mild compression on the brainstem from the left side. 2. Acute on chronic infarct in the right occipital lobe also associated with some petechial hemorrhage but without significant localized mass effect. 3. Stable remote left parietal occipital infarct. Chandler Manning MD Chest X-Ray 10/22/16 Signed Impressions: Service Date/Time: Saturday, October 22, 2016 14:05 - CONCLUSION: 1. Cardiomegaly. Basilar density most characteristic of atelectasis. No effusion or pneumothorax. Chandler Manning MD Brain MRI 10/18/16 0000 Signed Impressions: Service Date/Time: Tuesday, October 18, 2016 10:39 - CONCLUSION: New large left cerebral hemisphere infarct involving the anterior cerebellum, SCA territory. The fourth ventricle is midline. The vascular artery looks patent. Abraham Stafford MD FACR Objective Remarks General: Elderly female currently orally intubated on mechanical ventilation. HEENT: Atraumatic and normocephalic. Pupils equal round and reactive to light Conjunctiva pink. Nonicteric sclerae. Oral mucosa within normal. NECK: Supple. No JVD, adenopathy or thyromegaly. Trachea midline. CARDIOVASCULAR: Irregularly irregular. Normal S1-S2. No murmurs, rubs or gallops noted. PULMONARY: Orally intubated on mechanical ventilation, Bilateral equal air entry. No rales or wheezing. Right sided chest tube in place with no air leak noted ABDOMEN: Soft, nontender, no distension. Positive bowel sounds. EXTREMITIES: No cyanosis, clubbing. Trace edema NEURO: Drowsy, easily arousable, opens eyes spontaneously and on command. 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 Plantars equivocal Access: Right femoral central venous catheter, left femoral arterial catheter placed on 10/24/16 Procedures 10/16/16 cardiac catheterization Urinary Catheter: Yes Assessment to: Continue A/P Assessment and Plan IMPRESSION 1. Cardiac arrest status post CPR 2. Encephalopathy. 3. recent large left cerebellar hemisphere infarct with minimal hemorrhagic conversion and cerebral edema with mass effect on fourth ventricle. New left occipital lobe infarct 4. Non-ST elevation SD status post cardiac catheterization which showed minimal coronary artery disease. 5. Chronic atrial fibrillation, on Xarelto(now off). 6. Hypertension. 7. Chronic kidney disease. 8. Gastroesophageal reflux disease. 9. History of CVA. 10. Hypertrophic obstructive cardiomyopathy 11. A. fib with RVR 12. Hypotension 13. Acute respiratory failure on mechanical ventilation 14. Right pneumothorax status post chest tube placement 15: Fungal UTI RECOMMENDATIONS Neuro: Monitor neuro status closely and avoid any sedatives. MRI from October 18 showed large left cerebellar hemisphere infarct. Neurology/ Neurosurgery f/u. Holding Xarelto as CT 10/22 showed petechial hemorrhages in area of cerebellar infarct. Repeat head CT following cardiac arrest on 10/25 showed new left occipital lobe infarct. Concern regarding hypoxic encephalopathy and cardiac arrest. Follow neuro status. Propofol for sedation as needed. Daily sedation vacation. Cardiovascular: She was receiving Lopressor, hydralazine and Imdur which were held on 10/22 for hypotension. Resumed Lopressor 50mg Q8hrly in view of A. fib with RVR on 10/23 which was held following cardiac arrest. Off Cardizem drip. Cardiac cath on October 16 which showed minimal coronary artery disease. Echocardiogram from October 17 showed hypertrophic obstructive cardiomyopathy and EF of 70-75%.. Decreased IV fluids to 50 cc/h. Status post CPR/ACLS for cardiac arrest 2 on 10/24. On amiodarone and Levophed drips currently. Troponin greater than 40 following cardiac arrests. Levophed just titrated off on 10/26 AM. Labetalol/ hydralazine when necessary for systolic blood pressure greater than 160. Resuming Lopressor 12.5 mg Y OG tube every 8 hourly on 10/26. Lasix 20 mg IV x1 on 10/24. KVO IV fluids. Pulmonary: Continue mechanical ventilation, vent bundle, bronchodilators as needed. Start daily C Pap trials. Continued right sided chest tube to -20 cm water pressure with underwater seal. GI/liver: Tolerating tube feeds at 15 cc per hour, will advance as tolerated Renal/: Monitor renal function, Is and Os and avoid nephrotoxins. She received 1 liter bolus of normal saline for hypotension on 10/22. KVO IV fluids. Rising BUN/ creatinine noted probably secondary to ATN from lack of perfusion during cardiac arrest. On Lasix 20 mg IV twice a day however remains in positive fluid balance. Awaiting labs Heme : Follow CBC. Cannot receive antiplatelet therapy or anticoagulation due to hemorrhagic conversion an area of previous stroke till cleared by neurosurgery. ID: F/u sputum cultures and UA and urine cultures. On Levaquin which will be switched to cefepime to broaden empiric antibiotic coverage in view of rising white count. Check stool for C. difficile if patient has diarrhea. Monitor CBC. Urine cultures sent on 10/25 growing Camila albicans. We will initiate fluconazole 200 mg IV daily starting 10/27. Endocrine: Sliding scale insulin with Accu-Chek q. 4-hour for glycemic control. GI prophylaxis with Protonix and DVT prophylaxis with SCDs. No heparin or Lovenox till cleared by neurosurgery. Xarelto on hold due to petechial hemorrhages noted on head CT 10/22 Further recommendations per neurosurgery/neurology and cardiology Discussed with patient's family at length following cardiac arrest. Palliative care team following to assist with deciding goals of therapy. I discussed with family again on 10/26 regarding current clinical status. Explained that patient would be difficult to extubate because of rib fractures following CPR and concern regarding airway protection. Also explained that if she tolerates C Pap trials I would need to know from them if she failed extubation then would they want her reintubated and then proceed with tracheostomy and PEG tube placement or they want to focus more on comfort measures at that point. Patient's daughter acknowledged my concern and said that they would discuss amongst the other family members before coming to decision. I also discussed that if we are going to continue aggressive care I would need to replace her central line by 10/27. Family meeting held again last evening on 10/26 with patient's children. They are leaning towards de-escalation of therapy and will be making a decision on 10/27. I explained the process of transitioning to comfort measures and terminal wean and they voiced understanding. Condition critical Time spent on critical care excluding procedures 35 minutes Kyrie Lees MD Oct 27, 2016 07:05
[2016-10-27 07:10] LABS: HEMO FLAGS AUTO DIFF
[2016-10-27 07:38] LABS: ALKALINE PHOSPHATASE 81 U/L (45-117); ALT (GPT) 112 U/L (10-53); ANION GAP 12 MEQ/L (5-15); AST (GOT) 183 U/L (15-37); BICARBONATE 19.5 MEQ/L (21.0-32.0); BLOOD UREA NITROGEN 68 MG/DL (7-18); CHLORIDE 112 MEQ/L (98-107); GLOMERULAR FILTRATION RATE 14 ML/MIN (>89); MAGNESIUM 2.2 MG/DL (1.5-2.5); POTASSIUM 3.9 MEQ/L (3.5-5.1); SODIUM (NA) 143 MEQ/L (136-145); TOTAL BILIRUBIN ADULT 0.6 MG/DL (0.2-1.0)
[2016-10-27 07:41] LABS: BANDS 2 % (0-6); CORRECTED NUCLEATED RBC 1 /100 WBC (0-0); NEUTROPHIL # MANUAL DIFF 21.9 TH/MM3 (1.8-7.7); POLYS (SEG NEUTROPHILS) 94 % (16-70); WBC DIFF SAMPLE 100
[2016-10-27 07:42] LABS: PLATELET ESTIMATE SMEAR LOW (NORMAL); PLATELET MORPHOLOGY NORMAL (NORMAL)
[2016-10-27 07:43] LABS: KERATOCYTES OCC (NORMAL); OVALOCYTES 1+ (NORMAL); SCAN/DIFF FINAL DIFF MANUAL
[2016-10-27] MEDS: CHLORHEXIDINE 0.12% (ORAL KIT) 15 ML CUP MT SCH ×2 (08:00→22:04)
[2016-10-27] MEDS: FLUCONAZOLE 200 MG IV SCH (09:08)
[2016-10-27] MEDS: ACETAMINOPHEN/HYDROcodone 325 MG/5 MG TAB PO PRN (09:09)
[2016-10-27] MEDS: DOCUSATE SODIUM 50 MG/SENNA 8.6 MG TAB PO SCH ×2 (09:09→22:05)
[2016-10-27] MEDS: CEFEPIME INJ 1,000 MG in SODIUM CHLORIDE 0.9% INJ 100 ML IV SCH (09:09)
[2016-10-27] MEDS: FUROSEMIDE 20 MG/2 ML VIAL IV PUSH SCH ×2 (09:10→18:08)
[2016-10-27] MEDS: SODIUM CHLORIDE 0.9% FLUSH 10 ML FLUSH IV FLUSH SCH ×2 (09:11→22:05)
[2016-10-27] MEDS: RESP: ALBUTEROL 2.5 MG/IPRATROPIUM 0.5 MG NEB (PRN) NEB (09:47)
--- NOTE | 2016-10-27 11:24 | PD.CARD.PN ---
Subjective Subjective Remarks Intubated, responds to touch Objective Medications Administered Medications Medications (Trade) Dose Ordered Sig/Shaina Route PRN Reason Start Time Stop Time Status Last Admin Dose Admin Sodium Chloride (NS Flush) 2 ml UNSCH PRN IV FLUSH FLUSH AFTER USING IV ACCESS 10/15/16 10:45 10/20/16 13:12 Sodium Chloride (NS Flush) 2 ml BID IV FLUSH 10/15/16 21:00 10/27/16 09:11 Senna/Docusate Sodium (Julia-Colace) 1 tab BID PO 10/15/16 21:00 10/27/16 09:09 Sennosides (Senokot) 17.2 mg Q12H PRN PO MODERATE - SEVERE CONSTIPATION 10/15/16 10:45 10/21/16 09:54 Hydralazine HCl (Apresoline) 25 mg Q8HR PO 10/15/16 14:00 Hold 10/22/16 06:20 Benzonatate (Tessalon) 100 mg TID PRN PO COUGH 10/17/16 09:15 10/17/16 15:28 Isosorbide Mononitrate (Imdur) 120 mg DAILY@07 PO 10/18/16 07:00 Hold 10/22/16 06:20 Ondansetron HCl (Zofran Inj) 4 mg Q6HR PRN IV PUSH nausea 10/17/16 23:45 10/23/16 00:13 Acetaminophen/ Hydrocodone Bitart ([place] 5-325 Mg) 1 tab Q4H PRN PO PAIN 3-10; headache 10/19/16 08:15 10/27/16 09:09 Acetaminophen 650 mg 650 mg Q6H PRN PO PAIN SCALE 1 TO 2 10/21/16 16:45 10/22/16 11:59 Sodium Chloride (NS 1000 ml Inj) 1,000 ml @ 30 mls/hr Q24H IV 10/22/16 13:00 10/26/16 14:34 Insulin Human Regular 1 1 Q4H SQ 10/22/16 18:00 10/26/16 05:35 Diltiazem HCl/ Sodium Chloride (Cardizem Inj/NS Inj) 125 ml @ 0 mls/hr TITRATE IV 10/23/16 08:00 10/23/16 07:57 Labetalol HCl (Trandate Inj) 10 mg Q1HR PRN IV PUSH SBP>160, DBP>90, HR>65 10/23/16 23:15 10/24/16 11:55 Hydralazine HCl 10 mg 10 mg Q1HR PRN IV PUSH SBP>160, DBP>90 10/23/16 23:15 10/24/16 08:35 Amiodarone HCl/ Dextrose (Cordarone Inj/ D5W ([place]) Inj) 250 ml @ 0 mls/hr CONTINUOUS IV 10/24/16 16:00 10/25/16 16:44 Chlorhexidine Gluconate 15 ml 15 ml BID@08,20 MT 10/24/16 20:00 10/27/16 08:00 Propofol 100 ml @ 0 mls/hr TITRATE IV 10/24/16 16:30 10/25/16 16:54 Norepinephrine Bitartrate/Sodium Chloride (Levophed Inj/NS 250 ml Inj) 250 ml @ 0 mls/hr TITRATE IV 10/25/16 07:00 10/26/16 03:17 Pantoprazole Sodium 40 mg 40 mg Q24H IV PUSH 10/25/16 11:00 10/26/16 11:31 Cefepime HCl/ Sodium Chloride (Maxipime Inj/NS Inj) 100 ml @ 200 mls/hr Q24H IV 10/26/16 10:00 10/27/16 09:09 Furosemide 20 mg 20 mg BID@09,18 IV PUSH 10/26/16 11:00 10/27/16 09:10 Fluconazole/ Sodium Chloride (Diflucan 200 Mg Premix Bag) 50 ml @ 50 mls/hr Q24H IV 10/27/16 08:00 10/27/16 09:08 Vital Signs / I&O Vital Signs Date Time Temp Pulse Resp B/P Pulse Ox O2 Delivery O2 Flow Rate FiO2 10/27/16 10:20 14 10/27/16 09:49 100 40 10/27/16 09:39 40 10/27/16 09:39 99 40 10/27/16 08:00 72 10/27/16 06:00 70 10/27/16 04:05 100 40 10/27/16 04:00 40 10/27/16 04:00 78 10/27/16 04:00 96.9 78 14 132/48 99 10/27/16 02:00 84 10/27/16 00:00 98.8 82 15 130/58 100 10/27/16 00:00 82 10/27/16 00:00 40 10/26/16 23:02 99 40 10/26/16 22:00 91 10/26/16 20:00 98.9 79 24 130/58 100 10/26/16 20:00 91 10/26/16 20:00 40 10/26/16 19:50 40 10/26/16 19:50 100 40 10/26/16 18:39 99 40 10/26/16 18:00 76 10/26/16 16:00 40 10/26/16 16:00 99.4 82 23 118/50 100 10/26/16 16:00 82 10/26/16 14:00 69 10/26/16 12:30 40 10/26/16 12:20 100 40 10/26/16 12:00 98.7 77 17 121/45 100 10/26/16 12:00 77 I/O 10/26/16 10/26/16 10/26/16 10/27/16 10/27/16 10/27/16 07:00 15:00 23:00 07:00 15:00 23:00 Intake Total 783 ml 761 ml 517 ml 492 ml Output Total 155 ml 152 ml 454 ml 402 ml Balance 628 ml 609 ml 63 ml 90 ml IV Total 626 ml 631 ml 387 ml 283 ml Tube Feeding 97 ml 130 ml 130 ml 149 ml Other 60 ml 60 ml Output Urine Total 150 ml 150 ml 450 ml 400 ml Stool Total 0 ml 0 ml 0 ml 0 ml Gastric Drainage Total 0 ml 0 ml Chest Tube Drainage Total 5 ml 2 ml 4 ml 2 ml Physical Exam GENERAL: Intubated CARDIOVASCULAR: Regular rate and rhythm without murmurs, gallops, or rubs. RESPIRATORY: Clear to auscultation. Breath sounds equal bilaterally. No wheezes , rales, or rhonchi. GASTROINTESTINAL: Abdomen soft, non-tender, nondistended. Normal active bowel sounds MUSCULOSKELETAL: Extremities without clubbing, cyanosis, or edema. NEURO: unclear if oriented, follows some commands Laboratory Laboratory Tests Test 10/27/16 06:50 White Blood Count 22.8 TH/MM3 Red Blood Count 3.18 MIL/MM3 Hemoglobin 8.5 GM/DL Hematocrit 26.5 % Mean Corpuscular Volume 83.2 FL Mean Corpuscular Hemoglobin 26.6 PG Mean Corpuscular Hemoglobin 32.0 % Concent Red Cell Distribution Width 15.0 % Platelet Count 99 TH/MM3 Mean Platelet Volume 8.7 FL Neutrophils (%) (Auto) 93.8 % Lymphocytes (%) (Auto) 2.9 % Monocytes (%) (Auto) 3.1 % Eosinophils (%) (Auto) 0.1 % Basophils (%) (Auto) 0.1 % Neutrophils # (Auto) 21.4 TH/MM3 Lymphocytes # (Auto) 0.7 TH/MM3 Monocytes # (Auto) 0.7 TH/MM3 Eosinophils # (Auto) 0.0 TH/MM3 Basophils # (Auto) 0.0 TH/MM3 CBC Comment AUTO DIFF Differential Total Cells 100 Counted Neutrophils % (Manual) 94 % Band Neutrophils % 2 % Lymphocytes % 2 % Monocytes % 2 % Neutrophils # (Manual) 21.9 TH/MM3 Nucleated Red Blood Cells 1 /100 WBC Differential Comment FINAL DIFF MANUAL Platelet Estimate LOW Platelet Morphology Comment NORMAL Ovalocytes 1+ Keratocytes OCC Sodium Level 143 MEQ/L Potassium Level 3.9 MEQ/L Chloride Level 112 MEQ/L Carbon Dioxide Level 19.5 MEQ/L Anion Gap 12 MEQ/L Blood Urea Nitrogen 68 MG/DL Creatinine 3.12 MG/DL Estimat Glomerular Filtration 14 ML/MIN Rate Random Glucose 154 MG/DL Calcium Level 7.5 MG/DL Phosphorus Level 3.8 MG/DL Magnesium Level 2.2 MG/DL Total Bilirubin 0.6 MG/DL Aspartate Amino Transf 183 U/L (AST/SGOT) Alanine Aminotransferase 112 U/L (ALT/SGPT) Alkaline Phosphatase 81 U/L Total Protein 4.9 GM/DL Albumin 1.7 GM/DL Imaging Last Impressions Chest X-Ray 10/26/16 0000 Signed Impressions: Service Date/Time: Wednesday, October 26, 2016 07:05 - CONCLUSION: Interval development of some left-sided supraclavicular air or any obvious pneumothorax. There is a tiny amount of air just above the aortic knob and lateral to the trachea could represent early pneumomediastinum. Heart enlarged. Lungs are grossly clear. Abhinav Marie MD Head CT 10/24/161999 Signed Impressions: Service Date/Time: October 22:09 - CONCLUSION: 1. There is a new regional area of hypodensity in the medial left lower occipital lobe suggesting an acute nonhemorrhagic infarction in the left [employer] distribution. 2. Stable appearance to the hemorrhagic infarction left cerebellum, focal hemorrhage in the right occipital lobe, and old infarction left high occipital lobe. Bradley Morris MD Brain MRI 10/18/16 0000 Signed Impressions: Service Date/Time: Tuesday, October 18, 2016 10:39 - CONCLUSION: New large left cerebral hemisphere infarct involving the anterior cerebellum, SCA territory. The fourth ventricle is midline. The vascular artery looks patent. Abraham Stafford MD FACR Assessment and Plan Problem List: (1) Cardiac arrest Assessment and Plan: It appears primary event was sustained VT, necessitating multiple shocks. Precipitating factor for the ventricular tachyarrhythmias unclear. Recent cath showed no high grade CAD. She does have evidence by echo for severe left ventricular hypertrophy associated with a significant left ventricular outflow tract gradient, though she's never had previous problems with syncope, VT. REC continue IV Amiodarone depending on the degree of her recovery, consider ICD implantation (2) CAD (coronary artery disease) Assessment and Plan: Status post probable NSTEMI. Cath this admission showed no high grade disease. The 70-80% distal RCA lesion seen on cath 2013 now at most 50%, may have been some component of spasm in 2014. Blood pressures too low to resume beta rafael. (3) Chronic atrial fibrillation Assessment and Plan: Xarelto stopped due to hemorrhagic CVAs. Unfortunately CT shows evidence for yet another CVA. (4) Hypertension Assessment and Plan: Bps have been better. Problem Qualifiers (1) Hypertension: Qualified Code: I10 - Essential hypertension Peter Daley MD Oct 27, 2016 11:24
--- NOTE | 2016-10-27 12:25 | HHI.PR ---
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.-unable to anticoagulate due to hemorrhage as well as relative large size of the new occipital cva Diagnosis/Plan: Daily Summary 10/19 more alert and responsive, nystagmus improved mostly follows commands moves bilat limbs on request some visual field preservation at least mri brain seen, she had mra cow in july and it was normal kidney functions not safe for mra with contrast neck or ct angio therefore will defer anticoagulation xarelto suspect there will be balance problems because of large acute right cerebellum infarct leslie occipital infarcts, old on left and subacute on right 10/22 ct brain seen acute neuro change/decreased responsiveness spoke to pig machine operator than discussed with dr Joseph NS I saw her and she was awake, calm, cooperative and following all commands no distress, eom normal, moves 4 limbs without any major difficulty or asymmetry if there is an increase mass effect on cerebellum/4th ventricle she would need decompression acutely the problem is xarelto half life and dr Erickson was going to review with hematology for any suggestion dr Joseph will see pt 10/23 ct brain seen, ?sl worsening of mass effect nausea and some headaches family at bedside and discussed dx and implications so far she is stable but could develop further mass effect rapidly and require decompression NS following, i discussed with rn and pig machine operator as well i will be out of town and if needed one of my partners will cover, please call prn Subjective Subjective Comments No acute events reported Active Medications Current Medications Medications (Trade) Dose Ordered Sig/Shaina Route Start Time Stop Time Status Last Admin (NS Flush) 2 ml UNSCH PRN IV FLUSH 10/15/16 10:45 10/20/16 13:12 (NS Flush) 2 ml BID IV FLUSH 10/15/16 21:00 10/27/16 09:11 (Narcan Inj) 0.4 mg UNSCH PRN IV 10/15/16 10:45 (Julia-Colace) 1 tab BID PO 10/15/16 21:00 10/27/16 09:09 (Milk Of Magnesia Liq) 30 ml Q12H PRN PO 10/15/16 10:45 (Senokot) 17.2 mg Q12H PRN PO 10/15/16 10:45 10/21/16 09:54 (Dulcolax Supp) 10 mg DAILY PRN RECTAL 10/15/16 10:45 (Lactulose Liq) 30 ml DAILY PRN PO 10/15/16 10:45 (Apresoline) 25 mg Q8HR PO 10/15/16 14:00 Hold 10/22/16 06:20 (Atropine Inj) 0.5 mg UNSCH PRN IV 10/16/16 18:00 (Tessalon) 100 mg TID PRN PO 10/17/16 09:15 10/17/16 15:28 (Imdur) 120 mg DAILY@07 PO 10/18/16 07:00 Hold 10/22/16 06:20 (Zofran Inj) 4 mg Q6HR PRN IV PUSH 10/17/16 23:45 10/23/16 00:13 (Marquette 5-325 Mg) 1 tab Q4H PRN PO 10/19/16 08:15 10/27/16 09:09 Acetaminophen 650 mg 650 mg Q6H PRN PO 10/21/16 16:45 10/22/16 11:59 (NS 1000 ml Inj) 1,000 ml @ 30 mls/hr Q24H IV 10/22/16 13:00 10/26/16 14:34 (D50w (Vial) Inj) 50 ml UNSCH PRN IV 10/22/16 17:45 (Glucagon Inj) 1 mg UNSCH PRN OTHER 10/22/16 17:45 Insulin Human Regular 1 1 Q4H SQ 10/22/16 18:00 10/26/16 05:35 (Cardizem Inj/NS Inj) 125 ml @ 0 mls/hr TITRATE IV 10/23/16 08:00 10/23/16 07:57 (Trandate Inj) 10 mg Q1HR PRN IV PUSH 10/23/16 23:15 10/24/16 11:55 Hydralazine HCl 10 mg 10 mg Q1HR PRN IV PUSH 10/23/16 23:15 10/24/16 08:35 (Cordarone Inj/ D5W (Mcdonald) Inj) 250 ml @ 0 mls/hr CONTINUOUS IV 10/24/16 16:00 10/25/16 16:44 Chlorhexidine Gluconate 15 ml 15 ml BID@08,20 MT 10/24/16 20:00 10/27/16 08:00 (Diprivan 1000 Mg/100ml Inj) 100 ml @ 0 mls/hr TITRATE IV 10/24/16 16:30 10/25/16 16:54 Terbutaline Sulfate 1 mg 1 mg UNSCH PRN SQ 10/24/16 16:30 (Levophed Inj/NS 250 ml Inj) 250 ml @ 0 mls/hr TITRATE IV 10/25/16 07:00 10/26/16 03:17 Pantoprazole Sodium 40 mg 40 mg Q24H IV PUSH 10/25/16 11:00 10/26/16 11:31 (Maxipime Inj/NS Inj) 100 ml @ 200 mls/hr Q24H IV 10/26/16 10:00 10/27/16 09:09 Furosemide 20 mg 20 mg BID@09,18 IV PUSH 10/26/16 11:00 10/27/16 09:10 (Diflucan 200 Mg Premix Bag) 50 ml @ 50 mls/hr Q24H IV 10/27/16 08:00 10/27/16 09:08 Allergies Allergies Coded Allergies No Known Allergies (Verified10/15/16) Exam I&O / VS 10/26/16 10/26/16 10/27/16 15:00 23:00 07:00 Intake Total 761 ml 517 ml 492 ml Output Total 152 ml 454 ml 402 ml Balance 609 ml 63 ml 90 ml IV Total 631 ml 387 ml 283 ml Tube Feeding 130 ml 130 ml 149 ml Other 60 ml Output Urine Total 150 ml 450 ml 400 ml Stool Total 0 ml 0 ml 0 ml Gastric Drainage Total 0 ml Chest Tube Drainage Total 2 ml 4 ml 2 ml Vital Signs Date Time Temp Pulse Resp B/P Pulse Ox O2 Delivery O2 Flow Rate FiO2 10/27/16 10:20 14 10/27/16 09:49 100 40 10/27/16 09:39 40 10/27/16 09:39 99 40 10/27/16 08:00 72 10/27/16 06:00 70 10/27/16 04:05 100 40 10/27/16 04:00 40 10/27/16 04:00 78 10/27/16 04:00 96.9 78 14 132/48 99 10/27/16 02:00 84 10/27/16 00:00 98.8 82 15 130/58 100 10/27/16 00:00 82 10/27/16 00:00 40 10/26/16 23:02 99 40 10/26/16 22:00 91 10/26/16 20:00 98.9 79 24 130/58 100 10/26/16 20:00 91 10/26/16 20:00 40 10/26/16 19:50 40 10/26/16 19:50 100 40 10/26/16 18:39 99 40 10/26/16 18:00 76 10/26/16 16:00 40 10/26/16 16:00 99.4 82 23 118/50 100 10/26/16 16:00 82 10/26/16 14:00 69 10/26/16 12:30 40 Exam Comments more alert today. arouses to voice Left pupil 4 mm sluggishly reactive, right pupil 3 mm sluggishly reactive, Has conjugate eye deviation to left MOTOR--no spontaneous limb movement , no withdrawal Objective Micro and Labs Laboratory Tests Test 10/27/16 06:50 White Blood Count 22.8 Red Blood Count 3.18 Hemoglobin 8.5 Hematocrit 26.5 Mean Corpuscular Volume 83.2 Mean Corpuscular Hemoglobin 26.6 Mean Corpuscular Hemoglobin 32.0 Concent Red Cell Distribution Width 15.0 Platelet Count 99 Mean Platelet Volume 8.7 Neutrophils (%) (Auto) 93.8 Lymphocytes (%) (Auto) 2.9 Monocytes (%) (Auto) 3.1 Eosinophils (%) (Auto) 0.1 Basophils (%) (Auto) 0.1 Neutrophils # (Auto) 21.4 Lymphocytes # (Auto) 0.7 Monocytes # (Auto) 0.7 Eosinophils # (Auto) 0.0 Basophils # (Auto) 0.0 CBC Comment AUTO DIFF Differential Total Cells 100 Counted Neutrophils % (Manual) 94 Band Neutrophils % 2 Lymphocytes % 2 Monocytes % 2 Neutrophils # (Manual) 21.9 Nucleated Red Blood Cells 1 Differential Comment FINAL DIFF MANUAL Platelet Estimate LOW Platelet Morphology Comment NORMAL Ovalocytes 1+ Keratocytes OCC Sodium Level 143 Potassium Level 3.9 Chloride Level 112 Carbon Dioxide Level 19.5 Anion Gap 12 Blood Urea Nitrogen 68 Creatinine 3.12 Estimat Glomerular Filtration 14 Rate Random Glucose 154 Calcium Level 7.5 Phosphorus Level 3.8 Magnesium Level 2.2 Total Bilirubin 0.6 Aspartate Amino Transf 183 (AST/SGOT) Alanine Aminotransferase 112 (ALT/SGPT) Alkaline Phosphatase 81 Total Protein 4.9 Albumin 1.7 Date/Time Procedure Status Source Growth 10/26/16 10:00 Gram Stain - Final Resulted Sputum Endotracheal 10/26/16 10:00 Sputum Culture Resulted Sputum Endotracheal Pending 10/25/16 13:56 Aerobic Blood Culture - Preliminary Resulted Blood Peripheral NO GROWTH IN 2 DAYS 10/25/16 13:56 Anaerobic Blood Culture - Preliminary Resulted Blood Peripheral NO GROWTH IN 2 DAYS 10/25/16 10:10 Urine Culture - Preliminary Resulted Urine Catheterized Urine Camila Albicans Krishan Hodges PhD MD Oct 27, 2016 12:25
[2016-10-27] MEDS: PANTOPRAZOLE SODIUM 40 MG VIAL IV PUSH SCH (12:27)
[2016-10-27] MEDS: SODIUM CHLOR 0.9% 1000 ML INJ 1,000 ML IV SCH (14:34)
[2016-10-27] MEDS: AMIODARONE INJ 450 MG in D5W (EXCEL BAG) 241 ML IV SCH (15:04)
[2016-10-28] VITALS (17 sets, daily range): BP systolic 136–163; BP diastolic 46–54; PULSE 55–72; RESP 12–22; TEMP 97.5–100.4; O2SAT 98–100
[2016-10-28] MEDS: AMIODARONE INJ 450 MG in D5W (EXCEL BAG) 241 ML IV SCH (03:21)
[2016-10-28] MEDS: INSULIN NovoLIN REGULAR SUPPLEMENTAL SCALE SQ SCH ×4 (03:50→13:57)
[2016-10-28 03:59] LABS: BASOPHIL % 0.1 % (0.0-2.0); HEMATOCRIT 25.1 % (35.0-46.0); LYMPH % 3.4 % (9.0-44.0); LYMPHOCYTE # 0.7 TH/MM3 (1.0-4.8); MEAN CELL VOLUME 82.8 FL (80.0-100.0); MEAN CORPUSCULAR HGB CONC 32.6 % (32.0-36.0); MONO % 4.2 % (0.0-8.0); NEUT % 92.3 % (16.0-70.0); PLATELET COUNT 97 TH/MM3 (150-450); RED BLOOD COUNT 3.03 MIL/MM3 (4.00-5.30); RED CELL DISTRIBUTION WIDTH 15.1 % (11.6-17.2); WHITE BLOOD COUNT 19.5 TH/MM3 (4.0-11.0)
[2016-10-28 04:07] LABS: HEMO FLAGS AUTO DIFF
[2016-10-28 04:21] LABS: BICARBONATE 22.3 MEQ/L (21.0-32.0); POTASSIUM 3.7 MEQ/L (3.5-5.1)
[2016-10-28 04:25] LABS: CALCIUM-PROTEIN CORRECTED 8.5 MG/DL (8.5-10.1); TOTAL BILIRUBIN ADULT 0.6 MG/DL (0.2-1.0)
[2016-10-28 04:40] LABS: BANDS 3 % (0-6); CORRECTED NUCLEATED RBC 1 /100 WBC (0-0); METAMYELOCYTES 1 % (0-1); NEUTROPHIL # MANUAL DIFF 17.9 TH/MM3 (1.8-7.7); POLYS (SEG NEUTROPHILS) 88 % (16-70); SCAN/DIFF FINAL DIFF MANUAL; WBC DIFF SAMPLE 100
[2016-10-28 04:42] LABS: OVALOCYTES 1+ (NORMAL); PLATELET ESTIMATE SMEAR LOW (NORMAL); PLATELET MORPHOLOGY NORMAL (NORMAL)
[2016-10-28 04:43] LABS: ACANTHOCYTES OCC (NORMAL)
[2016-10-28] MEDS: ACETAMINOPHEN 325 MG TAB PO PRN (06:01)
--- NOTE | 2016-10-28 08:28 | PD.CARD.PN ---
Subjective Subjective Remarks Arousable. Denies CP, abdominal pain, dyspnea. Objective Medications Item Value Date Time Labetalol HCl 10 mg 10/23/16 2315 (Trandate Inj) Q1HR PRN/IV PUSH 10/24/16 1155 Hydralazine HCl 10 mg 10/23/16 2315 (Apresoline Inj) Q1HR PRN/IV PUSH 10/24/16 0835 Furosemide 20 mg 10/26/16 1100 (Lasix Inj) BID@09,18/IV PUSH 10/27/16 1808 Norepinephrine 250 ml @ 0 mls/hr 10/25/16 0700 Bitartrate 4 mg/ TITRATE/IV 10/26/16 0317 Sodium Chloride Amiodarone HCl 250 ml @ 0 mls/hr 10/24/16 1600 450 mg/Dextrose CONTINUOUS/IV 10/28/16 0321 Vital Signs / I&O Vital Signs Date Time Temp Pulse Resp B/P Pulse Ox O2 Delivery O2 Flow Rate FiO2 10/28/16 06:00 66 10/28/16 05:20 99 40 10/28/16 04:00 99.4 64 17 153/54 99 10/28/16 04:00 64 10/28/16 04:00 40 10/28/16 02:00 64 10/28/16 00:00 67 10/28/16 00:00 99.1 67 14 144/51 99 10/28/16 00:00 40 10/27/16 23:52 99 40 10/27/16 22:00 72 10/27/16 20:00 65 10/27/16 20:00 96.3 65 13 152/55 100 10/27/16 20:00 40 10/27/16 19:56 98 40 10/27/16 18:00 63 10/27/16 16:00 71 10/27/16 16:00 40 10/27/16 16:00 98.1 71 15 148/69 100 10/27/16 15:24 98 40 10/27/16 14:00 68 10/27/16 12:37 100 40 10/27/16 12:00 40 10/27/16 12:00 97.9 68 13 131/68 100 10/27/16 12:00 68 10/27/16 10:20 14 10/27/16 10:00 66 10/27/16 09:49 100 40 10/27/16 09:39 40 10/27/16 09:39 99 40 I/O 10/27/16 10/27/16 10/27/16 10/28/16 10/28/16 10/28/16 07:00 15:00 23:00 07:00 15:00 23:00 Intake Total 492 ml 571 ml 794 ml 668 ml Output Total 402 ml 450 ml 700 ml 500 ml Balance 90 ml 121 ml 94 ml 168 ml IV Total 283 ml 453 ml 378 ml 373 ml Tube Feeding 149 ml 118 ml 176 ml 235 ml Other 60 ml 240 ml 60 ml Output Urine Total 400 ml 450 ml 700 ml 500 ml Stool Total 0 ml 0 ml 0 ml 0 ml Chest Tube Drainage Total 2 ml 0 ml 0 ml 0 ml Physical Exam GENERAL: Intubated. In no acute distress. HEENT: Jugular venous pressure is normal. CHEST: Clear lung weber anteriorly. CARDIAC: Regular rate and rhythm without S3, S4. I/ systolic murmur LLSB and apex. ABDOMEN: Soft, nontender, no hepatosplenomegaly. Bowel sounds present. EXTREMITIES: No clubbing, cyanosis, or edema. Laboratory Laboratory Tests Test 10/28/16 03:24 White Blood Count 19.5 TH/MM3 Red Blood Count 3.03 MIL/MM3 Hemoglobin 8.2 GM/DL Hematocrit 25.1 % Mean Corpuscular Volume 82.8 FL Mean Corpuscular Hemoglobin 27.0 PG Mean Corpuscular Hemoglobin 32.6 % Concent Red Cell Distribution Width 15.1 % Platelet Count 97 TH/MM3 Mean Platelet Volume 8.4 FL Neutrophils (%) (Auto) 92.3 % Lymphocytes (%) (Auto) 3.4 % Monocytes (%) (Auto) 4.2 % Eosinophils (%) (Auto) 0.0 % Basophils (%) (Auto) 0.1 % Neutrophils # (Auto) 18.0 TH/MM3 Lymphocytes # (Auto) 0.7 TH/MM3 Monocytes # (Auto) 0.8 TH/MM3 Eosinophils # (Auto) 0.0 TH/MM3 Basophils # (Auto) 0.0 TH/MM3 CBC Comment AUTO DIFF Differential Total Cells 100 Counted Neutrophils % (Manual) 88 % Band Neutrophils % 3 % Lymphocytes % 3 % Monocytes % 5 % Neutrophils # (Manual) 17.9 TH/MM3 Metamyelocytes 1 % Nucleated Red Blood Cells 1 /100 WBC Differential Comment FINAL DIFF MANUAL Platelet Estimate LOW Platelet Morphology Comment NORMAL Ovalocytes 1+ Acanthocytes OCC Sodium Level 145 MEQ/L Potassium Level 3.7 MEQ/L Chloride Level 113 MEQ/L Carbon Dioxide Level 22.3 MEQ/L Anion Gap 10 MEQ/L Blood Urea Nitrogen 74 MG/DL Creatinine 3.14 MG/DL Estimat Glomerular Filtration 14 ML/MIN Rate Random Glucose 162 MG/DL Calcium Level 7.3 MG/DL Protein Corrected Calcium 8.5 MG/DL Total Bilirubin 0.6 MG/DL Aspartate Amino Transf 109 U/L (AST/SGOT) Alanine Aminotransferase 95 U/L (ALT/SGPT) Alkaline Phosphatase 85 U/L Total Protein 5.0 GM/DL Albumin 1.6 GM/DL Assessment and Plan Problem List: (1) Cardiac arrest Assessment and Plan: Stable over the weekend. No further VT. Hypertrophic obstructive cardiomyopathy by echo. REC continue Amiodarone, can change to oral depending on the degree of her recovery, consider ICD implantation (2) CAD (coronary artery disease) Assessment and Plan: Status post probable NSTEMI. Cath this admission showed no high grade disease. The 70-80% distal RCA lesion seen on cath 2013 now at most 50%, may have been some component of spasm in 2014. Consider resume beta rafael. (3) Chronic atrial fibrillation Assessment and Plan: Xarelto stopped due to hemorrhagic CVAs. Appears to be in sinus bradycardia. (4) Hypertension Assessment and Plan: BP's stable, mildly hypertensive. Consider resume beta rafael. Code Status alternative code Problem Qualifiers (1) CAD (coronary artery disease): Qualified Code: I25.110 - Coronary artery disease involving false pass coronary artery of false pass heart with unstable angina pectoris (2) Hypertension: Qualified Code: I10 - Essential hypertension Dakota Andino MD Oct 28, 2016 08:28
[2016-10-28] MEDS: FLUCONAZOLE 200 MG IV SCH (08:43)
[2016-10-28] MEDS: CHLORHEXIDINE 0.12% (ORAL KIT) 15 ML CUP MT SCH (08:44)
[2016-10-28] MEDS: SODIUM CHLORIDE 0.9% FLUSH 10 ML FLUSH IV FLUSH SCH ×2 (08:51→20:07)
[2016-10-28] MEDS: FUROSEMIDE 20 MG/2 ML VIAL IV PUSH SCH (08:51)
[2016-10-28] MEDS: DOCUSATE SODIUM 50 MG/SENNA 8.6 MG TAB PO SCH (08:51)
[2016-10-28] MEDS ORDERED: AMIODARONE 200 MG TAB PO SCH (09:00)
[2016-10-28] MEDS ORDERED: SUCCINYLCHOLINE CHLORIDE 200 MG/10 ML VIAL IV ONE (09:45)
[2016-10-28] MEDS ORDERED: ETOMIDATE 20 MG/10 ML VIAL IVP ONE (09:45)
[2016-10-28] MEDS ORDERED: fentaNYL CITRATE 250 MCG/5 ML AMP IV ONE (09:45)
--- NOTE | 2016-10-28 09:57 | HHI.NSPN ---
(Song Charles) History Chief Complaint: Ischemic stroke with hemorrhagic conversion. (Song Charles) Interval History A 76-year-old female who was admitted on 10/15/2016 for exacerbation of her congestive heart failure and myocardial infarction. She is also on Xarelto anticoagulation for her chronic atrial fibrillation. She has suffered from a previous strokes involving the left parietal occipital aspect as well as the right occipital aspect and more recent one in the left cerebellar hemisphere. She was seen by neurology and her Xarelto continued. She was noted to have a hypotensive episode today, although remains interactive and awake. CT scan of the head obtained reveals hemorrhagic area of conversion and the left cerebellar hemisphere stroke as well as a smaller right occipital stroke. She also has old left parietal occipital area strokes. There is generalized atrophy. There is slight compression of the fourth ventricle but this is not obstructed and there is no hydrocephalus. 10/23/16: Pt lethargic but awakens enough to answer some questions. States yes she has a headache. States forehead when asked where. States no n/v. Follows simple commands but can take persistence. 10/24/16: Pt more awake today than yesterday. Answers questions better. No headache, nausea, vomiting, chest pain. States she is okay. Follows simple commands. 10/28/16: Pt intubated, on CPAP. Opens eyes. Pupils 3mm bilaterally, reactive bilaterally. Follows simple commands. (Song Charles) System Review Comments Not able to obtain given clinical condition. (Song Charles) Exam Results Vital Signs Date Time Temp Pulse Resp B/P Pulse Ox O2 Delivery O2 Flow Rate FiO2 10/28/16 07:30 99 40 10/28/16 06:00 66 10/28/16 04:00 99.4 17 153/54 10/24/16 07:00 Room Air Intake and Output 10/27/16 10/27/16 10/28/16 08:00 16:00 00:00 Intake Total 492 ml 571 ml 794 ml Output Total 402 ml 450 ml 700 ml Balance 90 ml 121 ml 94 ml (Song Charles) Physical Examination Resp: Intubated. CTA bilaterally. Left CT in place. Heart: Irregular. No murmurs. On amiodarone. Abd: Soft positive bs Skin: No cyanosis or erythema. SCDs in place bilateral LEs. Muscle: Follows commands slasher hands and moves toes bilaterally. Neuro: Pt awakens to voice. Pupils 3mm bilaterally, reactive bilaterally. Follows simple commands. (Song Charles) Lab, Micro, Other Results Last Impressions Chest X-Ray 10/26/16 0000 Signed Impressions: Service Date/Time: Wednesday, October 26, 2016 07:05 - CONCLUSION: Interval development of some left-sided supraclavicular air or any obvious pneumothorax. There is a tiny amount of air just above the aortic knob and lateral to the trachea could represent early pneumomediastinum. Heart enlarged. Lungs are grossly clear. Abhinav Marie MD Head CT 10/24/161999 Signed Impressions: Service Date/Time: October 22:09 - CONCLUSION: 1. There is a new regional area of hypodensity in the medial left lower occipital lobe suggesting an acute nonhemorrhagic infarction in the left ASTROBIOLOGIST distribution. 2. Stable appearance to the hemorrhagic infarction left cerebellum, focal hemorrhage in the right occipital lobe, and old infarction left high occipital lobe. Bradley Morris MD Brain MRI 10/18/16 0000 Signed Impressions: Service Date/Time: Tuesday, October 18, 2016 10:39 - CONCLUSION: New large left cerebral hemisphere infarct involving the anterior cerebellum, SCA territory. The fourth ventricle is midline. The vascular artery looks patent. Abraham Stafford MD FACR Laboratory Tests Test 10/28/16 03:24 White Blood Count 19.5 TH/MM3 Red Blood Count 3.03 MIL/MM3 Hemoglobin 8.2 GM/DL Hematocrit 25.1 % Mean Corpuscular Volume 82.8 FL Mean Corpuscular Hemoglobin 27.0 PG Mean Corpuscular Hemoglobin 32.6 % Concent Red Cell Distribution Width 15.1 % Platelet Count 97 TH/MM3 Mean Platelet Volume 8.4 FL Neutrophils (%) (Auto) 92.3 % Lymphocytes (%) (Auto) 3.4 % Monocytes (%) (Auto) 4.2 % Eosinophils (%) (Auto) 0.0 % Basophils (%) (Auto) 0.1 % Neutrophils # (Auto) 18.0 TH/MM3 Lymphocytes # (Auto) 0.7 TH/MM3 Monocytes # (Auto) 0.8 TH/MM3 Eosinophils # (Auto) 0.0 TH/MM3 Basophils # (Auto) 0.0 TH/MM3 CBC Comment AUTO DIFF Differential Total Cells 100 Counted Neutrophils % (Manual) 88 % Band Neutrophils % 3 % Lymphocytes % 3 % Monocytes % 5 % Neutrophils # (Manual) 17.9 TH/MM3 Metamyelocytes 1 % Nucleated Red Blood Cells 1 /100 WBC Differential Comment FINAL DIFF MANUAL Platelet Estimate LOW Platelet Morphology Comment NORMAL Ovalocytes 1+ Acanthocytes OCC Sodium Level 145 MEQ/L Potassium Level 3.7 MEQ/L Chloride Level 113 MEQ/L Carbon Dioxide Level 22.3 MEQ/L Anion Gap 10 MEQ/L Blood Urea Nitrogen 74 MG/DL Creatinine 3.14 MG/DL Estimat Glomerular Filtration 14 ML/MIN Rate Random Glucose 162 MG/DL Calcium Level 7.3 MG/DL Protein Corrected Calcium 8.5 MG/DL Total Bilirubin 0.6 MG/DL Aspartate Amino Transf 109 U/L (AST/SGOT) Alanine Aminotransferase 95 U/L (ALT/SGPT) Alkaline Phosphatase 85 U/L Total Protein 5.0 GM/DL Albumin 1.6 GM/DL 10/27/16 10/27/16 10/28/16 15:00 23:00 07:00 Intake Total 571 ml 794 ml 668 ml Output Total 450 ml 700 ml 500 ml Balance 121 ml 94 ml 168 ml IV Total 453 ml 378 ml 373 ml Tube Feeding 118 ml 176 ml 235 ml Other 240 ml 60 ml Output Urine Total 450 ml 700 ml 500 ml Stool Total 0 ml 0 ml 0 ml Chest Tube Drainage Total 0 ml 0 ml 0 ml (Song Charles) Medical Decision Making Impression and Plan A: 1. Multiple areas of strokes involving the most recent one the left cerebellar hemisphere and previous strokes in the left parieto-occipital area and right occipital area with hemorrhagic areas of conversion in the left cerebellar hemisphere and right occipital strokes. There is some mild mass effect in the fourth ventricle but no obstruction or hydrocephalus with generalized cerebral atrophy noted. 2. Chronic atrial fibrillation on Xarelto, the last dose last evening. 3. Recent myocardial infarction with a history of congestive heart failure. 4. Chronic kidney disease with recent exacerbation. 5. Hypertension. 6. s/p cardiac arrest x 2 s/p CPR with defibrillation. P: Continue with close neuro checks Continue with critical care. (Song Charles) Attending Statement The exam, history, and the medical decision-making described in the above note were completed with the assistance of the mid-level provider. I reviewed and agree with the findings presented. I attest that I had a [id number] encounter with the patient on the same day, and personally performed and documented my assessment and findings in the medical record. (Gallo Joseph MD) Song Charles Oct 28, 2016 09:57 Gallo Joseph MD Oct 28, 2016 13:03
[2016-10-28] MEDS: PANTOPRAZOLE SODIUM 40 MG VIAL IV PUSH SCH (10:26)
[2016-10-28] MEDS: CEFEPIME INJ 1,000 MG in SODIUM CHLORIDE 0.9% INJ 100 ML IV SCH (10:27)
--- NOTE | 2016-10-28 10:38 | HHI.CCPN ---
Subjective Remarks/Hospital Course 10/22: The patient is a 76-year-old female with past medical history of chronic atrial fibrillation, coronary artery disease, hypertension, chronic kidney disease, CVA, gastroesophageal reflux disease who was admitted to [facility] under hospitalist service on October 15 with elevated troponins/non-ST elevation CT. She underwent cardiac catheterization on October [address] Andino which showed overall minimal left coronary system disease. Echocardiogram from October 17 showed moderate to severe concentric LVH, hypertrophic obstructive cardiomyopathy with EF of 70-75%. The patient was placed on aspirin, Imdur, Lopressor and hydralazine. On October [address] scan of the brain without contrast for dizziness and was found to have areas of increased density involving the right occipital lobe. Subsequently, the patient underwent an MRI of the brain on October 18 which showed new large cerebral hemisphere infarct involving the anterior cerebellum with no hemorrhage evident. The patient was on Xarelto for her stroke and atrial fibrillation. This afternoon code blue was called as the patient was found unresponsive and hypotensive with systolic blood pressure in 60s to 70s. The patient, however, never lost a pulse and did not receive any ACLS drugs. She was given 1 liter bolus of normal saline and transferred to CVICU. She became a little bit more awake and her blood pressure improved to 152/69 with a pulse of 87. Current saturation 99%. Her last chest x-ray from October 20 showed no evidence of any acute disease. The patient is scheduled for repeat CT scan of the brain to rule out any hemorrhagic conversion from her stroke. Most of the history was obtained from reviewing medical records as patient is a poor historian. 10/23: Patient had chest pain earlier with tachycardia which responded with IV Lopressor. Her underlying rhythm is A. fib and she subsequently developed RVR with heart rate in the 140s. She is sitting up in bed moaning at the time of my evaluation and requesting water. Does not really follow commands on my questioning. According to her daughter she follows and recognizes her. She does open eyes spontaneously. 10/24: Awake and alert, oriented 3, follows commands. Moves all 4 extremities. Laying in bed not in any acute distress. Denies any headache or chest pain. 10/25: Patient went into V. tach arrest at 1456 hrs yesterday and underwent CPR/ ACLS protocol for about 13 minutes including defibrillation prior to return of spontaneous circulation. She was intubated during the code and placed on mechanical ventilation. Subsequently she had a second episode of cardiac arrest at 1534 hrs. where she became bradycardic followed by asystole for which she underwent CPR/ACLS protocol converted to V. tach during that code and was successfully defibrillated and converted back to her original atrial fibrillation. She was hypotensive following the cardiac arrest requiring Levophed for pressor support. She did have a right pneumothorax for which she had a right chest tube placed following the above episodes. This morning patient remains encephalopathic, orally intubated on mechanical ventilation. On Levophed 8 mics per minute and amiodarone gtt. 10/26: Drowsy, arousable, opens eyes spontaneously and on command. Squeezes weakly with both hands on command. He remains orally intubated on mechanical ventilation. Levophed just turned off. Remains on amiodarone gtt. Right sided chest tube with no air leak. 10/27: Drowsy, arousable, squeezes weakly with both hands on command. On mechanical ventilation via ET tube. Off all pressors. Remains on amiodarone gtt. Right sided chest tube remains in place with no air leak. Positive fluid balance noted despite Lasix. Awaiting a.m. labs 10/28: Drowsy, arousable, squeezes weakly with both hands on command. Remains on mechanical ventilation via ET tube. Worsening BUN/creatinine noted. On Lasix to mobilize fluid. Objective Vital Signs Date Time Temp Pulse Resp B/P Pulse Ox O2 Delivery O2 Flow Rate FiO2 10/28/16 10:00 67 10/28/16 08:00 40 10/28/16 08:00 100.4 22 136/46 99 10/24/16 07:00 Room Air Intake and Output 10/27/16 10/27/16 10/28/16 08:00 16:00 00:00 Intake Total 492 ml 571 ml 794 ml Output Total 402 ml 450 ml 700 ml Balance 90 ml 121 ml 94 ml Result Diagram: 10/28/16 0324 10/28/16 0324 Imaging CXR 10/25 (following chest tube placement)-personally reviewed: ET tube above debi, right sided chest tube in place with resolution of pneumothorax, lung weber clear with no obvious infiltrates Last [address] 10/24/161999 Signed Impressions: Service Date/Time: October 22:09 - CONCLUSION: 1. There is a new regional area of hypodensity in the medial left lower occipital lobe suggesting an acute nonhemorrhagic infarction in the left LOOP CUTTER distribution. 2. Stable appearance to the hemorrhagic infarction left cerebellum, focal hemorrhage in the right occipital lobe, and old infarction left high occipital lobe. Bradley Morris MD Chest X-Ray 10/24/16 Signed Impressions: Service Date/Time: October 18:08 - CONCLUSION: Right chest tube in good position. No pneumothorax seen. Bradley Morris MD Chest X-Ray 10/24/16 Signed Impressions: Service Date/Time: October 15:38 - CONCLUSION: 1. Interval development of small right-sided pneumothorax measuring up to 1.5 cm. 2. ETT 1.5 cm above the debi. 3. Remainder the exam is unchanged. Sarthak Floyd MD Last Impressions Head CT 10/22/16 Signed Impressions: Service Date/Time: Saturday, October 22, 2016 13:31 - CONCLUSION: 1. Extensive petechial hemorrhage associated with a known left cerebellar infarct with surrounding edema and mass effect with partial effacement of the fourth ventricle and mild compression on the brainstem from the left side. 2. Acute on chronic infarct in the right occipital lobe also associated with some petechial hemorrhage but without significant localized mass effect. 3. Stable remote left parietal occipital infarct. Chandler Manning MD Chest X-Ray 10/22/16 Signed Impressions: Service Date/Time: Saturday, October 22, 2016 14:05 - CONCLUSION: 1. Cardiomegaly. Basilar density most characteristic of atelectasis. No effusion or pneumothorax. Chandler Manning MD Brain MRI 10/18/16 Signed Impressions: Service Date/Time: Tuesday, October 18, 2016 10:39 - CONCLUSION: New large left cerebral hemisphere infarct involving the anterior cerebellum, SCA territory. The fourth ventricle is midline. The vascular artery looks patent. Abraham Stafford MD FACR Objective Remarks General: Elderly female currently orally intubated on mechanical ventilation. HEENT: Atraumatic and normocephalic. Pupils equal round and reactive to light Conjunctiva pink. Nonicteric sclerae. Oral mucosa within normal. NECK: Supple. No JVD, adenopathy or thyromegaly. Trachea midline. CARDIOVASCULAR: Irregularly irregular. Normal S1-S2. No murmurs, rubs or gallops noted. PULMONARY: Orally intubated on mechanical ventilation, Bilateral equal air entry. No rales or wheezing. Right sided chest tube in place with no air leak noted ABDOMEN: Soft, nontender, no distension. Positive bowel sounds. EXTREMITIES: No cyanosis, clubbing. Trace edema NEURO: Drowsy, easily arousable, opens eyes spontaneously and on command. 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 Plantars equivocal Access: Right femoral central venous catheter, left femoral arterial catheter placed on 10/24/16 Procedures 10/16/16 cardiac catheterization A/P Assessment and Plan IMPRESSION 1. Cardiac arrest status post CPR 2. Encephalopathy. 3. recent large left cerebellar hemisphere infarct with minimal hemorrhagic conversion and cerebral edema with mass effect on fourth ventricle. New left occipital lobe infarct 4. Non-ST elevation CT status post cardiac catheterization which showed minimal coronary artery disease. 5. Chronic atrial fibrillation, on Xarelto(now off). 6. Hypertension. 7. Chronic kidney disease. 8. Gastroesophageal reflux disease. 9. History of CVA. 10. Hypertrophic obstructive cardiomyopathy 11. A. fib with RVR 12. Hypotension 13. Acute respiratory failure on mechanical ventilation 14. Right pneumothorax status post chest tube placement 15: Fungal UTI RECOMMENDATIONS Neuro: Monitor neuro status closely and avoid any sedatives. MRI from October 18 showed large left cerebellar hemisphere infarct. Neurology/ Neurosurgery f/u. Holding Xarelto as CT 10/22 showed petechial hemorrhages in area of cerebellar infarct. Repeat head CT following cardiac arrest on 10/25 showed new left occipital lobe infarct. Concern regarding hypoxic encephalopathy and cardiac arrest. Follow neuro status. Currently off all sedation. Propofol for sedation if needed. Cardiovascular: She was receiving Lopressor, hydralazine and Imdur which were held on 10/22 for hypotension. Resumed Lopressor in view of A. fib with RVR on 10/23 which was held following cardiac arrest. Off Cardizem drip. Cardiac cath on October 16 which showed minimal coronary artery disease. Echocardiogram from October 17 showed hypertrophic obstructive cardiomyopathy and EF of 70-75%.. Decreased IV fluids to 50 cc/h. Status post CPR/ACLS for cardiac arrest 2 on 10/24. On amiodarone and Levophed drips currently. Troponin greater than 40 following cardiac arrests. Levophed just titrated off on 10/26 AM. Labetalol/ hydralazine when necessary for systolic blood pressure greater than 160. Resuming Lopressor on 10/26. Lasix on 10/27 to mobilize fluid. KVO IV fluids. Pulmonary: Continue mechanical ventilation, vent bundle, bronchodilators as needed. Start daily C Pap trials. Continued right sided chest tube to -20 cm water pressure with underwater seal. GI/liver: Tolerating tube feeds at 30 cc per hour, will advance as tolerated Renal/: Monitor renal function, Is and Os and avoid nephrotoxins. She received 1 liter bolus of normal saline for hypotension on 10/22. KVO IV fluids. Rising BUN/ creatinine noted probably secondary to ATN from lack of perfusion during cardiac arrest. Lasix to mobilize fluid Heme : Follow CBC. Cannot receive antiplatelet therapy or anticoagulation due to hemorrhagic conversion an area of previous stroke till cleared by neurosurgery. ID: F/u sputum cultures and UA and urine cultures. On Levaquin which will be switched to cefepime to broaden empiric antibiotic coverage in view of rising white count. Check stool for C. difficile if patient has diarrhea. Monitor CBC. Urine cultures sent on 10/25 growing Camila albicans. Continue fluconazole 200 mg IV daily started on 10/27. Endocrine: Sliding scale insulin with Accu-Chek q. 4-hour for glycemic control. GI prophylaxis with Protonix and DVT prophylaxis with SCDs. No heparin or Lovenox till cleared by neurosurgery. Xarelto on hold due to petechial hemorrhages noted on head CT 10/22 Further recommendations per neurosurgery/neurology and cardiology Discussed with patient's family at length following cardiac arrest. Palliative care team following to assist with deciding goals of therapy. I discussed with family again on 10/26 regarding current clinical status. Explained that patient would be difficult to extubate because of rib fractures following CPR and concern regarding airway protection. Also explained that if she tolerates C Pap trials I would need to know from them if she failed extubation then would they want her reintubated and then proceed with tracheostomy and PEG tube placement or they want to focus more on comfort measures at that point. Patient's daughter acknowledged my concern and said that they would discuss amongst the other family members before coming to decision. I also discussed that if we are going to continue aggressive care I would need to replace her central line by 10/27. Family meeting held again last evening on 10/26 with patient's children. They are leaning towards de-escalation of therapy and will be making a decision in the next day or so. I explained the process of transitioning to comfort measures and terminal wean and they voiced understanding. Condition critical Time spent on critical care excluding procedures 35 minutes Kyrie Lees MD Oct 28, 2016 10:38
[2016-10-28] MEDS ORDERED: AMIODARONE 200 MG TAB OG-TUBE ONE (13:45)
[2016-10-28] MEDS: SODIUM CHLOR 0.9% 1000 ML INJ 1,000 ML IV SCH (13:58)
--- NOTE | 2016-10-28 14:04 | HHI.HCPN ---
Reason for visit a. To assist with evaluation and management of symptoms including: decreased appetite, lethargy, weakness. b. To assist medical decision maker(s) with: better understanding of current medical conditions; weighing benefits/burdens of medical treatment options; making medical treatment decisions. . Subjective/Interval History Pt seen to follow with family RE goals of treatment. D/w access lead. Pt has remained stable, on mech vent. 10/26 sputum positive normal respiratory virgil. 10/25 blood cultures no growth to date. 10/25 urine with Camila. BUN increasing 74/creatinine 3.14. Urine output adequate. WBC 19, hemoglobin 8.2/hematocrit 25.1. Patient arouses, reported to follow some commands. Possible may medically extubate in the coming days; however she remains high risk for respiratory failure due to secondary broken ribs, as well as high-risk for decline due to infarct in decline in neurologic status. Microstrategy Architect Developer indicates family beginning to discuss possibility of withdrawal of life support in transition to comfort focus if patient continues to not show signs of improvement. Patient seen in ICU bed no family at bedside. No sedation, on amiodarone drip. She opens eyes slightly to touch and verbal. Weakly moves hands/fingers to commands. She does not move lower extremities to command or to touch though grimaces seems to localize. She appears comfortable when not stimulated. Nursing to notify me when patient's children arrive, he indicates they have just left. . Family/friend interactions later notified by nurse family present, 1630 met with 4 adult children. Reviewed hospital course, current assessment, treatment options going forward, prognosis-- including pt high risk for ongoing respiratory and neurological complications/setbacks. Alternatively, review option to transition to comfort focus treatments only, and remove artificial life support, if consistent w pt wishes. Family indicates they have been speaking throughout the day and weekend, and have this afternoon decided they wish to withdraw life support and transition to comfort focus, as consistent with pt wishes. Anticipatory guidance provided, review of hospice role, services, philosophy. They wish to proceed w/ withdrawal this afternoon as soon as orders can be in place. Review of exhibits, all 4 children to sign. They are agreeable to consult with hospice tomorrow, for possible transition to a hospice care center. D/w critical care, primary RN, palliative ALEJANDRO Carreon to assist with orders. . Advance Directives Living Will: Never completed Health Care Surrogate: Never completed Durable Power of Nutrition Program Instructor: Never completed Advance Directive Specifics Significant change in goals: 1630 family elected to transition to comfort measures only, no further invasive/ aggressive measures , today. Objective Vital Signs Date Time Temp Pulse Resp B/P Pulse Ox O2 Delivery O2 Flow Rate FiO2 10/28/16 13:53 100 40 10/28/16 12:13 100 40 10/28/16 12:00 97.5 61 22 146/49 100 10/28/16 12:00 40 10/28/16 12:00 72 10/28/16 10:00 67 10/28/16 08:00 40 10/28/16 08:00 58 10/28/16 08:00 100.4 59 22 136/46 99 10/28/16 07:30 99 40 10/28/16 06:00 66 10/28/16 05:20 99 40 10/28/16 04:00 99.4 64 17 153/54 99 10/28/16 04:00 64 10/28/16 04:00 40 10/28/16 02:00 64 10/28/16 00:00 67 10/28/16 00:00 99.1 67 14 144/51 99 10/28/16 00:00 40 10/27/16 23:52 99 40 10/27/16 22:00 72 10/27/16 20:00 65 10/27/16 20:00 96.3 65 13 152/55 100 10/27/16 20:00 40 10/27/16 19:56 98 40 10/27/16 18:00 63 10/27/16 16:00 71 10/27/16 16:00 40 10/27/16 16:00 98.1 71 15 148/69 100 10/27/16 15:24 98 40 10/27/16 14:00 68 Intake & Output 10/28/16 10/28/16 07:00 19:00 Intake Total 1462 ml Output Total 1200 ml Balance 262 ml IV Total 751 ml Tube Feeding 411 ml Other 300 ml Output Urine Total 1200 ml Stool Total 0 ml Chest Tube Drainage Total 0 ml Physical Exam CONSTITUTIONAL/GENERAL: This is a thin patient, appears comfortable,sedated on [facility] vent TUBES/LINES/DRAINS: PIVs upper extremities. donald catheter. scds, ET tube, OG tube, soft restraints bilateral upper extremities, chest tube CARDIOVASCULAR: irregularly irregular. No murmur. Peripheral pulses palpable. Edema to bilateral upper extremities. RESPIRATORY/CHEST: Symmetric, unlabored respirations via mechanical vent .Clear to auscultation. Breath sounds equal bilaterally. Right lateral chest tube no air leak visible GASTROINTESTINAL: Abdomen soft, flat, non-tender, nondistended. No hepato- splenomegaly, or palpable masses. No guarding. Bowel sounds normoactive . Tube feed infusing via OG tube GENITOURINARY: Without palpable bladder distension. Donald catheter in place. NEUROLOGICAL: Lethargic, opens eyes to touch/verbal. Does not keep eyes open . Follows commands to very weakly grasp with bilateral upper extremities. Does not follow commands with lower extremities, does not withdrawal to pain in lower extremities-seems to grimace with pain to lower PSYCHIATRIC: No obvious anxiety/depression-- limited assessment due to lethargy/ clinical conditions. . Diagnostic Tests Laboratory Laboratory Tests Test 10/26/16 10/27/16 10/28/16 08:05 06:50 03:24 White Blood Count 25.5 TH/MM3 22.8 TH/MM3 19.5 TH/MM3 (4.0-11.0) (4.0-11.0) (4.0-11.0) Red Blood Count 3.37 MIL/MM3 3.18 MIL/MM3 3.03 MIL/MM3 (4.00-5.30) (4.00-5.30) (4.00-5.30) Hemoglobin 9.0 GM/DL 8.5 GM/DL 8.2 GM/DL (11.6-15.3) (11.6-15.3) (11.6-15.3) Hematocrit 28.0 % 26.5 % 25.1 % (35.0-46.0) (35.0-46.0) (35.0-46.0) Mean Corpuscular Volume 82.9 FL 83.2 FL 82.8 FL (80.0-100.0) (80.0-100.0) (80.0-100.0) Mean Corpuscular Hemoglobin 26.6 PG 26.6 PG 27.0 PG (27.0-34.0) (27.0-34.0) (27.0-34.0) Mean Corpuscular Hemoglobin 32.1 % 32.0 % 32.6 % Concent (32.0-36.0) (32.0-36.0) (32.0-36.0) Red Cell Distribution Width 15.1 % 15.0 % 15.1 % (11.6-17.2) (11.6-17.2) (11.6-17.2) Platelet Count 121 TH/MM3 99 TH/MM3 97 TH/MM3 (150-450) (150-450) (150-450) Mean Platelet Volume 8.9 FL 8.7 FL 8.4 FL (7.0-11.0) (7.0-11.0) (7.0-11.0) Sodium Level 141 MEQ/L 143 MEQ/L 145 MEQ/L (136-145) (136-145) (136-145) Potassium Level 3.7 MEQ/L 3.9 MEQ/L 3.7 MEQ/L (3.5-5.1) (3.5-5.1) (3.5-5.1) Chloride Level 111 MEQ/L 112 MEQ/L 113 MEQ/L (98-107) (98-107) (98-107) Carbon Dioxide Level 20.0 MEQ/L 19.5 MEQ/L 22.3 MEQ/L (21.0-32.0) (21.0-32.0) (21.0-32.0) Anion Gap 10 MEQ/L (5-15) 12 MEQ/L (5-15) 10 MEQ/L (5-15) Blood Urea Nitrogen 56 MG/DL (7-18) 68 MG/DL (7-18) 74 MG/DL (7-18) Creatinine 2.97 MG/DL 3.12 MG/DL 3.14 MG/DL (0.50-1.00) (0.50-1.00) (0.50-1.00) Estimat Glomerular Filtration 15 ML/MIN (>89) 14 ML/MIN (>89) 14 ML/MIN (>89) Rate Random Glucose 146 MG/DL 154 MG/DL 162 MG/DL (74-106) (74-106) (74-106) Calcium Level 7.5 MG/DL 7.5 MG/DL 7.3 MG/DL (8.5-10.1) (8.5-10.1) (8.5-10.1) Phosphorus Level 3.3 MG/DL 3.8 MG/DL (2.5-4.9) (2.5-4.9) Magnesium Level 2.3 MG/DL 2.2 MG/DL (1.5-2.5) (1.5-2.5) Total Bilirubin 0.6 MG/DL 0.6 MG/DL 0.6 MG/DL (0.2-1.0) (0.2-1.0) (0.2-1.0) Aspartate Amino Transf 241 U/L (15-37) 183 U/L (15-37) 109 U/L (15-37) (AST/SGOT) Alanine Aminotransferase 128 U/L (10-53) 112 U/L (10-53) 95 U/L (10-53) (ALT/SGPT) Alkaline Phosphatase 79 U/L (45-117) 81 U/L (45-117) 85 U/L (45-117) Total Protein 5.0 GM/DL 4.9 GM/DL 5.0 GM/DL (6.4-8.2) (6.4-8.2) (6.4-8.2) Albumin 1.8 GM/DL 1.7 GM/DL 1.6 GM/DL (3.4-5.0) (3.4-5.0) (3.4-5.0) Neutrophils (%) (Auto) 93.8 % 92.3 % (16.0-70.0) (16.0-70.0) Lymphocytes (%) (Auto) 2.9 % 3.4 % (9.0-44.0) (9.0-44.0) Monocytes (%) (Auto) 3.1 % (0.0-8.0) 4.2 % (0.0-8.0) Eosinophils (%) (Auto) 0.1 % (0.0-4.0) 0.0 % (0.0-4.0) Basophils (%) (Auto) 0.1 % (0.0-2.0) 0.1 % (0.0-2.0) Neutrophils # (Auto) 21.4 TH/MM3 18.0 TH/MM3 (1.8-7.7) (1.8-7.7) Lymphocytes # (Auto) 0.7 TH/MM3 0.7 TH/MM3 (1.0-4.8) (1.0-4.8) Monocytes # (Auto) 0.7 TH/MM3 0.8 TH/MM3 (0-0.9) (0-0.9) Eosinophils # (Auto) 0.0 TH/MM3 0.0 TH/MM3 (0-0.4) (0-0.4) Basophils # (Auto) 0.0 TH/MM3 0.0 TH/MM3 (0-0.2) (0-0.2) CBC Comment AUTO DIFF AUTO DIFF Differential Total Cells 100 100 Counted Neutrophils % (Manual) 94 % (16-70) 88 % (16-70) Band Neutrophils % 2 % (0-6) 3 % (0-6) Lymphocytes % 2 % (9-44) 3 % (9-44) Monocytes % 2 % (0-8) 5 % (0-8) Neutrophils # (Manual) 21.9 TH/MM3 17.9 TH/MM3 (1.8-7.7) (1.8-7.7) Nucleated Red Blood Cells 1 /100 WBC 1 /100 WBC (0-0) (0-0) Differential Comment FINAL DIFF FINAL DIFF MANUAL MANUAL Platelet Estimate LOW (NORMAL) LOW (NORMAL) Platelet Morphology Comment NORMAL NORMAL (NORMAL) (NORMAL) Ovalocytes 1+ (NORMAL) 1+ (NORMAL) Keratocytes OCC (NORMAL) Metamyelocytes 1 % (0-1) Acanthocytes OCC (NORMAL) Protein Corrected Calcium 8.5 MG/DL (8.5-10.1) Result Diagram: 10/28/16 0324 10/28/16 0324 Microbiology Microbiology Date/Time Procedure Status Source Growth 10/25/16 13:56 Aerobic Blood Culture - Preliminary Resulted Blood Peripheral NO GROWTH IN 3 DAYS 10/25/16 13:56 Anaerobic Blood Culture - Preliminary Resulted Blood Peripheral NO GROWTH IN 3 DAYS 10/26/16 10:00 Gram Stain - Final Complete Sputum Endotracheal 10/26/16 10:00 Sputum Culture - Final Complete Sputum Endotracheal HEAVY GROWTH NORMAL RESPIRATORY VIRGIL Imaging Last Impressions Chest X-Ray 10/26/16 0000 Signed Impressions: Service Date/Time: Wednesday, October 26, 2016 07:05 - CONCLUSION: Interval development of some left-sided supraclavicular air or any obvious pneumothorax. There is a tiny amount of air just above the aortic knob and lateral to the trachea could represent early pneumomediastinum. Heart enlarged. Lungs are grossly clear. Abhinav Marie MD Head CT 10/24/161999 Signed Impressions: Service Date/Time: October 22:09 - CONCLUSION: 1. There is a new regional area of hypodensity in the medial left lower occipital lobe suggesting an acute nonhemorrhagic infarction in the left CLIENT RESOURCE SPECIALIST distribution. 2. Stable appearance to the hemorrhagic infarction left cerebellum, focal hemorrhage in the right occipital lobe, and old infarction left high occipital lobe. Bradley Morris MD Brain MRI 10/18/16 0000 Signed Impressions: Service Date/Time: Tuesday, October 18, 2016 10:39 - CONCLUSION: New large left cerebral hemisphere infarct involving the anterior cerebellum, SCA territory. The fourth ventricle is midline. The vascular artery looks patent. Abraham Stafford MD FACR Assessment and Plan Disease Oriented Problem List: (1) CVA (cerebral infarction) (2) Petechial hemorrhage Comment: at known cerebellar infarct (3) NSTEMI (non-ST elevated myocardial infarction) (4) Atrial fibrillation with RVR (5) CHF (congestive heart failure) (6) CKD (chronic kidney disease) (7) Elevated troponin (8) Atrial fibrillation, chronic (9) CAD (coronary artery disease) (10) Hypertension (11) Acute on chronic renal insufficiency Symptom Scale: (1) Dyspnea 0-10 Scale: 0 (2) Encephalopathy 0-10 Scale: Unable to quantify Comment: AMS/ CVA + hemorrhage (3) Pain 0-10 Scale: 0 (4) Lethargy 0-10 Scale: Unable to quantify (5) Weakness 0-10 Scale: Unable to quantify Comment: secondary to CA, stroke, hospitalization, decreased appetite. (6) Decreased appetite 0-10 Scale: Unable to quantify Pertinent Non-Medical Issues Psychosocial:. Lives alone locally, supported by with son and daughter locally, other children out of state. 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 Originally from the [facility] those lived in [place] much of her life. Spiritual: CatholicPriest has been in Legal:Patient, due to clinical conditions is unable to participate in decision- making. Not clear that she will regain ability to participate. No advanced directive or HCS. Per [place] statutes legally decision-making would fall to the majority of her 4 adult children. All family working together in decision- making. Ethical issues impacting care: Important Contacts dtr Loli Dickson [phone] son Se Dickson [phone] dtr Lilo Jaeger [phone] dtr Jesscia Dickson [phone] . Prognosis This patient was admitted for an STEMI, heart failure. Prior to this admission doing well despite her chronic medical issues. During this course she suffered acute CVA, which has since evolves into hemorrhage. Unable to have anticoagulation due to hemorrhagic conversion. Remains in A. fib, with occasional RVR. Unable to anticoagulate. High risk for ongoing complications/ neurological decline. Appropriate for hospice if goals compatible. . Code Status: Full Code Plan * Legal decision maker: Patient, due to clinical conditions is unable to participate in decision-making. Not clear that she will regain ability to participate. No advanced directive or HCS. Per [place] statutes legally decision-making would fall to the majority of her 4 adult children. All family working together in decision-making. * Goals : Met with family again today 10/28-- They wish to proceed w/ withdrawal this afternoon as soon as orders can be in place. Review of exhibits, all 4 children to sign. They are agreeable to consult with hospice tomorrow, for possible transition to a hospice care center.Exhibits B, C to be signed. D/w critical care, primary RN, palliative HAIR BOILER OPERATOR Gordon Carreon to assist with orders for comfort for pre-withdrawal, post withdrawal. * CODE STATUS: changed to DNR * SYMPTOMS: -----1630----COMFORT ORDERS TO BE ENTERED BY PALLIATIVE HAIR BOILER OPERATOR at time of withdrawal -- Dyspnea-potential for airway compromise secondary to CVA, hemorrhagic conversion. Lethargic.+ History CHF.+ NSTEMI, pulmonary edema on admission. Currently breathing comfortably on mechanical vent, light sedation. + Pneumothorax, rib fractures status post CPR yesterday. Chest tube in place. Given the development of these complications will likely require prolonged intubation and probably tracheostomy. Will continue to monitor. -- Pain-patient presented with 2 days of back pain,? Referred cardiac pain. Continues to have ongoing back pain. No other chronic pain syndromes reported per family. Nursing headache during admission, likely secondary to CVA , hemorrhage. At home primarily utilize Tylenol for any pain, opiate jud. has utilized some [place] during this course. Sparing use thus far. Also has Tylenol available, sparing use thus far. Cautious use of opiates given risk for neuro-logical decline, goals currently aggressive. Status post CPR yesterday 10/24,+ pneumothorax and probable rib fractures. Currently appears comfortable on light sedation though recent CPR would be significant source of pain. We'll continue to monitor. -- Nausea-intermittent episodes of nausea, patient endorsing feeling "sick" previously--sparing prn Zofran use, will continue to monitor. Now on mechanical vent with OG tube,+ tolerating tube feeding -- Decreased appetite: secondary to recent CA, stroke, risk for aspiration. Will monitor. Now with OG tube with ET tube, tolerating tube feeding. Will likely require prolonged mechanical ventilation thus will require PEG tube. -- Weakness - secondary to CVA, hemorrhagic conversion. Lethargic. + History CHF.+ NSTEMI, pulmonary edema on admission. + New area of hypodensity , likely new stroke in left lower occipital 10/24/16. At risk for ongoing CVA secondary to ongoing atrial fibrillation. If survives course will likely require prolonged rehabilitation and potentially long-term care due to debilitated status. * Palliative care will continue to follow during hospital course as condition evolves, to assist patient/decision-maker with understanding of medical conditions, weighing benefits/burdens of treatment options, for clarification of goals of treatment. Additionally will assist with any symptoms of palliative concern Attestation To help prompt me to consider important information that might be impacting today's encounter and assessment, information from prior notes written by myself or my colleagues may have been "brought forward" into today's note. My signature on this note, however, is an attestation that I personally performed the exam, history, and/or decision-making noted today, and, unless otherwise indicated, the interactions with patient, family, and staff as well as the review of records all occurred today. I also attest that the listed assessment and stated plan reflect my best clinical judgment today based on the combination of historical information, prior notes, and today's exam/ interactions. When time spent is documented, it refers only to time spent today by the signer, or if indicated, combined time spent today by collaborating physician/nurse practitioner. Jessie Asher Oct 28, 2016 14:04
--- NOTE | 2016-10-28 14:08 | EKG ---
Date Performed: 10/28/2016 Time Performed: 09:47:16 PTAGE: 76 years EKG: SINUS BRADYCARDIA WITH MARKED SINUS ARRHYTHMIA SEPTAL MYOCARDIAL INFARCTION , PROBABLY OLD MODERATE T-WAVE ABNORMALITY, CONSIDER LATERAL ISCHEMIA MODERATE T-WAVE ABNORMALITY, CONSIDER INFERIOR ISCHEMIA ABNORMAL ECG Compared to PREVIOUS TRACING , the rate has slowed significantly but ST-T changes persist. Cannot rul e out ischemia, clinical correlation is recommended. PREVIOUS TRACIN10/24/2016 15.14 DOCTOR: Nicholas Morales Interpretating Date/Time 10/28/2016 14:08:03
[2016-10-28] MEDS ORDERED: LORazepam 2 MG/ML VIAL IV ONE ×2 (17:45→18:15)
[2016-10-28] MEDS ORDERED: HYDROmorphone HCL PF 2 MG/ML VIAL IV ONE ×2 (17:45→18:15)
[2016-10-28] MEDS ORDERED: HYOSCYAMINE 0.5 MG/ML AMP IV ONE (17:45)
--- NOTE | 2016-10-28 17:56 | HHI.HCPN ---
Call to report family has elected transition to comfort measures only with compassionate withdrawal of life support this evening. ALEJANDRO Rand and Dr. Robles have previously met with family to provide anticipatory guidance. Discussed with nursing staff. Exhibits B & C on chart, signed. Family will consider hospice in AM if patient survives. NO CODE and orders for comfort written and reviewed with nurse. Tiffanie Carreon Oct 28, 2016 17:56
[2016-10-28] MEDS ORDERED: HYOSCYAMINE 0.5 MG/ML AMP IV PRN (18:15)
[2016-10-28] MEDS ORDERED: FUROSEMIDE 20 MG/2 ML VIAL IV PRN (18:15)
[2016-10-28] MEDS ORDERED: HYDROmorphone HCL PF 2 MG/ML VIAL IV PRN ×2 (18:15)
[2016-10-28] MEDS ORDERED: BISACODYL 10 MG SUPP RECTAL PRN (18:15)
[2016-10-28] MEDS ORDERED: LORazepam 2 MG/ML VIAL IV PRN ×2 (18:15)
[2016-10-28] MEDS ORDERED: LORazepam 2 MG/ML VIAL IVS PRN (18:15)
[2016-10-28] MEDS ORDERED: ACETAMINOPHEN 650 MG SUPP RECTAL PRN (18:15)
[2016-10-28] MEDS: HYDROmorphone HCL PF 2 MG/ML VIAL IV SCH ×2 (20:06→23:27)
[2016-10-28] MEDS: LORazepam 2 MG/ML VIAL IV SCH ×2 (20:06→23:27)
[2016-10-28] MEDS ORDERED: AMIODARONE 200 MG TAB OG-TUBE SCH (21:00)
[2016-10-29] VITALS: PULSE 87
[2016-10-29 04:00] VITALS: PULSE 63
[2016-10-29] MEDS: LORazepam 2 MG/ML VIAL IV SCH ×4 (04:30→16:00)
[2016-10-29] MEDS: HYDROmorphone HCL PF 2 MG/ML VIAL IV SCH ×5 (04:31→16:00)
--- NOTE | 2016-10-29 07:41 | PD.CARD.PN ---
Subjective Subjective Remarks Resting comfortably. No acute distress. Objective Medications Item Value Date Time Furosemide 20 mg 10/28/16 1815 (Lasix Inj) Q6H PRN/IV Vital Signs / I&O Vital Signs Date Time Temp Pulse Resp B/P Pulse Ox O2 Delivery O2 Flow Rate FiO2 10/29/16 04:00 63 10/29/16 00:00 87 10/28/16 23:57 12 10/28/16 20:00 55 10/28/16 18:00 66 10/28/16 16:32 98 40 10/28/16 16:00 55 10/28/16 16:00 97.5 55 20 163/52 100 10/28/16 16:00 40 10/28/16 14:00 72 10/28/16 13:53 100 40 10/28/16 12:13 100 40 10/28/16 12:00 97.5 61 22 146/49 100 10/28/16 12:00 40 10/28/16 12:00 72 10/28/16 10:00 67 10/28/16 08:00 40 10/28/16 08:00 58 10/28/16 08:00 100.4 59 22 136/46 99 I/O 10/28/16 10/28/16 10/28/16 10/29/16 10/29/16 10/29/16 07:00 15:00 23:00 07:00 15:00 23:00 Intake Total 668 ml 706 ml Output Total 500 ml 361 ml 500 ml 56 ml Balance 168 ml 345 ml -500 ml -56 ml IV Total 373 ml 452 ml Tube Feeding 235 ml 194 ml Other 60 ml 60 ml Output Urine Total 500 ml 350 ml 500 ml 50 ml Stool Total 0 ml 1 ml Chest Tube Drainage Total 0 ml 10 ml 0 ml 6 ml Assessment and Plan Problem List: (1) Cardiac arrest Assessment and Plan: No code status now. Patient appears comfortable. Code Status No Code Discussed Condition With Daughter Dakota Andino MD Oct 29, 2016 07:41
[2016-10-29 08:00] VITALS: PULSE 85
[2016-10-29] MEDS: SODIUM CHLORIDE 0.9% FLUSH 10 ML FLUSH IV FLUSH SCH (08:34)
--- NOTE | 2016-10-29 10:43 | HHI.HCPN ---
Reason for visit a. To assist with evaluation and management of symptoms including: decreased appetite, lethargy, weakness. b. To assist medical decision maker(s) with: better understanding of current medical conditions; weighing benefits/burdens of medical treatment options; making medical treatment decisions. . Subjective/Interval History Notified by nsg before arrival to unit that family present at bedside w/ questions, requesting follow up Family elected transition to comfort/withdrawal of life support yesterday. Pt extubated yesterday evening without incident. Around the clock and PRN comfort orders in place. NO prns required. Nursing held this morning dose of scheduled dilaudid as family request pt appeared comfortable without. Breathing comfortably on room air. D/w voting machine mechanic, primary RN-- chest tube will be d/c by critical care. Arterial line to be d/c. Met w family at bedside: daughter, grandson in law, granddaughters. Review of EOL, symptom management. Review hospice role/services/philosophy. Family would like hospice consult -- possible may want to get pt home w hospice assist, as she has been requesting to "go home" since she has been in hospital. They endorse she has a large family readily available to assist with care, and if reasonable to keep her comfortable at home, they may want to try. Otherwise would be open to care center placement. Discuss transfer off ICU to medical floor, while hospice consult pending. To my exam - sleeping soundly, appears peaceful/restful. No dyspnea or distress observed. Does not stir to exam. Feet cool. Unable to palp pedal pulses. Rt lateral chest tube present. . Advance Directives Living Will: Never completed Health Care Surrogate: Never completed Durable Power of Sld Educational Aide: Never completed Objective Vital Signs Date Time Temp Pulse Resp B/P Pulse Ox O2 Delivery O2 Flow Rate FiO2 10/29/16 08:00 85 10/29/16 04:00 63 10/29/16 00:00 87 10/28/16 23:57 12 10/28/16 20:00 55 10/28/16 18:00 66 10/28/16 16:32 98 40 10/28/16 16:00 55 10/28/16 16:00 97.5 55 20 163/52 100 10/28/16 16:00 40 10/28/16 14:00 72 10/28/16 13:53 100 40 10/28/16 12:13 100 40 10/28/16 12:00 97.5 61 22 146/49 100 10/28/16 12:00 40 10/28/16 12:00 72 Intake & Output 10/29/16 10/29/16 07:00 19:00 Output Total 556 ml Balance -556 ml Output Urine Total 550 ml Chest Tube Drainage Total 6 ml Physical Exam CONSTITUTIONAL/GENERAL: This is a thin patient, appears comfortable, peaceful TUBES/LINES/DRAINS: donald catheter.femoral central line, arterial line, scds CARDIOVASCULAR: irregularly irregular. No murmur. Peripheral pulses no palpable Edema to bilateral upper extremities L> R RESPIRATORY/CHEST: Symmetric, unlabored respirations on room air. Clear to auscultation. Breath sounds equal bilaterally. Right lateral chest tube no air leak visible GASTROINTESTINAL: Abdomen soft, flat, non-tender, nondistended. No palpable masses. No guarding. Bowel sounds hypoactive GENITOURINARY: Without palpable bladder distension. Donald catheter in place. NEUROLOGICAL: Lethargic, does not respond to exam. Appears comfortable. Does not stir to my exam. PSYCHIATRIC: No obvious anxiety/depression-- limited assessment due to lethargy/ clinical conditions. . Diagnostic Tests Laboratory Laboratory Tests Test 10/27/16 10/28/16 06:50 03:24 White Blood Count 22.8 TH/MM3 19.5 TH/MM3 (4.0-11.0) (4.0-11.0) Red Blood Count 3.18 MIL/MM3 3.03 MIL/MM3 (4.00-5.30) (4.00-5.30) Hemoglobin 8.5 GM/DL 8.2 GM/DL (11.6-15.3) (11.6-15.3) Hematocrit 26.5 % 25.1 % (35.0-46.0) (35.0-46.0) Mean Corpuscular Volume 83.2 FL 82.8 FL (80.0-100.0) (80.0-100.0) Mean Corpuscular Hemoglobin 26.6 PG 27.0 PG (27.0-34.0) (27.0-34.0) Mean Corpuscular Hemoglobin 32.0 % 32.6 % Concent (32.0-36.0) (32.0-36.0) Red Cell Distribution Width 15.0 % 15.1 % (11.6-17.2) (11.6-17.2) Platelet Count 99 TH/MM3 97 TH/MM3 (150-450) (150-450) Mean Platelet Volume 8.7 FL 8.4 FL (7.0-11.0) (7.0-11.0) Neutrophils (%) (Auto) 93.8 % 92.3 % (16.0-70.0) (16.0-70.0) Lymphocytes (%) (Auto) 2.9 % 3.4 % (9.0-44.0) (9.0-44.0) Monocytes (%) (Auto) 3.1 % (0.0-8.0) 4.2 % (0.0-8.0) Eosinophils (%) (Auto) 0.1 % (0.0-4.0) 0.0 % (0.0-4.0) Basophils (%) (Auto) 0.1 % (0.0-2.0) 0.1 % (0.0-2.0) Neutrophils # (Auto) 21.4 TH/MM3 18.0 TH/MM3 (1.8-7.7) (1.8-7.7) Lymphocytes # (Auto) 0.7 TH/MM3 0.7 TH/MM3 (1.0-4.8) (1.0-4.8) Monocytes # (Auto) 0.7 TH/MM3 0.8 TH/MM3 (0-0.9) (0-0.9) Eosinophils # (Auto) 0.0 TH/MM3 0.0 TH/MM3 (0-0.4) (0-0.4) Basophils # (Auto) 0.0 TH/MM3 0.0 TH/MM3 (0-0.2) (0-0.2) CBC Comment AUTO DIFF AUTO DIFF Differential Total Cells 100 100 Counted Neutrophils % (Manual) 94 % (16-70) 88 % (16-70) Band Neutrophils % 2 % (0-6) 3 % (0-6) Lymphocytes % 2 % (9-44) 3 % (9-44) Monocytes % 2 % (0-8) 5 % (0-8) Neutrophils # (Manual) 21.9 TH/MM3 17.9 TH/MM3 (1.8-7.7) (1.8-7.7) Nucleated Red Blood Cells 1 /100 WBC 1 /100 WBC (0-0) (0-0) Differential Comment FINAL DIFF FINAL DIFF MANUAL MANUAL Platelet Estimate LOW (NORMAL) LOW (NORMAL) Platelet Morphology Comment NORMAL NORMAL (NORMAL) (NORMAL) Ovalocytes 1+ (NORMAL) 1+ (NORMAL) Keratocytes OCC (NORMAL) Sodium Level 143 MEQ/L 145 MEQ/L (136-145) (136-145) Potassium Level 3.9 MEQ/L 3.7 MEQ/L (3.5-5.1) (3.5-5.1) Chloride Level 112 MEQ/L 113 MEQ/L (98-107) (98-107) Carbon Dioxide Level 19.5 MEQ/L 22.3 MEQ/L (21.0-32.0) (21.0-32.0) Anion Gap 12 MEQ/L (5-15) 10 MEQ/L (5-15) Blood Urea Nitrogen 68 MG/DL (7-18) 74 MG/DL (7-18) Creatinine 3.12 MG/DL 3.14 MG/DL (0.50-1.00) (0.50-1.00) Estimat Glomerular Filtration 14 ML/MIN (>89) 14 ML/MIN (>89) Rate Random Glucose 154 MG/DL 162 MG/DL (74-106) (74-106) Calcium Level 7.5 MG/DL 7.3 MG/DL (8.5-10.1) (8.5-10.1) Phosphorus Level 3.8 MG/DL (2.5-4.9) Magnesium Level 2.2 MG/DL (1.5-2.5) Total Bilirubin 0.6 MG/DL 0.6 MG/DL (0.2-1.0) (0.2-1.0) Aspartate Amino Transf 183 U/L (15-37) 109 U/L (15-37) (AST/SGOT) Alanine Aminotransferase 112 U/L (10-53) 95 U/L (10-53) (ALT/SGPT) Alkaline Phosphatase 81 U/L (45-117) 85 U/L (45-117) Total Protein 4.9 GM/DL 5.0 GM/DL (6.4-8.2) (6.4-8.2) Albumin 1.7 GM/DL 1.6 GM/DL (3.4-5.0) (3.4-5.0) Metamyelocytes 1 % (0-1) Acanthocytes OCC (NORMAL) Protein Corrected Calcium 8.5 MG/DL (8.5-10.1) Result Diagram: 10/28/1632310/28/16323 Assessment and Plan Disease Oriented Problem List: (1) CVA (cerebral infarction) (2) Petechial hemorrhage Comment: at known cerebellar infarct (3) NSTEMI (non-ST elevated myocardial infarction) (4) Atrial fibrillation with RVR (5) CHF (congestive heart failure) (6) CKD (chronic kidney disease) (7) Elevated troponin (8) Atrial fibrillation, chronic (9) CAD (coronary artery disease) (10) Hypertension (11) Acute on chronic renal insufficiency Symptom Scale: (1) Dyspnea 0-10 Scale: 0 (2) Encephalopathy 0-10 Scale: Unable to quantify Comment: AMS/ CVA + hemorrhage (3) Pain 0-10 Scale: 0 (4) Lethargy 0-10 Scale: Unable to quantify (5) Weakness 0-10 Scale: Unable to quantify Comment: secondary to [place], stroke, hospitalization, decreased appetite. (6) Decreased appetite 0-10 Scale: Unable to quantify Pertinent Non-Medical Issues Psychosocial:. Lives alone locally, supported by with son and daughter locally, other children out of state. 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 Originally from the [facility] those lived in [place] much of her life. Spiritual: [employer] has been in Legal:Patient, due to clinical conditions is unable to participate in decision- making. Not clear that she will regain ability to participate. No advanced directive or HCS. Per [place] statutes legally decision-making would fall to the majority of her 4 adult children. All family working together in decision- making. Ethical issues impacting care: Important Contacts dtr Loli Dickson [phone] son Se Yessi [phone] dtr Lilo Jaeger [phone] dtr Jessica Dickson [phone] . Prognosis This patient was admitted for an STEMI, heart failure. Prior to this admission doing well despite her chronic medical issues. During this course she suffered acute CVA, which has since evolves into hemorrhage. Unable to have anticoagulation due to hemorrhagic conversion. Remains in A. fib, with occasional RVR. Unable to anticoagulate. High risk for ongoing complications/ neurological decline. Appropriate for hospice if goals compatible. . Code Status: No Code Plan * Legal decision maker: Patient, due to clinical conditions is unable to participate in decision-making. Not clear that she will regain ability to participate. No advanced directive or HCS. Per [place] statutes legally decision-making would fall to the majority of her 4 adult children. All family working together in decision-making. * Goals : s/p withdrawal of life support 10/28/16- transition to comfort focus. HOSPICE consultation ordered today. Goals for comfort at EOL. Family hopeful to get pt home or to a care center. -- transfer to medical floor in place * CODE STATUS: DNR * SYMPTOMS: -- Dyspnea-potential for airway compromise secondary to CVA, hemorrhagic conversion. Lethargic.on scheduled ativan, dilaudid. no dyspnea or distress reported, no prns required, will cont to evaluate -- Pain-patient presented with 2 days of back pain,? Referred cardiac pain. + new rib fx, chest tube 2/2 CPR. No other chronic pain syndromes reported per family. At home primarily utilize Tylenol for any pain, opiate jud. has utilized some [place] during this hospital course. scheduled dilaudid + prn dilaudid for comfort- no prns required thus far, comfortable. We'll continue to monitor. -- Nausea-intermittent episodes of nausea, patient endorsing feeling "sick" previously--sparing prn Zofran use, will continue to monitor. * Palliative care will continue to follow during hospital course as condition evolves, to assist patient/decision-maker with understanding of medical conditions, weighing benefits/burdens of treatment options, for clarification of goals of treatment. Additionally will assist with any symptoms of palliative concern Attestation To help prompt me to consider important information that might be impacting today's encounter and assessment, information from prior notes written by myself or my colleagues may have been "brought forward" into today's note. My signature on this note, however, is an attestation that I personally performed the exam, history, and/or decision-making noted today, and, unless otherwise indicated, the interactions with patient, family, and staff as well as the review of records all occurred today. I also attest that the listed assessment and stated plan reflect my best clinical judgment today based on the combination of historical information, prior notes, and today's exam/ interactions. When time spent is documented, it refers only to time spent today by the signer, or if indicated, combined time spent today by collaborating physician/nurse practitioner. Jessie Asher Oct 29, 2016 10:43
[2016-10-29 12:00] VITALS: PULSE 94
--- NOTE | 2016-10-29 13:50 | HHI.CCPN ---
Subjective Remarks/Hospital Course 10/22: The patient is a 76-year-old female with past medical history of chronic atrial fibrillation, coronary artery disease, hypertension, chronic kidney disease, CVA, gastroesophageal reflux disease who was admitted to [facility] under hospitalist service on October 15 with elevated troponins/non-ST elevation [place]. She underwent cardiac catheterization on October [address] Andino which showed overall minimal left coronary system disease. Echocardiogram from October 17 showed moderate to severe concentric LVH, hypertrophic obstructive cardiomyopathy with EF of 70-75%. The patient was placed on aspirin, Imdur, Lopressor and hydralazine. On October [address] scan of the brain without contrast for dizziness and was found to have areas of increased density involving the right occipital lobe. Subsequently, the patient underwent an MRI of the brain on October 18 which showed new large cerebral hemisphere infarct involving the anterior cerebellum with no hemorrhage evident. The patient was on Xarelto for her stroke and atrial fibrillation. This afternoon code blue was called as the patient was found unresponsive and hypotensive with systolic blood pressure in 60s to 70s. The patient, however, never lost a pulse and did not receive any ACLS drugs. She was given 1 liter bolus of normal saline and transferred to CVICU. She became a little bit more awake and her blood pressure improved to 152/69 with a pulse of 87. Current saturation 99%. Her last chest x-ray from October 20 showed no evidence of any acute disease. The patient is scheduled for repeat CT scan of the brain to rule out any hemorrhagic conversion from her stroke. Most of the history was obtained from reviewing medical records as patient is a poor historian. 10/23: Patient had chest pain earlier with tachycardia which responded with IV Lopressor. Her underlying rhythm is A. fib and she subsequently developed RVR with heart rate in the 140s. She is sitting up in bed moaning at the time of my evaluation and requesting water. Does not really follow commands on my questioning. According to her daughter she follows and recognizes her. She does open eyes spontaneously. 10/24: Awake and alert, oriented 3, follows commands. Moves all 4 extremities. Laying in bed not in any acute distress. Denies any headache or chest pain. 10/25: Patient went into V. tach arrest at 1456 hrs yesterday and underwent CPR/ ACLS protocol for about 13 minutes including defibrillation prior to return of spontaneous circulation. She was intubated during the code and placed on mechanical ventilation. Subsequently she had a second episode of cardiac arrest at 1534 hrs. where she became bradycardic followed by asystole for which she underwent CPR/ACLS protocol converted to V. tach during that code and was successfully defibrillated and converted back to her original atrial fibrillation. She was hypotensive following the cardiac arrest requiring Levophed for pressor support. She did have a right pneumothorax for which she had a right chest tube placed following the above episodes. This morning patient remains encephalopathic, orally intubated on mechanical ventilation. On Levophed 8 mics per minute and amiodarone gtt. 10/26: Drowsy, arousable, opens eyes spontaneously and on command. Squeezes weakly with both hands on command. He remains orally intubated on mechanical ventilation. Levophed just turned off. Remains on amiodarone gtt. Right sided chest tube with no air leak. 10/27: Drowsy, arousable, squeezes weakly with both hands on command. On mechanical ventilation via ET tube. Off all pressors. Remains on amiodarone gtt. Right sided chest tube remains in place with no air leak. Positive fluid balance noted despite Lasix. Awaiting a.m. labs 10/28: Drowsy, arousable, squeezes weakly with both hands on command. Remains on mechanical ventilation via ET tube. Worsening BUN/creatinine noted. On Lasix to mobilize fluid. 10/29: Performed terminal wean and extubated to room air on 10/28. Appears comfortable today. Chest tube discontinued. Patient being transferred to palliative care service on the floor while awaiting decision by family regarding hospice. Objective Vital Signs Date Time Temp Pulse Resp B/P Pulse Ox O2 Delivery O2 Flow Rate FiO2 10/29/16 12:00 94 10/28/16 23:57 12 10/28/16 16:32 98 40 10/28/16 16:00 97.5 163/52 Intake and Output 10/28/16 10/28/16 10/29/16 08:00 16:00 00:00 Intake Total 668 ml 706 ml Output Total 500 ml 361 ml 500 ml Balance 168 ml 345 ml -500 ml Result Diagram: 10/28/16 0324 10/28/16 0324 Imaging CXR 10/25 (following chest tube placement)-personally reviewed: ET tube above debi, right sided chest tube in place with resolution of pneumothorax, lung weber clear with no obvious infiltrates Last [address] 10/24/161999 Signed Impressions: Service Date/Time: October 22:09 - CONCLUSION: 1. There is a new regional area of hypodensity in the medial left lower occipital lobe suggesting an acute nonhemorrhagic infarction in the left INTEGRITY ENGINEER distribution. 2. Stable appearance to the hemorrhagic infarction left cerebellum, focal hemorrhage in the right occipital lobe, and old infarction left high occipital lobe. Bradley Morris MD Chest X-Ray 10/24/16 Signed Impressions: Service Date/Time: October 18:08 - CONCLUSION: Right chest tube in good position. No pneumothorax seen. Bradley Morris MD Chest X-Ray 10/24/16 Signed Impressions: Service Date/Time: October 15:38 - CONCLUSION: 1. Interval development of small right-sided pneumothorax measuring up to 1.5 cm. 2. ETT 1.5 cm above the debi. 3. Remainder the exam is unchanged. Sarthak Floyd MD Last Impressions Head CT 10/22/16 Signed Impressions: Service Date/Time: Saturday, October 22, 2016 13:31 - CONCLUSION: 1. Extensive petechial hemorrhage associated with a known left cerebellar infarct with surrounding edema and mass effect with partial effacement of the fourth ventricle and mild compression on the brainstem from the left side. 2. Acute on chronic infarct in the right occipital lobe also associated with some petechial hemorrhage but without significant localized mass effect. 3. Stable remote left parietal occipital infarct. Chandler Manning MD Chest X-Ray 10/22/16 Signed Impressions: Service Date/Time: Saturday, October 22, 2016 14:05 - CONCLUSION: 1. Cardiomegaly. Basilar density most characteristic of atelectasis. No effusion or pneumothorax. Chandler Manning MD Brain MRI 10/18/16 Signed Impressions: Service Date/Time: Tuesday, October 18, 2016 10:39 - CONCLUSION: New large left cerebral hemisphere infarct involving the anterior cerebellum, SCA territory. The fourth ventricle is midline. The vascular artery looks patent. Abraham Stafford MD FACR Objective Remarks General: Elderly female currently orally intubated on mechanical ventilation. HEENT: Atraumatic and normocephalic. Pupils equal round and reactive to light Conjunctiva pink. Nonicteric sclerae. Oral mucosa within normal. NECK: Supple. No JVD, adenopathy or thyromegaly. Trachea midline. CARDIOVASCULAR: Irregularly irregular. Normal S1-S2. No murmurs, rubs or gallops noted. PULMONARY: Orally intubated on mechanical ventilation, Bilateral equal air entry. No rales or wheezing. Right sided chest tube in place with no air leak noted ABDOMEN: Soft, nontender, no distension. Positive bowel sounds. EXTREMITIES: No cyanosis, clubbing. Trace edema NEURO: Drowsy, easily arousable, opens eyes spontaneously and on command. Has weak hand bar back bilaterally, orally intubated on mechanical ventilation, Pupils 3 mm bilaterally, reactive. Plantars equivocal Access: Right femoral central venous catheter, left femoral arterial catheter placed on 10/24/16 HEENT/Neuro: Positive pallor, No icterus, tongue moist, INDER, drowsy/ encephalopathic Neck: No JVD Chest/pulmonary: CTA bilaterally Cardiovascular: S1-S2 irregularly irregular, no gallop or murmur GI/abdomen: Soft, nontender, bowel sounds present Extremities: Warm bilaterally, bilateral edema Procedures 10/16/16 cardiac catheterization A/P Assessment and Plan IMPRESSION 1. Cardiac arrest status post CPR 2. Encephalopathy. 3. recent large left cerebellar hemisphere infarct with minimal hemorrhagic conversion and cerebral edema with mass effect on fourth ventricle. New left occipital lobe infarct 4. Non-ST elevation [place] status post cardiac catheterization which showed minimal coronary artery disease. 5. Chronic atrial fibrillation, on Xarelto(now off). 6. Hypertension. 7. Chronic kidney disease. 8. Gastroesophageal reflux disease. 9. History of CVA. 10. Hypertrophic obstructive cardiomyopathy 11. A. fib with RVR 12. Hypotension 13. Acute respiratory failure on mechanical ventilation 14. Right pneumothorax status post chest tube placement 15: Fungal UTI RECOMMENDATIONS Family elected to transition from aggressive care to comfort measures only and patient underwent terminal wean and 10/28. Currenly appears comfortable on room air. Chest tube discontinued today. Patient will be transferred to the floor under palliative care service. Family deciding regarding hospice at home versus hospice care facility. DNR status. Critical care will sign off. Kyrie Lees MD Oct 29, 2016 13:50
[2016-10-29 16:00] VITALS: PULSE 80
== END 2016-10-29 18:42 | disposition hospice, inpatient (51) | DRG 280 ==
LOC: NEPC 08:26 → NEDA 10:34 → HCIS 13:04 → HCVR 10-22 13:06 → N03A 10-22 17:58
PROVIDERS: ADMIT Family Medicine; ATTEND Family Medicine
PROC: B2111ZZ Fluoroscopy of Multiple Coronary Arteries using Low Osmolar Contrast (ICD-10-PCS; 2016-10-16)
PROC: 5A12012 Performance of Cardiac Output, Single, Manual (ICD-10-PCS; 2016-10-22)
PROC: 5A1955Z Respiratory Ventilation, Greater than 96 Consecutive Hours (ICD-10-PCS; principal; 2016-10-24)
PROC: 04HY32Z Insertion of Monitoring Device into Lower Artery, Percutaneous Approach (ICD-10-PCS; 2016-10-24)
PROC: 5A2204Z Restoration of Cardiac Rhythm, Single (ICD-10-PCS; 2016-10-24)
PROC: 0BH17EZ Insertion of Endotracheal Airway into Trachea, Via Natural or Artificial Opening (ICD-10-PCS; 2016-10-24)
PROC: 5A12012 Performance of Cardiac Output, Single, Manual (ICD-10-PCS; 2016-10-24)
PROC: 06HN33Z Insertion of Infusion Device into Left Femoral Vein, Percutaneous Approach (ICD-10-PCS; 2016-10-24)
PROC: B54CZZA Ultrasonography of Left Lower Extremity Veins, Guidance (ICD-10-PCS; 2016-10-24)
PROC: 0W9930Z Drainage of Right Pleural Cavity with Drainage Device, Percutaneous Approach (ICD-10-PCS; 2016-10-24)
DX: I21.4 Non-ST elevation (NSTEMI) myocardial infarction (principal); G93.5 Compression of brain; G93.6 Cerebral edema; I61.4 Nontraumatic intracerebral hemorrhage in cerebellum; Z51.5 Encounter for palliative care; I63.40 Cerebral infarction due to embolism of unspecified cerebral artery; N17.0 Acute kidney failure with tubular necrosis; J18.9 Pneumonia, unspecified organism; J96.00 Acute respiratory failure, unspecified whether with hypoxia or hypercapnia; I50.33 Acute on chronic diastolic (congestive) heart failure; G93.40 Encephalopathy, unspecified; I47.2 Ventricular tachycardia; N18.3 Chronic kidney disease, stage 3 (moderate); I13.0 Hypertensive heart and chronic kidney disease with heart failure and stage 1 through stage 4 chronic kidney disease, or unspecified chronic kidney disease; E87.2 Acidosis; I42.1 Obstructive hypertrophic cardiomyopathy; E87.1 Hypo-osmolality and hyponatremia; J44.0 Chronic obstructive pulmonary disease with (acute) lower respiratory infection; I62.9 Nontraumatic intracranial hemorrhage, unspecified; J93.9 Pneumothorax, unspecified; B37.49 Other urogenital candidiasis; S22.49XA Multiple fractures of ribs, unspecified side, initial encounter for closed fracture; I48.2 Chronic atrial fibrillation; I25.10 Atherosclerotic heart disease of native coronary artery without angina pectoris; I16.0 Hypertensive urgency; K21.9 Gastro-esophageal reflux disease without esophagitis; I25.2 Old myocardial infarction; E78.5 Hyperlipidemia, unspecified; M19.90 Unspecified osteoarthritis, unspecified site; H55.00 Unspecified nystagmus; I27.2 Other secondary pulmonary hypertension; I95.9 Hypotension, unspecified; R63.0 Anorexia; X58.XXXA Exposure to other specified factors, initial encounter; Y92.230 Patient room in hospital as the place of occurrence of the external cause; Z66 Do not resuscitate; Z79.01 Long term (current) use of anticoagulants; Z86.73 Personal history of transient ischemic attack (TIA), and cerebral infarction without residual deficits; Z91.14 Patient's other noncompliance with medication regimen
CPT/HCPCS: 31500; 36600; 70450; 70551; 71010; 71035; 76937; 80048; 80053; 80061; 81001; 82550; 82552; 82805; 82948; 83605; 83735; 83880; 84100; 84439; 84443; 84480; 84484; 85007; 85025; 85027; 85610; 85730; 87040; 87070; 87086; 87205; 87641; 87804; 92950; 93005; 93306; 93454; 94002; 94003; 94640; 94664; 95819; 96361; 96374; 96375; C1769; C1893; C9113; J0171; J0282; J0360; J0456; J0461; J0692; J0696; J1170; J1450; J1940; J1980; J2060; J2250; J2270; J2405; J3475; J7030; J7040; J7050; J7060; Q9967